=== PATIENT | female | born 1935 | race Caucasian/White ===

== ENCOUNTER 2018-07-03 12:25 | Inpatient (IN) | payer MEDICARE, OTHER, SELFPAY ==
[2018-07-03] VITALS (27 sets, daily range): BP systolic 92–172; BP diastolic 33–117; PULSE 57–93; RESP 16–21; TEMP 36–36.7; O2SAT 87–100
--- NOTE | 2018-07-03 12:25 | W.ED.GENAD ---
Discharge Plan Disposition Patient Disposition: [facility] INPATIENT Condition: Fair Discharge Details Chief Complaint: Orthopedic Clinical Impression: Closed fracture of left hip Reason For Visit: KAMILA Attending Provider: Erasto Erickson Primary Care Provider: THO ENRIQUEZ ED Provider: Marley Patricia Medical Decision Making Patient is a 83-year-old female with history of hypertension, hyperlipidemia and hypothyroidism, presenting today with chief complaint of left hip pain. She reports a prior to arrival, she tripped over a small throw rug in her kitchen and fell landing on her left hip. She is indicating the lateral aspect of the hip is area of maximal discomfort. Patient is noted to be slightly shortened on exam, no rotational defect is noted. Neurovascularly intact with no sensory deficits appreciated. She denies other injury at the time of the incident. Remembers the fall, no loss of conscious. Did not strike her head. Pelvis stable on exam. Neuro exam is intact. Patient received 75 mcg of fentanyl prior to arrival. Does not indicate that she needs further pain medication at this time. Will obtain x-rays of the left hip Patient to arrival back to the department, she is requesting further pain medication will give another 50 of fentanyl X-ray significant for a femoral neck fracture. Chest x-ray and laboratory evaluation was ordered as his EKG. Will consult with Orth EKG was obtained reviewed by Dr. Lang. Patient is noted to be in sinus rhythm with a rate of 70. T wave inversions are noted but no previous EKG is available. She advised no acute findings to suggest ischemia Consulted with Dr. Erickson. Patient last dated 729 this morning, will remain n.p.o. while here. He advised surgical intervention this afternoon. We will also consult with hospitalist Spoke with Dr. Paris who will place admission orders. Patient wishes to be full code. Consulted with anesthesia who performed a block to help with discomfort. Patient tolerated block well. She is remained n.p.o. while here. Patient being transported to surgery with Dr. Erickson [facility] General Mode of arrival: EMS. Date/Time Provider Initiated Documentation: 07/03/18 12:30. Limitations to Documentation: no limitations. Information obtained by: patient and EMS. History of Present Illness 83 year old F presents to the emergency department with the chief complaint of left hip pain, described as moderate, with intensity rated at 7. Quality is described as aching, and is localized to the left and lower extremity. Patient reports no radiation. Patient started experiencing this minute(s) and it has been constant. Immobilization improves symptom(s), Movement worsens symptoms . Patient notes no other symptoms.; denies chest pain, cough, fever/chills, headaches, nausea/vomiting and rash. Patient did receive the following treatments prior to arrival, other (has received 75mg Fentanyl prior to arrival by EMS) Related Data Home Medications Medication Instructions Recorded Confirmed ascorbic acid (vitamin C) [Vitamin 500 mg PO DAILY 08/17/14 07/03/18 C] aspirin 81 mg PO DAILY 08/17/14 07/03/18 calcium carbonate-vitamin D3 1 tab PO DAILY 08/17/14 07/03/18 [Calcium 600 + D(3)] cholecalciferol (vitamin D3) 1,000 unit PO DAILY 08/17/14 07/03/18 glucosamine terrazas 2KCl-chondroit 1 cap PO DAILY 08/17/14 07/03/18 [Glucosamine Sulf-Chondroitin] metoprolol tartrate 25 mg PO BID 08/17/14 07/03/18 rosuvastatin [Crestor] 20 mg PO DAILY 08/17/14 07/03/18 levothyroxine 25 mcg PO DAILY 01/06/17 07/03/18 Allergies Allergy/AdvReac Type Severity Reaction Status Date / Time Tetanus Vaccines and Toxoid AdvReac Mild Swelling/Ed Unverified 07/03/18 12:39 kady Review of Systems Constitutional Reports as per HPI Eyes Denies change in vision Cardiovascular Reports as per HPI, Denies chest pain and Denies dyspnea Respiratory Reports as per HPI, Denies cough and Denies dyspnea Gastrointestinal Reports as per HPI and Denies abdominal pain Genitourinary Denies urinary incontinence Musculoskeletal Reports as per HPI, Reports abnormal gait (patient has not attempted to weight bear since fall), Denies numbness and Denies tingling Integumentary/Breasts Reports as per HPI, Denies erythema, Denies rash, Denies unusual bruising and Denies wounds Neurologic Reports abnormal gait (patient has not attempted to weight bear since fall), Denies numbness and Denies tingling [facility] Social History Smoking/Tobacco Use Status: Never Exam Const General: cooperative, healthy appearing, comfortable, no acute distress, well developed and well groomed Nutritional Appearance: average body habitus and well nourished Orientation: alert and awake Neck Neck: normal visual inspection, full ROM, trachea midline and supple Chest Chest: normal inspection of the chest, normal palpation of entire chest wall and no localized rib tenderness Resp Effort & Inspection: normal respiratory effort, able to speak in complete sentences and no respiratory distress Auscultation: clear to auscultation bilaterally, no rales, no rhonchi and no wheezes Cardio Rate: regular rate Rhythm: regular rhythm Heart Sounds: S1 normal and S2 normal GI Inspection: normal to inspection Palpation: soft, no hepatosplenomegaly, no guarding and nontender Skin General skin exam: no rashes or lesions noted Trauma: no lacerations or abrasions Neuro General: alert, awake and oriented x3 Cognition: normal cognition Speech: speech normal Gait: gait abnormal (brought in via EMS, unable to weight bear at this time) Sensory Exam: no sensory deficits noted (no saddle paresthesias noted) Extrem General: abnormal to inspection (patient is slightly shortned on the left side, no rotational deformity. Pain with palpation over the lateral aspect of the hip over greater trochanter. No pain with )
--- NOTE | 2018-07-03 12:57 | ED.GENADUL_ITS ---
Discharge Plan Disposition [facility] Condition: Fair Discharge Details Chief Complaint: Orthopedic Clinical Impression: Closed fracture of left hip Reason For Visit: KAMILA Attending Provider: Erasto Erickson Primary Care Provider: THO ENRIQUEZ ED Provider: Marley Patricia Medical Decision Making Patient is a 83-year-old female with history of hypertension, hyperlipidemia and hypothyroidism, presenting today with chief complaint of left hip pain. She reports a prior to arrival, she tripped over a small throw rug in her kitchen and fell landing on her left hip. She is indicating the lateral aspect of the hip is area of maximal discomfort. Patient is noted to be slightly shortened on exam, no rotational defect is noted. Neurovascularly intact with no sensory deficits appreciated. She denies other injury at the time of the incident. Remembers the fall, no loss of conscious. Did not strike her head. Pelvis stable on exam. Neuro exam is intact. Patient received 75 mcg of fentanyl prior to arrival. Does not indicate that she needs further pain medication at this time. Will obtain x-rays of the left hip Patient to arrival back to the department, she is requesting further pain medication will give another 50 of fentanyl X-ray significant for a femoral neck fracture. Chest x-ray and laboratory evaluation was ordered as his EKG. Will consult with Orth EKG was obtained reviewed by Dr. Lang. Patient is noted to be in sinus rhythm with a rate of 70. T wave inversions are noted but no previous EKG is available. She advised no acute findings to suggest ischemia Consulted with Dr. Erickson. Patient last dated 729 this morning, will remain n.p.o. while here. He advised surgical intervention this afternoon. We will also consult with hospitalist Spoke with Dr. Paris who will place admission orders. Patient wishes to be full code. Consulted with anesthesia who performed a block to help with discomfort. Patient tolerated block well. She is remained n.p.o. while here. Patient being transported to surgery with Dr. Erickson [facility] General Mode of arrival: EMS . Date/Time Provider Initiated Documentation: 07/03/18 12:30 . Limitations to Documentation: no limitations . Information obtained by: patient and EMS . History of Present Illness 83 year old F presents to the emergency department with the chief complaint of left hip pain, described as moderate, with intensity rated at 7. Quality is described as aching, and is localized to the left and lower extremity. Patient reports no radiation. Patient started experiencing this minute(s) and it has been constant. Immobilization improves symptom(s), Movement worsens symptoms . Patient notes no other symptoms.; denies chest pain, cough , fever/chills, headaches, nausea/vomiting and rash. Patient did receive the following treatments prior to arrival, other (has received 75mg Fentanyl prior to arrival by EMS) Related Data Home Medications Medication Instructions Recorded Confirmed ascorbic acid (vitamin C) [Vitamin 500 mg PO DAILY 08/17/14 07/03/18 C] aspirin 81 mg PO DAILY 08/17/14 07/03/18 calcium carbonate-vitamin D3 1 tab PO DAILY 08/17/14 07/03/18 [Calcium 600 + D(3)] cholecalciferol (vitamin D3) 1,000 unit PO DAILY 08/17/14 07/03/18 glucosamine terrazas 2KCl-chondroit 1 cap PO DAILY 08/17/14 07/03/18 [Glucosamine Sulf-Chondroitin] metoprolol tartrate 25 mg PO BID 08/17/14 07/03/18 rosuvastatin [Crestor] 20 mg PO DAILY 08/17/14 07/03/18 levothyroxine 25 mcg PO DAILY 01/06/17 07/03/18 Allergies Allergy/AdvReac Type Severity Reaction Status Date / Time Tetanus Vaccines and Toxoid AdvReac Mild Swelling/Ed Unverified 07/03/18 12:39 kady Review of Systems Constitutional Reports as per HPI Eyes Denies change in vision Cardiovascular Reports as per HPI, Denies chest pain and Denies dyspnea Respiratory Reports as per HPI, Denies cough and Denies dyspnea Gastrointestinal Reports as per HPI and Denies abdominal pain Genitourinary Denies urinary incontinence Musculoskeletal Reports as per HPI, Reports abnormal gait (patient has not attempted to weight bear since fall), Denies numbness and Denies tingling Integumentary/Breasts Reports as per HPI, Denies erythema, Denies rash, Denies unusual bruising and Denies wounds Neurologic Reports abnormal gait (patient has not attempted to weight bear since fall), Denies numbness and Denies tingling [facility] Social History Smoking/Tobacco Use Status: Never Exam Const General: cooperative, healthy appearing, comfortable, no acute distress, well developed and well groomed Nutritional Appearance: average body habitus and well nourished Orientation: alert and awake Neck Neck: normal visual inspection, full ROM, trachea midline and supple Chest Chest: normal inspection of the chest, normal palpation of entire chest wall and no localized rib tenderness Resp Effort & Inspection: normal respiratory effort, able to speak in complete sentences and no respiratory distress Auscultation: clear to auscultation bilaterally, no rales, no rhonchi and no wheezes Cardio Rate: regular rate Rhythm: regular rhythm Heart Sounds: S1 normal and S2 normal GI Inspection: normal to inspection Palpation: soft, no hepatosplenomegaly, no guarding and nontender Skin General skin exam: no rashes or lesions noted Trauma: no lacerations or abrasions Neuro General: alert, awake and oriented x3 Cognition: normal cognition Speech: speech normal Gait: gait abnormal (brought in via EMS, unable to weight bear at this time) Sensory Exam: no sensory deficits noted (no saddle paresthesias noted) Extrem General: abnormal to inspection (patient is slightly shortned on the left side, no rotational deformity. Pain with palpation over the lateral aspect of the hip over greater trochanter. No pain with )
--- NOTE | 2018-07-03 13:21 | DI.RAD_ITS ---
SYMPTOMS/DIAGNOSIS: PAIN OVER LEFT LATERAL HIP S/P FALL CHEST X-RAY, AP VIEW: Comparison is 08/17/14. The heart size and pulmonary vasculature are within normal limits. The patient is status post CABG. The lungs are clear. No effusions or pneumothoraces are identified. Degenerative changes are seen in the spine. IMPRESSION: No acute pulmonary process. LEFT HIP AND PELVIS: There is a left femoral neck fracture with mild superior displacement of the distal fracture. The left femoral head is seated within the acetabulum. No other fracture or dislocation is seen. The soft tissues are unremarkable. IMPRESSION: Displaced left femoral neck fracture.
[2018-07-03] MEDS: fentaNYL 100 MCG/2 ML VIAL 50 MCG IVP (13:28)
--- NOTE | 2018-07-03 14:01 | PT.INNT ---
Date of service: 07/03/18 Time of Service: 14:01 PT Notes PHYSICAL THERAPY NOTE 07/03/18 PT Consult received, chart reviewed for 83y old female in emergency room with hip fracture. Will need ortho consult and post operative PT Consultation order to begin PT services. Will await PT Consult order post op. Natalie Ventura PT
[2018-07-03] MEDS: Bupivacaine 0.25% Pres-Free 30 ML VIAL IJ (14:08)
[2018-07-03 14:50] LABS: HGB 13.8 g/dL (12.0-15.5); Mean Corp. HGB Concentration 33.7 g/dL (32.0-36.0); Mean Corpuscular Hemoglobin 30.2 pg (27.0-33.0); Mean Corpuscular Volume 89.7 fL (80-95); Mean Platelet Volume 10.8 fL (8.0-11.0); Platelet Count 185 x1000/uL (130-400); RBC 4.57 m/cumm (4.00-5.20); RBC Distribution Width 14.1 % (11.7-14.6); White Blood Cell Count 9.86 k/cumm (4.4-10.8)
[2018-07-03] MEDS: Lactated Ringers 1,000 ML 200 ML IV ×2 (14:53→17:30)
[2018-07-03 15:07] LABS: ALT 21 U/L (12-78); AST 19 U/L (15-37); Albumin 3.7 g/dL (3.4-5.0); Alkaline Phosphatase 72 U/L (46-116); Anion Gap 9.7 mmol/L (3-11); BUN 19 mg/dL (7-18); Bilirubin, Total 1.1 mg/dL (0.2-1.0); CO2 24.3 mmol/L (21.0-32.0); CREATININE 0.73 mg/dL (0.55-1.02); Calcium 8.9 mg/dL (8.5-10.1); Chloride 103 mmol/L (98-107); Glucose 117 mg/dL (70-100); INR 1.1 (1.0-3.5); PTT Activated 23.7 sec (21.0-31.4); Potassium 3.7 mmol/L (3.5-5.1); Prothrombin Time 10.7 sec (9.3-10.8); Sodium 137 mmol/L (136-145); Total Protein 7.3 g/dL (6.4-8.2)
--- NOTE | 2018-07-03 15:25 | W.PM.HP.N ---
[facility], [facility]–1983 Social History Smoking/Tobacco Use Status: Never Meds Home Medications Medication Instructions Recorded Confirmed Type ascorbic acid (vitamin C) [Vitamin 500 mg PO DAILY 08/17/14 07/03/18 History C] aspirin 81 mg PO DAILY 08/17/14 07/03/18 History calcium carbonate-vitamin D3 1 tab PO DAILY 08/17/14 07/03/18 History [Calcium 600 + D(3)] cholecalciferol (vitamin D3) 1,000 unit PO DAILY 08/17/14 07/03/18 History glucosamine terrazas 2KCl-chondroit 1 cap PO DAILY 08/17/14 07/03/18 History [Glucosamine Sulf-Chondroitin] metoprolol tartrate 25 mg PO BID 08/17/14 07/03/18 History rosuvastatin [Crestor] 20 mg PO DAILY 08/17/14 07/03/18 History levothyroxine 25 mcg PO DAILY 01/06/17 07/03/18 History Allergies Allergy/AdvReac Type Severity Reaction Status Date / Time Tetanus Vaccines and Toxoid AdvReac Mild Swelling/Ed Unverified 07/03/18 12:39 kady Results Labs : 07/03/18 14:40 07/03/18 14:40 Laboratory Results - last 24 hr 07/03/18 07/03/18 07/03/18 14:40 14:40 14:40 WBC 9.86 RBC 4.57 Hgb 13.8 Hct 41.0 MCV 89.7 MCH 30.2 MCHC 33.7 RDW 14.1 Plt Count 185 MPV 10.8 PT 10.7 INR 1.1 APTT 23.7 Sodium 137 Potassium 3.7 Chloride 103 Carbon Dioxide 24.3 Anion Gap 9.7 BUN 19 H Creatinine 0.73 Estimated GFR/1.73 m2 >= 60.00 Glucose 117 H Calcium 8.9 Total Bilirubin 1.1 H AST 19 ALT 21 Alkaline Phosphatase 72 Total Protein 7.3 Albumin 3.7 Patient ABO/Rh Antibody Screen 07/03/18 14:40 WBC RBC Hgb Hct MCV MCH MCHC RDW Plt Count MPV PT INR APTT Sodium Potassium Chloride Carbon Dioxide Anion Gap BUN Creatinine Estimated GFR/1.73 m2 Glucose Calcium Total Bilirubin AST ALT Alkaline Phosphatase Total Protein Albumin Patient ABO/Rh A Positive Antibody Screen Negative Last Vital Signs Temp 36.2 C L 07/03/18 12:34 Pulse 81 07/03/18 14:21 Resp 16 07/03/18 12:34 BP 168/76 H 07/03/18 14:21 Pulse Ox 100 07/03/18 14:21
[2018-07-03] MEDS: Hydrogen Peroxide 3% 480 ML BTL (16:00)
--- NOTE | 2018-07-03 17:14 | DI.RAD_ITS ---
SYMPTOM/DIAGNOSIS: CHECK POSITION OF UNIPOLAR PROSTHESIS AP PELVIS: AP view of the pelvis was obtained and shows femoral head prosthesis in position which appears well seated in the acetabulum and femur. The tip of the prosthesis is not included on the films distally. Appropriate follow up films requested.
--- NOTE | 2018-07-03 17:46 | ROE_ITS ---
DATE OF PROCEDURE: July 03, 2018 PREOPERATIVE DIAGNOSIS: Displaced fracture left femoral neck. POSTOPERATIVE DIAGNOSIS: Same. PROCEDURE: Unipolar prosthetic replacement of the left femoral head for femoral neck fracture, left. ANESTHESIA: General, Joseph Vidal CRNA SURGEON: Erasto Erickson M.D. ACCOUNT SUPPORT ANALYST: Usman Ross ESTIMATED BLOOD LOSS: 175-200 cc's INDICATIONS: This is an 83-year-old white female who tripped on a rug in her home sustaining a displ aced left femoral neck fracture. She was brought to the Emergency Room for evaluation. She appeared to be in good health with no significant medical problems. Unipolar prosthetic replacement of the f emoral head was recommended as optimum treatment of her femoral neck fracture. Prosthetic replacemen t will allow for more rapid mobilization and ambulation. The risks and complications of the procedur e have been explained to the patient in detail preoperatively. She wished to proceed as soon as poss ible. PROCEDURE: The patient was taken to the operating room in the afternoon on 07/03/18. She had been g iven a fascia flavia block in the Emergency Room. In the operating room she was placed supine on the o perating table and a general anesthetic was administered. She was then turned to the left lateral po sition on the operating table; her position was maintained with a pneumatic beanbag. The left hip wa s prepped and draped free in the usual sterile fashion. A posterolateral incision was made, centered over the greater trochanter. The incision was carried d own to the skin and subcu to the fascia. The subcutaneous veins were cauterized. The iliotibial ban d and gluteus fascia were incised in line with the skin incision. A Charnley self-retaining retracto r was inserted. The piriformis tendon was identified. The superficial vein over the piriformis tend on was cauterized. The piriformis tendon and the remainder of the short external rotators were relea sed from the insertion on the femoral neck. Tag sutures were placed in the piriformis tendon to help to retract them. A T-shaped incision on the posterior capsule was then made, exposing the fracture. The femoral head was removed with a corkscrew device. I measured the femoral head and it was 45 mm in diameter. The femoral neck was then resected at appropriate level and angle using the femoral ne ck resection guide and oscillating saw. The femoral canal was then serially reamed with straight chacorta mers until there was some cortical chatter with a #5 reamer. The canal was then broached up to a siz e 5 broach until there was good fit and fill. The canal was then plugged distally with the universal cement restrictor. The femoral canal was then prepared for cementing with pulse irrigation lavage of saline solution and drying with peroxide-soaked strip sponges. Two batches of Gentamicin-impregnated methylmethacrylate were vacuum mixed and were placed in the cement gun. The cement gun was then used to inject the fem oral canal with liquid cement and the cement was pressurized in the canal as well. The centralizer w as placed on the tip of the size 5 stem and the size 5 DePuy fracture stem was then inserted and impa cted into place in proper anteversion. The component was inserted until the collar made contact with the calcar. Pressure was maintained until the cement had hardened. Excess cement was trimmed from the margins of the prosthesis with a curette while the cement was still soft. When the cement had fu lly cured, the acetabulum was checked for any residual bone or cement debris. The wound was irrigated with pulse irrigation lavage of saline solution and then Betadine and saline solution was allowed to stay in the wound for 30 seconds before suctioning. I placed a 5 mm sleeve i n a 45 mm Unipolar head to equalize limb length. The Unipolar endoprosthesis was then placed on the neck of the stem and impacted into place with impactor and mallet. The Unipolar prosthesis was reduc ed in the acetabulum. There appeared to be good soft tissue tension using a +5 mm sleeve. The posterior capsule was then repaired with interrupted [id number] sutures of #1 Vicryl suture material. The piriformis tendon was reattached to the posterior edge of the abductor tendon at the t ip of the trochanter with interrupted [id number] sutures of #1 Vicryl suture material. Tranexam ic acid 2 grams and 150 cc's were instilled into the wound and allowed to stay for a minute before terrazas ctioning. The left leg was abducted in a Alexis stand and closure was begun. The iliotibial band and gluteus fascia were approximated with interrupted [id number] sutures of #1 Vicryl suture materia l. The subcu was approximated with interrupted #2-0 Vicryl sutures. The skin edges were approximate d with skin rere. The wound was dressed with Xeroform gauze, sterile gauze 4x4's, ABD pad and tap ed with foam elastic tape for a light pressure dressing. The patient was turned supine; an abductor pillow was placed between her legs. The patient's anesthesia was reversed without complications. Sh e was given 2 grams of Ancef IV prior to making the skin incision. She tolerated the procedure well and was discharged to the recovery room in good condition.
[2018-07-03] MEDS: Ketorolac 15 MG/ML VIAL IVP (19:39)
--- NOTE | 2018-07-03 19:48 | W.PM.HP.N ---
Date of service: 07/03/18 Time of Service: 19:48 Assessment and Plan (1) Hip fracture: Current visit: Yes Status: Acute Hip fracture, management per orthopedics. No active medical issues, will continue usual medications as is. History of Present Illness Chief Complaint: Hip pain Narrative: Patient is an 83-year-old female who had a mechanical fall today, tripped over a rug, struck her hip with immediate pain. Hip fracture was noted and she was taken to the OR for repair. She is admitted for further evaluation and management. Patient is requesting a pain medicine at this time, otherwise no complaints Review of Systems Review of Systems All systems reviewed & are unremarkable except as noted in HPI and below PFSH Medical History Hip fracture (Acute) Hyperlipidemia (Acute) Hypertension (Chronic) Hypothyroid (Chronic) Social History Smoking/Tobacco Use Status: Never Meds Home Medications Medication Instructions Recorded Confirmed Type ascorbic acid (vitamin C) [Vitamin 500 mg PO DAILY 08/17/14 07/03/18 History C] aspirin 81 mg PO DAILY 08/17/14 07/03/18 History calcium carbonate-vitamin D3 1 tab PO DAILY 08/17/14 07/03/18 History [Calcium 600 + D(3)] cholecalciferol (vitamin D3) 1,000 unit PO DAILY 08/17/14 07/03/18 History glucosamine terrazas 2KCl-chondroit 1 cap PO DAILY 08/17/14 07/03/18 History [Glucosamine Sulf-Chondroitin] metoprolol tartrate 25 mg PO BID 08/17/14 07/03/18 History rosuvastatin [Crestor] 20 mg PO DAILY 08/17/14 07/03/18 History levothyroxine 25 mcg PO DAILY 01/06/17 07/03/18 History Allergies Allergy/AdvReac Type Severity Reaction Status Date / Time Tetanus Vaccines and Toxoid AdvReac Mild Swelling/Ed Unverified 07/03/18 12:39 kady Exam Narrative Exam Narrative: Blood pressure 100/65, pulse 60, temp 36.2, respirations 16. HEENT is unremarkable. Neck supple. Lungs clear. Heart regular rate and rhythm. Abdomen is soft nontender. Pelvic and rectal exams deferred. Extremities without edema, pedal pulses intact and able to move her toes fully. Results Labs : 07/03/18 14:40 07/03/18 14:40 Laboratory Results - last 24 hr 07/03/18 07/03/18 07/03/18 14:40 14:40 14:40 WBC 9.86 RBC 4.57 Hgb 13.8 Hct 41.0 MCV 89.7 MCH 30.2 MCHC 33.7 RDW 14.1 Plt Count 185 MPV 10.8 PT 10.7 INR 1.1 APTT 23.7 Sodium 137 Potassium 3.7 Chloride 103 Carbon Dioxide 24.3 Anion Gap 9.7 BUN 19 H Creatinine 0.73 Estimated GFR/1.73 m2 >= 60.00 Glucose 117 H Calcium 8.9 Total Bilirubin 1.1 H AST 19 ALT 21 Alkaline Phosphatase 72 Total Protein 7.3 Albumin 3.7 Patient ABO/Rh Antibody Screen 07/03/18 14:40 WBC RBC Hgb Hct MCV MCH MCHC RDW Plt Count MPV PT INR APTT Sodium Potassium Chloride Carbon Dioxide Anion Gap BUN Creatinine Estimated GFR/1.73 m2 Glucose Calcium Total Bilirubin AST ALT Alkaline Phosphatase Total Protein Albumin Patient ABO/Rh A Positive Antibody Screen Negative Last Vital Signs Temp 36.2 C L 07/03/18 19:39 Pulse 60 07/03/18 18:00 Resp 18 07/03/18 18:00 BP 100/65 07/03/18 18:00 Pulse Ox 93 L 07/03/18 18:00
[2018-07-03] MEDS: POTASSIUM CHLORIDE/0.9% NACL 1,000 ML 100 MEQ IV (20:13)
[2018-07-03] MEDS: Metoprolol 25 MG TAB PO (22:11)
[2018-07-04] VITALS (8 sets, daily range): BP systolic 112–162; BP diastolic 69–81; PULSE 59–80; RESP 14–20; TEMP 36.3–37.3; O2SAT 94–97
[2018-07-04] MEDS: Ketorolac 15 MG/ML VIAL IVP ×4 (00:18→18:52)
[2018-07-04] MEDS: Normal Saline Flush 10 ML SYR ×5 (00:18→20:41)
[2018-07-04] MEDS: Levothyroxine 25 MCG TAB PO (06:39)
[2018-07-04 07:31] LABS: BUN 18 mg/dL (7-18); CREATININE 0.88 mg/dL (0.55-1.02); Calcium 8.4 mg/dL (8.5-10.1); Chloride 108 mmol/L (98-107); Glucose 117 mg/dL (70-100); Potassium 4.4 mmol/L (3.5-5.1); Sodium 140 mmol/L (136-145)
[2018-07-04] MEDS: Acetaminophen 325 MG TAB PO ×3 (09:12→18:54)
[2018-07-04] MEDS: Docusate Sodium 100 MG CAP PO ×3 (09:13→20:41)
[2018-07-04] MEDS: Metoprolol 25 MG TAB PO ×2 (09:15→20:41)
[2018-07-04] MEDS: Multivitamin w/Minerals TAB 1 TAB PO (09:15)
[2018-07-04] MEDS: POTASSIUM CHLORIDE/0.9% NACL 1,000 ML 100 MEQ IV (09:16)
[2018-07-04] MEDS: Pantoprazole 40 MG TABCR PO (09:16)
[2018-07-04] MEDS: Rosuvastatin 10 MG TAB 20 MG PO (09:16)
--- NOTE | 2018-07-04 09:51 | W.PM.PROGNOT ---
Date of Service Date of service: 07/04/18 Time of Service: 09:51 Assessment and Plan (1) Hip fracture: Start date: 07/04/18 Start time: 09:55 Current visit: Yes Status: Acute Assessment: Stable postop day #1 unipolar prosthetic replacement of the left femoral head for femoral neck fracture. Plan: DC Pagan. Mobilize with physical therapy. Check hemoglobin later. Subjective Interval history since last seen: She is not having any pain in her left hip or left leg. She is complaining of low back discomfort from lying supine, despite being turned from side to side. Exam Narrative Exam Narrative: She is alert and oriented to time place person in situ. Her left foot is warm with good sensation. Good palpable pulses in the foot. She has good urine output. Pagan is still in place despite my order to remove it at 8:30 AM. She is afebrile and vital signs are stable. Objective Objective Clinical Data: Abnormal lab results 07/03/18 07/04/18 Range/Units 14:40 06:22 Chloride 108 H (98-107) mmol/L BUN 19 H (7-18) mg/dL Glucose 117 H 117 H (70-100) mg/dL Calcium 8.4 L (8.5-10.1) mg/dL Total Bilirubin 1.1 H (0.2-1.0) mg/dL Vital Signs Temperature 36.6 C 07/04/18 03:38 Temperature Source Tympanic 07/04/18 03:38 Pulse 69 07/04/18 03:38 Pulse Rhythm Regular 07/04/18 00:25 Pulse 90 07/03/18 14:30 Respiratory Rate 17 07/04/18 03:38 Respiratory Effort 07/04/18 00:25 Respiratory Depth Normal 07/04/18 00:25 Respiratory Pattern Normal 07/04/18 00:25 Blood Pressure 126/74 07/04/18 03:38 Blood Pressure Mean 93 07/03/18 14:21 Blood Pressure Position Supine 07/03/18 12:34 Pulse Oximetry 95 07/04/18 03:38 Respiratory End-tidal CO2 33 07/03/18 17:30 Oxygen Delivery Method Room Air 07/04/18 03:38 Oxygen Flow Rate 0 07/04/18 03:38 Pain Level 3 07/04/18 09:12 Comment 07/04/18 00:25 Intake & Output 07/03/18 07/03/18 07/04/18 11:59 23:59 11:59 Intake Total 2049 1300 / 1300 Output Total 1200 / 1200 350 / 350 Balance 850 / 850 950 / 950 Weight 72.3 kg Intake: IV 2049 1050 / 1050 Oral 250 / 250 Output: Urine 800 / 800 350 / 350 Estimated Blood Loss 400 / 400 Other: Urine Color Yellow Yellow Urine Appearance Clear Clear Emesis Description None Voiding Methods Indwelling Catheter Laboratory Results WBC 9.86 k/cumm (4.4-10.8) 07/03/18 14:40 RBC 4.57 m/cumm (4.00-5.20) 07/03/18 14:40 Hgb 13.8 g/dL (12.0-15.5) 07/03/18 14:40 Hct 41.0 % (36.0-46.0) 07/03/18 14:40 MCV 89.7 fL (80-95) 07/03/18 14:40 MCH 30.2 pg (27.0-33.0) 07/03/18 14:40 MCHC 33.7 g/dL (32.0-36.0) 07/03/18 14:40 RDW 14.1 % (11.7-14.6) 07/03/18 14:40 Plt Count 185 x1000/uL (130-400) 07/03/18 14:40 MPV 10.8 fL (8.0-11.0) 07/03/18 14:40 PT 10.7 sec (9.3-10.8) 07/03/18 14:40 INR 1.1 (1.0-3.5) 07/03/18 14:40 APTT 23.7 sec (21.0-31.4) 07/03/18 14:40 Sodium 140 mmol/L (136-145) 07/04/18 06:22 Potassium 4.4 mmol/L (3.5-5.1) 07/04/18 06:22 Chloride 108 mmol/L (98-107) H 07/04/18 06:22 Carbon Dioxide 26.0 mmol/L (21.0-32.0) 07/04/18 06:22 Anion Gap 6.0 mmol/L (3-11) 07/04/18 06:22 BUN 18 mg/dL (7-18) 07/04/18 06:22 Creatinine 0.88 mg/dL (0.55-1.02) 07/04/18 06:22 Estimated GFR/1.73 m2 >= 60.00 (mL/min/1.73m2) 07/04/18 06:22 Glucose 117 mg/dL (70-100) H 07/04/18 06:22 Calcium 8.4 mg/dL (8.5-10.1) L 07/04/18 06:22 Total Bilirubin 1.1 mg/dL (0.2-1.0) H 07/03/18 14:40 AST 19 U/L (15-37) 07/03/18 14:40 ALT 21 U/L (12-78) 07/03/18 14:40 Alkaline Phosphatase 72 U/L (46-116) 07/03/18 14:40 Total Protein 7.3 g/dL (6.4-8.2) 07/03/18 14:40 Albumin 3.7 g/dL (3.4-5.0) 07/03/18 14:40 Patient ABO/Rh A Positive 07/03/18 14:40 Antibody Screen Negative 07/03/18 14:40
--- NOTE | 2018-07-04 10:02 | PT.INIE ---
Date of service: 07/04/18 Time of Service: 09:15 PT Notes Inpatient Physical Therapy Evaluation Date: 07/04/18 Referring Doctor: Erasto Erickson MD PT Orders: PT CONSULT: Mobilize following unipolar left hip replacement for femoral neck fracture Precautions: Weightbearing as tolerated to the left leg, total hip precautions on left Patient Profile/Admitting Diagnosis: Patient describes herself as a retired female who lives in patient with her . She states that about 2 days ago she was turning in her house and ended up catching her foot on a rug falling down to the floor. Patient states that she was unable to raise up from the floor instantly knew that she had incurred some serious damage. She was taken to the emergency department where a femoral neck fracture was identified. Patient underwent a unipolar total hip replacement yesterday. PMHX: Hip fracture, hypothyroidism, hypertension, Social History/Home Situation: Patient lives in an old farm home with her at home. They have a flight of stairs in order to access the bedroom on the top floor however there is a bathroom on the bottom for. Equipment Owned/DME: Nothing currently Subjective:Patient states she is in quite a bit of pain today Objective: Alert female in no current acute distress who appears of stated age sitting up with head of bed to 45 degrees, padding between the thighs to allow separation and no abduction of the hip Mental Status: Alert and oriented x3 to person place and time Pain: 7 out of 10 ROM: Right Upper Extremity: Within normal limits Left Upper Extremity: Within normal limits Right Lower Extremity: Within functional limits Left Lower Extremity: Hip flexion to 90 degrees, hip internal rotation to 0 hip abduction to 0 hip abduction to 25 Strength: Right Upper Extremity: Globally 5 out of 5 Left Upper Extremity: Globally 5 out of 5 Right Lower Extremity: Globally 5 out of 5 Left Lower Extremity: Hip flexion 4-5 with pain, quads 4-5 with pain, hamstrings 4-5 with pain, dorsiflexion plantar flexion 5 out of 5 bilaterally Neuro screen: Patient intact light touch and sensation throughout upper and lower extremity dermatomes motor control appears intact to associated myotomes and patient demonstrates appropriate level of proprioception and kinesthetic awareness Bed Mobility/Transfers: Patient requires minimum assist for supine to sit on edge of bed with head of bed to 65 Sit-stand: Patient requires minimal assist for sit stand Stand-sit: Patient requires minimum assist Bed-commode: Patient requires minimal assist Commode-chair: Patient requires minimum assist Stand-sit: Patient requires minimum assist Gait: Patient able to ambulate with FWwalker using a 3-point gait pattern, with weightbearing as tolerated through the left and minimum assist. Up to 20 feet Balance: Static Sitting: Good Dynamic Sitting: Fair Static Standing: Poor Dynamic Standing: poor Special Tests: Mobility Limitations Standardized Measure [facility] AM-PAC 6 clicks Basic Mobility Inpatient Short Form: Raw Score: 12 standardized Score 3.08: CMS Score: 68.66% CMS Modifier: CL Informed Consent/Education: Patient instructed in purpose of PT consult and plan of care. ASSESSMENT: Patient is a 83-year-old female with a history of good physical health Admitted with the diagnosis of hip fracture of the femoral neck with a unipolar hip replacement Patient presents with the following impairment level findings: Range of motion deficits and total hip precautions to the left, ambulation intolerance, assistance needed for transferring Pt will benefit from skilled therapy intervention in order to remediate her functional limtations and restore patient to a more appropriate and stable functional level. Impairments are contributing to the following functional limitations: AMPAC score CMS Score: 68.6% Patient is assessed as a moderate complexity initial evaluation 17853 based on the following: History: see above Examination: see above Presentation: Evolving Decision Making: Moderate based on the impact score of 68.6% Goals: Goals X1 week 1. Supine-Sit SBA 2. Sit-Supine SBA 3. Sit-Stand SBA 4. Stand-Sit SBA 5. Bed-Chair SBA 6. Chair SBA 7. Gait SBA with FWW up to 100 feet 8: Independent in Home program Plan of Care/Treatment Plan: 1-2x/day, 7 days/week x 1 week. Plan of care has been reviewed with the GENERAL OPERATIONS MANAGER providing the service under Physical Therapy direction. Initiate Physical Therapy intervention for strengthening, bed mobility, transfers, gait, stairs, balance training, use of assistive device. DISCHARGE RECOMMENDATIONS: To home if able to complete transfer in and out of her recliner and able to utilize bathroom facility with only standby assist. Also, this would have to take into account significant resources available from family and friends. If this is not available in a short subacute rehab stay may be validated TREATMENT CODE/TIME: Moderate complexity initial evaluation 87048 time of service 915 with 45-minute treatment time G Codes most appropriate G code ability walking moving around GP?[id number]?CL the goal of discharge of GP?[id number]?CJ
[2018-07-04 10:10] LABS: HCT 34.5 % (36.0-46.0); HGB 11.4 g/dL (12.0-15.5)
--- NOTE | 2018-07-04 10:47 | PDOC.CMIN ---
Care Management Initial Assess REASON FOR HOSPITALIZATION:: Hip Fracture PAST MEDICAL HISTORY/PAST SURGICAL HISTORY:: Hip fracture, hypothyroidism, DVT prophylaxis, Hyperlipidemia, HTN PREVIOUS FUNCTIONAL STATUS/SOCIAL/FAMILY SUPPORTS:: Heidi resides in [place] with her , Radames. 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 Heidi reports her and Radames have two sons and two daughters all of who reside in [place] except for one of their daughters who resides in [place]. 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 Heidi reports her son Crescencio manages [employer]. Radames and Heidi both drive and enjoy taking day trips to [facility] and [place]. Heidi enjoys adult coloring and reading she also enjoys socializing with the [facility] in [place]. She shares that Radames attends Cardiac Rehab a few times a week. The couple is independent with all ADLs in the community. CURRENT FUNCTIONAL STATUS:: Heidi is sitting up in her chair when CM meets with her. She is pleasant in interaction and forthcoming with information. ADVANCE DIRECTIVES:: Lulu Kelly as agent, Rosanna De Los Santos as alternate Has patient been provided with information about the portal?: Yes Did the patient sign up for the portal?: No CODE STATUS:: Full Code INSURANCE COVERAGE / FINANCIAL ISSUES:: [employer]. Medicare CURRENT HOME/COMMUNITY SERVICES/EQUIPMENT:: Canes, grab bars in shower. PRIMARY CARE PHYSICIAN:: Alma Youssef POTENTIAL DISCHARGE NEEDS:: Follow up appointments with PCP. PATIENT/FAMILY EDUCATION NEEDS:: Review of discharge instructions, discuss Ask Me Three. ANTICIPATED BARRIERS TO DISCHARGE:: None identiifed at this time. TRANSPORTATION:: Via private vehicle with her family. PLAN:: Heidi will discharge when ready per MD. She would like to focus on manuvering transfers safely and then return home. She reports her preference would be to return home with VNA/PT, this will require some planning as her bedroom is upstairs and her bathroom is downstairs. CM will continue to follow and support discharge planning considerations.
--- NOTE | 2018-07-04 11:02 | PHARADMIT ---
Addendum entered by Justus Fowler III 07/06/18 14:11: Pharmacy Note Subjective S/P Day #3 of Prosthetic replacement of femoral head of femoral Fx. Objective VS-OK pain: 11/25 No Labs No BM yet Assessment Bowel regimen started. Plan Patient was to be discharged home today but is not ready. Original Note: Admission Pharmacy Clinical Review hip fracture Code Status Full Code Current Weight 72.3 kg Renally Cleared and Narrow Therapeutic Index Meds Crcl ~49.1 mL/min using adjusted body weight cefazolin should be Q8H (only 1 dose left)for Crcl 35-54 mL/min QTc Value / Action Taken QTc 436 BP Control, Fever BP 126/74 afebrile Electrolytes reviewed Cl 108 DVT Prophylaxis enoxaparin Opiate Usage / Scheduled Bowel Regimen Ordered PRN/omega+PRN Plt/SCr for Heparin / Enoxaparin plt 185 SCr 0.88 INR for Warfarin n/a H/H stable, WBC/Bands h/h 11.4/34.5 wbc 9.86 Antibiotic appropriateness cefazolin-postop Cultures and Sensitivities none Surgical ABX d/c within 24 hr yes, will discontinue within 24 hours of surgery DM control / Insulin Dosing BG 117 none Heart Failure (Check EF%) (PIEDAD's, B-Block, Diuretics) metoprolol IV to PO Switch n/a Home Meds Reviewed separate admin of levothyroxine and calcium carbonate/vitamin d Home Meds Not Ordered aspirin Comments pain has been okay but pt was having trouble sleeping, takes diphenhydramine to help sleep at home pre morning report
--- NOTE | 2018-07-04 13:24 | INITIAL_ITS ---
Care Management Initial Assess REASON FOR HOSPITALIZATION:: Hip Fracture PAST MEDICAL HISTORY/PAST SURGICAL HISTORY:: Hip fracture, hypothyroidism, DVT prophylaxis, Hyperlipidemia, HTN PREVIOUS FUNCTIONAL STATUS/SOCIAL/FAMILY SUPPORTS:: Heidi resides in [place] with her , Radames. 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 Heidi reports her and Radames have two sons and two daughters all of who reside in [place] except for one of their daughters who resides in [place]. 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 Heidi reports her son Crescencio manages [employer]. Radames and Heidi both drive and enjoy taking day trips to [facility] and [place]. Heidi enjoys adult coloring and reading she also enjoys socializing with the [employer] [facility] in [place]. She shares that Radames attends Cardiac Rehab a few times a week. The couple is independent with all ADLs in the community. CURRENT FUNCTIONAL STATUS:: Heidi is sitting up in her chair when CM meets with her. She is pleasant in interaction and forthcoming with information. ADVANCE DIRECTIVES:: Lulu Kelly as agent, Rosanna De Los Santos as alternate Has patient been provided with information about the portal?: Yes Did the patient sign up for the portal?: No CODE STATUS:: Full Code INSURANCE COVERAGE / FINANCIAL ISSUES:: [employer]. Medicare CURRENT HOME/COMMUNITY SERVICES/EQUIPMENT:: Canes, grab bars in shower. PRIMARY CARE PHYSICIAN:: Alma Youssef POTENTIAL DISCHARGE NEEDS:: Follow up appointments with PCP. PATIENT/FAMILY EDUCATION NEEDS:: Review of discharge instructions, discuss Ask Me Three. ANTICIPATED BARRIERS TO DISCHARGE:: None identiifed at this time. TRANSPORTATION:: Via private vehicle with her family. PLAN:: Heidi will discharge when ready per MD. She would like to focus on manuvering transfers safely and then return home. She reports her preference would be to return home with VNA/PT, this will require some planning as her bedroom is upstairs and her bathroom is downstairs. CM will continue to follow and support discharge planning considerations.
--- NOTE | 2018-07-04 15:33 | W.PM.PROGNOT ---
Date of Service Date of service: 07/04/18 Time of Service: 15:33 Assessment and Plan (1) Hip fracture: Current visit: Yes Status: Acute Post-op day #1 for prosthetic replacement of left femoral head for a femoral neck fracture. Pain control, PT. Disposition to either SNF or home with services per Ortho recommendations. Initiate bowel regimen as well. (2) CAD (coronary artery disease): Current visit: Yes Status: Chronic Unsure of history, but patient reports prior CABG X3. Appears quiescent. Continue high potency statin, BB therapy. ASA currently on hold. (3) Hyperlipidemia: Current visit: Yes Status: Acute Currently on Crestor. (4) Hypothyroidism: Current visit: Yes Status: Chronic Continue replacement therapy. (5) HTN (hypertension): Current visit: Yes Status: Chronic Continue BB with hold parameters. (6) DVT prophylaxis: Current visit: Yes Status: Acute SC Lovenox. Subjective Interval history since last seen: 83 year old woman with a prior history of HTN, Dyslipidemia, and CAD s/p CABG admitted from [facility] on 07/03 following a hip fracture. Mrs. Mcdermott was in her usual state of health at home when she suffered a mechanical fall with a resultant hip fracture. She was immediately taken to the OR for surgical repair of a displaced left femoral neck fracture. She is currently doing well, and working with PT. Followed by Ortho. No overnight events reported. She remains afebrile. Exam Narrative Exam Narrative: General: Patient appears comfortable, AAOX3, NAD Skin: Anterior chest wall incisional scar noted Neck: Supple CV: Regular, nontachycardic, S1S2 Pulmonary: Clear to auscultation bilaterally, no crackles, wheezing, or rhonchi Abdomen: + Bowel Sounds, soft, nontender, nondistended Vascular: No lower extremity edema Psych: Normal mood and affect. Objective Objective Clinical Data: Abnormal lab results 07/04/18 07/04/18 Range/Units 06:22 06:22 Hgb 11.4 L D (12.0-15.5) g/dL Hct 34.5 L (36.0-46.0) % Chloride 108 H (98-107) mmol/L Glucose 117 H (70-100) mg/dL Calcium 8.4 L (8.5-10.1) mg/dL Vital Signs Temperature 37.0 C 07/04/18 11:37 Temperature Source Tympanic 07/04/18 11:37 Pulse 67 07/04/18 11:37 Pulse Rhythm Regular 07/04/18 00:25 Pulse 90 07/03/18 14:30 Respiratory Rate 18 07/04/18 11:37 Respiratory Effort 07/04/18 00:25 Respiratory Depth Normal 07/04/18 00:25 Respiratory Pattern Normal 07/04/18 00:25 Blood Pressure 115/75 07/04/18 11:37 Blood Pressure Mean 93 07/03/18 14:21 Blood Pressure Position Supine 07/03/18 12:34 Pulse Oximetry 96 07/04/18 11:37 Respiratory End-tidal CO2 33 07/03/18 17:30 Oxygen Delivery Method Room Air 07/04/18 11:37 Oxygen Flow Rate 0 07/04/18 11:37 Pain Level 5 07/04/18 14:18 Comment 07/04/18 00:25 Intake & Output 07/03/18 07/04/18 07/04/18 23:59 11:59 23:59 Intake Total 2049 / 2049 1350 / 1350 240 / 240 Output Total 1200 / 1200 350 / 350 Balance 850 / 850 1000 / 1000 240 / 240 Weight 72.3 kg Intake: IV 2049 1100 / 1100 Oral 250 / 250 240 / 240 Output: Urine 800 / 800 350 / 350 Estimated Blood Loss 400 / 400 Other: Urine Color Yellow Yellow Urine Appearance Clear Clear Emesis Description None Voiding Methods Indwelling Catheter Laboratory Results WBC 9.86 k/cumm (4.4-10.8) 07/03/18 14:40 RBC 4.57 m/cumm (4.00-5.20) 07/03/18 14:40 Hgb 11.4 g/dL (12.0-15.5) L D 07/04/18 06:22 Hct 34.5 % (36.0-46.0) L 07/04/18 06:22 MCV 89.7 fL (80-95) 07/03/18 14:40 MCH 30.2 pg (27.0-33.0) 07/03/18 14:40 MCHC 33.7 g/dL (32.0-36.0) 07/03/18 14:40 RDW 14.1 % (11.7-14.6) 07/03/18 14:40 Plt Count 185 x1000/uL (130-400) 07/03/18 14:40 MPV 10.8 fL (8.0-11.0) 07/03/18 14:40 PT 10.7 sec (9.3-10.8) 07/03/18 14:40 INR 1.1 (1.0-3.5) 07/03/18 14:40 APTT 23.7 sec (21.0-31.4) 07/03/18 14:40 Sodium 140 mmol/L (136-145) 07/04/18 06:22 Potassium 4.4 mmol/L (3.5-5.1) 07/04/18 06:22 Chloride 108 mmol/L (98-107) H 07/04/18 06:22 Carbon Dioxide 26.0 mmol/L (21.0-32.0) 07/04/18 06:22 Anion Gap 6.0 mmol/L (3-11) 07/04/18 06:22 BUN 18 mg/dL (7-18) 07/04/18 06:22 Creatinine 0.88 mg/dL (0.55-1.02) 07/04/18 06:22 Estimated GFR/1.73 m2 >= 60.00 (mL/min/1.73m2) 07/04/18 06:22 Glucose 117 mg/dL (70-100) H 07/04/18 06:22 Calcium 8.4 mg/dL (8.5-10.1) L 07/04/18 06:22 Total Bilirubin 1.1 mg/dL (0.2-1.0) H 07/03/18 14:40 AST 19 U/L (15-37) 07/03/18 14:40 ALT 21 U/L (12-78) 07/03/18 14:40 Alkaline Phosphatase 72 U/L (46-116) 07/03/18 14:40 Total Protein 7.3 g/dL (6.4-8.2) 07/03/18 14:40 Albumin 3.7 g/dL (3.4-5.0) 07/03/18 14:40 Patient ABO/Rh A Positive 07/03/18 14:40 Antibody Screen Negative 07/03/18 14:40
[2018-07-04] MEDS: Enoxaparin 30 MG/0.3 ML SYR SC (16:47)
[2018-07-04] MEDS: POTASSIUM CHLORIDE/0.9% NACL 1,000 ML 60 MEQ IV (20:16)
[2018-07-05] MEDS: Normal Saline Flush 10 ML SYR IVP ×2 (00:15→05:57)
[2018-07-05] MEDS: Ketorolac 15 MG/ML VIAL IVP ×2 (00:15→05:52)
[2018-07-05 03:10] VITALS: BP 128/72; PULSE 78; RESP 18; TEMP 36.8; O2SAT 95
[2018-07-05] MEDS: Acetaminophen 325 MG TAB PO ×4 (03:21→21:46)
[2018-07-05] MEDS: HYDROcodone 5/Acetaminophen 325 TAB PO ×2 (03:22→08:22)
--- NOTE | 2018-07-05 05:42 | NUR.NOTE ---
Nursing Note: Assisted pt with toileting, noted prolapsed uterus. Pt states that she has had this a couple of years and that her DrPranay is aware. Reported to charge nurse.
[2018-07-05] MEDS: Levothyroxine 25 MCG TAB PO (06:47)
[2018-07-05] MEDS: Pantoprazole 40 MG TABCR PO (06:47)
[2018-07-05 07:22] LABS: HCT 31.5 % (36.0-46.0); HGB 10.3 g/dL (12.0-15.5); Mean Corp. HGB Concentration 32.7 g/dL (32.0-36.0); Mean Corpuscular Hemoglobin 30.2 pg (27.0-33.0); Mean Corpuscular Volume 92.4 fL (80-95); Mean Platelet Volume 11.3 fL (8.0-11.0); Platelet Count 134 x1000/uL (130-400); RBC 3.41 m/cumm (4.00-5.20); RBC Distribution Width 14.9 % (11.7-14.6); White Blood Cell Count 7.87 k/cumm (4.4-10.8)
[2018-07-05 07:34] LABS: Anion Gap 6.8 mmol/L (3-11); BUN 23 mg/dL (7-18); CO2 24.2 mmol/L (21.0-32.0); CREATININE 0.93 mg/dL (0.55-1.02); Calcium 8.1 mg/dL (8.5-10.1); Chloride 109 mmol/L (98-107); Estimated GFR 57.72 (mL/min/1.73m2); Glucose 101 mg/dL (70-100); Potassium 4.6 mmol/L (3.5-5.1); Sodium 140 mmol/L (136-145)
[2018-07-05 08:00] VITALS: BP 141/68; PULSE 72; RESP 20; TEMP 36; O2SAT 98
[2018-07-05] MEDS: Docusate Sodium 100 MG CAP PO ×3 (08:21→19:44)
[2018-07-05] MEDS: Multivitamin w/Minerals TAB 1 TAB PO (08:22)
[2018-07-05] MEDS: Metoprolol 25 MG TAB PO ×2 (08:23→19:44)
[2018-07-05] MEDS: Rosuvastatin 10 MG TAB 20 MG PO (08:23)
[2018-07-05] MEDS: Aspirin 81 MG CHEW PO (10:38)
[2018-07-05] MEDS: Normal Saline Flush 10 ML SYR (10:39)
[2018-07-05 11:10] VITALS: BP 115/61; PULSE 56; RESP 16; TEMP 36.5; O2SAT 93
--- NOTE | 2018-07-05 11:20 | PT.INTREAT ---
Date of service: 07/05/18 Time of Service: 11:20 PT Notes Inpatient Physical Therapy Treatment Note Date: 07/05/18 PRECAUTIONS: L posterior JACQUI L hip precautions and WBAT SUBJECTIVE: Pt reports that her leg is feeling better today then yesterday. OBJECTIVE: Sit-stand: CGA Stand-sit: CGA GAIT Assistive Device: FWW Weight bearing: L LE WBAT Assist: CGA Distance: 10ft x2. Pt also completed static standing and marching in place for 1 min each THEREX: Pt completed LE strengthening ther ex as per flow sheet while in the seated position. ASSESSMENT: Pt tolerated today's session fairly well. Pt did have some minor SOB and fatigue during her session today but over all very motivated. PLAN: Cont as per PT POC. TREATMENT CODE/TIME: 9-:20 (20) TA
--- NOTE | 2018-07-05 12:02 | PDOC.CMPRO ---
- If Service Date Differs Date of service: 07/05/18 Time of Service: 12:02 Care Management Progress Note S/O: Heidi is sitting in her chair when CM visits this morning. She is engaged in conversation, makes good eye contact, and is talkative. Heidi reports that she is feeling well but has concerns about going home and would like home PT services on discharge. Patient reports that her bedroom is upstairs and the bathroom is downstairs, but that her family is looking into getting a bed for her to use downstairs during her recovery. She states that she could sleep in her recliner if she had to as well. Heidi is not homebound so will likely not qualify for home PT but could benefit by having outpatient PT. Heidi understands that the MD and PT make that determination and she reports that she is more comfortable going home following the conversation. Heidi is s/p Day 2 for unipolar prosthetic replacement of her left hip. PT reports that she is working well with them but does complain of pain and SOB with exertion. A: 83 year old female admitted with a left hip fracture. P: Heidi will return home when medically ready per MD. Anticipated discharge is Friday, 07/06. Anticipate patient will discharge home with HH PT vs outpatient PT and follow up with surgical services. Heidi will transport via private vehicle with her , Radames. CM will continue to offer support to patient and care team regarding discharge planning and disposition.
--- NOTE | 2018-07-05 12:25 | W.PM.PROGNOT ---
Date of Service Date of service: 07/05/18 Time of Service: 12:25 Assessment and Plan (1) Hip fracture: Current visit: Yes Status: Acute Assessment: Progressing well following unipolar prosthetic replacement of the left femoral head for femoral neck fracture. She should progress to full independence within a couple of days. Plan: Continue to mobilize with physical therapy. We will plan discharge home when she is fully independent and taking only p.o. pain meds. This should be done Friday or Friday. Should have home health physical and a follow-up with me in 2 weeks. Subjective Patient reports: feels better, tolerating a regular diet and voiding w/o difficulty (post rosenberg removal) Interval history since last seen: She finds is much easier removed today and she is having minimal pain in her left hip. Exam Narrative Exam Narrative: Continues afebrile vital signs stable. Hemoglobin today is 10.3 g. She is sitting comfortably in the chair. Neurovascular exam of her left foot is normal. She is eating and drinking well. She was able to walk to the door back with PT today. Objective Objective Clinical Data: Abnormal lab results 07/05/18 07/05/18 Range/Units 06:10 06:10 RBC 3.41 L (4.00-5.20) m/cumm Hgb 10.3 L (12.0-15.5) g/dL Hct 31.5 L (36.0-46.0) % RDW 14.9 H (11.7-14.6) % MPV 11.3 H (8.0-11.0) fL Chloride 109 H (98-107) mmol/L BUN 23 H (7-18) mg/dL Glucose 101 H (70-100) mg/dL Calcium 8.1 L (8.5-10.1) mg/dL Vital Signs Temperature 36.5 C 07/05/18 11:10 Temperature Source Tympanic 07/05/18 11:10 Pulse 56 L 07/05/18 11:10 Pulse Rhythm Regular 07/04/18 23:39 Pulse 90 07/03/18 14:30 Respiratory Rate 16 07/05/18 11:10 Respiratory Effort 07/04/18 23:39 Respiratory Depth Normal 07/04/18 23:39 Respiratory Pattern Normal 07/04/18 23:39 Blood Pressure 115/61 07/05/18 11:10 Blood Pressure Mean 93 07/03/18 14:21 Blood Pressure Position Supine 07/03/18 12:34 Pulse Oximetry 93 L 07/05/18 11:10 Respiratory End-tidal CO2 33 07/03/18 17:30 Oxygen Delivery Method Room Air 07/05/18 11:10 Oxygen Flow Rate 0 07/05/18 11:10 Pain Level 0 07/05/18 11:10 Comment 07/04/18 00:25 Intake & Output 07/04/18 07/05/18 07/05/18 23:59 11:59 23:59 Intake Total 1480 / 1480 1304 / 1304 Output Total 550 / 550 650 / 650 Balance 930 / 930 654 / 654 Intake: IV 1000 / 1000 864 / 864 Oral 480 / 480 440 / 440 Output: Urine 550 / 550 650 / 650 Other: Urine Color Yellow Yellow Urine Appearance Clear Clear Urine Odor Normal Strong Voiding Methods Bedside Commode Bedside Commode Laboratory Results WBC 7.87 k/cumm (4.4-10.8) 07/05/18 06:10 RBC 3.41 m/cumm (4.00-5.20) L 07/05/18 06:10 Hgb 10.3 g/dL (12.0-15.5) L 07/05/18 06:10 Hct 31.5 % (36.0-46.0) L 07/05/18 06:10 MCV 92.4 fL (80-95) 07/05/18 06:10 MCH 30.2 pg (27.0-33.0) 07/05/18 06:10 MCHC 32.7 g/dL (32.0-36.0) 07/05/18 06:10 RDW 14.9 % (11.7-14.6) H 07/05/18 06:10 Plt Count 134 x1000/uL (130-400) 07/05/18 06:10 MPV 11.3 fL (8.0-11.0) H 07/05/18 06:10 PT 10.7 sec (9.3-10.8) 07/03/18 14:40 INR 1.1 (1.0-3.5) 07/03/18 14:40 APTT 23.7 sec (21.0-31.4) 07/03/18 14:40 Sodium 140 mmol/L (136-145) 07/05/18 06:10 Potassium 4.6 mmol/L (3.5-5.1) 07/05/18 06:10 Chloride 109 mmol/L (98-107) H 07/05/18 06:10 Carbon Dioxide 24.2 mmol/L (21.0-32.0) 07/05/18 06:10 Anion Gap 6.8 mmol/L (3-11) 07/05/18 06:10 BUN 23 mg/dL (7-18) H 07/05/18 06:10 Creatinine 0.93 mg/dL (0.55-1.02) 07/05/18 06:10 Estimated GFR/1.73 m2 57.72 (mL/min/1.73m2) 07/05/18 06:10 Glucose 101 mg/dL (70-100) H 07/05/18 06:10 Calcium 8.1 mg/dL (8.5-10.1) L 07/05/18 06:10 Total Bilirubin 1.1 mg/dL (0.2-1.0) H 07/03/18 14:40 AST 19 U/L (15-37) 07/03/18 14:40 ALT 21 U/L (12-78) 07/03/18 14:40 Alkaline Phosphatase 72 U/L (46-116) 07/03/18 14:40 Total Protein 7.3 g/dL (6.4-8.2) 07/03/18 14:40 Albumin 3.7 g/dL (3.4-5.0) 07/03/18 14:40 Patient ABO/Rh A Positive 07/03/18 14:40 Antibody Screen Negative 07/03/18 14:40
[2018-07-05] MEDS: Enoxaparin 30 MG/0.3 ML SYR SC (16:07)
[2018-07-05 16:21] VITALS: BP 114/59; PULSE 80; RESP 17; TEMP 37.5; O2SAT 96
--- NOTE | 2018-07-05 19:06 | W.PM.PROGNOT ---
Date of Service Date of service: 07/05/18 Time of Service: 19:06 Assessment and Plan (1) Hip fracture: Current visit: Yes Status: Acute Post-op day #2 for prosthetic replacement of left femoral head for a femoral neck fracture. Pain control, PT. Disposition to home with services per Ortho recommendations. Initiated bowel regimen as well. (2) CAD (coronary artery disease): Current visit: Yes Status: Chronic Unsure of history, but patient reports prior CABG X3. Appears quiescent. Continue high potency statin, BB therapy. Restart ASA as well. (3) Hyperlipidemia: Current visit: Yes Status: Acute Currently on Crestor. (4) Hypothyroidism: Current visit: Yes Status: Chronic Continue replacement therapy. (5) HTN (hypertension): Current visit: Yes Status: Chronic Continue BB with hold parameters. (6) DVT prophylaxis: Current visit: Yes Status: Acute SC Lovenox. Subjective Interval history since last seen: 83 year old woman with a prior history of HTN, Dyslipidemia, and CAD s/p CABG admitted from [facility] on 07/03 following a hip fracture. Mrs. Mcdermott was in her usual state of health at home when she suffered a mechanical fall with a resultant hip fracture. She was immediately taken to the OR for surgical repair of a displaced left femoral neck fracture. She continues to do well, and is ambulating with a walker and working with PT. Followed by Ortho. Recommendations for potential discharge tomorrow if care is uneventful. No overnight events reported. She remains afebrile. Exam Narrative Exam Narrative: General: Patient appears comfortable, AAOX3, NAD Psych: Normal mood and affect. Objective Objective Clinical Data: Abnormal lab results 07/05/18 07/05/18 Range/Units 06:10 06:10 RBC 3.41 L (4.00-5.20) m/cumm Hgb 10.3 L (12.0-15.5) g/dL Hct 31.5 L (36.0-46.0) % RDW 14.9 H (11.7-14.6) % MPV 11.3 H (8.0-11.0) fL Chloride 109 H (98-107) mmol/L BUN 23 H (7-18) mg/dL Glucose 101 H (70-100) mg/dL Calcium 8.1 L (8.5-10.1) mg/dL Vital Signs Temperature 37.5 C 07/05/18 16:21 Temperature Source Tympanic 07/05/18 16:21 Pulse 80 07/05/18 16:21 Pulse Rhythm Regular 07/05/18 08:00 Pulse 90 07/03/18 14:30 Respiratory Rate 17 07/05/18 16:21 Respiratory Effort Non-Labored 07/05/18 08:00 Respiratory Depth Normal 07/05/18 08:00 Respiratory Pattern Normal 07/05/18 08:00 Blood Pressure 114/59 L 07/05/18 16:21 Blood Pressure Mean 93 07/03/18 14:21 Blood Pressure Position Supine 07/03/18 12:34 Pulse Oximetry 96 07/05/18 16:21 Respiratory End-tidal CO2 33 07/03/18 17:30 Oxygen Delivery Method Room Air 07/05/18 16:21 Oxygen Flow Rate 0 07/05/18 16:21 Pain Level 2 07/05/18 14:24 Comment 07/04/18 00:25 Intake & Output 07/04/18 07/05/18 07/05/18 23:59 11:59 23:59 Intake Total 1480 / 1480 1314 / 1314 450 / 450 Output Total 550 / 550 1100 / 1100 125 / 125 Balance 930 / 930 214 / 214 325 / 325 Intake: IV 1000 / 1000 874 / 874 Oral 480 / 480 440 / 440 450 / 450 Output: Urine 550 / 550 1100 / 1100 125 / 125 Other: Urine Color Yellow Yellow Yellow Urine Appearance Clear Clear Clear Urine Odor Normal Strong Voiding Methods Bedside Commode Toilet Bedside Commode Laboratory Results WBC 7.87 k/cumm (4.4-10.8) 07/05/18 06:10 RBC 3.41 m/cumm (4.00-5.20) L 07/05/18 06:10 Hgb 10.3 g/dL (12.0-15.5) L 07/05/18 06:10 Hct 31.5 % (36.0-46.0) L 07/05/18 06:10 MCV 92.4 fL (80-95) 07/05/18 06:10 MCH 30.2 pg (27.0-33.0) 07/05/18 06:10 MCHC 32.7 g/dL (32.0-36.0) 07/05/18 06:10 RDW 14.9 % (11.7-14.6) H 07/05/18 06:10 Plt Count 134 x1000/uL (130-400) 07/05/18 06:10 MPV 11.3 fL (8.0-11.0) H 07/05/18 06:10 PT 10.7 sec (9.3-10.8) 07/03/18 14:40 INR 1.1 (1.0-3.5) 07/03/18 14:40 APTT 23.7 sec (21.0-31.4) 07/03/18 14:40 Sodium 140 mmol/L (136-145) 07/05/18 06:10 Potassium 4.6 mmol/L (3.5-5.1) 07/05/18 06:10 Chloride 109 mmol/L (98-107) H 07/05/18 06:10 Carbon Dioxide 24.2 mmol/L (21.0-32.0) 07/05/18 06:10 Anion Gap 6.8 mmol/L (3-11) 07/05/18 06:10 BUN 23 mg/dL (7-18) H 07/05/18 06:10 Creatinine 0.93 mg/dL (0.55-1.02) 07/05/18 06:10 Estimated GFR/1.73 m2 57.72 (mL/min/1.73m2) 07/05/18 06:10 Glucose 101 mg/dL (70-100) H 07/05/18 06:10 Calcium 8.1 mg/dL (8.5-10.1) L 07/05/18 06:10 Total Bilirubin 1.1 mg/dL (0.2-1.0) H 07/03/18 14:40 AST 19 U/L (15-37) 07/03/18 14:40 ALT 21 U/L (12-78) 07/03/18 14:40 Alkaline Phosphatase 72 U/L (46-116) 07/03/18 14:40 Total Protein 7.3 g/dL (6.4-8.2) 07/03/18 14:40 Albumin 3.7 g/dL (3.4-5.0) 07/03/18 14:40 Patient ABO/Rh A Positive 07/03/18 14:40 Antibody Screen Negative 07/03/18 14:40
[2018-07-05] MEDS: Celecoxib 200 MG CAP PO (19:44)
[2018-07-05 23:40] VITALS: BP 124/60; PULSE 72; RESP 18; TEMP 36.6; O2SAT 95
[2018-07-06 04:43] VITALS: BP 155/77; PULSE 72; RESP 18; TEMP 36.5; O2SAT 96
[2018-07-06] MEDS: Levothyroxine 25 MCG TAB PO (05:35)
[2018-07-06 07:40] VITALS: BP 136/79; PULSE 82; RESP 82; TEMP 37; O2SAT 96
[2018-07-06] MEDS: Docusate Sodium 100 MG CAP PO ×3 (08:26→20:39)
[2018-07-06] MEDS: Pantoprazole 40 MG TABCR PO (08:26)
[2018-07-06] MEDS: Aspirin 81 MG CHEW PO (08:26)
[2018-07-06] MEDS: Metoprolol 25 MG TAB PO ×2 (08:26→20:40)
[2018-07-06] MEDS: Celecoxib 200 MG CAP PO ×2 (08:26→20:40)
[2018-07-06] MEDS: Rosuvastatin 10 MG TAB 20 MG PO (08:26)
[2018-07-06] MEDS: Polyethylene Glycol 3350 17 GM PACKET PO (08:34)
[2018-07-06] MEDS: Acetaminophen 325 MG TAB PO ×3 (08:35→17:45)
[2018-07-06 11:25] VITALS: BP 123/65; PULSE 62; RESP 18; TEMP 36.4; O2SAT 96
--- NOTE | 2018-07-06 11:31 | PT.INTREAT ---
Date of service: 07/06/18 Time of Service: 11:31 PT Notes Inpatient Physical Therapy Treatment Note Date: 07/06/18 PRECAUTIONS: WBAT on L SUBJECTIVE: Heidi states that she does not feeling completely ready to return home today. She states that she cannot rely on her to help her at home due to his own medical issues. She does report that she has lots of family to help her. OBJECTIVE: PAIN: Patient c/o pulling in her L hip with ther ex. BED MOBILITY/TRANSFERS Sit-stand: SBA Stand-sit: SBA GAIT Assistive Device: FWW Weight bearing: WBAT on L Assist: SBA Distance: 40' x2 THEREX: Patient completed a LE strengthening program, as per flow sheet. She tolerated the addition of hip abduction and flexion, well. ASSESSMENT: Patient tolerated session well with minimal complaints of discomfort with ther ex and transfers. She was able to tolerate a progression in gait distance as well as with ther ex program. She would benefit from continued gait and transfer training as well as strengthening to improve mobility. PLAN: Continue with PT's POC TREATMENT CODE/TIME: 30 minutes; TA/TP
--- NOTE | 2018-07-06 12:09 | W.PM.PROGNOT ---
Date of Service Date of service: 07/06/18 Time of Service: 12:09 Assessment and Plan (1) Hip fracture: Current visit: Yes Status: Acute POD 3 s/p prosthetic replacement of left femoral head for a femoral neck fracture. Pain control adequate on current regimen. Continue PT. Disposition to home with services per Ortho recommendations. Initiated bowel regimen as well. Is interested in learning more about [facility]. CM involved. (2) CAD (coronary artery disease): Current visit: Yes Status: Chronic hx CABG X3. Continue high potency statin, BB, ASA. (3) Hyperlipidemia: Current visit: Yes Status: Acute Currently Crestor. (4) Hypothyroidism: Current visit: Yes Status: Chronic Continue replacement therapy. (5) HTN (hypertension): Current visit: Yes Status: Chronic Continue BB with hold parameters. (6) DVT prophylaxis: Current visit: Yes Status: Acute SC Lovenox. Subjective Patient reports: no new complaints Interval history since last seen: Heidi is a 83 yo woman with hypothyroidism, CAD, HLD, HTN who was admitted to the hospital 07/03/18 after sustaining a fall resulting in a L hip fx. Is currently POD 3 s/p L total hip replacement. Was being considered for discharge home today with home PT/OT, however she does not feel ready to return home. Has only ambulated to and from the bathroom once and in the hallway once with PT. Pain is being well managed, however was left sitting in an uncomfortable chair for roughly 4 hours this morning. This made her pain worse. MASTER CONTROL OPERATOR just brought her a recliner and she is tolerating this much better. Exam Const General: cooperative, healthy appearing, comfortable, no acute distress, well developed and well groomed Nutritional Appearance: average body habitus and well nourished Orientation: alert and awake [facility] Head: normal to inspection and normocephalic Ears: hearing grossly normal bilaterally General nose exam: external nose normal Face and sinus: normal facial exam Mouth: oral mucosae normal Eyes Pupils: PERRL EOM: EOM intact bilaterally Neck Neck: normal visual inspection and supple Chest Chest: normal inspection of the chest and normal palpation of entire chest wall Resp Effort & Inspection: normal respiratory effort, able to speak in complete sentences and no respiratory distress Auscultation: clear to auscultation bilaterally, no rales, no rhonchi and no wheezes Cardio Rate: regular rate Rhythm: regular rhythm Heart Sounds: S1 normal and S2 normal GI Inspection: normal to inspection Palpation: soft, no hepatosplenomegaly, no guarding and nontender Skin General skin exam: no rashes or lesions noted Trauma: no lacerations or abrasions Neuro General: alert, awake and oriented x3 Cognition: normal cognition Speech: speech normal Gait: gait abnormal (brought in via EMS, unable to weight bear at this time) Sensory Exam: no sensory deficits noted (no saddle paresthesias noted) Extrem General: abnormal to inspection (patient is slightly shortned on the left side, no rotational deformity. Pain with palpation over the lateral aspect of the hip over greater trochanter. No pain with ) Objective Objective Clinical Data: Vital Signs Temperature 37 C 07/06/18 07:40 Temperature Source Tympanic 07/06/18 07:40 Pulse 82 07/06/18 07:40 Pulse Rhythm Regular 07/06/18 08:35 Pulse 90 07/03/18 14:30 Respiratory Rate 82 H 07/06/18 07:40 Respiratory Effort Non-Labored 07/06/18 08:35 Respiratory Depth Normal 07/06/18 08:35 Respiratory Pattern Normal 07/06/18 08:35 Blood Pressure 136/79 07/06/18 07:40 Blood Pressure Mean 93 07/03/18 14:21 Blood Pressure Position Supine 07/03/18 12:34 Pulse Oximetry 96 07/06/18 07:40 Respiratory End-tidal CO2 33 07/03/18 17:30 Oxygen Delivery Method Room Air 07/06/18 07:40 Oxygen Flow Rate 0 07/06/18 07:40 Pain Level 4 07/06/18 08:35 Comment 07/04/18 00:25 Intake & Output 07/05/18 07/06/18 07/06/18 23:59 11:59 23:59 Intake Total 450 / 450 125 / 125 Output Total 225 / 225 800 / 800 Balance 225 / 225 -675 / -675 Intake: Oral 450 / 450 125 / 125 Output: Urine 225 / 225 800 / 800 Other: Urine Color Yellow Yellow Urine Appearance Clear Clear Urine Odor Normal Voiding Methods Bedside Commode Bedside Commode Laboratory Results WBC 7.87 k/cumm (4.4-10.8) 07/05/18 06:10 RBC 3.41 m/cumm (4.00-5.20) L 07/05/18 06:10 Hgb 10.3 g/dL (12.0-15.5) L 07/05/18 06:10 Hct 31.5 % (36.0-46.0) L 07/05/18 06:10 MCV 92.4 fL (80-95) 07/05/18 06:10 MCH 30.2 pg (27.0-33.0) 07/05/18 06:10 MCHC 32.7 g/dL (32.0-36.0) 07/05/18 06:10 RDW 14.9 % (11.7-14.6) H 07/05/18 06:10 Plt Count 134 x1000/uL (130-400) 07/05/18 06:10 MPV 11.3 fL (8.0-11.0) H 07/05/18 06:10 PT 10.7 sec (9.3-10.8) 07/03/18 14:40 INR 1.1 (1.0-3.5) 07/03/18 14:40 APTT 23.7 sec (21.0-31.4) 07/03/18 14:40 Sodium 140 mmol/L (136-145) 07/05/18 06:10 Potassium 4.6 mmol/L (3.5-5.1) 07/05/18 06:10 Chloride 109 mmol/L (98-107) H 07/05/18 06:10 Carbon Dioxide 24.2 mmol/L (21.0-32.0) 07/05/18 06:10 Anion Gap 6.8 mmol/L (3-11) 07/05/18 06:10 BUN 23 mg/dL (7-18) H 07/05/18 06:10 Creatinine 0.93 mg/dL (0.55-1.02) 07/05/18 06:10 Estimated GFR/1.73 m2 57.72 (mL/min/1.73m2) 07/05/18 06:10 Glucose 101 mg/dL (70-100) H 07/05/18 06:10 Calcium 8.1 mg/dL (8.5-10.1) L 07/05/18 06:10 Total Bilirubin 1.1 mg/dL (0.2-1.0) H 07/03/18 14:40 AST 19 U/L (15-37) 07/03/18 14:40 ALT 21 U/L (12-78) 07/03/18 14:40 Alkaline Phosphatase 72 U/L (46-116) 07/03/18 14:40 Total Protein 7.3 g/dL (6.4-8.2) 07/03/18 14:40 Albumin 3.7 g/dL (3.4-5.0) 07/03/18 14:40 Patient ABO/Rh A Positive 07/03/18 14:40 Antibody Screen Negative 07/03/18 14:40
--- NOTE | 2018-07-06 14:20 | PDOC.CMPRO ---
- If Service Date Differs Date of service: 07/06/18 Time of Service: 14:20 Care Management Progress Note S/O: Heidi is sitting up in her chair when this mortgage or loan underwriter visits this morning. She states that she was in an uncomfortable chair earlier this morning, however is now in a recliner which is more comfortable. Heidi states that she is unsure as to if she is ready to return home at this time. Heidi feels as though she is not quite ready. CM reviewed DC plan and discussed home health PT/OT services which Heidi is receptive to. CM discussed DME - Heidi states that her daughter is looking into a commode and FWW for Heidi. A: 83 year old female admitted with a left hip fracture. P: Heidi will return home when medically ready per MD. Anticipate patient will discharge home with HH PT vs outpatient PT and follow up with surgical services. Heidi will transport via private vehicle with her , Radames. CM will continue to offer support to patient and care team regarding discharge planning and disposition.
--- NOTE | 2018-07-06 14:24 | CMPROGNOTE_ITS ---
- If Service Date Differs Date of service: 07/06/18 Time of Service: 14:20 Care Management Progress Note S/O: Heidi is sitting up in her chair when this writer technical publications visits this morning. She states that she was in an uncomfortable chair earlier this morning, however is now in a recliner which is more comfortable. Heidi states that she is unsure as to if she is ready to return home at this time. Heidi feels as though she is not quite ready. CM reviewed DC plan and discussed home health PT/OT services which Heidi is receptive to. CM discussed DME - Heidi states that her daughter is looking into a commode and FWW for Heidi. A: 83 year old female admitted with a left hip fracture. P: Heidi will return home when medically ready per MD. Anticipate patient will discharge home with HH PT vs outpatient PT and follow up with surgical services. Heidi will transport via private vehicle with her , Radames. CM will continue to offer support to patient and care team regarding discharge planning and disposition.
--- NOTE | 2018-07-06 14:46 | W.PM.PROGNOT ---
Date of Service Date of service: 07/06/18 Time of Service: 10:01 Assessment and Plan (1) Hip fracture: Current visit: Yes Status: Acute Assessment: I think she might need another day or so before she can go home. She is apprehensive because she is not quite fully independent. Plan: I think she should continue to work with physical therapy to become fully independent. Could discharge her home when she is confident that she will be able to function independently at home. Should have a follow-up appointment in my office in 2 weeks for staple removal. She should be placed on aspirin 81 mg twice daily for 30 days for DVT prophylaxis. Subjective Interval history since last seen: Heidi does not feel she is quite ready to go yet. She is not having any more pain. She just does not think that she is independent enough to be able to safely function at home at this time. Exam Narrative Exam Narrative: She remains afebrile vital signs are stable. Her incision is clean and dry. Neurovascular exam of her left foot is normal. Objective Objective Clinical Data: Vital Signs Temperature 36.4 C L 07/06/18 11:25 Temperature Source Tympanic 07/06/18 11:25 Pulse 62 07/06/18 11:25 Pulse Rhythm Regular 07/06/18 08:35 Pulse 90 07/03/18 14:30 Respiratory Rate 18 07/06/18 11:25 Respiratory Effort Non-Labored 07/06/18 08:35 Respiratory Depth Normal 07/06/18 08:35 Respiratory Pattern Normal 07/06/18 08:35 Blood Pressure 123/65 07/06/18 11:25 Blood Pressure Mean 93 07/03/18 14:21 Blood Pressure Position Supine 07/03/18 12:34 Pulse Oximetry 96 07/06/18 11:25 Respiratory End-tidal CO2 33 07/03/18 17:30 Oxygen Delivery Method Room Air 07/06/18 11:25 Oxygen Flow Rate 0 07/06/18 11:25 Pain Level 4 07/06/18 13:50 Comment 07/04/18 00:25 Intake & Output 07/05/18 07/06/18 07/06/18 23:59 11:59 23:59 Intake Total 450 / 450 125 / 125 240 / 240 Output Total 225 / 225 800 / 800 Balance 225 / 225 -675 / -675 240 / 240 Intake: Oral 450 / 450 125 / 125 240 / 240 Output: Urine 225 / 225 800 / 800 Other: Urine Color Yellow Yellow Urine Appearance Clear Clear Urine Odor Normal Voiding Methods Bedside Commode Bedside Commode Laboratory Results WBC 7.87 k/cumm (4.4-10.8) 07/05/18 06:10 RBC 3.41 m/cumm (4.00-5.20) L 07/05/18 06:10 Hgb 10.3 g/dL (12.0-15.5) L 07/05/18 06:10 Hct 31.5 % (36.0-46.0) L 07/05/18 06:10 MCV 92.4 fL (80-95) 07/05/18 06:10 MCH 30.2 pg (27.0-33.0) 07/05/18 06:10 MCHC 32.7 g/dL (32.0-36.0) 07/05/18 06:10 RDW 14.9 % (11.7-14.6) H 07/05/18 06:10 Plt Count 134 x1000/uL (130-400) 07/05/18 06:10 MPV 11.3 fL (8.0-11.0) H 07/05/18 06:10 PT 10.7 sec (9.3-10.8) 07/03/18 14:40 INR 1.1 (1.0-3.5) 07/03/18 14:40 APTT 23.7 sec (21.0-31.4) 07/03/18 14:40 Sodium 140 mmol/L (136-145) 07/05/18 06:10 Potassium 4.6 mmol/L (3.5-5.1) 07/05/18 06:10 Chloride 109 mmol/L (98-107) H 07/05/18 06:10 Carbon Dioxide 24.2 mmol/L (21.0-32.0) 07/05/18 06:10 Anion Gap 6.8 mmol/L (3-11) 07/05/18 06:10 BUN 23 mg/dL (7-18) H 07/05/18 06:10 Creatinine 0.93 mg/dL (0.55-1.02) 07/05/18 06:10 Estimated GFR/1.73 m2 57.72 (mL/min/1.73m2) 07/05/18 06:10 Glucose 101 mg/dL (70-100) H 07/05/18 06:10 Calcium 8.1 mg/dL (8.5-10.1) L 07/05/18 06:10 Total Bilirubin 1.1 mg/dL (0.2-1.0) H 07/03/18 14:40 AST 19 U/L (15-37) 07/03/18 14:40 ALT 21 U/L (12-78) 07/03/18 14:40 Alkaline Phosphatase 72 U/L (46-116) 07/03/18 14:40 Total Protein 7.3 g/dL (6.4-8.2) 07/03/18 14:40 Albumin 3.7 g/dL (3.4-5.0) 07/03/18 14:40 Patient ABO/Rh A Positive 07/03/18 14:40 Antibody Screen Negative 07/03/18 14:40
--- NOTE | 2018-07-06 14:57 | PTTR_ITS ---
Date of service: 07/06/18 Time of Service: 14:56 PT Notes Inpatient Physical Therapy Treatment Note Date: 07/06/18 PRECAUTIONS: WBAT on L SUBJECTIVE: Heidi indicates that she is having a little more pain this afternoon and hasn't had pain medication since this morning, although is agreeable to PT. OBJECTIVE: PAIN: Patient c/o pain in L hip with transfers, bed mobility, and weight bearing BED MOBILITY/TRANSFERS Supine-sit: Mod A with HOB flat with leg investigations manager Sit-supine: Mod A with HOB flat with leg investigations manager Sit-stand: SBA Stand-sit: SBA GAIT Assistive Device: FWW Weight bearing: WBAT on L Assist: SBA/S Distance: 100' Deviation: Standing rest x3 THEREX: Patient performed bridging exercise x6 STAIRS: Up/down 3x4 using B rails and a step-to pattern with SBA ASSESSMENT: Patient tolerated session with increased pain with weight bearing, transfers, and bed mobility. Patient would benefit from continued gait and transfer training, as well as strengthening for improved mobility and ability to perform daily functional tasks. PLAN: Continue with PT's POC TREATMENT CODE/TIME: 40 minutes; TAx3
[2018-07-06 15:42] VITALS: BP 122/74; PULSE 70; RESP 18; TEMP 36.6; O2SAT 97
[2018-07-06] MEDS: Enoxaparin 30 MG/0.3 ML SYR SC (15:43)
[2018-07-06 21:03] VITALS: BP 148/78; PULSE 74; RESP 16; TEMP 37.2; O2SAT 95
[2018-07-06 23:36] VITALS: BP 119/65; PULSE 84; RESP 18; TEMP 36.3; O2SAT 96
[2018-07-07 03:50] VITALS: BP 164/77; PULSE 74; RESP 18; TEMP 36.9; O2SAT 96
[2018-07-07] MEDS: Levothyroxine 25 MCG TAB PO (05:50)
[2018-07-07 07:19] LABS: Platelet Count 173 x1000/uL (130-400)
[2018-07-07 07:30] VITALS: BP 179/82; PULSE 75; RESP 18; TEMP 36.6; O2SAT 98
[2018-07-07] MEDS: Celecoxib 200 MG CAP PO (07:59)
[2018-07-07] MEDS: Polyethylene Glycol 3350 17 GM PACKET PO (07:59)
[2018-07-07] MEDS: Acetaminophen 325 MG TAB PO (08:00)
[2018-07-07] MEDS: Pantoprazole 40 MG TABCR PO (08:00)
[2018-07-07] MEDS: Aspirin 81 MG CHEW PO (08:00)
[2018-07-07] MEDS: Metoprolol 25 MG TAB PO (08:00)
[2018-07-07] MEDS: Rosuvastatin 10 MG TAB 20 MG PO (08:00)
[2018-07-07] MEDS: Docusate Sodium 100 MG CAP PO (08:00)
--- NOTE | 2018-07-07 09:58 | PT.INTREAT ---
Date of service: 07/07/18 Time of Service: 09:59 PT Notes Inpatient Physical Therapy Treatment Note Date: 07/06/18 PRECAUTIONS:WBAT on L SUBJECTIVE: Heidi states that she is feeling better today. She is agreeable to PT and would like to work on bed transfers and use of the leg dust collector attendant. OBJECTIVE: PAIN: Patient c/o discomfort in L hip area with bed mobility. BED MOBILITY/TRANSFERS Supine-sit: S with HOB flat with leg dust collector attendant (performed x2) Sit-supine: S with HOB flat with leg dust collector attendant (performed x2) Sit-stand: S Stand-sit: S Chair-bed: S GAIT Assistive Device: FWW Weight bearing: WBAT on L Assist: S Distance: 150' Deviation: Standing rest x2 THEREX: Patient completed a LE strengthening program, as per flow sheet. Patient tolerated a slight progression in her program today. ASSESSMENT: Patient tolerated session well with some c/o L hip discomfort with bed mobility. Patient was able to tolerate a slight progression in ther ex and a progression in gait distance with FWW support. Patient would benefit from continued gait and transfer training, as well as strengthening for improved mobility. PLAN: Continue with PT's POC TREATMENT CODE/TIME: 40 minutes; TAx2/TP
--- NOTE | 2018-07-07 10:01 | PTTR_ITS ---
Date of service: 07/07/18 Time of Service: 09:59 PT Notes Inpatient Physical Therapy Treatment Note Date: 07/06/18 PRECAUTIONS:WBAT on L SUBJECTIVE: Heidi states that she is feeling better today. She is agreeable to PT and would like to work on bed transfers and use of the leg industrial yard brake coupler. OBJECTIVE: PAIN: Patient c/o discomfort in L hip area with bed mobility. BED MOBILITY/TRANSFERS Supine-sit: S with HOB flat with leg industrial yard brake coupler (performed x2) Sit-supine: S with HOB flat with leg industrial yard brake coupler (performed x2) Sit-stand: S Stand-sit: S Chair-bed: S GAIT Assistive Device: FWW Weight bearing: WBAT on L Assist: S Distance: 150' Deviation: Standing rest x2 THEREX: Patient completed a LE strengthening program, as per flow sheet. Patient tolerated a slight progression in her program today. ASSESSMENT: Patient tolerated session well with some c/o L hip discomfort with bed mobility. Patient was able to tolerate a slight progression in ther ex and a progression in gait distance with FWW support. Patient would benefit from continued gait and transfer training, as well as strengthening for improved mobility. PLAN: Continue with PT's POC TREATMENT CODE/TIME: 40 minutes; TAx2/TP
--- NOTE | 2018-07-07 10:33 | HHF2F_ITS ---
1. Encounter Date and Reason I certify that CLARK TRUONG was seen by Yelitza Cormier on 07/07/18 and that I had a [id number] encounter with this patient that meets the physician face to face encounter requirements. 2. Clinical Findings Supporting Skilled Need and Homebound Status I certify that home health services are medically necessary, include either intermittent retirement and/or physical/speech therapy, and that this patient is homebound in that absences from the home require considerable and taxing effort and are infrequent or of short duration, or are attributable to the need to receive medical care. [X] (a) Attached documentation from encounter provides clinical findings supporting skilled need and homebound status (including what assistance patient requires to leave the home). The encounter with the patient was in whole, or in part, for the following medical condition, which is the primary reason for home health care: HIP FRACTURE Half-Way: Physical Therapy: Needed to continue strength and endurance training after left hip fracture with repair. OT: Needed to evaluate/assess ability to perform ADL/IADLs at home and make recommendations. Speech Therapy: Homebound: Unable to leave home without assistance. 3. Certification and Authentication I certify that I composed the above information based on my clinical judgement relating to this patient's medical condition and, if applicable, clinical findings communicated to me by the NPP or inpatient physician who performed the Home Health Referral. All further orders will be obtained through Alma Youssef MD _(Community Based Physician - PCP)
--- NOTE | 2018-07-07 10:33 | W.PM.DS.N ---
Date of service: 07/07/18 Time of Service: 10:46 DS: Diagnosis Discharge Diagnosis (1) Hip fracture: Status: Acute Discharge Plan Disposition Patient Disposition: HOME W/HOME HEALTH SERVICE Condition: Fair Discharge Details Reason For Visit: HIP FRACTURE Admit Date/Time: 07/03/18 17:37 Admit Provider: Liu Paris Attending Provider: Liu Paris Primary Care Provider: THO ENRIQUEZ Hospital Course Hospital Course: Heidi Mcdermott is a very pleasant 83 year old woman with a prior history of hypertension, Dyslipidemia, and Coronary artery disease s/p CABG who was admitted from [facility] on 07/03 following a hip fracture. She was in her usual state of health earlier on the day of admission when she tripped over a rug and fell, she struck her left hip and experienced immediate hip pain. In the ED, she was noted to have a slightly shorted LLE. She had an x-ray which was significant for a left femoral neck fracture. EKG was obtained and reviewed by Dr. Lang in the ED. She was noted to be in sinus rhythm with a rate of 70. T wave inversions are noted but no previous EKG is available. She advised no acute findings to suggest ischemia. She was seen by Orthopedics and transferred from the ED to the OR for surgical repair. She had a unipolar prosthetic replacement of the left femoral head for femoral neck fracture, left by Dr. Erickson. She has been working with PT and progressing well. Her pain has been well controlled with oral Tylenol and Celebrex. She will continue Tylenol for pain management at home. She will be discharged on Aspirin 81 mg PO BID x30 days for DVT prophylaxis. She will follow up with Dr. Erickson in 2 weeks for staple removal. She will follow up with her PCP as scheduled. She will have home health PT/OT upon discharge. Home Meds and New Rx's Prescriptions: New acetaminophen [Tylenol] 325 mg Tablet 650 mg PO Q6H PRN PRNQty: 0 RF: 0 pantoprazole 40 mg Tablet,Delayed Release (Dr/Ec) 40 mg PO DAILY@0730 Qty: 7 RF: 0 Continue ascorbic acid (vitamin C) [Vitamin C] 500 MG tablet 500 mg PO DAILY RF: 0 cholecalciferol (vitamin D3) 1,000 UNIT capsule 1,000 unit PO DAILY RF: 0 rosuvastatin [Crestor] 20 MG tablet 20 mg PO DAILY RF: 0 metoprolol tartrate 25 MG tablet 25 mg PO BID RF: 0 calcium carbonate-vitamin D3 [Calcium 600 + D(3)] 1 EACH tablet 1 tab PO DAILY RF: 0 glucosamine terrazas 2KCl-chondroit [Glucosamine Sulf-Chondroitin] 1 EACH capsule 1 cap PO DAILY RF: 0 levothyroxine 25 MCG tablet 25 mcg PO DAILY RF: 0 Changed aspirin 81 MG tablet,delayed release (DR/EC) 81 mg PO BID Qty: 0 RF: 0 Discharge Instructions Instructions: Hip Fracture (GEN) Additional Instructions: You will need to take Aspirin 81 mg two times per day for the next 30 days to prevent a blood clot. You will need to continue to take Pantoprazole to protect the lining of your stomach. You may take Tylenol for pain. Do not take more than 3000 mg in a 24 hour period. Follow up with your PCP as scheduled. Follow up with Dr. Erickson as scheduled in 2 weeks for staple removal. Home health PT/OT will work with you after your discharge home. Stand Alone Forms: Nursing Discharge Form Referrals: Erasto Erickson MD [ [facility] STAFF PHYSICIAN] - 07/21/18 10:00 am THO ENRIQUEZ [Primary Care Provider] - 07/15/18 10:30 am Activity:: Activity as Tolerated Equipment/Supplies:: No Equipment Needed Diet:: As Tolerated Discharge Orders Discharge Orders: Discharge Order (Routine); Ordered 07/07/18 Ordered By: Yelitza Cormier Exam Narrative Exam Narrative: General: Patient appears comfortable, sitting up in chair. alert and oriented x3, in no acute distress. Neck: Supple, no JVD CV: Regular, nontachycardic, no murmur appreciated. Pulmonary: Clear to auscultation throughout, no crackles, wheezing, or rhonchi Abdomen: + Bowel Sounds, soft, nontender, nondistended, no masses appreciated. Extremities: No clubbing, cyanosis or edema. L hip with incision open to air, incision well approximated, rere intact, no drainage, warmth or erythema, no signs of infection. Peripheral pulses palpable. Psych: Normal mood and affect. DS: Data Vitals/I&O Vitals and I&O: Vital Signs Temperature 36.6 C 07/07/18 07:30 Temperature Source Tympanic 07/07/18 07:30 Pulse 75 07/07/18 07:30 Pulse Rhythm Regular 07/07/18 08:00 Pulse 90 07/03/18 14:30 Respiratory Rate 18 07/07/18 07:30 Respiratory Effort Non-Labored 07/07/18 08:00 Respiratory Depth Normal 07/07/18 08:00 Respiratory Pattern Normal 07/07/18 08:00 Blood Pressure 179/82 H 07/07/18 07:30 Blood Pressure Mean 93 07/03/18 14:21 Blood Pressure Position Supine 07/03/18 12:34 Pulse Oximetry 98 07/07/18 07:30 Respiratory End-tidal CO2 33 07/03/18 17:30 Oxygen Delivery Method Room Air 07/07/18 07:30 Oxygen Flow Rate 0 07/07/18 07:30 Pain Level 2 07/07/18 08:00 Comment 07/04/18 00:25 Intake & Output 07/06/18 07/06/18 07/07/18 11:59 23:59 11:59 Intake Total 125 / 125 480 / 480 960 / 960 Output Total 800 / 800 600 / 600 150 / 150 Balance -675 / -675 -120 / -120 810 / 810 Intake: Oral 125 / 125 480 / 480 960 / 960 Output: Urine 800 / 800 600 / 600 150 / 150 Other: Urine Color Yellow Yellow Yellow Urine Appearance Clear Clear Clear Urine Odor Normal Normal Normal Comment Pt void in toilet x1. Voiding Methods Bedside Commode Bedside Commode Toilet Completed studies during hospitalization [Text1]: 07/03/18: CHEST X-RAY, AP VIEW: Comparison is 08/17/14. The heart size and pulmonary vasculature are within normal limits. The patient is status post CABG. The lungs are clear. No effusions or pneumothoraces are identified. Degenerative changes are seen in the spine. IMPRESSION: No acute pulmonary process. LEFT HIP AND PELVIS: There is a left femoral neck fracture with mild superior displacement of the distal fracture. The left femoral head is seated within the acetabulum. No other fracture or dislocation is seen. The soft tissues are unremarkable. IMPRESSION: Displaced left femoral neck fracture. 07/03/18: (intraoperative film) AP PELVIS: AP view of the pelvis was obtained and shows femoral head prosthesis in position which appears well seated in the acetabulum and femur. The tip of the prosthesis is not included on the films distally. Appropriate follow up films requested. Labs on day of discharge: Labs from last 24 hours 07/07/18 06:25 Plt Count 173 PFSH Medical History Hip fracture (Acute) Hyperlipidemia (Acute) Hypertension (Chronic) Hypothyroid (Chronic) Social History Smoking/Tobacco Use Status: Never
[2018-07-07 11:10] VITALS: BP 140/68; PULSE 62; RESP 18; TEMP 36.6; O2SAT 97
--- NOTE | 2018-07-07 11:24 | PDOC.CMDIS ---
- If Service Date Differs Date of service: 07/07/18 Time of Service: 11:24 LACE Index Scoring Tool - Questions: Length of Stay (in days): 4 - 6 Acuity (Admit via E.D.?): Yes E.D. Visits: 1 - Answers: Total Score: 8 Risk of Readmission: Low Risk Care Management Discharge Reason for Hospitalization: Hip Fracture Discharge Plan: Heidi will return home today with home health PT/OT services. EMILIE spoke with ROE Sanchez, to alert of DC and need for services. Heidi states that her daughter has a FWW and commode for her to use at home. Her CARLEY will transport her home today after lunch. EMILIE has notified FLAVIO Torre, of the above. Patient/Family Education Needs: Review DC instructions, any limitations, and discuss 'Ask Me Three' Services Needed at Discharge: Home Health Care Services (PT/OT)
--- NOTE | 2018-07-07 11:41 | PT.INDS ---
Date of service: 07/07/18 Time of Service: 11:42 PT Notes Inpatient Physical Therapy Discharge Summary Dates: 07/07/18 Dates of Service: 07/04/18-07/07/18 SUBJECTIVE: NT OBJECTIVE: 07/04/18-07/07/18 BED MOBILITY/TRANSFERS: Supine-sit : supervision Sit-supine : supervision Sit-stand : supervision with FWW Stand-sit : supervision Bed-Chair : supervision with FWW Chair-bed : supervision with FWW GAIT: supervision with FWW 150ft STAIRS: up/down 3 steps with railing, SBA BALANCE: Static sitting: normal Dynamic sitting: normal Static standing: fair Dynamic standing: fair ASSESSMENT: Pt was seen for 5 PT Visits. Progressed from Cinthya bed transfers to supervision, from Cinthya standing transfers to supervision, from minAx1 gait with FWW 20ft to supervision with FWW 150ft, up/down stairs SBA. Pt is discharged to home setting, home PT recommended for continued mobility training and FWW recommended for gait stability. GOALS Goals X1 week 1. Supine-Sit SBA 2. Sit-Supine SBA 3. Sit-Stand SBA 4. Stand-Sit SBA 5. Bed-Chair SBA 6. Chair SBA 7. Gait SBA with FWW up to 100 feet 8: Independent in Home program Pt met goals # 1-8 DISCHARGE RECOMMENDATIONS: home with home PT and FWW G Codes most appropriate G code ability walking moving around: projected goal GP?[id number] , discharge status GP [id number] Natalie Ventura PT
== END 2018-07-07 13:07 | disposition home health service (06) | DRG 470 ==
LOC: ER 14:53 → SUR 14:55 → MS 17:38
PROVIDERS: Orthopaedic Surgery; Admitting Provider Internal Medicine; Emergency Provider Physician Assistant; PCP Internal Medicine; Visit Provider Internal Medicine
PROC: 0SRS039 Replacement of Left Hip Joint, Femoral Surface with Ceramic Synthetic Substitute, Cemented, Open Approach (ICD-10-PCS; CPT 27125; principal; 2018-07-03 13:45)
DX: S72.002A Fracture of unspecified part of neck of left femur, initial encounter for closed fracture (principal); W18.09XA Striking against other object with subsequent fall, initial encounter; I25.10 Atherosclerotic heart disease of native coronary artery without angina pectoris; E03.9 Hypothyroidism, unspecified; E78.5 Hyperlipidemia, unspecified; I10 Essential (primary) hypertension
CPT/HCPCS: 27236; 36415; 76942; 80048; 80053; 85027; 86850; 86900; 86901; 93005; 96374; 97110; 97162; 97530; 99222; 99232; 99233; 99239; 99285; NC; 71045; 72170; 73502; 85014; 85018; 85049; 85610; 85730; 93010; 99284; J0690; J1100; J1650; J1885; J2405; J3010; L1686

== ENCOUNTER → 2018-07-21 10:01 | Outpatient (BNVA) | payer MEDICARE, OTHER, SELFPAY | PROVIDERS: PCP Internal Medicine; Referring Provider Internal Medicine; Visit Provider Orthopaedic Surgery | DX: S72.002D Fracture of unspecified part of neck of left femur, subsequent encounter for closed fracture with routine healing (principal); W18.09XD Striking against other object with subsequent fall, subsequent encounter; I10 Essential (primary) hypertension ==

== ENCOUNTER → 2018-09-02 10:08 | Outpatient (BNVA) | payer MEDICARE, OTHER, SELFPAY | PROVIDERS: PCP Internal Medicine; Referring Provider Internal Medicine; Visit Provider Orthopaedic Surgery | DX: S72.002D Fracture of unspecified part of neck of left femur, subsequent encounter for closed fracture with routine healing (principal); X58.XXXD Exposure to other specified factors, subsequent encounter ==

== ENCOUNTER 2019-09-25 05:50 | Emergency (ER) | payer MEDICARE, OTHER, SELFPAY ==
--- NOTE | 2019-09-25 05:38 | ED.GENADUL_ITS ---
Discharge Plan Disposition Patient Disposition: HOME Condition: Good Discharge Details Chief Complaint: GenMedical Clinical Impression: Hypertension Primary Care Provider: Alma Youssef ED Provider: Alex Bobby Home Meds and New Rx's Prescriptions: No Action cholecalciferol (vitamin D3) 1,000 UNIT capsule 1,000 unit PO DAILY RF: 0 rosuvastatin [Crestor] 20 MG tablet 20 mg PO DAILY RF: 0 metoprolol tartrate 25 MG tablet 25 mg PO BID RF: 0 Glucosamine Sulf-Chondroitin 1 EACH capsule 1 cap PO DAILY RF: 0 levothyroxine 25 MCG tablet 25 mcg PO DAILY RF: 0 acetaminophen [Tylenol] 325 mg Tablet 650 mg PO Q6H PRN PRNQty: 0 RF: 0 pantoprazole 40 mg Tablet,Delayed Release (Dr/Ec) 40 mg PO DAILY@0730 Qty: 7 RF: 0 aspirin 81 MG tablet,delayed release (DR/EC) 81 mg PO BID Qty: 0 RF: 0 prednisone 5 mg Tablet 2.5 mg PO DAILY RF: 0 Discharge Instructions Instructions: Hypertension (ED) Additional Instructions: At this time your blood pressure has normalized. The steroids may be causing a slight increase in your pressure, or this elevated measurement may have been an isolated incident. Please follow-up closely with your bisque kiln placer Dr. Jones at your scheduled appointment on Friday. Please continue to measure your blood pressure at home. Please continue to take your 25 mg metoprolol twice daily as directed. If you notice any worsening of your symptoms, or any new symptoms such as vomiting, diarrhea, fever, chills, shortness of breath, chest pain, numbness, weakness, or fainting , please return immediately to the emergency department for reevaluation. Please follow up with your primary care provider as soon as possible for reassessment and reevaluation. As always, it was a pleasure participating in your medical care today. Referrals: Peewee Le [ [facility] STAFF PHYSICIAN] - Medical Decision Making 84-year-old female with a past medical history of coronary artery disease, hypertension, hypothyroidism, and high cholesterol presents today for evaluation of elevated blood pressure. This morning the patient got up to go to the bathroom when she noted a pulsing sensation in her chest and head, she took her blood pressure and it was noted to be elevated, called family members who confirmed this upon their check. EMS was then contacted. Per EMS on initial assessment initial blood pressure was around 210/120. However with time blood pressure slowly improved, and her symptoms completely resolved in transit. She denies any chest pain, shortness of breath, chest tightness, arm neck or shoulder pain whatsoever. She states that she feels great. Physical exam shows no significant abnormalities. Blood pressure here in the ED demonstrates 192/89. EKG shows no evidence of STEMI or abnormality or change from prior EKG. At this time we did offer IV medication versus oral. As this blood pressure is notably atypical for the patient we will give her normal dose of metoprolol 25 mg plus an additional 12.5 mg due to her excessive elevation compared to normal. With no evidence of chest pain tearing sensation or other concerning red flags her symptoms are clinically inconsistent with ACS or dissection. We will observe and reassess. 6:55 AM On reassessment the patient continues to remain clinically well, she has no complaints of headache or significant pulsing sensation. There is no palpable temporal artery, symptoms inconsistent with giant temporal arteritis. The patient's blood pressure is 168/84, she feels well, no chest pain shortness of breath or any other complaints. At this time I feel that the elevated blood pressure was certainly an atypical component. Will recommend she continue her metoprolol. She has a follow-up appointment with Dr. Jones in 4 days. Recommend that she continue her metoprolol, monitor pressures closely, return if she has any concerning symptoms. Discussed red flags which to return. I have extensively reviewed the treatment plan and discharge instructions with the lisbet de leon. I have addressed all patient concerns at this time. The patient was made aware of what symptoms to monitor for that would warrant a return to the emergency department. Discussed the plan with the patient, they demonstrate verbal understanding and agreement with our assessment and plan at this time. EKG 5: 53 Rate 79, intervals normal, sinus rhythm, inverted T wave in V1, no significant S T elevations or depressions, no signs of STEMI. No other abnormalities. Unchanged from prior EKG from 07/03/2018 HPI General Date/Time Provider Initiated Documentation: 09/25/19 05:56 . HPI Narrative: 84-year-old female with a past medical history of coronary artery disease, hypertension, hypothyroidism, and high cholesterol presents today for evaluation of elevated blood pressure. This morning the patient got up to go to the bathroom when she noted a pulsing sensation in her chest and head, she took her blood pressure and it was noted to be elevated, called family members who confirmed this upon their check. EMS was then contacted. Per EMS on initial assessment initial blood pressure was around 210/120. However with time blood pressure slowly improved, and her symptoms completely resolved in transit. Currently the patient denies any complaints whatsoever of chest pain, arm pain neck pain shortness of breath headache vision changes anything else. She states that she feels absolutely fine, it was just the number that concerned her. She is taking her metoprolol 25 mg as directed. She has not missed any doses. She denies any recent salty intakes. Of note she has been taking regular prednisone for the past 3 to 4 months secondary to a new diagnosis of polymyalgia rheumatica. No other complaints at this time. No other modifying factors. Related Data Home Medications Medication Instructions Recorded Confirmed Glucosamine Sulf-Chondroitin 1 cap PO DAILY 08/17/14 09/25/19 cholecalciferol (vitamin D3) 1,000 unit PO DAILY 08/17/14 09/25/19 metoprolol tartrate 25 mg PO BID 08/17/14 09/25/19 rosuvastatin [Crestor] 20 mg PO DAILY 08/17/14 09/25/19 levothyroxine 25 mcg PO DAILY 01/06/17 09/25/19 acetaminophen [Tylenol] 650 mg PO Q6H PRN PRN #0 tab 07/07/18 09/25/19 aspirin 81 mg PO BID #0 tab 07/07/18 09/25/19 pantoprazole 40 mg PO DAILY@0730 #7 tab 07/07/18 09/02/18 prednisone 2.5 mg PO DAILY 09/25/19 09/25/19 Previous Rx's Medication Instructions Recorded acetaminophen [Tylenol] 650 mg PO Q6H PRN PRN #0 tab 07/07/18 aspirin 81 mg PO BID #0 tab 07/07/18 pantoprazole 40 mg PO DAILY@0730 #7 tab 07/07/18 Allergies Allergy/AdvReac Type Severity Reaction Status Date / Time Tetanus Vaccines and Toxoid AdvReac Mild Swelling/Ed Verified 09/02/18 10:31 kady General JACOB: 3 Review of Systems All systems reviewed & are unremarkable except as noted in HPI and below PFSH Social History Smoking/Tobacco Use Status: Never Alcohol Intake: never Drug use: Never Do you feel safe at home: Yes Do you feel safe in your relationship?: Yes Exam Narrative Exam Narrative: 1.Const: Well-nourished, Well-developed, appearing stated age 2.Eyes: PERRL, no conjunctival injection, and symmetrical lids. 3.ENT: Atraumatic external nose and ears. Moist MM. Neck: Symmetric, trachea midline, No thyromegaly. 4.CVS: +S1/S2, No murmurs or gallops. Peripheral pulses 2+ and equal in all extremities. Brisk capillary refill in all extremities. 5.RESP: Unlabored respiratory effort. Clear to auscultation bilaterally. No wheezes rales or rhonchi 6.GI: Soft, Nontender/Nondistended, No hepatosplenomegaly. No guarding or rebound. 7.MSK: Normocephalic/Atraumatic, Extremities w/o deformity or ttp No cyanosis or clubbing, Normal movement of all extremities 8.Skin: Warm, Dry. No rashes or lesions. 9.Neuro: laboratory technologist II-XII grossly intact. Sensation grossly intact, no focal neurologic deficits. 10.Psych: (AAO) x3. Appropriate mood and affect
[2019-09-25 06:02] VITALS: BP 192/98; PULSE 81; RESP 16; O2SAT 99
[2019-09-25] MEDS: Metoprolol 25 MG TAB PO (06:08)
[2019-09-25] MEDS: Metoprolol 12.5 MG TAB PO (06:08)
[2019-09-25 06:12] VITALS: RESP 16
--- NOTE | 2019-09-25 06:16 | NUR.NOTE ---
CHAO Bird from home with c/o elevated BP. Pt states she woke up at 0230 with a pulsing feeling in left buddhism. Took BP, elevated. Checked it several more times, remained elevated. Called son who is an EMT, he checked as well. Per EMS had readings as high as 220/120. Denies CP, SOB. Reports head feels funny, denies headache, visual disturbances. SR on monitor. Did not take am meds.
[2019-09-25 06:51] VITALS: BP 168/84
[2019-09-25 07:04] VITALS: BP 168/84; PULSE 80; RESP 16; O2SAT 99
== END 2019-09-25 07:19 | disposition home or self-care (01) ==
LOC: ER 07:27
PROVIDERS: Emergency Provider Student in an Organized Health Care Education/Training Program; PCP Internal Medicine
DX: I10 Essential (primary) hypertension (principal)
CPT/HCPCS: 93005; 99283; 93010; 99284; J3490

== ENCOUNTER 2020-10-05 15:21 | Outpatient (CLI) | payer MEDICARE, OTHER, SELFPAY ==
--- NOTE | 2020-10-05 14:45 | DI.RAD_ITS ---
EXAM: XR KNEE LT 3V AP,LAT,BERT CLINICAL HISTORY: left knee pain. TECHNIQUE: 2D digital imaging was performed. COMPARISON: CR XR KNEE RT 3V AP,LAT,BERT from 10/05/2020 FINDINGS: There is no evidence of acute fracture. There is some calcification noted within the suprapatellar b ursa which appears to be lining the synovial. There are advanced degenerative changes in the lateral compartment with complete loss of joint space in this compartment on the weight-bearing standing vie w and marginal osteophytes. Less narrowing of the medial compartment noted. Moderate degenerative changes in the patellofemoral compartment. Bone density is age-appropriate. No osseous lesions. IMPRESSION: DATA REPOSITORY: RADIATION DOSE DELIVERED:
--- NOTE | 2020-10-05 14:45 | DI.RAD_ITS ---
EXAM: XR KNEE RT 3V AP,LAT,BERT CLINICAL HISTORY: rt knee pain. TECHNIQUE: 2D digital imaging was performed. COMPARISON: No exams were available for comparison FINDINGS: There is no evidence of fracture or obvious joint effusion. On the standing view there is advanced n arrowing of the lateral compartment with [id number] apposition. More move milder narrowing of the medial compartment is noted. Mild degenerative changes in the patellofemoral compartment. Incidenta lly noted are surgical clips in the medial soft tissues which are most probably from prior saphenous vein harvesting. Also noted is some sclerosis within the distal diaphysis of the femur which may be from prior bone infarction.. In addition, there appears to be an intra-articular calcified body in t he intercondylar notch area of the joint space, this measuring 6 x 3 millimeters. IMPRESSION: DATA REPOSITORY: RADIATION DOSE DELIVERED:
--- NOTE | 2020-10-05 14:45 | DI.RAD_ITS ---
EXAM: XR HIP LT COMPLETE AP PELVIS CLINICAL HISTORY: left hip pain; s/p unipolar hip. TECHNIQUE: 2D digital imaging was performed. COMPARISON: CR XR pelvis AP from 07/03/2018 FINDINGS: Again noted is a left hip prosthesis. It appears to be in satisfactory position. No fracture. No o bvious loosening no radiographic evidence of osteomyelitis. Minimal degenerative changes noted in th e opposite-right hip which appears unchanged from 2018. IMPRESSION: DATA REPOSITORY: RADIATION DOSE DELIVERED:
== END 2020-10-05 15:22 | disposition home or self-care (01) ==
LOC: DIORS 15:21
PROVIDERS: PCP Internal Medicine; Referring Provider Internal Medicine; Visit Provider Student in an Organized Health Care Education/Training Program
DX: Z96.642 Presence of left artificial hip joint; M16.11 Unilateral primary osteoarthritis, right hip; M25.562 Pain in left knee; M25.561 Pain in right knee; M16.12 Unilateral primary osteoarthritis, left hip; M17.12 Unilateral primary osteoarthritis, left knee; M17.11 Unilateral primary osteoarthritis, right knee
CPT/HCPCS: 20610; 73562; 99214; 73502; J1040

== ENCOUNTER 2020-11-02 00:51 | Outpatient (CLI) | payer MEDICARE, OTHER, SELFPAY ==
--- NOTE | 2020-11-02 08:15 | DI.RAD_ITS ---
EXAM: RF JOINT INJECTION FLUORO GUID CLINICAL HISTORY: L HIP INJ UNDER FLUORO,LT HIP PAIN, M25.552 TECHNIQUE: 2D and realtime digital imaging was performed. COMPARISON: No exams were available for comparison FINDINGS: Fluoroscopy was provided for Dr. Dior for guidance with performing a left hip injection. Please see procedure note for details. Fluoro time: 1 second RADIATION DOSE DELIVERED:
--- NOTE | 2020-11-02 14:55 | W.PROCNOTE ---
Date of service: 11/02/20 Time of Service: 14:55 Procedure Note Date of procedure: 11/02/20 Procedure: Left Hip Injection with Fluoroscopic Guidance Surgeon/Proceduralist/Physician: Santiago Dior Procedure Diagnosis: Left Hip Pain s/p Hemiarthroplasty Procedure Indications: Heidi has had pain of the LEFT hip and groin that has gotte worse over the last few months. She had a hemiarthroplasty performed for fracture in 2018 and xrays suggested narrowing of the space between the acetabulum and the femoral head prosthesis. Noninvasive measures have been tried. To serve as both diagnostic and therapeutic, an injection under fluoroscopy was recommended. I had discussed the risks of the procedure and the patient elected to proceed. Procedure Description: Heidi was greeted in the flouroscopy room. The correct side was identified and the consent was reviewed with the patient and signed. The patient was then placed in the supine position on the fluoroscopy table. The LEFT hip was then prepped with Chloraprep. The anterolateral injection starting point was identiifed by bony landmarks and fluoroscopy. The skin and soft tissue in the tract of the injection was anesthetized with 1% Lidocaine. A spinal needle was then inserted deep into the hip joint at the level of the lateral femoral neck under fluoroscopic guidance. A small amount of Omnipaque solution was injected to confirm intraarticular placement. Once confirmed, the hip was injected with 6cc of 0.5% Bupivicaine and 80mg of Depo-Medrol. A bandaid was placed on the injection site. The patient tolerated the procedure well and noted improvement in pre-injection pain.
[2020-11-02] MEDS: Bupivacaine 0.5% Pres-Free 10 ML VIAL 5 ML IJ (15:05)
[2020-11-02] MEDS: Omnipaque 300 MG/ML 10 ML BTL IJ (15:06)
[2020-11-02] MEDS: methylPREDNISolone ACETATE 80 MG/ML VIAL IM (15:06)
== END 2020-11-02 01:11 ==
PROVIDERS: PCP Internal Medicine; Visit Provider Student in an Organized Health Care Education/Training Program
DX: T84.84XA Pain due to internal orthopedic prosthetic devices, implants and grafts, initial encounter (principal); Z96.642 Presence of left artificial hip joint; M25.552 Pain in left hip
CPT/HCPCS: 20610; 77002; J1040

== ENCOUNTER 2021-10-12 03:51 | Outpatient (CLI) | payer MEDICARE, OTHER, SELFPAY ==
[2021-10-12 22:31] LABS: COVID-19 RT-PCR UVMMC Result Negative (Negative)
== END 2021-10-12 03:52 | disposition home or self-care (01) ==
LOC: LBO 03:51
PROVIDERS: PCP Internal Medicine; Visit Provider Ophthalmology
DX: Z20.822 Contact with and (suspected) exposure to COVID-19 (principal)
CPT/HCPCS: 87635; U0003; U0005

== ENCOUNTER 2021-10-15 08:53 | Day surgery (SDC) | payer MEDICARE, OTHER, SELFPAY ==
[2021-10-15 09:15] VITALS: BP 146/56; PULSE 66; RESP 16; TEMP 36; O2SAT 98
[2021-10-15] MEDS: Tropicam./Phenyleph. (1/2.5%) 5 ML BTL OS ×3 (09:37→09:56)
--- NOTE | 2021-10-15 10:49 | ANES.PREOP_ITS ---
General Info Date of Service Date Performed: 10/15/21 Height: 5 ft 5 in Weight: 64.7 kg Body Mass Index (BMI): 23.7 Surgical Procedure: Operation Date: 10/15/21 11:40 Proposed Procedure Side Surgeon p Cataract Extraction with IOL Implant Left Rajeev Morrison MD Meds Allergies and Home Medications Allergies Allergy/AdvReac Type Severity Reaction Status Date / Time latex Allergy Intermediate Verified 10/15/21 09:29 Tetanus Vaccines and Toxoid AdvReac Mild Swelling/Ed Verified 10/15/21 09:29 kady Home Medication Medication Instructions Recorded cholecalciferol (vitamin D3) 25 1,000 unit PO DAILY 08/17/14 mcg (1,000 unit) capsule glucosamine sulfate dipotassium Cl 1 cap PO DAILY 08/17/14 500 mg-chondroitin 400 mg capsule (Glucosamine Sulfate 2 KCL-Chondroitin) metoprolol tartrate 25 mg tablet 25 mg PO BID 08/17/14 rosuvastatin 20 mg tablet (Crestor) 20 mg PO DAILY 08/17/14 levothyroxine 25 mcg tablet 25 mcg PO DAILY 01/06/17 acetaminophen 325 mg tablet 650 mg PO Q6H PRN PRN #0 tab 07/07/18 (Tylenol) amlodipine 5 mg tablet 5 mg PO HS 10/05/20 cranberry fruit 450 mg tablet 450 mg PO DAILY 07/09/21 nitroglycerin 0.4 mg sublingual 0.4 mg SUBLINGUAL Q8H PRN tab 07/09/21 tablet aspirin 81 mg tablet,delayed 81 mg PO DAILY 10/15/21 release Current Visit Medications: Current Medications Generic Name Dose Route Start Last Admin Trade Name Freq PRN Reason Stop Dose Admin Acetaminophen 1,000 mg 10/15/21 06:00 Acetaminophen 500 Mg Tab PO Q4H PRN PRN Miscellaneous Medication 0 ml 10/15/21 06:00 Prednisolone 1%, Moxifloxacin 0.5%, Nepafenac 0.1% 5ml Btl OS DIRECTED [facility] Miscellaneous Medication 0 ml 10/15/21 06:00 10/15/21 09:56 Tropicam./Phenyleph. 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 states she did not have a heart attack but was very close to it Hip fracture Hx of skin cancer, basal cell Hyperlipidemia Hypertension Hypothyroid Osteoarthritis Polymyalgia Urge incontinence Medical History Comments:: Sensitivty if touching nose; recent reconstruction to nose after skin cancer removal. Pt reports in 1999 after colonoscopy having had a reaction for next two weeks, felt very ill Surgical History Surgical History (Updated 10/15/21 @ 09:28 by Yadi Lynn) H/O carpal tunnel repair H/O dilation and curettage History of left hip replacement History of nasal surgery reconstruction post skin cancer removal; 08/2021 History of surgery History of bypass 11/2008 History of tonsillectomy Tobacco Smoking/Tobacco Use Status: Never Alcohol Alcohol Intake: never Substance Use Substance use: Never Substance use type: does not use Vital Signs and Lab Results Vital Signs Most Recent Vital Signs in EMR: Most Recent Vital Signs Temp Pulse Resp BP Pulse Ox 36 C L 66 16 146/56 H 98 10/15/21 09:15 10/15/21 09:15 10/15/21 09:15 10/15/21 09:15 10/15/21 09:15 Lab Results Blood Type / Crossmatch: No Data to Display Complete Blood Count: No Data to Display Complete Metabolic Panel: No Data to Display Liver Function Panel: No Data to Display Coagulation Panel: No Data to Display Cardiac Panel: No Data to Display Arterial Blood Gas: No Data to Display Venous Blood Gas: No Data to Display Pancreas Panel: No Data to Display Thyroid Panel: No Data to Display Infectious Disease: Coronavirus (COVID-19)(PCR) Negative (Negative) 10/12/21 09:12 10/12/21 Blood Cultures: No Data to Display Toxicology Panel: No Data to Display Anesthesia Assessment and Plan Anesthesia History Personal History: No History of Anesthesia Complications Family History: No Family History of Anesthesia Complications Exercise Tolerance Exercise Tolerance: Metabolic Equivalents>4 Pertinent Negatives Pertinent Negatives: No Symptoms of GERD, No Major Cardiovascular Symptoms or Complaints, No Major Pulmonary Symptoms or Complaints and No History of CVA/TIA Cardiac & Pulmonary Exam Cardiac Exam: Normal S1/S2 Heart Sounds Pulmonary Exam: Clear Bilateral Breath Sounds Implantable Cardiac Device Does patient have a Pacemaker or an ICD?: No Airway Exam Known Difficult Airway: No Mallampati Class: 1 Mouth Opening: Normal (> 3cm) Thyromental Distance: Greater than 3 cm Neck Range of Motion: Full ROM Neck Circumference: Normal Teeth Condition: Normal Dentition ASA Classification ASA Score: ASA 2 Emergency Case?: No NPO Status NPO Status: NPO Clears >2 hours, Solids >8 hours Anesthesia Plan Resuscitation Status: Full Code Anesthesia Technique: MAC Anesthesia Airway Planned: Natural Airway Monitors Used: Standard Monitors
[2021-10-15 10:54] VITALS: BMI 23.7
[2021-10-15] MEDS: Tetracaine 0.5% 4 ML BTL OS (11:18)
[2021-10-15] MEDS: Balanced Salt Soln.-PLUS 500 ML BAG (11:19)
[2021-10-15] MEDS: Lidocaine 2% Jelly 6 ML SYR (11:20)
[2021-10-15] MEDS: Duovisc Viscoelastic System EACH 1 EACH (11:20)
[2021-10-15] MEDS: Povidone-Iodine Ophth 30 ML BTL (11:23)
[2021-10-15 11:29] VITALS: BP 157/69; PULSE 73; RESP 16; TEMP 36.5; O2SAT 98
--- NOTE | 2021-10-15 11:33 | W.PM.DSUDISC ---
Discharge Plan Disposition Patient Disposition: HOME Condition: Good Discharge Details Attending Provider: Rajeev Morrison Primary Care Provider: Alma Youssef Home Meds and New Rx's Prescriptions: No Action amlodipine 5 mg tablet 5 mg PO HS 0RF nitroglycerin 0.4 mg tablet, sublingual 0.4 mg sublingual Q8H PRN0RF Rx Instructions: do not exceed 3 doses per episode cranberry fruit 450 mg tablet 450 mg PO DAILY 0RF Rx Instructions: administer with a meal cholecalciferol (vitamin D3) 1,000 UNIT capsule 1,000 unit PO DAILY 0RF rosuvastatin [Crestor] 20 MG tablet 20 mg PO DAILY 0RF metoprolol tartrate 25 MG tablet 25 mg PO BID 0RF Glucosamine Sulf-Chondroitin 1 EACH capsule 1 cap PO DAILY 0RF levothyroxine 25 MCG tablet 25 mcg PO DAILY 0RF acetaminophen [Tylenol] 325 mg Tablet 650 mg PO Q6H PRN PRNQty: 0 0RF aspirin 81 MG tablet,delayed release (DR/EC) 81 mg PO DAILY 0RF Discharge Instructions Stand Alone Forms: Post-op Topical Cataract, Pricila Garcia (DSU) Discharge Orders Discharge Orders: Discharge Order (Routine); Ordered 10/15/21 Ordered By: Rajeev Morrison DS: Diagnosis Discharge Diagnosis (1) Posterior subcapsular age-related cataract of left eye: Status: Resolved (2) Nuclear sclerotic cataract of left eye: Status: Resolved
--- NOTE | 2021-10-15 11:34 | W.PM.OP ---
Date of service: 10/15/21 Time of Service: 11:34 Operative Note Operative Note DATE OF PROCEDURE: 10/15/21 PRE-OP DIAGNOSIS: Nuclear/posterior subcapsular cataract, left eye POST-OP DIAGNOSIS: same PROCEDURE: Cataract extraction using phacoemulsification with intraocular lens implant, left eye SURGEON: Rajeev Morrison ANESTHESIA TYPE: Local By Surgeon and MAC Refer to Anesthesia Record PATHOLOGY: none sent COMPLICATIONS: None Patient was transported to: same day Patient's condition: stable Implants: Francesco [employer] / [employer] Tecnis [id number] Indications: Progressive decreased vision due to cataract, left eye Procedure Description: CATARACT SURGERY OPERATIVE REPORT PREOPERATIVE DIAGNOSIS: 1. Nuclear/posterior subcapsular cataract, left POSTOPERATIVE DIAGNOSIS: Same OPERATION: 1. Cataract extraction using phacoemulsification with posterior chamber intraocular lens implant, left eye. IOL: IOL Patient Safety Officer/Model: Frances[employer] Frances[employer] / EULOGIO Tecnis [id number] IOL Power: + 23.0 diopters IOL Serial Number: [id number] Optic Diameter: 6.0 mm Haptic/Overall Diameter: 13.0 mm PHACO INFO: Bridger [employer]urion Vision System with OZil and Active Fluidics Cumulative Dispersed Energy (CDE): 9.67 seconds SURGEON: Rajeev Morrison MD, JYOTI ANESTHESIA: Monitored A [facility] (MAC), with local sub-tenon's anesthetic infiltration COMPLICATIONS: None SPECIMENS: None INDICATIONS FOR PROCEDURE: The patient is an 86-year-old lady with history of diminished visual acuity in her left eye. She is significantly symptomatic that she desires cataract surgery and attempt to improve and maximize her vision. The option of cataract surgery was offered to the patient and she wished to proceed PROCEDURE: The correct surgical eye was identified and marked as the left eye and the pupil was dilated in the preoperative area using mydriatics and cycloplegics. The dilated pupil size was 7.0 mm. She elected to proceed without oral sedation.. The patient was brought to the operating room where cardiopulmonary monitoring was instituted and surgical time-out was performed, confirming the correct operative eye and IOL power. Topical anesthesia was administered and ophthalmic povidone-iodine 5% was instilled into the conjunctival fornices. Lidocaine gel was applied to the cornea and the liss-ocular area was prepped with Betadine 10% solution and draped in the usual sterile fashion for intraocular surgery, including an aperture drape. A Tegaderm transparent film dressing was cut in half and used to cover the lashes and lid margins. Care was taken to sequester the lashes and lid margins under the Tegaderm dressing. A lid speculum was placed between the lids of the operative eye and the Bridger Lux[employer] Revalia operating microscope was maneuvered into position. [place] scissors were then used to make a conjunctival buttonhole approximately 6mm posterior to the limbus in the inferonasal quadrant. Blunt dissection was carried out to expose bare sclera, and a blunt-tipped sub-tenon?s anesthesia cannula was introduced and passed posteriorly along the globe where non-preserved plain lidocaine was injected into posterior sub-Tenon?s space. A sideport knife was used to make a paracentesis port superiorly/superiortemporally. Intraocular phenylephrine/lidocaine was injected int the anterior chamber.. The anterior chamber was filled with viscoelastic. A 2.4mm keratome knife was used to create a half-thickness groove at the limbus and then to construct a three-plane near-clear corneal tunnel extending 2.0mm into clear cornea at the 3:00 position. A flap was raised on the anterior capsule and capsulorhexis forceps were used to complete a continuous curvilinear capsulorhexis of 5.0 mm. Balanced salt solution was then used to perform cortical cleaving hydrodissection and nuclear hydrodelineation until the lens could be freely rotated within the capsular bag. The lens nucleus was then disassembled and removed within the capsular bag and iris plane using phacoemulsification. Residual cortical material was removed using the 45-degree angled silicone I/A tip with 0.3mm port. The posterior capsule was carefully polished to remove as much residual lens epithelial cells as safely possible. The capsular bag was then inflated and the anterior chamber deepened with viscoelastic. The lens implant described above was inserted into the capsular bag using the EULOGIO [place] Injector. A Kuglen hook was used to dial the IOL into position. Residual viscoelastic was then removed first from posterior to the IOL, then from the anterior chamber using the I/A handpiece. The lens implant was noted to center nicely within the capsular bag. The incisions were stromally hydrated, and the anterior chamber was reformed using BSS. Then 0.5cc of moxifloxacin 1.0mg/ml were injected into the capsular bag and anterior chamber. The incisions were checked with a Weck spear and found to be secure. Several drops of ophthalmic povidone-iodine 5% were then applied to the eye followed by two drops of Imprimis combination prednisolone/moxifloxacin/nepafenac solution. The drapes were removed and a clear plastic protective eye shield was placed over the eye. The patient was then returned to Same Day Surgery in stable condition.
--- NOTE | 2021-10-15 11:37 | W.ANESPOSTOP ---
Postoperative Evaluation Date, Time and Location Date Performed: 10/15/21 Time Performed: 11:38 Patient Location: Day Surgery Unit Vital Signs Most Recent Imported Vital Signs: Most Recent Vital Signs Temp Pulse Resp BP Pulse Ox 36 C L 66 16 146/56 H 98 10/15/21 09:15 10/15/21 09:15 10/15/21 09:15 10/15/21 09:15 10/15/21 09:15 Pain Score Most Recent Pain Score: Most Recent Pain Score Pain Level 0 10/15/21 09:15 Assessment Mental Status: Awake (Alert & Oriented to Patient Baseline) Airway and Respiratory Function: Patent airway with normal (patient baseline) respiratory exam Cardiovascular Function: Hemodynamically Stable Hydration Status: Adequately Hydrated Nausea & Vomiting: No Nausea or Vomiting Pain: Pt. Denies Any Pain Peripheral Nerve Block: Patient did not receive a nerve block
== END 2021-10-15 12:06 | disposition home or self-care (01) ==
PROVIDERS: PCP Internal Medicine; Visit Provider Ophthalmology
PROC: (CPT 66984; principal; 2021-10-15 11:30)
DX: H25.042 Posterior subcapsular polar age-related cataract, left eye (principal); I10 Essential (primary) hypertension; E78.5 Hyperlipidemia, unspecified; E03.9 Hypothyroidism, unspecified
CPT/HCPCS: 66984; V2632

== ENCOUNTER 2021-10-29 08:07 | Day surgery (SDC) | payer MEDICARE, OTHER, SELFPAY ==
--- NOTE | 2021-10-29 06:48 | ANES.PREOP_ITS ---
General Info Date of Service Date Performed: 10/29/21 Height: 5 ft 5 in Weight: 64.7 kg Body Mass Index (BMI): 23.7 Surgical Procedure: Operation Date: 10/29/21 10:40 Proposed Procedure Side Surgeon p Cataract Extraction with IOL Implant Right Rajeev Morrison MD Meds Allergies and Home Medications Allergies Allergy/AdvReac Type Severity Reaction Status Date / Time latex Allergy Intermediate Verified 10/26/21 10:45 Tetanus Vaccines and Toxoid AdvReac Mild Swelling/Ed Verified 10/26/21 10:45 kady Home Medication Medication Instructions Recorded cholecalciferol (vitamin D3) 25 1,000 unit PO DAILY 08/17/14 mcg (1,000 unit) capsule glucosamine sulfate dipotassium Cl 1 cap PO DAILY 08/17/14 500 mg-chondroitin 400 mg capsule (Glucosamine Sulfate 2 KCL-Chondroitin) metoprolol tartrate 25 mg tablet 25 mg PO BID 08/17/14 rosuvastatin 20 mg tablet (Crestor) 20 mg PO DAILY 08/17/14 levothyroxine 25 mcg tablet 25 mcg PO DAILY 01/06/17 acetaminophen 325 mg tablet 650 mg PO Q6H PRN PRN #0 tab 07/07/18 (Tylenol) amlodipine 5 mg tablet 5 mg PO HS 10/05/20 cranberry fruit 450 mg tablet 450 mg PO DAILY 07/09/21 nitroglycerin 0.4 mg sublingual 0.4 mg SUBLINGUAL Q8H PRN tab 07/09/21 tablet aspirin 81 mg tablet,delayed 81 mg PO DAILY 10/15/21 release Current Visit Medications: Current Medications Generic Name Dose Route Start Last Admin Trade Name Freq PRN Reason Stop Dose Admin Acetaminophen 1,000 mg 10/29/21 06:00 Acetaminophen 500 Mg Tab PO Q4H PRN PRN Miscellaneous Medication 0 ml 10/29/21 06:00 Prednisolone 1%, Moxifloxacin 0.5%, Nepafenac 0.1% 5ml Btl OD DIRECTED [facility] Miscellaneous Medication 0 ml 10/29/21 06:00 Tropicam./Phenyleph. 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 states she did not have a heart attack but was very close to it Hip fracture Hx of skin cancer, basal cell Hyperlipidemia Hypertension Hypothyroid Osteoarthritis Polymyalgia Urge incontinence Medical History Comments:: Sensitivty if touching nose; recent reconstruction to nose after skin cancer removal. Pt reports in 1999 after colonoscopy having had a reaction for next two weeks, felt very ill Surgical History Surgical History H/O carpal tunnel repair H/O dilation and curettage History of left hip replacement History of nasal surgery reconstruction post skin cancer removal; 08/2021 History of surgery History of bypass 11/2008 History of tonsillectomy Tobacco Smoking/Tobacco Use Status: Never Alcohol Alcohol Intake: never Substance Use Substance use: Never Substance use type: does not use Vital Signs and Lab Results Lab Results Blood Type / Crossmatch: No Data to Display Complete Blood Count: No Data to Display Complete Metabolic Panel: No Data to Display Liver Function Panel: No Data to Display Coagulation Panel: No Data to Display Cardiac Panel: No Data to Display Arterial Blood Gas: No Data to Display Venous Blood Gas: No Data to Display Pancreas Panel: No Data to Display Thyroid Panel: No Data to Display Infectious Disease: Coronavirus (COVID-19)(PCR) Negative (Negative) 10/12/21 09:12 10/12/21 Blood Cultures: No Data to Display Toxicology Panel: No Data to Display Anesthesia Assessment and Plan Anesthesia History Personal History: No History of Anesthesia Complications Family History: No Family History of Anesthesia Complications Exercise Tolerance Exercise Tolerance: Metabolic Equivalents>4 Cardiac & Pulmonary Exam Cardiac Exam: Normal S1/S2 Heart Sounds Pulmonary Exam: Clear Bilateral Breath Sounds Implantable Cardiac Device Does patient have a Pacemaker or an ICD?: No Airway Exam Known Difficult Airway: No Mallampati Class: 1 Mouth Opening: Normal (> 3cm) Thyromental Distance: Greater than 3 cm Neck Range of Motion: Full ROM Neck Circumference: Normal Teeth Condition: Normal Dentition ASA Classification ASA Score: ASA 2 Emergency Case?: No NPO Status NPO Status: NPO Clears >2 hours, Solids >8 hours Anesthesia Plan Resuscitation Status: Full Code Anesthesia Technique: MAC Anesthesia Airway Planned: Natural Airway Monitors Used: Standard Monitors Preoperative Comments:: 86 yo female for cataract removal. Sig PMHx: HTN (amlodipine, metoprolol), hypothyroid (on replacment), CAD (cabg 2008), no health history changes since last cat. Previous anes: glide grade 1, easy mask. no mko for previous cataract, would like the same.
[2021-10-29 08:26] VITALS: BP 166/69; PULSE 65; RESP 16; TEMP 36.4; O2SAT 99
[2021-10-29 08:38] VITALS: BMI 23.7
[2021-10-29] MEDS: Tropicam./Phenyleph. (1/2.5%) 5 ML BTL OD ×3 (08:45→08:55)
[2021-10-29] MEDS: Tetracaine 0.5% 4 ML BTL OD (09:42)
[2021-10-29] MEDS: Balanced Salt Soln.-PLUS 500 ML BAG (09:42)
[2021-10-29] MEDS: Duovisc Viscoelastic System EACH 1 EACH (09:43)
[2021-10-29] MEDS: Lidocaine 2% Jelly 6 ML SYR (09:44)
[2021-10-29] MEDS: Povidone-Iodine Ophth 30 ML BTL (09:45)
[2021-10-29 10:00] VITALS: BP 162/72; PULSE 77; RESP 16; TEMP 36; O2SAT 99
--- NOTE | 2021-10-29 10:08 | W.PM.DSUDISC ---
Discharge Plan Disposition Patient Disposition: HOME Condition: Good Discharge Details Attending Provider: Rajeev Morrison Primary Care Provider: Alma Youssef Home Meds and New Rx's Prescriptions: No Action amlodipine 5 mg tablet 5 mg PO HS 0RF nitroglycerin 0.4 mg tablet, sublingual 0.4 mg sublingual Q8H PRN0RF Rx Instructions: do not exceed 3 doses per episode cranberry fruit 450 mg tablet 450 mg PO DAILY 0RF Rx Instructions: administer with a meal cholecalciferol (vitamin D3) 1,000 UNIT capsule 1,000 unit PO DAILY 0RF rosuvastatin [Crestor] 20 MG tablet 20 mg PO DAILY 0RF metoprolol tartrate 25 MG tablet 25 mg PO BID 0RF Glucosamine Sulf-Chondroitin 1 EACH capsule 1 cap PO DAILY 0RF levothyroxine 25 MCG tablet 25 mcg PO DAILY 0RF acetaminophen [Tylenol] 325 mg Tablet 650 mg PO Q6H PRN PRNQty: 0 0RF aspirin 81 MG tablet,delayed release (DR/EC) 81 mg PO DAILY 0RF Discharge Instructions Stand Alone Forms: Post-op Topical Cataract, Pricila Garcia (DSU) Discharge Orders Discharge Orders: Discharge Order (Routine); Ordered 10/29/21 Ordered By: Rajeev Morrison DS: Diagnosis Discharge Diagnosis (1) Posterior subcapsular age-related cataract, right eye: Status: Resolved (2) Nuclear sclerotic cataract of right eye: Status: Resolved (3) Cortical cataract of right eye: Status: Resolved
--- NOTE | 2021-10-29 10:09 | ROE_ITS ---
Date of service: 10/29/21 Time of Service: 10:09 Operative Note Operative Note DATE OF PROCEDURE: 10/29/21 PRE-OP DIAGNOSIS: Nuclear/cortical/posterior subcapsular cataract, right eye POST-OP DIAGNOSIS: same PROCEDURE: Cataract extraction using phacoemulsification with intraocular lens implant, right eye SURGEON: Rajeev Morrison ANESTHESIA TYPE: Local By Surgeon and MAC Refer to Anesthesia Record ESTIMATED BLOOD LOSS: 0 PATHOLOGY: none sent COMPLICATIONS: None Patient was transported to: same day Patient's condition: stable Implants: Francesco [employer] Francesco/EULOGIO Tecnis [id number] Indications: Progressive visual loss due to cataract, right eye Procedure Description: CATARACT SURGERY OPERATIVE REPORT PREOPERATIVE DIAGNOSIS: 1. Nuclear/cortical/posterior subcapsular cataract, right eye POSTOPERATIVE DIAGNOSIS: Same OPERATION: 1. Cataract extraction using phacoemulsification with posterior chamber intraocular lens implant, right eye. IOL: IOL [employer]/Model: Frances[employer] Francesco / EULOGIO Tecnis [id number] IOL Power: + 24.0 diopters IOL Serial Number: [id number] Optic Diameter: 6.0mm Haptic/Overall Diameter: 13.0mm PHACO INFO: Bridger HESKAurion Vision System with OZil and Active Fluidics Cumulative Dispersed Energy (CDE): 9.34 seconds SURGEON: Rajeev Morrison MD, JYOTI ANESTHESIA: Monitored Anesthesia Care (MAC), with local sub-tenon's anesthetic infiltration COMPLICATIONS: None SPECIMENS: None INDICATIONS FOR PROCEDURE: The patient is an 86-year-old lady with history of diminished visual acuity in both eyes secondary to the development of bilateral nuclear/cortical/posterior subcapsular cataract. She has already undergone cataract surgery in the left eye. She now presents for surgery in the right eye. PROCEDURE: The correct surgical eye was identified and marked as the right eye and the pupil was dilated in the preoperative area using mydriatics and cycloplegics. The dilated pupil size was 7.0 mm. She elected to proceed without oral sedation. The patient was brought to the operating room where card iopulmonary monitoring was instituted and surgical time-out was performed, confirming the correct operative eye and IOL power. Topical anesthesia was administered and ophthalmic povidone-iodine 5% was instilled into the conjunctival fornices. Lidocaine gel was applied to the cornea and the liss-ocular area was prepped with Betadine 10% solution and draped in the usual sterile fashion for intraocular surgery, including an aperture drape. A Tegaderm transparent film dressing was cut in half and used to cover the lashes and lid margins. Care was taken to sequester the lashes and lid margins under the Tegaderm dressing. A lid speculum was placed between the lids of the operative eye and the Bridger LuxOR Revalia operating microscope was maneuvered into position. [place] scissors were then used to make a conjunctival buttonhole approximately 6mm posterior to the limbus in the inferonasal quadrant. Blunt dissection was carried out to expose bare sclera, and a blunt-tipped sub-tenon?s anesthesia cannula was introduced and passed posteriorly along the globe where non- preserved plain lidocaine was injected into posterior sub-Tenon?s space. A sideport knife was used to make a paracentesis port inferotemporally. Intraocular phenylephrine/lidocaine was injected into the anterior chamber. The anterior chamber was filled with viscoelastic. A 2.4mm keratome knife was used to create a half-thickness groove at the limbus and then to construct a three- plane near-clear corneal tunnel extending 2.0mm into clear cornea superiortemporally. A flap was raised on the anterior capsule and capsulorhexis forceps were used to complete a continuous curvilinear capsulorhexis of 5.5 mm. Balanced salt solution was then used to perform cortical cleaving hydrodissection and nuclear hydrodelineation until the lens could be freely rotated within the capsular bag. The lens nucleus was then disassembled and removed within the capsular bag and iris plane using phacoemulsification. Residual cortical material was removed using the I/A handpiece. The posterior capsule was carefully polished to remove as much residual lens epithelial cells as safely possible. The capsular bag was then inflated and the anterior chamber deepened with viscoelastic. The lens implant described above was inserted into the capsular bag using the EULOGIO [place] Injector. A Kuglen hook was used to dial the IOL into position. Residual viscoelastic was then removed first from posterior to the IOL, then from the anterior chamber using the I/A handpiece. The lens implant was noted to center nicely within the capsular bag. The incisions were stromally hydrated, and the anterior chamber was reformed using BSS. Then 0.5cc of moxifloxacin 1.0mg/ml were injected into the capsular bag and anterior chamber. The incisions were checked with a Weck spear and found to be secure. Several drops of ophthalmic povidone-iodine 5% were then applied to the eye followed by two drops of Imprimis combination prednisolone/moxifloxacin/nepafenac solution. The drapes were removed and a clear plastic protective eye shield was placed over the eye. The patient was then returned to [facility] Day Surgery in stable condition.
--- NOTE | 2021-10-29 11:48 | W.ANESPOSTOP ---
Postoperative Evaluation Date, Time and Location Date Performed: 10/29/21 Time Performed: 10:00 Patient Location: Day Surgery Unit Vital Signs Most Recent Imported Vital Signs: Most Recent Vital Signs Temp Pulse Resp BP Pulse Ox 36 C L 77 16 162/72 H 99 10/29/21 10:00 10/29/21 10:00 10/29/21 10:00 10/29/21 10:00 10/29/21 10:00 Pain Score Most Recent Pain Score: Most Recent Pain Score Pain Level 0 10/29/21 10:00 Assessment Mental Status: Awake (Alert & Oriented to Patient Baseline) Airway and Respiratory Function: Patent airway with normal (patient baseline) respiratory exam Cardiovascular Function: Hemodynamically Stable Hydration Status: Adequately Hydrated Nausea & Vomiting: No Nausea or Vomiting Pain: Pt. Denies Any Pain Peripheral Nerve Block: Patient did not receive a nerve block
== END 2021-10-29 10:26 | disposition home or self-care (01) ==
PROVIDERS: PCP Internal Medicine; Visit Provider Ophthalmology
PROC: (CPT 66984; principal; 2021-10-29 10:30)
DX: H25.041 Posterior subcapsular polar age-related cataract, right eye (principal); I10 Essential (primary) hypertension; I25.10 Atherosclerotic heart disease of native coronary artery without angina pectoris; E78.5 Hyperlipidemia, unspecified
CPT/HCPCS: 66984; V2632

== ENCOUNTER 2023-06-14 11:21 | Inpatient (IN) | payer MEDICARE, OTHER, SELFPAY ==
[2023-06-14] VITALS (7 sets, daily range): BP systolic 152–180; BP diastolic 79–80; PULSE 89–93; RESP 18–19; TEMP 37.2; O2SAT 92–98
--- NOTE | 2023-06-14 11:30 | DI.CT_ITS ---
Exam(s) CT HEAD WO EXAM: CT HEAD WO CLINICAL HISTORY: fall. TECHNIQUE: Imaging Protocol: Axial computed tomography images with coronal and sagittal reformatted images were created and reviewed COMPARISON: No exams were available for comparison FINDINGS: Ventricles and Extra axial spaces: Normal in size and morphology for the patient's age. Hemorrhage: None. Cerebral parenchyma: Atrophy. White matter changes consistent with small vessel disease. Midline shift: None. Brainstem/Cerebellum: Normal. Calvarium: Normal. Visualized Paranasal sinuses/Mastoids: Minimal mucous retention in the maxillary sinuses. IMPRESSION: No acute abnormality. RADIATION DOSE DELIVERED: Total DLP Total DLP DATA REPOSITORY: All CT scans at this facility are submitted to the National Radiology Data Registry (NRDR) Dose Index Registry (DIR) with the [employer] (ACR). RADIATION OPTIMIZATION: All CT scans at this facility use at least one of these dose optimization te chniques: automated exposure control; mA and/or kV adjustment per patient size (includes targeted exa ms where dose is matched to clinical indication); or iterative reconstruction.
--- NOTE | 2023-06-14 11:30 | DI.RAD_ITS ---
Exam(s) XR PELVIS AP XR FEMUR RT EXAM: XR PELVIS AP CLINICAL HISTORY: right hip pain. TECHNIQUE: 2D digital imaging was performed. COMPARISON: CR XR HIP LT COMPLETE AP PELVIS from 10/05/2020 CR,XR XR FEMUR RT from 06/14/2023 FINDINGS: BONES: Subcapital fracture of the right femur with mild impaction. Mild angulation. No significant displacement. No additional acute fractures are seen in the pelvis or in the femur. No bony destruc tive lesion is seen. The left hip prosthesis is unchanged. JOINTS: No dislocation present. No joint space narrowing is present. Degenerative changes noted at the knee. Minimal degenerative changes of the right hip. Advanced degenerative changes of the lumba r spine. SOFT TISSUE: Vascular clips in the medial right knee. Vascular calcifications present. IMPRESSION: Subcapital fracture of the right femur. Findings were discussed with Dr. Rojas of the emergency department 14 June 2023 at 1:45 p.m.. DATA REPOSITORY: RADIATION DOSE DELIVERED:
--- NOTE | 2023-06-14 11:44 | ED.GENADUL_ITS ---
Discharge Plan Disposition Patient Disposition: Admit to [facility] Condition: Good Discharge Details Clinical Impression: Acute pain of right hip Primary Care Provider: Alma Youssef ED Provider: Magali Rojas Home Meds and New Rx's Prescriptions: No Action amlodipine 5 mg tablet 5 mg PO HS cranberry fruit 450 mg tablet 450 mg PO BID Rx Instructions: administer with a meal duloxetine 30 mg capsule,delayed release(DR/EC) 30 mg PO DAILY [id number]-etg-pnmhcncx-C-Mn-hrb21 500-333-5 mg capsule 2 cap PO .QD PreserVision AREDS-2 250-90-40-1 mg capsule 1 tab PO BID PRN ketoconazole 2 % cream 1 applic topical DAILY 90 Days Qty: 60 0RF urea [VINCENT-Urea] 45 % gel 1 applic topical BID Qty: 28 3RF nitroglycerin 0.4 mg tablet, sublingual 0.4 mg sublingual Q8H PRN Rx Instructions: do not exceed 3 doses per episode cholecalciferol (vitamin D3) 1,000 UNIT capsule 1,000 unit PO DAILY rosuvastatin [Crestor] 20 MG tablet 20 mg PO DAILY Hold Instructions: Patient Refused metoprolol tartrate 25 MG tablet 25 mg PO BID levothyroxine 25 MCG tablet 25 mcg PO DAILY acetaminophen [Tylenol] 325 mg Tablet 650 mg PO Q6H PRN PRNQty: 0 0RF aspirin 81 MG tablet,delayed release (DR/EC) 81 mg PO DAILY Medical Decision Making Emergent evaluation of right hip pain after fall. Initial differential includes fracture, dislocation, contusion. We will also evaluate for closed head injury given that her age and hit her head. She does take a baby aspirin daily. Will provide pain control. 1500: Reviewed imaging, I am concerned for a fracture of the right hip. The rad radiology does not note this. CT head reviewed and independently interpreted by me, no acute fracture or bleed. Patient is still having significant pain after narcotics. We will give a dose of Lyrica and reassess 1540: Discussed with hospitalist, given patient's inability to walk and persistent severe ongoing pain, I am highly suspicious for a fracture of her right hip. We will order a CT scan to evaluate for occult fracture. Will admit to the hospital for further management. Medical Records Medical records reviewed: Yes I reviewed the patient's medical records. Lab Data Lab results reviewed: Yes I reviewed the patient's lab results. HPI General Date/Time Provider Initiated Documentation: 06/14/23 11:40 . Limitations to Documentation: no limitations . Information obtained by: patient and EMS . HPI Narrative: 88-year-old female with past medical history including PAD, hypertension, CAD presents for evaluation of severe right hip pain. Pain started after a fall earlier this morning. She states that she was trying to go to the bathroom and fell. She did hit the right side of her head. There was no loss of consciousness. Denies any headache, visual change, nausea or vomiting. She reports that she was able to get assistance off the floor. Patient reports that initially her hip did not hurt, but it is started hurting and been progressively worsening. It is severe. She is unable to move her hip or bear weight. She was given medication by EMS without improvement in her symptoms. Related Data Home Medications Medication Instructions Recorded Confirmed cholecalciferol (vitamin D3) 25 1,000 unit PO DAILY 08/17/14 06/14/23 mcg (1,000 unit) capsule metoprolol tartrate 25 mg tablet 25 mg PO BID 08/17/14 06/14/23 rosuvastatin 20 mg tablet (Crestor) 20 mg PO DAILY 08/17/14 06/14/23 levothyroxine 25 mcg tablet 25 mcg PO DAILY 01/06/17 06/14/23 acetaminophen 325 mg tablet 650 mg (2 x 325 mg) PO Q6H PRN PRN 07/07/18 06/14/23 (Tylenol) #0 tabs amlodipine 5 mg tablet 5 mg PO HS 10/05/20 06/14/23 nitroglycerin 0.4 mg sublingual 0.4 mg sublingual Q8H PRN 07/09/21 06/14/23 tablet aspirin 81 mg tablet,delayed 81 mg PO DAILY 10/15/21 06/14/23 release duloxetine 30 mg capsule,delayed 30 mg PO DAILY 07/24/22 06/14/23 release cranberry fruit 450 mg tablet 450 mg PO BID 08/02/22 06/14/23 astpirqqzpp-pva-huurmdkv-vit 2 cap PO .QD 04/07/23 06/14/23 C-Mn-hrb21 500 mg-333 mg-5 mg capsule ketoconazole 2 % topical cream 1 applic topical DAILY 3 months 04/07/23 06/14/23 #60 grams urea 45 % topical gel (VINCENT-Urea) 1 applic topical BID #28 mL 04/07/23 06/14/23 vit C 250 mg-vit E 90 mg-zinc 40 1 tab PO BID PRN 04/07/23 06/14/23 mg-copper 1 ka-gqkcbp-gdgjgp capsule (PreserVision AREDS-2) Previous Rx's Medication Instructions Recorded acetaminophen 325 mg tablet 650 mg (2 x 325 mg) PO Q6H PRN PRN 07/07/18 (Tylenol) #0 tabs ketoconazole 2 % topical cream 1 applic topical DAILY 3 months 04/07/23 #60 grams urea 45 % topical gel (VINCENT-Urea) 1 applic topical BID #28 mL 04/07/23 Allergies Allergy/AdvReac Type Severity Reaction Status Date / Time latex Allergy Intermediate Verified 06/14/23 12:27 Tetanus Vaccines and Toxoid AdvReac Mild Swelling/Ed Verified 06/14/23 12:27 kady General Stated Complaint: Fall/Non TraumaCriteria JACOB: 3 PFSH All Active Problems (Updated 06/14/23 @ 13:44 by Magali Rojas MD) Acute pain of right hip (Acute) Corns and callosities (Acute) Hammertoe, bilateral (Acute) PAD (peripheral artery disease) (Acute) Onychomycosis (Acute) Polyosteoarthritis (Acute) Edema (Acute) Pain, foot (Acute) Nail dystrophy (Acute) HTN (hypertension) (Chronic) Hyperlipidemia (Acute) DVT prophylaxis (Acute) Hypothyroidism (Chronic) Discharge planning issues (Acute) Hip fracture (Acute) CAD (coronary artery disease) (Chronic) Hypertension (Chronic) Left knee DJD (Chronic) Injection: 10/05/2020 Degenerative joint disease of right knee (Chronic) Injection: 10/05/2020 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 Erickson DOS: 07/03/2018 Sensorineural hearing loss of both ears (Acute) Impacted cerumen, bilateral (Acute) Conductive hearing loss, external ear (Acute) Impairment of speech discrimination (Acute) Medical History Skin cancer of nose Hx of skin cancer, basal cell Polymyalgia Atherosclerotic heart disease of [place] coronary artery without angina pectoris Urge incontinence Asymptomatic menopausal state Osteoarthritis Cardiovascular disease Heart attack pt. 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 Brother Heart disease Cancer Social History Smoking/Tobacco Use Status: Never Smoking risk assessment performed?: Yes Alcohol Intake: never Drug use: Never Substance use type: does not use Household members: spouse current occupation: Retired What is your relationship status?: Panel score (0-1 are the most socially isolated patients): 1 Do you feel safe at home: Yes Do you feel safe in your relationship?: Yes Exam Narrative Exam Narrative: Review of Systems: All systems reviewed & are unremarkable except as noted in HPI and below: CONSTITUTIONAL: Alert and oriented Well-developed, acute distress HEENT: NACT EYES: PERRL, no conjunctival injection EARS: no external abnormality NOSE nares patent MOUTH Moist MM NECK: Symmetric, trachea midline, No thyromegaly THROAT oropharynx clear CVS: RRR, No murmurs or gallops. Peripheral pulses 2+ and equal in all extremities Brisk capillary refill in all extremities. No peripheral edema RESP: Unlabored respiratory effort, Clear to auscultation bilaterally No wheezes rales or rhonchi GI: Soft, Nontender, Nondistended, No organomegaly MSK: Right hip tender to palpation, no obvious deformity or dislocation, unable to fully range the hip SKIN: Warm, Dry. No rashes or lesions. NEURO: No focal neurologic deficits. thaw shed heater tender II-XII grossly intact Sensation grossly intact Normal strength throughout PSYCH: Appropriate mood and affect Course Vital Signs Vital signs: Vital Signs Pulse 91 H 06/14/23 11:37 Respiratory Rate 18 06/14/23 11:37 Blood Pressure 180/80 H 06/14/23 11:37 Pulse Oximetry 98 06/14/23 11:37 Pulse 91 H 06/14/23 11:37 Respiratory Rate 18 06/14/23 11:37 Blood Pressure 180/80 H 06/14/23 11:37 Blood Pressure Position Supine 06/14/23 11:37 Pulse Oximetry 98 06/14/23 11:37 Oxygen Delivery Method Room Air 06/14/23 11:37 Oxygen Flow Rate 0 06/14/23 11:37
[2023-06-14] MEDS: MORPHine 10 MG/ML VIAL 4 MG IVP (11:55)
[2023-06-14 12:03] LABS: HCT 40.4 % (36.0-46.0); HGB 13.4 g/dL (11.2-15.7); MCH 29.8 pg (27.0-33.0); MCHC 33.2 % (32.0-36.0); MCV 90 fL (80-95); MPV 10.6 fL (8.0-11.0); Platelet Count 156 10^3/uL (130-400); RBC 4.49 10^6/uL (3.93-5.22); RDW 13.9 % (11.7-14.6); RDW-SD 45.7 fL; WBC 7.55 10^3/uL (4.4-10.8)
[2023-06-14 12:12] LABS: INR 1.1 (0.9-1.1); Prothrombin Time 11.1 sec (9.1-11.1)
[2023-06-14 12:17] LABS: ALT 19 U/L (14-59); AST 20 U/L (15-37); Albumin 3.8 g/dL (3.4-5.0); Alkaline Phosphatase 83 U/L (46-116); Anion Gap 7.1 mmol/L (3-11); BUN 20 mg/dL (7-18); Bilirubin, Total 0.9 mg/dL (0.2-1.0); CO2 27.9 mmol/L (21.0-32.0); CREATININE 0.8 mg/dL (0.55-1.02); Calcium 9.2 mg/dL (8.5-10.1); Chloride 103 mmol/L (98-107); Estimated GFR 71.27 (mL/min/1.73m2); Glucose 135 mg/dL (74-106); Potassium 3.5 mmol/L (3.5-5.1); Sodium 138 mmol/L (136-145); Total Protein 7.3 g/dL (6.4-8.2)
--- OUTSIDE RECORDS SUMMARY | 2023-06-14 12:43 | XMS_ITS | Patient Health Record ---
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 Womens Volleyball Coach Name Role Phone Alma Youssef Primary Care Provider ALLERGIES Allergen (clinical drug ingredient) Drug/Non Drug Allergy documented on EMR Reaction Allergy Type Onset Date Status Latex latex (uncoded) rash Allergy Acti ve Influenza Vac Typ A&B Surf Ant arm itching Drug Allergy Active Tetanus Immune Globulin arm pain swelling Drug Allergy Active RESULTS Component Value Reference Range Notes TSH Reviewed date:04/16/2023 09:57:21 AM Interpretation: Performing Lab: Notes/Report: TSH 3.02 0.45-5.33 mcIntlUnit/mL - Ordering Provider: Alma Youssef LIPID PROFILE Reviewed date:04/16/2023 09:57:21 AM Interpretation: Performing Lab: Notes/Report: LDL 77.8 Optimal: Less than 100 mg/dL Above Optimal: 100 - 129 mg/dL Borderline High: 130 - 159 mg/dL High: 160 - 189 mg/dL Very High: > or = 190 mg/dL Chol/HDL 2.9 RISK MALE FEMALE 1/2 average 3.4 3.3 Average 5.0 4.4 2x Average 9.6 7.1 3x Average 23.4 11.0 - Ordering Provider: Alma Youssef COMPREHENSIVE METABOLIC PROF ILE Reviewed date:04/16/2023 09:57:21 AM Interpretation: Performing Lab: Notes/Report: Alk Phos 75 38-130 IntlUnit/L Albumin Level 4.4 3.5-5.0 g/dL Anion Gap 11.0 3.0-12.0 BUN/Creat Ratio 28.6 8.0-20.0 Osmolality 276 275-295 mOsm/kg A/G Ratio 1.6 1.0-2.5 g/dL Globulin 2.7 2.3-3.5 g/dL CBC, WITH AUTO DIFF Reviewed date:04/16/2023 09:57:21 AM Interpretation: Performing Lab: Notes/Report: MEDICATIONS Medication SIG (Take, Route, Frequency, Duration) Notes Start Date End Date Status amLODIPine Besylate 5 MG 1 tablet Orally Once a day for 90 days Active Vitamin D 1000 UNIT 1 tablet Orally Once a day for 30 day(s) Active Crestor 20 MG 1 tablet Orally Once a day for 90 days Active Glucosamine MSM Complex 1 tablet with me als Orally Three times a day for 30 day(s) Active Cranberry 450 MG 1 tablet with meals Orally Twice a day Active Turmeric 500 MG as directed Orally Not-Taking Cymbalta 30 MG 1 capsule Orally Once a day for 90 days 01/31/2022 Active Aspirin 81 MG 1 tablet Orally Once a day for 30 day(s) Active Metoprolol Tartrate 25 MG 1 tablet Orally Twice a day for 90 days Active Nitrostat 0.[address] 1 tablet under the tongue if needed every 5 minutes for chest pain for 3 doses IN 15 MINUTES not taking Active Levothyroxine Sodium 25 MCG 1 tablet Orally Once a day for 90 days 08/23/2014 Active Tylenol 325 MG 1 tablet as needed Orally every 4 hrs Active IMMUNIZATIONS Vaccine Route Administration Date Status Comme nts zostavax Unknown 05/08/2010 Administered Td (adult) Unknown 11/08/2005 Administered Shingrix Unknown 03/27/2020 Administered [facility] Prevnar 13 Unknown 10/12/2018 Administered [facility] Pneumococcal Unknown 01/17/2018 Administered [facility] Moderna COVID 19 vaccine Unknown 06/15/2022 Administere d Influenza (split) Unknown 05/05/2015 Administered Influenza (split) Unknown 04/30/2016 Administered Influenza (split) Unknown 05/06/2017 Administered [facility] Influenza (split) Unknown 05/23/2018 Administered [facility] FLUAD Unknown 04/19/2020 Administered FLUAD Unknown 05/07/2021 Administered FLUAD IM Intramuscular 04/02/2022 Administered SOCIAL HISTORY Tobacco Use: Social History Observation Description Date Details (start date - stop date) Never Smoker NA - NA Sex Assigned At : Social History Observation Description Sex Assigned At Unknown Tobacco Use/Smoking Question Answer Notes Are you a nonsmoker Alcohol Screen Question Answer Notes Did you have a drink containing alcohol in the p ast year? No Points 0 Interpretation Negative PROBLEMS Problem Type ICD Code Onset Dates Problem Status W/U Status Risk SNOMED Code Notes Problem Unspecified cardiovascular disease (429.2) Active confirmed 2 Disorder of cardiovascular system (67909246) Problem Osteoarthrosis, unspecified whether generalized or localized, unspecified site (715.90) Active confirmed Osteoarthritis (379194233) knee and possibly ankle, although foot pain sounds more like claudication pain Problem Hypothyroidism, unspecified (E03.9) Active confirmed Hypothyroidism (20963492) Problem Age-related nuclear cataract, bilateral (H25.13) Active confirmed Nuclear senile cataract (522021227) low risk for planned low risk procedure; no additional testing necessary Problem Unspecified sensorineural hearing loss (H90.5) Active confirmed Sensorineural hearing loss (05722040) Problem Atherosclerotic heart disease of [place] coronary artery without angina pectoris (I25.10) Active confirmed Atherosclerotic heart disease of [place] coronary artery without angina pectoris (404678362550450 ) asymptomatic post CABG Problem Polyosteoarthriti s, unspecified (M15.9) Active confirmed Osteoarthritis (808573888) suspect worsening osteoarthriti s, possible adverse effect of crestor? she does report late onset myalgias with lipitor in the past Problem Polymyalgia rheumatica (M35.3) Active confirmed Polymyalgia rheumatica (16418738) Doing well Problem Urge incontinence (N39.41) Active confirmed Urge incontinence of urine (82799395) Problem Solitary pulmonary nodule (R91.1) Active confirmed Solitary pulmonary nodule (031391960) abnormal CXR Problem Asymptomatic menopausal state (Z78.0) Active confirmed Postmenopausal state (49333849) Encounters Encounter Location Date Provider Diagnosis [facility] [address] [place] [id number] 04/10/2023 Alma Domonique Encounter for genera l adult medical examination without abnormal findings Z00.00 ; Hypothyroidism, unspecified E03.9 ; Atherosclerotic heart disease of [place] coronary artery without angina pectoris I25.10 and Polyosteoarthritis, unspecified M15.9 [facility] [address] [place], [place] [id number] 03/31/2023 Alma Youssef Atherosclerotic hear t disease of [place] coronary artery without angina pectoris I25.10 and Polyosteoarthritis, unspecified M15.9 ASSESSMENTS Encounter Date Diagnosis Assessment Notes Treatment Notes Treatment Clinical Notes 04/10/2023 Hypothyroidism, unspecified (ICD-10 - E03.9) 04/10/2023 Encounter for genera l adult medical examination without abnormal findings (ICD-10 - Z00.00) Consider ortho or PT for arthritis pain. She does not want a referral today. Discussed lifeline, safety at home. 03/31/2023 Atherosclerotic hear t disease of [place] coronary artery without angina pectoris (ICD-10 - I25.10) 03/31/2023 Polyosteoarthritis, unspecified (ICD-10 - M15.9) 04/10/2023 Atherosclerotic hear t disease of [place] coronary artery without angina pectoris (ICD-10 - I25.10) 04/10/2023 Polyosteoarthritis, unspecified (ICD-10 - M15.9) PLAN OF TREATMENT Pending Test Test Name Order Date Urinalysis, Routine 10/21/2016 Urinalysis, Routine 04/19/2020 Urinalysis, Routine 03/15/2020 Urinalysis, Routine 11/10/2018 Urinalysis, Routine 11/03/2017 Urinalysis, Routine 10/03/2014 Urinalysis, Routine 08/23/2014 Urinalysis, Routine 05/28/2013 Urinalysis, Routine 10/22/2013 Urinalysis, Routine 03/19/2021 LIPID PROFILE 05/28/2013 BD BONE DENSITY, DEXA SCAN 04/02/2022 BD BONE DENSITY, DEXA SCAN 10/16/2015 MG MAMMOGRAPHY BILATERAL SCREENING 08/04 XR CHEST 4 VIEW 02/11/2022 Insurance Providers Payer Name Payer Address Payer Phone Subscriber Number Group Number Insured Name Patient Relationship to Insured Coverage Start Date Coverage End Date Medicare [place] [employer] [address] [facility] [place] [facility] [place] [address] [id number] Heidi Mcdermott Self - patient is the insured [place] [address] [id number] Heidi Mcdermott Self - patient is the insured 2 MEDICAL (GENERAL) HISTORY Medical History History ICD Code ASCVD osteoarthritis polymyalgia rheumatica Surgical History Surgery Date(Month/Year) tonsillectomy dilatation and curettage coronary artery bypass graft 11/2008 L hip replacement s/p fracture 2018 carpal tunnel repair 2019 skin cancer reconstruction on R nares 20 21 cataracts 2021
--- NOTE | 2023-06-14 13:08 | DI.VRAD_ITS ---
PROCEDURE INFORMATION: Exam: CT Head Without Contrast Exam date and time: 06/14/2023 12:45 PM Age: 88 years old Clinical indication: Other: Fall TECHNIQUE: Imaging protocol: Computed tomography of the head without contrast. COMPARISON: No relevant prior studies available. FINDINGS: Brain: Armijo-white matter differentiation is within normal limits. No mass effect or midline shift. There are mild nonspecific patchy foci of periventricular white matter hypodensity, probably due to chronic microvascular ischemic changes. Sulci and basilar cisterns are prominent due to mild parenchymal volume loss. No extra-axial fluid collection. Cerebral ventricles: No ventriculomegaly. Paranasal sinuses: There is retention cyst in left maxillary sinus and mild mucosal thickening in the right maxillary sinus . Mastoid air cells: Visualized mastoid air cells are well aerated. Orbital cavities: Patient is status post cataract extraction bilaterally. Bones/joints: Unremarkable. No acute fracture. Soft tissues: Unremarkable. IMPRESSION: 1. No acute intracranial abnormality. No mass effect or midline shift or acute intracranial hemorrhage. 2. Mild chronic small vessel ischemic changes. Dictated and Authenticated by: Watson Griffin MD. Ordering:[facility] Bob Jacobo MD
--- NOTE | 2023-06-14 13:12 | DI.VRAD_ITS ---
PROCEDURE INFORMATION: Exam: XR Pelvis Exam date and time: 06/14/2023 12:52 PM Age: 88 years old Clinical indication: Other: Fall TECHNIQUE: Imaging protocol: Radiologic exam of the pelvis. Views: 1 or 2 view. COMPARISON: CR XR HIP LT COMPLETE AP PELVIS 10/05/2020 3:03 PM FINDINGS: Bones/joints: No acute fracture. There is a left hip arthroplasty. There is a enthesopathic spurring noted or tendinopathy at the right greater trochanter. Disc degenerative changes with marginal spurring at L4-L5 and L5-S1. Soft tissues: Unremarkable. IMPRESSION: No acute findings. Dictated and Authenticated by: Watson Griffin MD. Ordering:PranayYAAKOV Jacobo MD
--- NOTE | 2023-06-14 13:15 | DI.VRAD_ITS ---
PROCEDURE INFORMATION: Exam: XR Right Femur Exam date and time: 06/14/2023 12:53 PM Age: 88 years old Clinical indication: Other: Fall TECHNIQUE: Imaging protocol: Radiologic exam of the right femur. Views: 2 views. COMPARISON: CR XR PELVIS AP 06/14/2023 12:52 PM FINDINGS: Bones/joints: There is no acute fracture or dislocation. There is a stable insula pathic spurring on tendinopathy lateral to the greater trochanter. There are stable foci of sclerosis in the distal intramedullary femur. There are osteoarthritis in the knee joint with moderate to severe narrowing of lateral compartment with subchondral sclerosis. Soft tissues: Unremarkable. IMPRESSION: No acute fracture or dislocation. Dictated and Authenticated by: Watson Griffin MD. Ordering:LITZY Jacobo MD
--- NOTE | 2023-06-14 13:30 | DI.CT_ITS ---
Exam(s) CT PELVIC WO EXAM: CT PELVIC WO CLINICAL HISTORY: right hip pain. TECHNIQUE: Imaging Protocol: Axial computed tomography images with coronal and sagittal reformatted images were created and reviewed. CONTRAST MATERIAL: Oral: yes / no COMPARISON: No exams were available for comparison FINDINGS: Bladder: Catheter in bladder, decompressed. Somewhat obscured by artifact from left hip prosthesis. Bowel: No obstruction or bowel wall thickening. Diverticulosis. Peritoneal cavity: No ascites, collection or mesenteric inflammatory response. Reproductive: Unremarkable. Bones: Acute subcapital fracture of the right femoral neck with some impaction. No additional fract ures. SI joints and pubic symphysis appear intact. Left hip prosthesis is unremarkable.. Degenerat frida changes lower lumbar spine. Soft tissues: Unremarkable. Atherosclerosis. IMPRESSION: Acute mildly impacted subcapital fracture of the right femur. RADIATION DOSE DELIVERED: Total DLP DATA REPOSITORY: All CT scans at this facility are submitted to the National Radiology Data Registry (NRDR) Dose Index Registry (DIR) with the [employer] (ACR). RADIATION OPTIMIZATION: All CT scans at this facility use at least one of these dose optimization te chniques: automated exposure control; mA and/or kV adjustment per patient size (includes targeted exa ms where dose is matched to clinical indication); or iterative reconstruction.
[2023-06-14] MEDS: Pregabalin 50 MG CAP PO (13:39)
[2023-06-14 13:43] LABS: Source Nasal/Nares
[2023-06-14 14:14] LABS: COVID-19 PCR Negative (Negative)
--- NOTE | 2023-06-14 15:22 | DI.VRAD_ITS ---
PROCEDURE INFORMATION: Exam: CT Pelvis Without Contrast; Skeletal Exam date and time: 06/14/2023 2:26 PM Age: 88 years old Clinical indication: Other: Right hip pain TECHNIQUE: Imaging protocol: Computed tomography of the pelvis without contrast. Exam focused on the skeleton. Radiation optimization: All CT scans at this facility use at least one of these dose optimization techniques: automated exposure control; mA and/or kV adjustment per patient size (includes targeted exams where dose is matched to clinical indication); or iterative reconstruction. COMPARISON: CR XR PELVIS AP 06/14/2023 12:52 PM FINDINGS: Tubes, catheters and devices: There is a Pagan catheter in place. Stomach and bowel: There is diverticulosis of the sigmoid colon without focal acute inflammation. Urinary bladder: Bladder is empty. Catheter is causing the bulge of the left lateral wall of the urinary bladder. Vasculature: Heavy atherosclerotic calcification abdominal aorta. Bones/joints: There is impacted subcapital fracture of the right femoral neck with tiny displaced osseous fragment seen along the anterolateral right femoral head. There is calcific tendinopathy or enthesopathic spurring along the lateral aspect of the greater trochanter in the gluteus medius. There is left hip arthroplasty. There is disc degenerative changes with moderate to marked loss of disc height at L4-L5, L5-S1 and L3-L4. Marginal spurring at L5-S1 bilaterally. Soft tissues: Soft tissues unremarkable. IMPRESSION: Impacted nondisplaced minimally comminuted subcapital fracture of the right femoral neck. Dictated and Authenticated by: Watson Griffin MD. Ordering:[facility] Bob Jacobo MD
[2023-06-14] MEDS: Acetaminophen 325 MG TAB 650 MG PO ×2 (15:59→21:43)
--- NOTE | 2023-06-14 19:29 | HPE_ITS ---
Date of service: 06/14/23 Time of Service: 19:29 Assessment and Plan Assessment and plan (1) Femoral neck fracture: Status: Acute Assessment and plan: Comminuted and nondisplaced. Planned repair in AM. Pt does have h/o CAD but unable to acquire records from [facility]. Will attempt again in the AM; particularly helpful would be an echocardiogram. (2) CAD (coronary artery disease): Status: Chronic Assessment and plan: As above. No c/o CP prior to presentation. Records being sought. (3) PAD (peripheral artery disease): Status: Acute Assessment and plan: No c/o claudication. On an aspirin but not plavix or pletal. (4) HTN (hypertension): Status: Chronic Assessment and plan: Cont amlodipine and metoprolol Monitor. (5) Hyperlipidemia: Status: Acute Assessment and plan: Cont rosuvastatin. (6) Hypothyroidism: Status: Chronic Assessment and plan: Cont levothyroxine. (7) Discharge planning issues: Status: Acute Assessment and plan: Pt states she has an advanced directive and family plans to bring it in. She states she is a full code but she appeared unclear. Disposition to be made post operatively depending on rehabilitation progression. History of Present Illness History of Present Illness Chief Complaint: Right hip pain Narrative: This is an 88 yo female with a PMH of HTN, CAD, PAD, HLD, hypothyroidism. She endorsed getting up at 4AM the morning of admission to go to the bathroom. She reached to grab the hand rail on her commode but missed it and stumbled forward. She then tried to grab the back of a chair, but it swivelled and she stumbled forward again, tried to grab another chair but it slid away and she feel into the next room onto a carpeted floor. No LOC but did strike the right side of her head/face. CT head w/o acute findings. Pelvis/hip xray suspicious for right femoral neck fracture. CT of the pelvis did show an impacted nondisplaced minimally comminuted subcapital fx of the right femoral neck. CBC normal. Na, K normal. Mg 1.7. Creatinine 0.8. Admitted after discussing with orthopedics that plans repair in the AM. Requested cardiology records from [facility] where her physicians who provide her care are located. However, told that their new EMR doesn't have those in the system. They would have to be obtained from the Medical Record Dept. but no one is that on the weekends. Review of Systems All systems reviewed & are unremarkable except as noted in HPI and below PFSH All Active Problems (Updated 06/14/23 @ 19:46 by Rajeev Driver MD) Femoral neck fracture (Acute) Acute pain of right hip (Acute) Corns and callosities (Acute) Hammertoe, bilateral (Acute) PAD (peripheral artery disease) (Acute) Onychomycosis (Acute) Polyosteoarthritis (Acute) Edema (Acute) Pain, foot (Acute) Nail dystrophy (Acute) HTN (hypertension) (Chronic) Hyperlipidemia (Acute) DVT prophylaxis (Acute) Hypothyroidism (Chronic) Discharge planning issues (Acute) Hip fracture (Acute) CAD (coronary artery disease) (Chronic) Hypertension (Chronic) Left knee DJD (Chronic) Injection: 10/05/2020 Degenerative joint disease of right knee (Chronic) Injection: 10/05/2020 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 Erickson DOS: 07/03/2018 Sensorineural hearing loss of both ears (Acute) Impacted cerumen, bilateral (Acute) Conductive hearing loss, external ear (Acute) Impairment of speech discrimination (Acute) Medical History Skin cancer of nose Hx of skin cancer, basal cell Polymyalgia Atherosclerotic heart disease of [place] coronary artery without angina pectoris Urge incontinence Asymptomatic menopausal state Osteoarthritis Cardiovascular disease Heart attack pt. 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 Brother Heart disease Cancer Social History Smoking/Tobacco Use Status: Never Smoking risk assessment performed?: Yes Alcohol Intake: never Drug use: Never Substance use type: does not use Household members: spouse Housing: house current occupation: Retired What is your relationship status?: Panel score (0-1 are the most socially isolated patients): 1 Do you feel safe at home: Yes Do you feel safe in your relationship?: Yes Meds Allergies and Home Medications Allergies Allergy/AdvReac Type Severity Reaction Status Date / Time latex Allergy Intermediate Verified 06/14/23 12:27 Tetanus Vaccines and Toxoid AdvReac Mild Swelling/Ed Verified 06/14/23 12:27 kady Home Medications Medication Instructions Recorded Confirmed Type cholecalciferol (vitamin D3) 25 1,000 unit PO DAILY 08/17/14 06/14/23 History mcg (1,000 unit) capsule metoprolol tartrate 25 mg tablet 25 mg PO BID 08/17/14 06/14/23 History rosuvastatin 20 mg tablet (Crestor) 20 mg PO DAILY 08/17/14 06/14/23 History levothyroxine 25 mcg tablet 25 mcg PO DAILY 01/06/17 06/14/23 History acetaminophen 325 mg tablet 650 mg (2 x 325 mg) PO Q6H PRN PRN 07/07/18 06/14/23 Rx (Tylenol) #0 tabs amlodipine 5 mg tablet 5 mg PO HS 10/05/20 06/14/23 History nitroglycerin 0.4 mg sublingual 0.4 mg sublingual Q8H PRN 07/09/21 06/14/23 History tablet aspirin 81 mg tablet,delayed 81 mg PO DAILY 10/15/21 06/14/23 History release duloxetine 30 mg capsule,delayed 30 mg PO DAILY 07/24/22 06/14/23 History release cranberry fruit 450 mg tablet 450 mg PO BID 08/02/22 06/14/23 History rlysvkzhgrj-bif-lezvflrr-vit 2 cap PO .QD 04/07/23 06/14/23 History C-Mn-hrb21 500 mg-333 mg-5 mg capsule ketoconazole 2 % topical cream 1 applic topical DAILY 3 months 04/07/23 06/14/23 Rx #60 grams urea 45 % topical gel (VINCENT-Urea) 1 applic topical BID #28 mL 04/07/23 06/14/23 Rx vit C 250 mg-vit E 90 mg-zinc 40 1 tab PO BID PRN 04/07/23 06/14/23 History mg-copper 1 cr-nwbsyu-vfznhe capsule (PreserVision AREDS-2) Exam Narrative Exam Narrative: Gen: Lying in bed. Awake. NAD. Pleasant and cooperative. HEENT: Sclera clear. MMM. CVS: RRR, No murmur. RESP: Soft bibasilar crackles. Nonlabored breathing. GI: Soft, Nontender, Nondistended. No guarding. MSK: Right hip tender to palpation and with hip flexion, no obvious deformity or dislocation. SKIN: No rashes or elsions. NEURO: No focal neurologic deficits. PSYCH: Appropriate mood and affect Results Labs 06/14/23 11:46 06/14/23 11:46 Labs: Laboratory Results - last 24 hr 06/14/23 06/14/23 11:46 13:36 WBC 7.55 RBC 4.49 Hgb 13.4 Hct 40.4 MCV 90 MCH 29.8 MCHC 33.2 RDW 13.9 Plt Count 156 MPV 10.6 PT 11.1 INR 1.1 Sodium 138 Potassium 3.5 Chloride 103 Carbon Dioxide 27.9 Anion Gap 7.1 BUN 20 H Creatinine 0.8 Est GFR (CKD-EPI 2020) 71.27 Glucose 135 H Calcium 9.2 Total Bilirubin 0.9 AST 20 ALT 19 Alkaline Phosphatase 83 Total Protein 7.3 Albumin 3.8 COVID-19 Source Nasal/Nares SARS-CoV-2 (PCR) Negative Last Vital Signs Temp 37.2 C 06/14/23 15:32 Pulse 89 06/14/23 15:32 Resp 19 06/14/23 15:32 BP 152/79 H 06/14/23 15:32 Pulse Ox 95 06/14/23 15:32 Time Spent Time spent with Patient: 40-54 minutes Time was spent: preparing to see the patient(eg.review tests), obtaining and/or reviewing separately otained hiistory, ordering medications,tests, procedures, referring, communicating with other health resident care spec, indepentently interpreting results, counseling the patient and care coordination
[2023-06-14] MEDS: amLODIPine 5 MG TAB PO (21:43)
[2023-06-14] MEDS: Metoprolol 12.5 MG TAB 25 MG PO (21:43)
[2023-06-14] MEDS: Magnesium Oxide 400 MG TAB 800 MG PO (21:44)
[2023-06-14] MEDS: Normal Saline Flush 10 ML SYR IVP (21:44)
[2023-06-15] VITALS (15 sets, daily range): BP systolic 99–180; BP diastolic 64–86; PULSE 67–85; RESP 15–19; TEMP 35.6–37.4; O2SAT 87–100; BMI 22.3
--- NOTE | 2023-06-15 07:05 | W.ORTHOCONSU ---
Date of service: 06/15/23 Time of Service: 06:45 History of Present Illness History of Present Illness Chief Complaint: Right Hip Fracture Narrative: Heidi is an 88-year-old female, who lives independently, and fell early yesterday morning. She was trying to the bathroom when she lost her balance and fell, mostly onto her right side. She did hit her head but denied loss of consciousness. She had immediate pain about the right hip was unable to bear weight. She is seen in the emergency department and evaluated where she was diagnosed with a femoral neck fracture. She had a similar femoral neck fracture on the left side about 5 or so years ago. She continues to live independently. She does have other areas of arthritis which limits some of her activity, both knees and acetabular wear of the left hip. She denies any recent or current chest pain or shortness of breath. Her primary care physician, who she sees regularly, is in [place]. However, she has had no significant changes to her health. She had cataract surgery performed last year without difficulty. Her medications have been stable. Consults Consult date: 06/14/23 Requesting physician: Rajeev Driver Consult Reason Right Femoral Neck Fracture Assessment and Plan Assessment and plan (1) Subcapital fracture of neck of right femur: Status: Acute Assessment and plan: Heidi is an 88-year-old active female who unfortunately fell landing onto her right side and fracturing her right femoral neck. There is displacement and some comminution. Unfortunately, she had a similar injury 5 years ago. At that time she was treated with a hemiarthroplasty and recovered well but subsequent developed pain a few years later due to wear of the acetabulum and some migration of the unipolar head. This continues to bother her to this day. She is relatively active although she is 88 years old. She lives independently. She does have some signs of arthritis on the x-ray and the CT scan, although mild to moderate. Nevertheless, with a history on the left side I did discuss the 2 options of hemiarthroplasty versus total hip arthroplasty. I do not believe that screw fixation be indicated given the quality of her bone and the comminution seen on the CT scan. Given the history on the left side I think moving forward with a hip replacement would provide a more definitive route of treatment. She is 88 years old. However, the left side became symptomatic only 3 years out from the hemiarthroplasty and unfortunately does show signs of wear into the acetabular bone. Given these findings, I think it makes sense to proceed with a hip replacement. This does carry increased risk of dislocation, blood loss. However the overall results in the long-term are better. Her health is otherwise been stable. She denies shortness of breath or chest pain. She has a history of heart disease although it is not seemingly bothered by on a daily basis. I reviewed the hip replacement with her. I discussed the risk to include bleeding, infection, pain, stiffness, dislocation, fracture, damage to nerves and vessels, damage to muscle and tendons, instability, blood clot, cardiopulmonary demise. Despite these risk, she elects to proceed. Please keep her n.p.o. Nonweightbearing on the right lower extremity until surgery. After surgery, no restrictions. Qualifiers: Encounter type: initial encounter Fracture type: closed Qualified Code(s): S72.011A - Unspecified intracapsular fracture of right femur, initial encounter for closed fracture Review of Systems All systems reviewed & are unremarkable except as noted in HPI and below PFSH All Active Problems (Updated 06/15/23 @ 07:26 by Santiago Dior MD) Subcapital fracture of neck of right femur (Acute) Femoral neck fracture (Acute) Acute pain of right hip (Acute) Corns and callosities (Acute) Hammertoe, bilateral (Acute) PAD (peripheral artery disease) (Acute) Onychomycosis (Acute) Polyosteoarthritis (Acute) Edema (Acute) Pain, foot (Acute) Nail dystrophy (Acute) HTN (hypertension) (Chronic) Hyperlipidemia (Acute) DVT prophylaxis (Acute) Hypothyroidism (Chronic) Discharge planning issues (Acute) Hip fracture (Acute) CAD (coronary artery disease) (Chronic) Hypertension (Chronic) Left knee DJD (Chronic) Injection: 10/05/2020 Degenerative joint disease of right knee (Chronic) Injection: 10/05/2020 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 Erickson DOS: 07/03/2018 Sensorineural hearing loss of both ears (Acute) Impacted cerumen, bilateral (Acute) Conductive hearing loss, external ear (Acute) Impairment of speech discrimination (Acute) Medical History Skin cancer of nose Hx of skin cancer, basal cell Polymyalgia Atherosclerotic heart disease of [place] coronary artery without angina pectoris Urge incontinence Asymptomatic menopausal state Osteoarthritis Cardiovascular disease Heart attack pt. 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 Brother Heart disease Cancer Social History Smoking/Tobacco Use Status: Never Smoking risk assessment performed?: Yes Alcohol Intake: never Drug use: Never Substance use type: does not use Household members: spouse Housing: house current occupation: Retired What is your relationship status?: Panel score (0-1 are the most socially isolated patients): 1 Do you feel safe at home: Yes Do you feel safe in your relationship?: Yes Exam Narrative Exam Narrative: Sitting up in the hospital bed. No acute distress. Alert and oriented x3. Evaluation of the right lower extremity reveals no significant gross defects. No ecchymosis. No breaks in the skin. The leg is slightly externally rotated, but difficult to fully appreciate within the bed. No significant leg length discrepancy. There is pain with any passive motion of the right hip. Sensation tact light touch of the femoral site nerve distributions. Intact ankle dorsiflexion, plantarflexion, great toe extension, great toe flexion. Palpable DP and PT pulses. Results Last Vital Signs Temp 37.4 C 06/15/23 04:05 Pulse 72 06/15/23 04:05 Resp 19 06/15/23 04:05 BP 99/66 L 06/15/23 04:05 Pulse Ox 95 06/15/23 05:40 Labs 06/14/23 11:46 06/14/23 11:46 Labs: Laboratory Results - last 24 hr 06/14/23 06/14/23 11:46 13:36 WBC 7.55 RBC 4.49 Hgb 13.4 Hct 40.4 MCV 90 MCH 29.8 MCHC 33.2 RDW 13.9 Plt Count 156 MPV 10.6 PT 11.1 INR 1.1 Sodium 138 Potassium 3.5 Chloride 103 Carbon Dioxide 27.9 Anion Gap 7.1 BUN 20 H Creatinine 0.8 Est GFR (CKD-EPI 2020) 71.27 Glucose 135 H Calcium 9.2 Total Bilirubin 0.9 AST 20 ALT 19 Alkaline Phosphatase 83 Total Protein 7.3 Albumin 3.8 COVID-19 Source Nasal/Nares SARS-CoV-2 (PCR) Negative Imaging Imaging Studies: X-ray of the right pelvis and femur demonstrates a valgus impacted femoral neck fracture. A previously placed knee arthroplasty to the left side with some protrusio and wear into the acetabulum. No other associated fractures are identified. No suspicious lesions. CT scan of the right hip shows a comminuted subcapital femoral neck fracture with valgus impaction. There are osteophytes present around the acetabulum with some increasing sclerosis of the acetabulum. Interestingly, on the left hip, there is been notable migration of the unipolar head with significant sclerosis of the acetabulum and some subchondral cyst.
[2023-06-15 07:17] LABS: Anion Gap 10.2 mmol/L (3-11); BUN 20 mg/dL (7-18); CO2 25.8 mmol/L (21.0-32.0); CREATININE 0.9 mg/dL (0.55-1.02); Calcium 8.8 mg/dL (8.5-10.1); Chloride 104 mmol/L (98-107); Estimated GFR 61.87 (mL/min/1.73m2); Glucose 112 mg/dL (74-106); Magnesium 1.9 mg/dL (1.8-2.4); Potassium 4.1 mmol/L (3.5-5.1); Sodium 140 mmol/L (136-145)
--- NOTE | 2023-06-15 07:26 | ANES.PREOP_ITS ---
General Info Date of Service Date Performed: 06/15/23 Height: 5 ft 4 in Weight: 58.967 kg Body Mass Index (BMI): 22.3 Meds Allergies and Home Medications Allergies Allergy/AdvReac Type Severity Reaction Status Date / Time latex Allergy Intermediate Verified 06/14/23 12:27 Tetanus Vaccines and Toxoid AdvReac Mild Swelling/Ed Verified 06/14/23 12:27 kady Home Medication Medication Instructions Recorded cholecalciferol (vitamin D3) 25 1,000 unit PO DAILY 08/17/14 mcg (1,000 unit) capsule metoprolol tartrate 25 mg tablet 25 mg PO BID 08/17/14 rosuvastatin 20 mg tablet (Crestor) 20 mg PO DAILY 08/17/14 levothyroxine 25 mcg tablet 25 mcg PO DAILY 01/06/17 acetaminophen 325 mg tablet 650 mg (2 x 325 mg) PO Q6H PRN PRN 07/07/18 (Tylenol) #0 tabs amlodipine 5 mg tablet 5 mg PO HS 10/05/20 nitroglycerin 0.4 mg sublingual 0.4 mg sublingual Q8H PRN 07/09/21 tablet aspirin 81 mg tablet,delayed 81 mg PO DAILY 10/15/21 release duloxetine 30 mg capsule,delayed 30 mg PO DAILY 07/24/22 release cranberry fruit 450 mg tablet 450 mg PO BID 08/02/22 gowywiaahzn-qef-ykhvbegc-vit 2 cap PO .QD 04/07/23 C-Mn-hrb21 500 mg-333 mg-5 mg capsule ketoconazole 2 % topical cream 1 applic topical DAILY 3 months 04/07/23 #60 grams urea 45 % topical gel (VINCENT-Urea) 1 applic topical BID #28 mL 04/07/23 vit C 250 mg-vit E 90 mg-zinc 40 1 tab PO BID PRN 04/07/23 mg-copper 1 wm-cudfmo-rnlidk capsule (PreserVision AREDS-2) Current Visit Medications: Current Medications Generic Name Dose Route Start Last Admin Trade Name Freq PRN Reason Stop Dose Admin Acetaminophen 650 mg 06/14/23 16:00 06/14/23 21:43 Acetaminophen 325 Mg Tab PO 650 mg QID JUSTIN Administration Amlodipine Besylate 5 mg 06/14/23 22:00 06/14/23 21:43 Amlodipine 5 Mg Tab PO 5 mg HS JUSTIN Administration Cholecalciferol 1,000 units 10/29/23 08:30 Cholecalciferol (Vitamin D3) 1,000 Unit Tab PO DAILY [facility] Duloxetine HCl 30 mg 06/15/23 08:30 Duloxetine 30 Mg Cap PO DAILY [facility] IV Miscellaneous Supplies 1 each 06/14/23 11:45 Iv Access-Emergency Dept IV DIRECTED [facility] Levothyroxine Sodium 25 mcg 06/15/23 08:30 Levothyroxine 25 Mcg Tab PO DAILY [facility] Magnesium Oxide 800 mg 06/14/23 22:00 06/14/23 21:44 Magnesium Oxide 400 Mg Tab PO 800 mg HS [facility] Administration Metoprolol Tartrate 25 mg 06/14/23 20:00 06/14/23 21:43 Metoprolol 12.5 Mg Tab PO 25 mg BID [facility] Administration Morphine Sulfate 4 mg 06/14/23 15:10 Morphine 4 Mg/Ml Vial IVP Q3H PRN PRN Ondansetron HCl 4 mg 06/14/23 11:40 Ondansetron 4 Mg/2 Ml Vial IVP Q4H PRN PRN Polyethylene Glycol 17 gm 06/14/23 15:10 Polyethylene Glycol 3350 17 Gm Packet PO DAILY PRN PRN Constipation Rosuvastatin Calcium 20 mg 06/15/23 08:30 Rosuvastatin 20 Mg Tab PO DAILY [facility] Sodium Chloride 0 ml 06/14/23 11:40 06/14/23 21:44 Normal Saline Flush 10 Ml Syr IVP 10 ml PRN PRN Administration Tramadol HCl 100 mg 06/14/23 17:49 Tramadol 50 Mg Tab PO Q6H PRN PRN PFSH Active Problems Active Problems: Problem Status Onset Code Femoral neck fracture S72.009A Acute pain of right hip M25.551 Corns and callosities L84 Hammertoe, bilateral M20.41, M20.42 PAD (peripheral artery disease) I73.9 Onychomycosis B35.1 Polyosteoarthritis M15.9 Edema R60.9 Pain, foot M79.673 Nail dystrophy L60.3 Posterior subcapsular age-related cataract, right eye H25.041 Nuclear sclerotic cataract of right eye H25.11 Cortical cataract of right eye H26.9 HTN (hypertension) I10 Hyperlipidemia E78.5 DVT prophylaxis Hypothyroidism E03.9 Discharge planning issues Z02.9 Hip fracture S72.009A CAD (coronary artery disease) I25.10 Hypertension I10 Left knee DJD M17.12 Degenerative joint disease of right knee M17.11 Degenerative joint disease of left hip M16.12 Sensorineural hearing loss of both ears H90.3 Impacted cerumen, bilateral H61.23 Conductive hearing loss, external ear H90.2 Impairment of speech discrimination H93.299 Nuclear sclerotic cataract of left eye H25.12 Posterior subcapsular age-related cataract of left eye H25.042 Medical History Medical History Skin cancer of nose Hx of skin cancer, basal cell Polymyalgia Atherosclerotic heart disease of [place] coronary artery without angina pectoris Urge incontinence Asymptomatic menopausal state Osteoarthritis Cardiovascular disease Heart attack pt. states she did not have a heart attack but was very close to it Arthritis Hip fracture Hypothyroid Hyperlipidemia Hypertension Medical History Comments:: Sensitivty if touching nose; recent reconstruction to nose after skin cancer removal. 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 History of nasal surgery reconstruction post skin cancer removal; 08/2021 H/O carpal tunnel repair History of left hip replacement H/O dilation and curettage History of tonsillectomy Tobacco Smoking/Tobacco Use Status: Never Alcohol Alcohol Intake: never Substance Use Substance use: Never Substance use type: does not use Vital Signs and Lab Results Vital Signs Most Recent Vital Signs in EMR: Most Recent Vital Signs Temp Pulse Resp BP Pulse Ox 37.2 C 75 16 112/65 98 06/15/23 07:23 06/15/23 07:23 06/15/23 07:23 06/15/23 07:23 06/15/23 07:23 Lab Results 06/14/23 11:46 06/15/23 06:30 Blood Type / Crossmatch: 2 No Data to Display Complete Blood Count: 2 White Blood Count 7.55 10^3/uL (4.4-10.8) 06/14/23 11:46 Red Blood Count 4.49 10^6/uL (3.93-5.22) 06/14/23 11:46 Hemoglobin 13.4 g/dL (11.2-15.7) 06/14/23 11:46 Hematocrit 40.4 % (36.0-46.0) 06/14/23 11:46 Platelet Count 156 10^3/uL (130-400) 06/14/23 11:46 Complete Metabolic Panel: 2 Sodium 140 mmol/L (136-145) 06/15/23 06:30 Potassium 4.1 mmol/L (3.5-5.1) 06/15/23 06:30 Chloride 104 mmol/L (98-107) 06/15/23 06:30 Carbon Dioxide 25.8 mmol/L (21.0-32.0) 06/15/23 06:30 BUN 20 mg/dL (7-18) H 06/15/23 06:30 Creatinine 0.9 mg/dL (0.55-1.02) 06/15/23 06:30 Est GFR (CKD-EPI 2020) 61.87 (mL/min/1.73m2) 06/15/23 06:30 Magnesium 1.9 mg/dL (1.8-2.4) 06/15/23 06:30 Calcium 8.8 mg/dL (8.5-10.1) 06/15/23 06:30 Albumin 3.8 g/dL (3.4-5.0) 06/14/23 11:46 Glucose 112 mg/dL (74-106) H 06/15/23 06:30 Liver Function Panel: 2 Alanine Aminotransferase (ALT/SGPT) 19 U/L (14-59) 06/14/23 11: 46 Aspartate Amino Transf (AST/SGOT) 20 U/L (15-37) 06/14/23 11:46 Coagulation Panel: 2 INR International Normalized Ratio 1.1 (0.9-1.1) 06/14/23 11:4 6 Prothrombin Time 11.1 sec (9.1-11.1) 06/14/23 11:46 Cardiac Panel: 2 No Data to Display Arterial Blood Gas: 2 No Data to Display Venous Blood Gas: 2 No Data to Display Pancreas Panel: 2 No Data to Display Thyroid Panel: 2 No Data to Display Infectious Disease: 2 Coronavirus (COVID-19)(PCR) Negative (Negative) 06/14/23 13:36 Coronavirus 2019 Source Nasal/Nares 06/14/23 13:36 Blood Cultures: 2 No Data to Display Toxicology Panel: 2 No Data to Display Anesthesia Assessment and Plan Anesthesia History Personal History: No History of Anesthesia Complications Family History: No Family History of Anesthesia Complications Exercise Tolerance Exercise Tolerance: Metabolic Equivalents>4 Pertinent Negatives Pertinent Negatives: No Symptoms of GERD, No Major Pulmonary Symptoms or Complaints and No History of CVA/TIA Cardiac & Pulmonary Exam Cardiac Exam: Normal S1/S2 Heart Sounds Pulmonary Exam: Clear Bilateral Breath Sounds Implantable Cardiac Device Does patient have a Pacemaker or an ICD?: No Airway Exam Known Difficult Airway: No Mallampati Class: 1 Mouth Opening: Normal (> 3cm) Thyromental Distance: Greater than 3 cm Neck Range of Motion: Full ROM Neck Circumference: Normal Teeth Condition: Normal Dentition ASA Classification ASA Score: ASA 3 Emergency Case?: No NPO Status NPO Status: NPO Clears >2 hours, Solids >8 hours Anesthesia Plan Resuscitation Status: Full Code Anesthesia Technique: General Anesthesia Airway Planned: LMA Pain Management: Surgeon and patient request nerve block Monitors Used: Standard Monitors
[2023-06-15] MEDS: Levothyroxine 25 MCG TAB PO (07:31)
[2023-06-15] MEDS: Metoprolol 12.5 MG TAB 25 MG PO (08:18)
[2023-06-15] MEDS: ceFAZolin 2 GM/50 ML BAG IVPB (08:39)
[2023-06-15] MEDS: Lactated Ringers 1,000 ML 50 ML IV (08:39)
--- NOTE | 2023-06-15 10:00 | INITIAL_ITS ---
Date of service: 06/15/23 Time of Service: 10:00 Care Management Initial Assmt Initial Assessment REASON FOR HOSPITALIZATION:: femoral neck fracture PREVIOUS FUNCTIONAL STATUS/SOCIAL/FAMILY SUPPORTS:: Heidi lives alone in a single family home in [facility]. She has 4 children, 6 grandchildren and 8 great grandchildren, many of whom live close by. Heidi was independent prior to her fall with all care and ADLs. She occasionally uses a walker for ambulatory support. Heidi does not receive any community services CURRENT FUNCTIONAL STATUS:: Heidi was sitting up in bed visiting with family when CM met with her. There were at least 6-7 women of all ages present. They were laughing and joking with Heidi and it was clear that they are a very close family. There was a preliminary discussion about discharge plans and Heidi made it very clear that she does not want to go to a SNF for rehab. She verbalized that she believes she will be fine at home. One of her daughters asked what might be available in terms of services and assistance at home. CM explained home health services and the various disciplines that are available such as RN, PT, OT and CONTRACT ADMINISTRATOR. Her daughter verbalized interest in caregivers that might be able to spend part of the day with Heidi. CM explained that caregiver services are not generally covered by insurance and would be privately paid. Her daughter indicated that she knew of one or two people who might be available and will reach out to them. Heidi just had surgery this morning so has not been evaluated by PT yet. When their recommendations have been made, CM will continue the discharge planning conversation. In any event, it appears that Heidi is, and will continue to be, well supported by her family. ADVANCE DIRECTIVES:: On file/ Lulu NAVARRO (daughter) Has patient been provided with info about the portal/API?: Yes Did the patient sign up for the portal?: No CODE STATUS:: Full Code INSURANCE COVERAGE / FINANCIAL ISSUES:: Medicare [place] CURRENT HOME/COMMUNITY SERVICES/EQUIPMENT:: cane PRIMARY CARE PHYSICIAN:: Alma Youssef POTENTIAL DISCHARGE NEEDS:: follow up with community providers PATIENT/FAMILY EDUCATION NEEDS:: Review of discharge instructions, ambulation, activity, limitations, follow up plan, discuss [employer] TRANSPORTATION:: via private vehicle PLAN:: Anticipate Heidi will be discharged home with new home health services. She may benefit from short term rehab, depending on her progress with ambulation post-operatively. She will follow up with her community providers and plan of care and transport with family. will continue to support Yancy and her discharge planning needs. [facility] All Active Problems (Updated 06/15/23 @ 07:26 by Santiago Dior MD) Subcapital fracture of neck of right femur (Acute) Femoral neck fracture (Acute) Acute pain of right hip (Acute) Corns and callosities (Acute) Hammertoe, bilateral (Acute) PAD (peripheral artery disease) (Acute) Onychomycosis (Acute) Polyosteoarthritis (Acute) Edema (Acute) Pain, foot (Acute) Nail dystrophy (Acute) HTN (hypertension) (Chronic) Hyperlipidemia (Acute) DVT prophylaxis (Acute) Hypothyroidism (Chronic) Discharge planning issues (Acute) Hip fracture (Acute) CAD (coronary artery disease) (Chronic) Hypertension (Chronic) Left knee DJD (Chronic) Injection: 10/05/2020 Degenerative joint disease of right knee (Chronic) Injection: 10/05/2020 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 Erickson DOS: 07/03/2018 Sensorineural hearing loss of both ears (Acute) Impacted cerumen, bilateral (Acute) Conductive hearing loss, external ear (Acute) Impairment of speech discrimination (Acute) Medical History Skin cancer of nose Hx of skin cancer, basal cell Polymyalgia Atherosclerotic heart disease of [place] coronary artery without angina pectoris Urge incontinence Asymptomatic menopausal state Osteoarthritis Cardiovascular disease Heart attack pt. 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 Brother Heart disease Cancer Social History Smoking/Tobacco Use Status: Never Smoking risk assessment performed?: Yes Alcohol Intake: never Drug use: Never Substance use type: does not use Household members: spouse Housing: house current occupation: Retired What is your relationship status?: Panel score (0-1 are the most socially isolated patients): 1 Do you feel safe at home: Yes Do you feel safe in your relationship?: Yes
--- NOTE | 2023-06-15 10:06 | W.PM.PROGNOT ---
Date of Service Date of service: 06/15/23 Time of Service: 08:10 Assessment and Plan Assessment and plan (1) Femoral neck fracture: Status: Acute Assessment and plan: Comminuted and nondisplaced. Dr Dior discussed the surgical options and it was decided that a total hip arthroplasty would be best option. Pt does have h/o CAD. See below (2) CAD (coronary artery disease): Status: Chronic Assessment and plan: Pt has not had CP. Any previous echocardiogram and/or cardiology visit notes being sought. (3) PAD (peripheral artery disease): Status: Acute Assessment and plan: No c/o claudication. On an aspirin but not plavix or pletal. (4) HTN (hypertension): Status: Chronic Assessment and plan: Cont amlodipine and metoprolol Monitor. (5) Hyperlipidemia: Status: Acute Assessment and plan: Cont rosuvastatin. (6) Hypothyroidism: Status: Chronic Assessment and plan: Cont levothyroxine. (7) Discharge planning issues: Status: Acute Assessment and plan: Pt states she has an advanced directive and family plans to bring it in. She states she is a full code but she appeared unclear. Disposition to be made post operatively depending on rehabilitation progression. Subjective Subjective Patient reports: still having pain (managed with medications. ) and afebrile; denies nausea, vomiting or shortness of breath Interval history since last seen: Didn't sleep well; SCDs woke her up frequently. Exam Narrative Exam Narrative: Gen: Lying in bed. Awake. NAD. Pleasant and cooperative. HEENT: Sclera clear. MMM. CVS: RRR, No murmur. RESP: Clear breath sounds anteriorly. Nonlabored breathing. GI: Soft, Nontender, Nondistended. No guarding. MSK: RLE with no obvious deformity or dislocation. SKIN: No rashes or elsions. NEURO: No focal neurologic deficits. PSYCH: Appropriate mood and affect Objective Last Vital Signs Temp 37.2 C 06/15/23 07:23 Pulse 75 06/15/23 07:23 Resp 16 06/15/23 07:23 BP 112/65 06/15/23 07:23 Pulse Ox 100 06/15/23 07:54 Laboratory Results - last 24 hr 06/14/23 06/14/23 06/15/23 11:46 13:36 06:30 WBC 7.55 RBC 4.49 Hgb 13.4 Hct 40.4 MCV 90 MCH 29.8 MCHC 33.2 RDW 13.9 Plt Count 156 MPV 10.6 PT 11.1 INR 1.1 Sodium 138 140 Potassium 3.5 4.1 Chloride 103 104 Carbon Dioxide 27.9 25.8 Anion Gap 7.1 10.2 BUN 20 H 20 H Creatinine 0.8 0.9 Est GFR (CKD-EPI 2020) 71.27 61.87 Glucose 135 H 112 H Calcium 9.2 8.8 Magnesium 1.9 Total Bilirubin 0.9 AST 20 ALT 19 Alkaline Phosphatase 83 Total Protein 7.3 Albumin 3.8 COVID-19 Source Nasal/Nares SARS-CoV-2 (PCR) Negative Time Spent with Patient Time Spent with Patient: 25-34 minutes Time was spent: preparing to see the patient(eg.review tests), obtaining and/or reviewing separately otained hiistory, ordering medications,tests, procedures, referring, communicating with other health occasional caregiver, indepentently interpreting results, counseling the patient and care coordination
--- NOTE | 2023-06-15 10:22 | ROE_ITS ---
Date of service: 06/15/23 Time of Service: 09:15 Operative Note Operative Note DATE OF PROCEDURE: 06/15/23 PRE-OP DIAGNOSIS: Right Femoral Neck Fracture POST-OP DIAGNOSIS: same PROCEDURE: Right Anterior Total Hip Arthroplasty SURGEON: Santiago Dior CASE MANAGEMENT COORDINATOR: Sarah Walter ANESTHESIA TYPE: General LMA/ETT Refer to Anesthesia Record ESTIMATED BLOOD LOSS: 200 PATHOLOGY: none sent TOURNIQUET TIME: 0 COMPLICATIONS: Other (Proximal femoral fracture, stable, secured with cerclage cable) Patient was transported to: PACU Patient's condition: stable Implants: 1. Depuy Worthington Acetabular Component, 48mm 2. Depuy Acetabular Liner, [id number] 3. Depuy Corail Short Neck Collared Femoral Stem, Size 12 4. Depuy Altrx Ceramic Femoral Head, Size 32+5mm Indications: Heidi is an 88-year-old female who unfortunately fell onto her right side and suffered a right femoral neck fracture. There was some displacement and comminution and thus I recommended replacement. She had a similar history on the left side 5 years ago where she received a hip hemiarthroplasty. Unfortunately she has continued have some pain about the left hip due to wear of the acetabulum and some protrusio of the hip femoral head. She is functionally independent and very active still with stable medical conditions and therefore I did offer hip replacement, obviating the concern for acetabular wear and continued pain. I did discuss the increased risk with dislocation, blood loss, fracture. She agreed with moving forward with hip replacement. I explained the risks of the procedure to include, but not limited to, bleeding, infection, pain, stiffness, fracture, damage to nerves and vessels, damage to muscles and tendons, loosening, instability, leg length inequality, need for repeat procedure, blood clot and cardiopulmonary demise. Despite these risks, Heidi elected to proceed. Findings: There was a comminuted femoral neck fracture. The acetabulum showed signs of wear, particularly medially and superiorly. A small vertical crack developed in the planning process in preparation of the femur. This was stable and that it did not extend beyond the trochanteric ridge. However, I placed a cable to secure it and prevent any propagation or displacement. Procedure Description: Heidi was greeted in the preoperative area where the correct side was identified and marked. The consent was reviewed with the patient and signed. All questions were answered. Heidi was taken back to the operating room. A general anesthetic was then administered. The feet were wrapped with cast padding and Coban and then placed into the boot liners and then into the boots. Care was taken to protect the skin and make sure the heels were fully down and the boots were stable. The patient was then positioned onto the HANA table. Both legs were held in a neutral position. SCDs were applied. The patient was then slid down onto a peroneal post. Prophylactic antibiotics in the form of Cefazolin were administered. 1g of Tranxemic Acid was given intravenously within 30 minutes of incision. The right leg was then prepped with Chloraprep and draped in a standard fashion. A second prep with Chloraprep was performed prior to placement of a shower-curtain type drape with Iodine impregnated skin protection. A timeout to confirm correct identity, side and site, procedure, allergies, anesthesia, and medical concerns was performed. An obliquely oriented incision was made starting lateral to the ASIS and running distal over the Tensor Fascia Yadira (TFL) muscle belly toward the fibular head, approximately 10cm. The skin and soft tissue was dissected sharply, through Elvia?s fascia, and to the fascia of the TFL. With the fascia and superior border of the IT band identified, the fascia was incised with a new knife just above any perforators from the IT band. The TFL muscle belly was bluntly dissected away from the fascia and moved laterally. The fat between TFL and rectus was identified to ensure the dissection was not within the TFL. Blunt dissection created space between abductors and the capsule and retractor was placed over the lateral femoral neck. The fibers of the rectus femoris tendon were identified and these were freed from the anterior capsule. A second cobra retractor was placed around the medial femoral neck. The TFL was further re tracted laterally to show the deep fascia. Careful dissection through this layer identified three main crossing vessels of the lateral femoral circumflex. These were cauterized in multiple locations and then cut without any noticeable bleeding. The TFL was further released bluntly from the deep fascia to expose anterior hip capsule and fat The Edwin orthopaedic retractor was then placed beneath the TFL and against sartorius and medial soft tissues to protect and retract the soft tissues. A T-capsulotomy was then performed starting at the superior lateral acetabulum and moving distally to the intertrochanteric ridge. These capsular flaps were tagged with a No. 1 Ethibond and elevated from within. The capsular flaps were released to the shoulder of the lateral neck and to the lesser trochanter to give excellent visualization of the proximal femur. A neck osteotomy was performed using an oscillating saw based on preoperative templates. This cut started in the shoulder and of the lateral neck and exited medially. The saw was at all times directed medially to avoid injury to the greater trochanter. Gross traction was applied to the leg and the osteotomy opened. The femoral head was removed with a corkscrew, making sure to protect the TFL on its exit. Traction was released after head removal. This was measured on the back table to determine the starting reamer size. Portions of the rectus obscuring visualization were minimally elevated off the superior acetabulum. An anterior retractor was placed over the anterior wall between capsule and labrum and attached to the Gripper retraction system. The femur was rotated to 90 degrees and medial capsule was fully released until the lesser trochanter was palpable and visible; the femur was returned to 30 degrees. A posterior retractor was placed similarly between capsule and labrum. This provided excellent visualization. The contents of the cotyloid fossa were removed with electrocautery and the labrum was removed with a knife. There was significant chondromalacia of the medial acetabulum, and somewhat superior. Acetabular reaming began with a 44mm reamer. This first reaming was directed anterior to posterior and medial to get down to the true floor. This was inspected and reamed until the true floor was reached. The anterior retractor was then released and entry and exit was provided by traction on the capsular flaps. I then reamed sequentially up to a 48mm reamer where good fit was obtained. The larger reamers were oriented based on anatomical reference of the anterior and lateral cervantes to ensure proper abduction and anteversion. Positioning and size was confirmed with the fluoroscopy. A 48mm Depuy [place] acetabular component was selected. The deep tissues were irrigated. The acetabular component was then impacted in a position of about 40-45 degrees of abduction and 15-20 degrees of anteversion, using the patient?s anatomy as the ultimate landmark. Fluoroscopy was used to confirm this. There was excellent mortgage field inspector of the acetabular component and the inserting handle was removed. The acetabular liner, Depuy [id number] polyethylene liner, was inserted and lined up with the tines of the acetabular component. There was no soft tissue interposition. The liner was then impacted into position and confirmed to be well-seated. A portion of the liss-articular cocktail was then injected around the acetabulum into the capsule and periosteum. This cocktail consisted of 123mg of Ropivacaine, 0.25mg of Epinephrine, 0.04mg of Clonidine, and 15mg of Ketorolac, diluted to 50cc. The leg was rotated to 120 degrees. Any remaining medial capsule was released until the lesser trochanter was easily palpable. A retractor was placed medially. The lateral capsule was further released into the shoulder to allow access to the greater trochanter. A Carvajal retractor was placed over the greater trochanter which allowed the trochanter to flip in front of the capsule for excellent exposure. The leg was brought down into maximal extension and 20 degrees of adduction while ensuring there was no impingement on the acetabulum. Any remnant capsule within the trochanter was released. Piriformis and obturator externis were identified and protected. There was excellent access to the proximal femur. The lateral neck remnant was removed with a rongeur. A blunt canal probe was used to identify the canal and trajectory for later broaching. A box osteotome initiated the broach course. A small curved rasp and a curved curette were used to work laterally. Broaching then began with a size 8 Corail broach. This was inserted manually around the trochanter and into the canal before mallet blows. The broach was seated to a few millimeters below the cut level based on the neck cut and the preoperative template. Sequential broaching was continued with the Kaleidoscopecise pneumatic broaching device until a tight fit was obtained with good rotational control of the femur. A trial short neck was inserted along with a +5 trial head. The leg was brought out of extension and adduction and then reduced with traction and internal rotation. The leg was stable anteriorly in a position of 30 degrees of extension and 90 degrees of external rotation. Fluoroscopy was used to ensure there was no fracture and the stem was seated well. Leg lengths were checked with an AP pelvis and pelvic reference points. I utilized an alignment jagruti to determine leg length and evaluate offset compared to the contralateral side. Once content with the desired offset and leg lengths, the leg was brought back into extension, external rotation and adduction. A planer was then utilized to plane the surface of the femur. During this process there was a notable jump in the planar. The plane was removed and there was a vertical crack identified in the medial aspect of the proximal femur. There was no gapping of the fracture. It ended at the level of the trochanteric ridge. However, with manipulation of the trial stem there was some stress applied to the fracture and some gapping of about a millimeter. Therefore, I decided to place a cable. The Synthes cable system was opened. Utilizing the cable passer I placed a cable distal to the vastus ridge but proximal to the lesser trochanter. The wire was passed and the cables provisionally tightened. This was checked on x- ray. With this provisionally tightened, then proceeded with placement of the femoral component. The periosteum and surrounding tissue was injected with remaining portion of the liss-articular cocktail. The proximal femur was irrigated as well as the deep tissues. The Depuy Corail short neck collared stem, size 12, was then manually inserted into the proximal femur making sure to control rotation. It was then malleted into position with light blows, giving breaks to allow bone expansion and decrease risk of fracture. The selected Depuy Altrx Ceramic Head, size 32+5mm, was then placed onto the clean and dry trunion and secured with impaction onto the tapered fit. The leg was brought back out of extension and adduction and reduced with traction and internal rotation. Stability was confirmed with no shuck at 90 degrees of external rotation and 30 degrees of extension. The cable was once again tensioned, crimped, and cut. Final x-ray images were obtained with fluoroscopy to confirm adequate positioning. There is no distal extension of the fracture identified. The cable is in good position. The deep tissues were thoroughly irrigated with Surgiphor, betadine solution. This was allowed to sit in the wound for 3 minutes before being thoroughly irrigated out with normal saline. The capsule was then reapproximated with the previously placed Ethibond sutures. The TFL fascia was finally closed with a No. 2 Stratafix, barbed suture. Deep tissues were then reapproximated with 0 Vicryl and a running 2-0 Vicryl. The skin was closed with a running 4-0 Monocryl in a subcuticular fashion. This was reinforced with skin glue. A Mepilex silver dressing was applied. At the end of the case, all counts were correct. Heidi was transferred to the hospital bed without difficulty and suffering a small crack of the proximal femur, secured with a cerclage cable.. Heidi has a good prognosis. Physical therapy will start today and without restrictions, weight-bearing as tolerated. Aspirin 81mg BID will be used for DVT prophylaxis.
--- NOTE | 2023-06-15 10:33 | DI.RAD_ITS ---
Exam(s) XR HIP RT IN OR EXAM: XR HIP RT IN OR CLINICAL HISTORY: right hip fracture. TECHNIQUE: 2D and realtime digital imaging was performed. COMPARISON: CR,XR XR PELVIS AP from 06/14/2023 CR,XR XR FEMUR RT from 06/14/2023 FINDINGS: Hard copy images show placement of a right hip prosthesis. The alignment appears satisfactory. Please see procedure note for details. Fluoro time: 36.6seconds RADIATION DOSE DELIVERED: juan Jennings=3.24 mGy
--- NOTE | 2023-06-15 12:00 | W.ANESPOSTOP ---
Postoperative Evaluation Date, Time and Location Date Performed: 06/15/23 Time Performed: 11:45 Patient Location: Day Surgery Unit Vital Signs Most Recent Imported Vital Signs: Most Recent Vital Signs Temp Pulse Resp BP Pulse Ox 35.6 C L 71 16 144/75 H 94 06/15/23 11:43 06/15/23 11:43 06/15/23 11:43 06/15/23 11:43 06/15/23 11:59 Pain Score Most Recent Pain Score: Most Recent Pain Score Pain Level [Right Hip] 5 06/15/23 09:23 Pain Level 0 06/15/23 11:43 Assessment Mental Status: Awake (Alert & Oriented to Patient Baseline) Airway and Respiratory Function: Patent airway with normal (patient baseline) respiratory exam Cardiovascular Function: Hemodynamically Stable Hydration Status: Adequately Hydrated Nausea & Vomiting: No Nausea or Vomiting Pain: Pt. Denies Any Pain Peripheral Nerve Block: Patient did not receive a nerve block
[2023-06-15] MEDS: DULoxetine 30 MG CAP PO (12:46)
[2023-06-15] MEDS: ceFAZolin 1 GM/50 ML BAG IVPB ×2 (14:48→21:10)
[2023-06-15] MEDS: Acetaminophen 325 MG TAB 650 MG PO ×2 (16:27→21:10)
[2023-06-15] MEDS: Aspirin 81 MG CHEW PO (21:10)
[2023-06-15] MEDS: Magnesium Oxide 400 MG TAB 800 MG PO (21:10)
[2023-06-15] MEDS: Metoprolol 25 MG TAB PO (21:10)
[2023-06-15] MEDS: amLODIPine 5 MG TAB PO (21:10)
[2023-06-16] MEDS: Levothyroxine 25 MCG TAB PO (05:46)
[2023-06-16] MEDS: ceFAZolin 1 GM/50 ML BAG IVPB (05:46)
[2023-06-16 06:50] LABS: Abs Immature Grans 0.01 10^3/uL (0.0-0.06); Absolute Basophil Count 0.01 10^3/uL (0.0-0.2); Absolute Eosinophil Count 0.13 10^3/uL (0.0-0.7); Absolute Lymphocyte Count 0.87 10^3/uL (1.2-3.4); Absolute Monocyte Count 0.73 10^3/uL (0.1-0.8); Absolute Neutrophil Count 6.97 10^3/uL (1.2-6.7); Basophils % 0.1; Eosinophils % 1.5; HCT 35.4 % (36.0-46.0); HGB 11.7 g/dL (11.2-15.7); Immature Grans % 0.1; MCH 29.8 pg (27.0-33.0); MCHC 33.1 % (32.0-36.0); MCV 90 fL (80-95); MPV 10.8 fL (8.0-11.0); Monocytes % 8.4; Neutrophils % 79.9; Platelet Count 149 10^3/uL (130-400); RBC 3.92 10^6/uL (3.93-5.22); RDW 14.3 % (11.7-14.6); RDW-SD 47.7 fL; WBC 8.72 10^3/uL (4.4-10.8)
[2023-06-16 07:08] LABS: Anion Gap 10.1 mmol/L (3-11); BUN 35 mg/dL (7-18); CO2 24.9 mmol/L (21.0-32.0); CREATININE 1.3 mg/dL (0.55-1.02); Calcium 9.1 mg/dL (8.5-10.1); Chloride 102 mmol/L (98-107); Glucose 133 mg/dL (74-106); Potassium 4.4 mmol/L (3.5-5.1); Sodium 137 mmol/L (136-145)
[2023-06-16 08:26] VITALS: BP 130/73; PULSE 91; RESP 20; TEMP 37.2; O2SAT 93
--- NOTE | 2023-06-16 08:28 | PDOC.CMPRO ---
Date of service: 06/16/23 Time of Service: 08:28 Care Management Progress Note Progress Note Text Progress Note Text: S/O:Heidi was sitting up in bed when CM met with her. She was smiling but shared that she had not slept well. She stated that her hip pain was well controlled however she had really bad cramps in her right foot. When asked, Heidi stated that she had told the doctor this morning. He informed her he would order medication if the cramps continue. Heidi had a PT evaluation this morning. She did well for the first time out of bed and was able to walk with one assist. Recommendations for discharge will depend on her progress. Heidi has shared that she would prefer to go home but as she lives alone, she would likely need assistance. A: Heidi is an 88 year old woman admitted on 06/14/23 with a fractured femur P:Anticipate Heidi will be discharged home with new home health services. She may benefit from short term rehab, depending on her progress with ambulation post-operatively. She will follow up with her community providers and plan of care and transport with family. CM will continue to support Yancy and her discharge planning needs.
[2023-06-16] MEDS: Acetaminophen 325 MG TAB 650 MG PO ×4 (08:32→21:12)
[2023-06-16] MEDS: Metoprolol 25 MG TAB PO ×2 (08:32→21:12)
[2023-06-16] MEDS: Aspirin 81 MG CHEW PO ×2 (08:32→21:12)
[2023-06-16] MEDS: DULoxetine 30 MG CAP PO (08:33)
[2023-06-16] MEDS: Lactated Ringers 250 ML IV (08:33)
--- NOTE | 2023-06-16 10:30 | PT.INIE ---
PT Notes Visit Reasons: fall,hip pain, ambulatory dysfunction Physical Therapy Inpatient Initial Evaluation Date: 06/16/2023 Referring Doctor: Santiago Dior MD PT Orders: PT CONSULT: S/P Ortho Surgery Precautions: Fall. Standard. WBAT on LE with AD. Patient Profile/Admitting Diagnosis: Heidi is an incidental 88-year-old female with right femoral neck fracture and is status post right anterior total hip arthroplasty on postoperative day 0. She is also being admitted for management of CAD, PAD, hypertension, hyperlipidemia, and hypothyroidism. PMHx: All Active Problems (Updated 06/14/23 @ 19:46 by Rajeev Driver MD) Femoral neck fracture (Acute) Acute pain of right hip (Acute) Corns and callosities (Acute) Hammertoe, bilateral (Acute) PAD (peripheral artery disease) (Acute) Onychomycosis (Acute) Polyosteoarthritis (Acute) Edema (Acute) Pain, foot (Acute) Nail dystrophy (Acute) HTN (hypertension) (Chronic) Hyperlipidemia (Acute) DVT prophylaxis (Acute) Hypothyroidism (Chronic) Discharge planning issues (Acute) Hip fracture (Acute) CAD (coronary artery disease) (Chronic) Hypertension (Chronic) Left knee DJD (Chronic) Injection: 10/05/2020 Degenerative joint disease of right knee (Chronic) Injection: 10/05/2020 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 Erickson DOS: 07/03/2018 Sensorineural hearing loss of both ears (Acute) Impacted cerumen, bilateral (Acute) Conductive hearing loss, external ear (Acute) Impairment of speech discrimination (Acute) Medical History Skin cancer of nose Hx of skin cancer, basal cell Polymyalgia Atherosclerotic heart disease of [place] coronary artery without angina pectoris Urge incontinence Asymptomatic menopausal state Osteoarthritis Cardiovascular disease Heart attack pt. 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 She has a second floor but no longer needs to go [facility]. of 67 years recently passed. Family, relatives and friends have been good support. Uses a FWW indoors and outdoors. Equipment Owned/DME: FWW, SPC Subjective: Reports pain in the R hip and 5-6/10 with weight bearing but is surprised by how much she is able to do this morning. Denies headache, chest pain, and lightheadedness throughout session today. Anxious about going home today, unsure about how much support she is going to get at home. Per CM Michelle, daughter a re arranging for caregivers to come as needed for any help that their mother may need. Agreeable to PT once she is home. Objective: General Observation: Supine in bed. Mepilex Ag over surgical incision. TEDS to be legs. Mental Status: Alert and oriented as to person, place, time, and purpose. Mild difficulty hearing due to pre-existing sensorineural hearing loss, focus, and respond appropriately. Pain: As above Vital Signs: Closely monitored by nursing staff ROM: Right Lower Extremity: Hip flexion lacks the last 25% of AROM. Hip abduction lacks the last 25% of AROM. Knee flexion 30 degrees to 90 degrees. Knee extension -30 degrees. Ankle dorsiflexion to neutral only. Ankle plantarflexion WFL. Left Lower Extremity: Hip flexion WFL. Hip abduction WFL. Knee flexion WFL. Ankle dorsiflexion WFL. Ankle plantarflexion WFL. Strength: Right Lower Extremity: Hip flexors 3-/5. Hip abductors 3-/5. Knee flexors 4-/5. Knee extensors 3-/5. Ankle dorsiflexors 3-/5. Ankle plantarflexors 3-/5. Left Lower Extremity: Hip flexors 4/5. Hip abductors 4/5. Knee flexors 4/5. Knee extensors 4/5. Ankle dorsiflexors 4/5. Ankle plantarflexors 4/5. Bed Mobility/Transfers: Supine to sit with minimal assist with minimal cues for safe/correct technique Sit to stand with minimal assist with minimal cues for safe/correct technique Stand to sit with minimal assist with minimal cues for safe/correct technique Bed to toilet seat minimal assist with minimal cues for safe/correct technique Toilet seat to reclining chair with minimal assist with minimal cues for safe/correct technique Gait: Facilitated safe and correct performance of in room ambulation 15 feet and only ambulation up to 80 feet using front-wheeled walker with step to gait pattern requiring minimal assist and moderate verbal cueing for movement sequence, AD management, and posture. Reported 5-6/10 pain in the R hip that subsided with rest. Balance: Static Sitting: Normal Dynamic Sitting: Normal Static Standing: Fair Dynamic Standing: Fair Special Tests: Mobility Limitations Standardized Measure [facility] AM-PAC 6 clicks Basic Mobility Inpatient Short Form: Raw Score: 17 CMS Score: 51% deficit Informed Consent/Education: Patient was instructed in purpose of PT consult and plan of care. Agreeable to proceed with established PT POC to achieve personal goals. ASSESSMENT: Patient requires the assistance of 1 person for all bed mobility, transfer, and ambulation performance she requires the use of front wheeled walker to minimize dependence and reduce fall risk. Patient presents with clinical signs and symptoms consistent with current/admitting diagnoses that have resulted to mobility limitations, gait instability, generalized weakness, and overall ADL decline as demonstrated by the following impairment level findings: 1. Decreased strength to R hip major muscle groups 2. Impaired sitting/standing balance 3. Impaired activity tolerance 4. Limitation of joint range of motion in R hip and knee 5. Pain at 5-6/10 with weight bearing in the R hip Impairments are contributing to the following functional limitations: 1. Decline in bed mobility skills 2. Decline in transfer skills 3. Difficulty with ambulation without assistive device and physical assistance 4. Increased completion time for mobility ADL performance 5. Increased risk for falls 6. Difficulty with managing steps alone safely Patient is assessed as a 93747 moderate complexity based on the following: History: 88-year-old female with past medical history as indicated above Examination: Demonstrable impairment in strength, balance, and mobility level with underlying impairments and functional limitations as exhibited above as well as deficit score of 51% utilizing the [facility] Mobility Inpatient Short Form Presentation: Evolving Decision Makin moderate complexity Goals: Goals X1 week 1. Supine-Sit independent 2. Sit-Supine independent 3. Sit-Stand independent 4. Stand-Sit independent with FWW 5. Bed-Chair independent with FWW 6. Chair-Bed independent with FWW 7. Independent gait on level surface with use of FWW for at least 150 feet without report of pain nor dyspnea 8. Independent stair negotiation while holding onto B rails for at least 2 steps without report of pain nor dyspnea 9. Independent with home exercise program 10. Good static and dynamic standing balance/tolerance Plan of Care/Treatment Plan: 1-2x/day, 7 days/week x 1 week. Plan of care has been reviewed with the FIELD SERVICES MANAGER providing the service under Physical Therapy direction. Initiate Physical Therapy intervention for pain management as needed, strengthening, bed mobility, transfers, gait, stairs, balance training, and use of assistive device. DISCHARGE RECOMMENDATIONS: [] Home with no services [] [X] Home with services. Patient will benefit from home health PT services in order to progress mobility level using least restrictive assistive ambulatory device, assess home safety, identify additional equipment needs, and establish a functional maintenance program that will increase ability of patient to remain at home. [] Home with outpatient PT [] [] SNF for continued rehabilitation [] [] [facility] [] [] SNF versus LTC based on ability to participate and progress [] TREATMENT CODE/TIME: 59985 x 21 minutes from 1 unit beginning at 10:30 AM. Thank you for the opportunity to participate in the care of this patient. Marce George PT, DPT, CLT [facility] [place], [place]
--- NOTE | 2023-06-16 15:09 | W.PM.PROGNOT ---
Date of Service Date of service: 06/16/23 Time of Service: 15:09 Assessment and Plan Assessment and plan (1) Femoral neck fracture: Status: Acute Assessment and plan: Comminuted and nondisplaced. POD #1 Up in chair today with PT. pain managed. (2) CAD (coronary artery disease): Status: Chronic Assessment and plan: Pt has not had CP. (3) PAD (peripheral artery disease): Status: Acute Assessment and plan: No c/o claudication. On an aspirin but not plavix or pletal. (4) HTN (hypertension): Status: Chronic Assessment and plan: Cont amlodipine and metoprolol. Monitor. (5) Hyperlipidemia: Status: Acute Assessment and plan: Cont rosuvastatin. Qualifiers: Hyperlipidemia type: unspecified Qualified Code(s): E78.5 - Hyperlipidemia, unspecified (6) Hypothyroidism: Status: Chronic Assessment and plan: Cont levothyroxine. Qualifiers: Hypothyroidism type: unspecified Qualified Code(s): E03.9 - Hypothyroidism, unspecified (7) Discharge planning issues: Status: Acute Assessment and plan: Pt prefers to go home but lives alone and may not have the assistance she will need. Subjective Subjective Patient reports: no new complaints and afebrile; denies nausea, vomiting or shortness of breath Interval history since last seen: Up in chair today; required 1 person assist Exam Narrative Exam Narrative: Gen: Sitting up in bed eating breakfast. NAD. Pleasant and cooperative. HEENT: Sclera clear. MMM. CVS: RRR, No murmur. RESP: Clear breath sounds anteriorly. Nonlabored breathing. GI: Soft, Nontender, Nondistended. No guarding. MSK: RLE surgical site with bandage in place. SKIN: No rashes or lesions. NEURO: No focal neurologic deficits. PSYCH: Appropriate mood and affect Objective Last Vital Signs Temp 37.2 C 06/16/23 08:26 Pulse 91 H 06/16/23 08:26 Resp 20 06/16/23 08:26 BP 130/73 06/16/23 08:26 Pulse Ox 93 06/16/23 08:26 Laboratory Results - last 24 hr 06/16/23 06:25 WBC 8.72 RBC 3.92 L Hgb 11.7 Hct 35.4 L MCV 90 MCH 29.8 MCHC 33.1 RDW 14.3 Plt Count 149 MPV 10.8 Immature Gran % 0.1 Neutrophils % 79.9 Lymphocytes % 10.0 Monocytes % 8.4 Eosinophils % 1.5 Basophils % 0.1 Nucleated RBC % 0.0 Absolute Neutrophils 6.97 H Absolute Lymphocytes 0.87 L Absolute Monocytes 0.73 Absolute Eosinophils 0.13 Absolute Basophils 0.01 Sodium 137 Potassium 4.4 Chloride 102 Carbon Dioxide 24.9 Anion Gap 10.1 BUN 35 H Creatinine 1.3 H Est GFR (CKD-EPI 2020) 39.80 Glucose 133 H Calcium 9.1 Time Spent with Patient Time Spent with Patient: 25-34 minutes Time was spent: preparing to see the patient(eg.review tests), obtaining and/or reviewing separately otained hiistory, ordering medications,tests, procedures, referring, communicating with other health health care legal assistant, indepentently interpreting results, counseling the patient and care coordination
[2023-06-16 16:01] VITALS: BP 149/72; PULSE 78; RESP 18; TEMP 37; O2SAT 94
--- NOTE | 2023-06-16 17:02 | PT.INTREAT ---
Date of service: 06/16/23 Time of Service: 16:40 PT Notes Visit Reasons: fall,hip pain, ambulatory dysfunction Inpatient Physical Therapy Treatment Note [facility] Date: 06/16/23 PRECAUTIONS: Fall, standard, activity as tolerated. SUBJECTIVE: Patient reports feeling stiff, believes she has been in bed too long. OBJECTIVE: Long sitting in bed, agreeable to therapy. ? PAIN: Yes, especially with movement, in the right hip. Patient also reports that she overdid it with exercises when she broke her other hip 5 years ago, believes that is why she still has groin pain to this day. 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 VITALS: monitored by nursing staff? BED MOBILITY/TRANSFERS? Rolling L/R: not assessed Supine-sit: modified independent with HOB elevated ~30 degrees, bilateral side rails.? Sit-supine: not assessed ? Sit-stand: CGA ? Stand-sit: CGA ? Bed-Chair: CGA ? Chair-bed: CGA Provided skilled cues and instruction on performance and technique throughout. Gait Training (60619b3): Direct one-on-one instruction and skilled instruction in: [] employing an assistive device [] modified weight-bearing status [x] movement sequencing [x] turning and movement with proper form [x] Provided verbal cues for equipment management and technique [] Provided instruction in gait pattern [] Patient education regarding pacing and breathing techniques to maximize activity tolerance? GAIT? Assistive Device: FWW ? Weight bearing: full Assist: CGA? Distance:? 75 feet ? Deviation: Initially patient moves very slowly with extreme reduced step length, ~2-3 inches shuffled forward with each step, and decreased stance phase on right leg. After ~10 feet, patient reports that her legs are loosening up and her gait normalizes, time in stance phase equalizes. Continues to have reduced step height. ? ASSESSMENT:? Patient tolerates therapy well, decides to sit up in chair for a while after therapy. PLAN: Continue global strengthening per plan of care until patient is medically cleared for discharge. TREATMENT CODE/TIME: minutes beginning at 16:40
[2023-06-16] MEDS: amLODIPine 5 MG TAB PO (21:12)
[2023-06-16] MEDS: Magnesium Oxide 400 MG TAB 800 MG PO (21:12)
--- NOTE | 2023-06-16 22:25 | W.PM.PROGNOT ---
Date of Service Date of service: 06/16/23 Time of Service: 12:35 Assessment and Plan Assessment and plan (1) Subcapital fracture of neck of right femur: Status: Acute Assessment and plan: Heidi is an 88-year-old female who is status post hip replacement for femoral neck fracture. She is doing well. At 88 years old the recovery may be a little bit slower than desired. However, I expect that she will continue to make steady progress over the next few days. There are no signs of acute complications. The pain that she had before surgery is now gone. The pain she is experienced in the leg is muscular in nature. I did discuss the use of heat and massage as well. She may continue to be weightbearing as tolerated with assistive devices. Continue physical therapy. Continue DVT prophylaxis, aspirin 81 mg twice daily is sufficient. Qualifiers: Encounter type: initial encounter Fracture type: closed Qualified Code(s): S72.011A - Unspecified intracapsular fracture of right femur, initial encounter for closed fracture Subjective Subjective Interval history since last seen: Leslie reports having some pain about the right hip. She was able to ambulate in the hallway with physical therapy with some minimal assist. She does find that the pain is down the leg more so than in the hip and buttock. She denies numbness or tingling. She denies chest pain or shortness of breath. She does feel quite tired. Exam Narrative Exam Narrative: Sitting up in the bed. No acute distress. Alert and orient x3. Evaluation of the right leg shows minimal swelling or ecchymosis. The dressing is clean dry and intact. She tolerates internal and external rotation of the right leg without significant pain. She is active dorsiflexion plantarflexion of the right foot along with great toe extension and flexion. Sensation intact to light touch over the femoral and sciatic nerve distributions. Objective Last Vital Signs Temp 37.0 C 06/16/23 16:01 Pulse 78 06/16/23 16:01 Resp 18 06/16/23 16:01 BP 149/72 H 06/16/23 16:01 Pulse Ox 94 06/16/23 16:01 Laboratory Results - last 24 hr 06/16/23 06:25 WBC 8.72 RBC 3.92 L Hgb 11.7 Hct 35.4 L MCV 90 MCH 29.8 MCHC 33.1 RDW 14.3 Plt Count 149 MPV 10.8 Immature Gran % 0.1 Neutrophils % 79.9 Lymphocytes % 10.0 Monocytes % 8.4 Eosinophils % 1.5 Basophils % 0.1 Nucleated RBC % 0.0 Absolute Neutrophils 6.97 H Absolute Lymphocytes 0.87 L Absolute Monocytes 0.73 Absolute Eosinophils 0.13 Absolute Basophils 0.01 Sodium 137 Potassium 4.4 Chloride 102 Carbon Dioxide 24.9 Anion Gap 10.1 BUN 35 H Creatinine 1.3 H Est GFR (CKD-EPI 2020) 39.80 Glucose 133 H Calcium 9.1 Time Spent with Patient Time Spent with Patient: 25-34 minutes Time was spent: obtaining and/or reviewing separately otained hiistory, ordering medications,tests, procedures, indepentently interpreting results and counseling the patient
[2023-06-17 02:53] VITALS: BP 135/76; PULSE 91; RESP 18; TEMP 36.2; O2SAT 97
[2023-06-17] MEDS: Levothyroxine 25 MCG TAB PO (06:36)
[2023-06-17 07:06] LABS: Anion Gap 6.9 mmol/L (3-11); BUN 24 mg/dL (7-18); CO2 27.1 mmol/L (21.0-32.0); CREATININE 0.7 mg/dL (0.55-1.02); Calcium 8.9 mg/dL (8.5-10.1); Chloride 104 mmol/L (98-107); Estimated GFR 83.65 (mL/min/1.73m2); Glucose 106 mg/dL (74-106); Potassium 4.3 mmol/L (3.5-5.1); Sodium 138 mmol/L (136-145)
[2023-06-17 07:17] VITALS: BP 127/60; PULSE 77; RESP 18; TEMP 37.3; O2SAT 91
[2023-06-17] MEDS: Acetaminophen 325 MG TAB 650 MG PO ×4 (08:06→20:03)
[2023-06-17] MEDS: Metoprolol 25 MG TAB PO (08:06)
[2023-06-17] MEDS: DULoxetine 30 MG CAP PO (08:06)
[2023-06-17] MEDS: Aspirin 81 MG CHEW PO ×2 (08:06→20:03)
[2023-06-17 10:30] VITALS: BP 105/53; PULSE 60; RESP 18; TEMP 36.9; O2SAT 96
--- NOTE | 2023-06-17 12:51 | W.PM.PROGNOT ---
Date of Service Date of service: 06/17/23 Time of Service: 14:05 Assessment and Plan Assessment and plan (1) Subcapital fracture of neck of right femur: Status: Resolved Assessment and plan: Ms. Mcdermott is an 88-year-old female who is post op day #2 status post right JACQUI for femoral neck fracture on 06/15/23. Overall she is doing well. As Dr. Dior had previously discussed given her age of [age] years old her recovery may be a little slower. Due to her vertigo that has been an intermittent issue for many years she reports lack of appetite but also says this has been worse since her ~5 months ago. Encouraged patient to continue with trying to eat small meals and snacks as tolerated. She denies any GI upset, N/V. She continues to have muscle discomfort that is overall improving. Will continue with ASA BID for DVT prophylaxis. She may continue to work with PT and weightbear as tolerated while using assistive device. 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 Mcdermott is an 88-year-old female who is post op day #2 status post right JACQUI for femoral neck fracture on 06/15/23. Reports doing okay since yesterday. Had initial discomfort this morning around her quad that has lessened in intensity. Reports fatigue, vertigo and lack of appetite - symptoms have been ongoing for several weeks prior to fall but she feels like they are worse today. Denies numbness or tingling. Exam Narrative Exam Narrative: Comfortable while sitting in chair. No acute distress. Alert and orient x3. Extrem Other: Right lower extremity examination: Evaluation of the right leg shows minimal swelling and no significant ecchymosis. The dressing is clean, dry and intact. She tolerates passive internal and external rotation of the right leg without significant pain. She is able to demonstrate active dorsiflexion and plantarflexion of the right foot along with great toe extension and flexion. Sensation intact to light touch over the femoral and sciatic nerve distributions. Objective Last Vital Signs Temp 98.4 F 06/17/23 10:30 Pulse 60 06/17/23 10:30 Resp 18 06/17/23 10:30 BP 105/53 L 06/17/23 10:30 Pulse Ox 96 06/17/23 10:30 Laboratory Results - last 24 hr 06/17/23 06:12 Sodium 138 Potassium 4.3 Chloride 104 Carbon Dioxide 27.1 Anion Gap 6.9 BUN 24 H Creatinine 0.7 Est GFR (CKD-EPI 2020) 83.65 Glucose 106 Calcium 8.9 Time Spent with Patient Time Spent with Patient: <25 minutes Time was spent: preparing to see the patient(eg.review tests), obtaining and/or reviewing separately otained hiistory, counseling the patient and care coordination
--- NOTE | 2023-06-17 13:07 | PTTR_ITS ---
Date of service: 06/17/23 Time of Service: 10:11 PT Notes Visit Reasons: fall,hip pain, ambulatory dysfunction Inpatient Physical Therapy Treatment Note [facility] Date: 06/17/23 PRECAUTIONS: Fall, standard, activity as tolerated. SUBJECTIVE: Patient reports nausea, dizziness. States that she has had vertigo symptoms off and on for 3 weeks. Statest that she has been taking pain meds on an empty stomach due to not having any appetite or desire to eat - states that food doesn't taste good. Unclear whether she means hospital food, or food in general. JACQUES Joseph notified. OBJECTIVE: Sitting up in chair, agreeable to therapy. ? PAIN: pain and stiffness in right hip / thigh, pain in left groin. VITALS: monitored by nursing staff. ? ? ? BED MOBILITY/TRANSFERS? Rolling L/R: Not assessed Supine-sit: Min assist of one to unweight RLE so patient can swing it over the edge of the bed. Extra time needed. ? Sit-supine: not assessed? Sit-stand: min assist of one at gait belt to stand, min assist of one at gait belt to assist patient in getting weight forward so she doesn't fall backwards. ?Stand-sit: CGA with verbal cues to control rate of descent. ? Bed-Chair: CGA ? Chair-bed: CGA Gait Training ([id number]): Direct one-on-one instruction and skilled instruction in: [x] employing an assistive device [] modified weight-bearing status [x] movement sequencing [x] turning and movement with proper form [x] Provided verbal cues for equipment management and technique [x] Provided instruction in gait pattern [] Patient education regarding pacing and breathing techniques to maximize activity tolerance? GAIT? Assistive Device: FWW? Weight bearing: full Assist: CGA, wheelchair follow which proved unnecessary ? Distance:? 215 feet without rest, dizziness, or dyspnea ? Deviation: Patient initially very stiff, extreme short step length, reduced stance phase RLE. After ~15 feet, gait equalizes. Adequate heel strike, adequate toe off, somewhat shortened step length but WFL. ? STAIRS: Ascends and descends 2 six inch stairs and 3 four inch stairs with bilateral railings, CGA, and mod verbal cues for step to gait sequence. ? Therapeutic Exercises ([id number]): Direct one-on-one instruction in therapeutic exercises to develop strength, endurance, range of motion and flexibility. ? Exercises ? HEP as created by DPT Marce George, including: * Glute sets 5 second hold, 1x10 * heel slides 1x10 * ankle pumps 1x10 * seated march 1x10 * seated LAQ 1x10 Introduced to and reviewed with patient, who declines to perform exercises due to pain. AFTERNOON: Reviewed and completed HEP as described above. Provided skilled instruction in proper exercise performance Provided skilled manual cues to facilitate proper muscle recruitment and/or form. ASSESSMENT:? Patient feeling unwell, participation limited by pain, dizziness, and nausea. AFTERNOON: Patient tolerates therapy well, performs well, no c/o dyspnea although pain does increase due to stairs etc. JACQUES Joseph notified. PLAN: continue global strengthening per plan of care until patient is medically cleared for discharge. TREATMENT CODE/TIME: 9 minutes beginning at 10:11 and 35 minutes beginning and 14:59 for a total of 44 minutes today.
--- NOTE | 2023-06-17 13:40 | PGE_ITS ---
Date of Service Date of service: 06/17/23 Time of Service: 13:40 Assessment and Plan Assessment and plan (1) Femoral neck fracture: Status: Acute Assessment and plan: POD#2 Total hip arthroplasty Working with PT Appetite poor. Encourage intake and added protein shakes. Decreased tramadol from 100mg to 50mg prn. Qualifiers: Encounter type: initial encounter Fracture type: closed (2) CAD (coronary artery disease): Status: Chronic Assessment and plan: Pt has not had CP. Qualifiers: Coronary Disease-Associated Artery/Lesion type: [place] artery [place] vs. transplanted heart: [place] heart Associated angina: without angina Qualified Code(s): I25.10 - Atherosclerotic heart disease of [place] coronary artery without angina pectoris (3) PAD (peripheral artery disease): Status: Acute Assessment and plan: No c/o claudication. On an aspirin but not plavix or pletal. (4) HTN (hypertension): Status: Chronic Assessment and plan: Cont amlodipine and metoprolol Monitor. Qualifiers: Hypertension type: primary hypertension Qualified Code(s): I10 - Essential (primary) hypertension (5) Hyperlipidemia: Status: Acute Assessment and plan: Cont rosuvastatin. Qualifiers: Hyperlipidemia type: unspecified Qualified Code(s): E78.5 - Hyperlipidemia, unspecified (6) Hypothyroidism: Status: Chronic Assessment and plan: Cont levothyroxine. Qualifiers: Hypothyroidism type: unspecified Qualified Code(s): E03.9 - Hypothyroidism, unspecified (7) Discharge planning issues: Status: Acute Assessment and plan: Disposition to be made post operatively depending on rehabilitation progression. Likely SNF. Pt would prefer home but likely will not have adequate 24 hour care/assistance, though family is very involved. Subjective Subjective Patient reports: tolerating a regular diet (Appetite poor today.) and afebrile; denies nausea, vomiting or shortness of breath Exam Narrative Exam Narrative: Gen: Sitting up in bed; breakfast is mostly untouched. NAD. Less cheerful today. HEENT: Sclera clear. MMM. CVS: RRR, No murmur. RESP: Clear breath sounds anteriorly. Nonlabored breathing. GI: Soft, Nontender, Nondistended. No guarding. MSK: RLE surgical site with bandage in place and are clean/dry. SKIN: No rashes or lesions. NEURO: No focal neurologic deficits. PSYCH: Appropriate mood and affect Objective Last Vital Signs Temp 36.9 C 06/17/23 10:30 Pulse 60 06/17/23 10:30 Resp 18 06/17/23 10:30 BP 105/53 L 06/17/23 10:30 Pulse Ox 96 06/17/23 10:30 Laboratory Results - last 24 hr 06/17/23 06:12 Sodium 138 Potassium 4.3 Chloride 104 Carbon Dioxide 27.1 Anion Gap 6.9 BUN 24 H Creatinine 0.7 Est GFR (CKD-EPI 2020) 83.65 Glucose 106 Calcium 8.9 Time Spent with Patient Time Spent with Patient: 25-34 minutes Time was spent: preparing to see the patient(eg.review tests), obtaining and/or reviewing separately otained hiistory, ordering medications,tests, procedures, referring, communicating with other health pediatric critical care nurse, indepentently interpreting results, counseling the patient and care coordination
--- NOTE | 2023-06-17 14:16 | PDOC.CMPRO ---
Date of service: 06/17/23 Time of Service: 14:16 Care Management Progress Note Progress Note Text Progress Note Text: S/O: Heidi is asleep when CM comes to meet with her and CM decides not to wake her up. Per nursing staff, she had a lot of discomfort this morning but the pain had lessened in intensity by late morning. Patient continues to report dizziness, nausea, and a lack of appetite. She has been taking her pain medication on an empty stomach which is likely contributing to her symptoms. Protein shakes have been added to her diet. Heidi worked with PT again today. Disposition depends on her progress. Heidi prefers to return home but she may require short-term rehab for strengthening prior to returning home. A: Heidi is an 88 year old woman admitted on 06/14/2023 with a fractured femur. P: Heidi will be discharged home with new Home Health services vs. short-term rehab when medically cleared by provider. PT will continue to evaluate her mobility and will make appropriate recommendations for disposition. Heidi will follow up with her PCP, orthopedic surgeon and plan of care as instructed. If she returns home, she will be transported by family via private vehicle. CM will continue to support Heidi and her discharge planning needs.
[2023-06-17] MEDS: Ketorolac 15 MG/ML VIAL IVP (14:49)
[2023-06-17] MEDS: Polyethylene Glycol 3350 17 GM PACKET PO (14:49)
[2023-06-17 15:04] VITALS: BP 102/56; PULSE 72; RESP 17; TEMP 37; O2SAT 98
[2023-06-17] MEDS: amLODIPine 5 MG TAB PO (20:20)
[2023-06-17] MEDS: Magnesium Oxide 400 MG TAB 800 MG PO (20:20)
[2023-06-17 23:33] VITALS: BP 124/66; PULSE 74; RESP 18; TEMP 36.2; O2SAT 90
[2023-06-18 03:22] VITALS: BP 119/60; PULSE 73; RESP 18; TEMP 37.4; O2SAT 92
[2023-06-18 03:43] VITALS: BP 119/60; PULSE 73; RESP 18; TEMP 37.4; O2SAT 92
[2023-06-18] MEDS: Levothyroxine 25 MCG TAB PO (06:15)
[2023-06-18 07:10] VITALS: BP 135/60; PULSE 77; RESP 22; TEMP 36.2; O2SAT 96
[2023-06-18] MEDS: Metoprolol 25 MG TAB PO ×2 (08:15→21:21)
[2023-06-18] MEDS: DULoxetine 30 MG CAP PO (08:15)
[2023-06-18] MEDS: Acetaminophen 325 MG TAB 650 MG PO ×4 (08:15→21:22)
[2023-06-18] MEDS: Aspirin 81 MG CHEW PO ×2 (08:15→21:22)
[2023-06-18] MEDS: Polyethylene Glycol 3350 17 GM PACKET PO (08:16)
--- NOTE | 2023-06-18 09:28 | CHAPLAIN ---
I had a brief visit with Heidi yesterday. She has a few family members in the room with her. I explained my role and offered support.
--- NOTE | 2023-06-18 10:18 | PDOC.CMPRO ---
Date of service: 06/18/23 Time of Service: 10:18 Care Management Progress Note Progress Note Text Progress Note Text: S/O: Heidi was sitting up in bed visiting with family when CM met with her. She was pleasant and engaged easily with CM. Heidi stated that she is doing well with PT and that her appetite has improved. CM informed her that she has been medically cleared for discharge and asked if she still planned to discharge home or was she considering SNF for short term rehab. She and her daughter have agreed that she would do best to go to a long term facility for short term rehab prior to returning home. They asked that referrals be sent to [facility] (first choice), [facility]. The referrals were sent as requested by CM. A: Heidi is an 88 year old woman admitted on 06/14/2023 with a fractured femur. P: Heidi will likely transfer to a long term facility for short-term rehab prior to returning home. Referrals have been sent to [facility] [place], [facility] and, their first choice, [place]. Heidi will follow up with her PCP, orthopedic surgeon and plan of care as instructed. Transportation will be determined by disposition. CM will continue to support Heidi and her discharge planning needs.
--- NOTE | 2023-06-18 12:31 | W.PM.PROGNOT ---
Date of Service Date of service: 06/18/23 Time of Service: 09:30 Assessment and Plan Assessment and plan (1) Subcapital fracture of neck of right femur: Status: Acute Assessment and plan: Leslie is an 88-year-old female who is doing well status post right hip replacement. This she may continue to progress with physical therapy. The dizziness and gait instability is limiting her progress with PT. From my perspective she is safe to discharge to alf facility or to home with home health physical therapy based on physical therapy recommendations. I recommend aspirin 81 mg twice daily for DVT prophylaxis. The dressing may stay in place for 2 weeks. After that may be removed. There are no sutures to be removed. Follow-up with me in the office in 4 weeks. Qualifiers: Encounter type: initial encounter Fracture type: closed Qualified Code(s): S72.011A - Unspecified intracapsular fracture of right femur, initial encounter for closed fracture Subjective Subjective Interval history since last seen: Armijo she reports to be feeling better today. She has been able to ambulate and she feels that the dizziness is slightly better. She is anxious to return home and does think that may be a short rehab stay would make sense. No other acute issues. Pain is well controlled about the right hip. Exam Narrative Exam Narrative: Sitting up in the chair. No acute distress. Evaluation of the right leg shows no ecchymosis. Dressing is clean dry and intact. No pain with hip internal and external rotation. Objective Last Vital Signs Temp 36.2 C L 06/18/23 07:10 Pulse 77 06/18/23 07:10 Resp 22 06/18/23 07:10 BP 135/60 06/18/23 07:10 Pulse Ox 96 06/18/23 07:10 Time Spent with Patient Time Spent with Patient: 25-34 minutes Time was spent: preparing to see the patient(eg.review tests), obtaining and/or reviewing separately otained hiistory, referring, communicating with other health pharmacy customer care specialist, counseling the patient and care coordination
[2023-06-18 14:59] VITALS: BP 120/62; PULSE 72; RESP 22; TEMP 36.2; O2SAT 95
--- NOTE | 2023-06-18 15:14 | PT.INTREAT ---
PT Notes Visit Reasons: fall,hip pain, ambulatory dysfunction Inpatient Physical Therapy Treatment Note [facility] Date: 06/18/23 SUBJECTIVE: Heidi states that she is doing ok as long as she doesn't move. She c/o increased right hip flexor/quad pain. OBJECTIVE: []? Therapeutic Activities ([id number]): Direct one-on-one instruction in dynamic activities to improve functional performance. ? BED MOBILITY/TRANSFERS? Sit-stand: SBA? Stand-sit: SBA ? Provided skilled cues and instruction on performance and technique throughout. STAIRS: ascend/ descend 3,4 steps in am with 2 rails. she was able to add in 2,6 steps in pm session. Increased hip flex/quad muscle pain noted during am session. ? Therapeutic Exercises ([id number]]): Direct one-on-one instruction in therapeutic exercises to develop strength, endurance, range of motion and flexibility. ? Exercises ?HR, mini squats x10 ea. Balance ft together and modified tandem R/L x 10 sec each without support. Sitting LAQ x10, hip iso add and abd [id number] and glute squeeze x10. Ambulation ? Assistive Device: FWW ? Weight bearing: AT Assist: SBA ? Distance:?120'x2 each am and pm sessions.? Provided skilled instruction in proper exercise performance ASSESSMENT:? tolerated session well. Cues for proper posture and reminders of correct sequencing with stairs. PLAN: continue to work on increasing strength and improving her functional mobility to tolerance. TREATMENT CODE/TIME: 30min in am and 25 min in pm, [id number]
[2023-06-18 21:16] VITALS: BP 119/71; PULSE 81; O2SAT 96
[2023-06-18] MEDS: Magnesium Oxide 400 MG TAB 800 MG PO (21:21)
[2023-06-18] MEDS: amLODIPine 5 MG TAB PO (21:22)
[2023-06-19] MEDS: Levothyroxine 25 MCG TAB PO (06:11)
[2023-06-19 07:39] VITALS: BP 121/67; PULSE 84; RESP 19; TEMP 36.5; O2SAT 93
[2023-06-19] MEDS: Acetaminophen 325 MG TAB 650 MG PO ×4 (08:41→19:56)
[2023-06-19] MEDS: DULoxetine 30 MG CAP PO (08:41)
[2023-06-19] MEDS: Polyethylene Glycol 3350 17 GM PACKET PO (08:41)
[2023-06-19] MEDS: Aspirin 81 MG CHEW PO ×2 (08:41→19:55)
[2023-06-19] MEDS: Metoprolol 25 MG TAB PO ×2 (08:41→19:56)
--- NOTE | 2023-06-19 09:18 | PDOC.CMPRO ---
Date of service: 06/19/23 Time of Service: 09:18 Care Management Progress Note Progress Note Text Progress Note Text: S/O: Heidi was sitting up in a chair when CM met with her. She continues to feel well and is anxious to get to the point where she can return home. Heidi has been working with PT twice a day and is able to ambulate 200-300 feet with contact guard assist. Referrals to several area SNFs were sent yesterday. This afternoon, Heidi received a bed offer for [facility] for tomorrow and a bed offer for [facility] for Friday. She will discuss with family tonight and inform CM of hrer decision tomorrow morning. A: Heidi is an 88 year old woman admitted on 06/14/2023 with a fractured femur. P: Heidi will likely transfer to a assisted facility for short-term rehab prior to returning home. Referrals have been sent to [facility], [facility] and, their first choice, [facility]. Heidi will follow up with her PCP, orthopedic surgeon and plan of care as instructed. Transportation will be determined by disposition. CM will continue to support Heidi and her discharge planning needs.
--- NOTE | 2023-06-19 10:56 | PT.INTREAT ---
Date of service: 06/19/23 Time of Service: 10:13 PT Notes Visit Reasons: fall,hip pain, ambulatory dysfunction Inpatient Physical Therapy Treatment Note [facility] Date: 06/19/23 PRECAUTIONS: Fall, standard, activity as tolerated. WBAT RLE with AD. SUBJECTIVE: Patient reports feeling pretty good. AFTERNOON: Patient feels like she is missing some pep. OBJECTIVE: Long sitting in bed, agreeable to therapy. AFTERNOON: Sitting in recliner with legs elevated, agreeable to therapy. ? PAIN: None reported. AFTERNOON: significant stiffness noted in Right hip, anterior thigh. VITALS: monitored by nursing staff. ? BED MOBILITY/TRANSFERS? Rolling L/R: independent. Supine-sit: min assist via hand hold with HOB slightly elevated and bilateral side rails ? Sit-supine: min assist to lift leg, with verbal cues for limb placement and task sequencing. ? Sit-stand: CGA, needs extra time. Tends to lean back, requires multiple attempts or assistance to regain balance. ? Stand-sit: CGA with verbal cues for safety. Patient often transitions from stand to sit safely, occasionally sits from too far away.? Bed-Chair: CGA ? Chair-bed: [facility] Gait Training ([id number]): Direct one-on-one instruction and skilled instruction in: [] employing an assistive device [] modified weight-bearing status [x] movement sequencing [] turning and movement with proper form [] Provided verbal cues for equipment management and technique [x] Provided instruction in gait pattern [] Patient education regarding pacing and breathing techniques to maximize activity tolerance? GAIT: STAIRS:? Assistive Device: bilateral railings (patient does not have railings at home, has 2-3 steps to enter home, will need to use walker to get up steps) ? Weight bearing: WBAT RLE Assist: Contact guard, verbal cues ? Distance:? ascends and descends 2 six inch steps and 3 four inch steps ? Deviation: Patient struggles to remember which leg leads when ascending and descending stairs, causing her to cry out in pain ascending. Mod verbal cues required for safe step to gait pattern on stairs. ? Therapeutic Exercises ([id number]): Direct one-on-one instruction in therapeutic exercises to develop strength, endurance, range of motion and flexibility. ? Exercises: Reviewed HEP as created by DPMartha George, including: Glute sets 1x10 with 5 second hold ankle pumps 1x10 seated marching 1x10 LAQ's 1x10 heel slides 1x10 Patient provides excellent return demonstration indicating an understanding of the purpose and performance of the HEP. Ambulation ? Assistive Device: FWW? Weight bearing: WBAT RLE Assist: SBA ? Distance:? 200 feet AFTERNOON: 300 feet with multiple standing rests. Patient c/o pain and stiffness in right anterior thigh and hip. ? Deviation: Reduced step length, reduced step height, reduced nika. AFTERNOON: pronounced antalgic gait pattern with reduced stance phase RLE, reduced swing through RLE. ? Provided skilled instruction in proper exercise performance Provided skilled manual cues to facilitate proper muscle recruitment and/or form. ASSESSMENT:? Patient tolerates therapy well, no c/o increased pain, dizziness, shortness of breath. AFTERNOON: Patient c/o increased pain. RN aware. PLAN: continue global strengthening until patient is medically cleared and obtains a safe discharge plan. TREATMENT CODE/TIME: 40 minutes beginning at 10:13 and 14 minutes beginning at 15:29 for a total of 54 minutes today.
[2023-06-19 15:17] VITALS: BP 104/53; PULSE 71; RESP 18; TEMP 36.6; O2SAT 95
[2023-06-19] MEDS: Normal Saline Flush 10 ML SYR IVP (16:23)
--- NOTE | 2023-06-19 17:40 | PGE_ITS ---
Date of Service Date of service: 06/19/23 Time of Service: 17:40 Assessment and Plan Assessment and plan (1) Femoral neck fracture: Status: Acute Assessment and plan: POD#3 Total hip arthroplasty Working with PT Appetite somewhat improved. Encourage intake and added protein shakes. Decreased tramadol from 100mg to 50mg prn. Qualifiers: Encounter type: initial encounter Fracture type: closed Laterality: right Qualified Code(s): S72.001A - Fracture of unspecified part of neck of right femur, initial encounter for closed fracture (2) CAD (coronary artery disease): Status: Chronic Assessment and plan: Pt has not had CP. Qualifiers: Coronary Disease-Associated Artery/Lesion type: [place] artery [place] vs. transplanted heart: [place] heart Associated angina: without angina Qualified Code(s): I25.10 - Atherosclerotic heart disease of [place] coronary artery without angina pectoris (3) PAD (peripheral artery disease): Status: Acute Assessment and plan: No c/o claudication. On an aspirin but not plavix or pletal. (4) HTN (hypertension): Status: Chronic Assessment and plan: Cont amlodipine and metoprolol Monitor. Qualifiers: Hypertension type: primary hypertension Qualified Code(s): I10 - Essential (primary) hypertension (5) Hyperlipidemia: Status: Acute Assessment and plan: Cont rosuvastatin. Qualifiers: Hyperlipidemia type: unspecified Qualified Code(s): E78.5 - Hyperlipidemia, unspecified (6) Hypothyroidism: Status: Chronic Assessment and plan: Cont levothyroxine. Qualifiers: Hypothyroidism type: unspecified Qualified Code(s): E03.9 - Hypothyroidism, unspecified (7) Discharge planning issues: Status: Acute Assessment and plan: She has bed offers and will transfer to SNF tomorrow. Subjective Subjective Patient reports: no new complaints, tolerating a regular diet and bowel movement; denies nausea, vomiting or shortness of breath Exam Narrative Exam Narrative: Gen: Sitting in chair. NAD. HEENT: Sclera clear. MMM. CVS: RRR, No murmur. RESP: Clear breath sounds anteriorly. Nonlabored breathing. GI: Soft, Nontender, Nondistended. No guarding. MSK: RLE surgical site with bandage in place and are clean/dry. NEURO: No focal neurologic deficits. PSYCH: Appropriate mood and affect Objective Last Vital Signs Temp 36.6 C 06/19/23 15:17 Pulse 71 06/19/23 15:17 Resp 18 06/19/23 15:17 BP 104/53 L 06/19/23 15:17 Pulse Ox 95 06/19/23 15:17 Time Spent with Patient Time Spent with Patient: 25-34 minutes Time was spent: preparing to see the patient(eg.review tests), obtaining and/or reviewing separately otained hiistory, ordering medications,tests, procedures, referring, communicating with other health pet care technician, indepentently int erpreting results, counseling the patient and care coordination
[2023-06-19] MEDS: Magnesium Oxide 400 MG TAB 800 MG PO (21:25)
[2023-06-19] MEDS: amLODIPine 5 MG TAB PO (21:25)
[2023-06-20 00:10] VITALS: BP 136/77; PULSE 86; RESP 16; TEMP 36.5; O2SAT 94
[2023-06-20] MEDS: Levothyroxine 25 MCG TAB PO (05:46)
[2023-06-20 06:35] LABS: Abs Immature Grans 0.01 10^3/uL (0.0-0.06); Absolute Basophil Count 0.05 10^3/uL (0.0-0.2); Absolute Eosinophil Count 0.33 10^3/uL (0.0-0.7); Absolute Lymphocyte Count 1.25 10^3/uL (1.2-3.4); Absolute Monocyte Count 0.75 10^3/uL (0.1-0.8); Absolute Neutrophil Count 4.36 10^3/uL (1.2-6.7); Basophils % 0.7; Eosinophils % 4.9; HCT 38.1 % (36.0-46.0); HGB 12.5 g/dL (11.2-15.7); Immature Grans % 0.1; Lymphocytes % 18.5; MCHC 32.8 % (32.0-36.0); MCV 92 fL (80-95); MPV 10.4 fL (8.0-11.0); Monocytes % 11.1; Neutrophils % 64.7; Platelet Count 217 10^3/uL (130-400); RBC 4.16 10^6/uL (3.93-5.22); RDW 14.1 % (11.7-14.6); RDW-SD 47.5 fL; WBC 6.75 10^3/uL (4.4-10.8)
[2023-06-20 06:55] LABS: Anion Gap 8.6 mmol/L (3-11); BUN 27 mg/dL (7-18); CO2 25.4 mmol/L (21.0-32.0); CREATININE 0.9 mg/dL (0.55-1.02); Calcium 9.2 mg/dL (8.5-10.1); Chloride 103 mmol/L (98-107); Estimated GFR 61.87 (mL/min/1.73m2); Glucose 107 mg/dL (74-106); Potassium 4.5 mmol/L (3.5-5.1); Sodium 137 mmol/L (136-145)
[2023-06-20 07:39] VITALS: BP 127/73; PULSE 71; RESP 18; TEMP 36.5; O2SAT 98
[2023-06-20] MEDS: Acetaminophen 325 MG TAB 650 MG PO (09:01)
[2023-06-20] MEDS: Aspirin 81 MG CHEW PO (09:01)
[2023-06-20] MEDS: Metoprolol 25 MG TAB PO (09:02)
[2023-06-20] MEDS: DULoxetine 30 MG CAP PO (09:02)
--- NOTE | 2023-06-20 09:02 | DSE_ITS ---
Date of service: 06/20/23 Time of Service: 09:16 DS: Diagnosis Discharge Diagnosis (1) Femoral neck fracture: Status: Acute Asessment and Plan: POD day #4, worked with PT, [facility] [facility] (2) CAD (coronary artery disease): Status: Chronic Asessment and Plan: Chronic, has not complained of any chest pain (3) PAD (peripheral artery disease): Status: Acute Asessment and Plan: No complaints of claudication (4) HTN (hypertension): Status: Chronic Asessment and Plan: Continued on home amlodipine and metoprolol (5) Hyperlipidemia: Status: Acute (6) Hypothyroidism: Status: Chronic Asessment and Plan: continue home synthroid Discharge Plan Disposition Patient Disposition: Senior Living Facility(SNF) Condition: Good Discharge Details Reason For Visit: fall,hip pain, ambulatory dysfunction Admit Date/Time: 06/14/23 13:36 Admit Provider: Rajeev Driver Attending Provider: Rajeev Driver Primary Care Provider: Alma Youssef Hospital Course Hospital Course: Patient presented s/p fall onto right hip resulting in right femoral neck fracture. S/p right hip total arthroplasty on 06/15/2023 without complications. PT evaluation recommended DC to [facility]. Home Meds and New Rx's Prescriptions: Continued amlodipine 5 mg tablet 5 mg PO HS cranberry fruit 450 mg tablet 450 mg PO BID Rx Instructions: administer with a meal duloxetine 30 mg capsule,delayed release(DR/EC) 30 mg PO DAILY [id number] 500-333-5 mg capsule 2 cap PO .QD PreserVision AREDS-2 250-90-40-1 mg capsule 1 tab PO BID PRN ketoconazole 2 % cream 1 applic topical DAILY 90 Days Qty: 60 0RF nitroglycerin 0.4 mg tablet, sublingual 0.4 mg sublingual Q8H PRN Rx Instructions: do not exceed 3 doses per episode cholecalciferol (vitamin D3) 1,000 UNIT capsule 1,000 unit PO DAILY rosuvastatin [Crestor] 20 MG tablet 20 mg PO DAILY Hold Instructions: Patient Refused metoprolol tartrate 25 MG tablet 25 mg PO BID levothyroxine 25 MCG tablet 25 mcg PO DAILY acetaminophen [Tylenol] 325 mg Tablet 650 mg PO Q6H PRN PRNQty: 0 0RF aspirin 81 MG tablet,delayed release (DR/EC) 81 mg PO DAILY No Action urea [VINCENT-Urea] 45 % gel 1 applic topical BID Qty: 28 3RF Discharge Instructions Activity:: Activity as Tolerated Equipment/Supplies:: No Equipment Needed Diet:: Normal Diet Discharge Orders Discharge Orders: Discharge Order (Routine); Ordered 06/20/23 Ordered By: Wilfred Bennett DS: Summary Time Spent with Patient providing and/or coordinating discharge services: Greater than 30 minutes Status at Discharge Functional status at discharge: uses cane/walker Overall status at discharge: patient is not back to baseline Mental Status: mental status grossly normal Speech and Movement: speech and movement normal Mood: congruent mood Affect: normal affect Exam Narrative Exam Narrative: Well appearing older female laying in bed in no acute distress, AOx4, heart RRR, lungs CTAB, RLE decreased ROM secondary to pain Psych Mental Status: mental status grossly normal Speech and Movement: speech and movement normal Mood: congruent mood Affect: normal affect DS: Data Vitals/I&O Vitals and I&O: Vital Signs Temperature 97.7 F 06/20/23 07:39 Temperature Source Tympanic 06/20/23 07:39 Pulse 71 06/20/23 07:39 Pulse Rhythm Regular 06/20/23 00:56 Respiratory Rate 18 06/20/23 07:39 Respiratory Effort Normal 06/20/23 00:56 Respiratory Depth Normal 06/20/23 00:56 Respiratory Pattern Normal 06/20/23 00:56 Blood Pressure 127/73 06/20/23 07:39 Blood Pressure Mean 115 06/14/23 11:38 Blood Pressure Position Supine 06/14/23 11:37 Pulse Oximetry 98 06/20/23 07:39 Respiratory End-tidal CO2 27 06/15/23 11:29 Oxygen Delivery Method Room Air 06/20/23 07:39 Oxygen Flow Rate 0 06/20/23 07:39 Pain Level 0 06/20/23 07:39 Comment Checked on portable monitor, RN Notified 06/15/23 23:15 Intake & Output 06/19/23 06/20/23 06/20/23 17:59 05:59 17:59 Intake Total 480 / 480 10 / 490 Output Total 150 / 150 Balance 330 / 330 10 / 340 Intake: IV Oral 480 / 480 Output: Urine 150 / 150 Other: Urine Color Yellow Yellow Urine Appearance Clear Clear Clear Urine Odor None Stool Size Small Large Stool Characteristics Formed Soft Brown Formed Brown Voiding Methods Bedside Commode Bedside Commode Incontinent Data Completed and Pending Labs on day of discharge: Labs from last 24 hours 06/20/23 06:27 WBC 6.75 RBC 4.16 Hgb 12.5 Hct 38.1 MCV 92 MCH 30.0 MCHC 32.8 RDW 14.1 Plt Count 217 MPV 10.4 Immature Gran % 0.1 Neutrophils % 64.7 Lymphocytes % 18.5 Monocytes % 11.1 Eosinophils % 4.9 Basophils % 0.7 Nucleated RBC % 0.0 Absolute Neutrophils 4.36 Absolute Lymphocytes 1.25 Absolute Monocytes 0.75 Absolute Eosinophils 0.33 Absolute Basophils 0.05 Sodium 137 Potassium 4.5 Chloride 103 Carbon Dioxide 25.4 Anion Gap 8.6 BUN 27 H Creatinine 0.9 Est GFR (CKD-EPI 2020) 61.87 Glucose 107 H Calcium 9.2 PFSH All Active Problems (Updated 06/19/23 @ 17:42 by Rajeev Driver MD) 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) Subcapital fracture of neck of right femur (Acute) s/p Anterior R JACQUI Femoral neck fracture (Acute) Acute pain of right hip (Acute) Corns and callosities (Acute) Hammertoe, bilateral (Acute) PAD (peripheral artery disease) (Acute) Onychomycosis (Acute) Polyosteoarthritis (Acute) Edema (Acute) Pain, foot (Acute) Nail dystrophy (Acute) HTN (hypertension) (Chronic) Hyperlipidemia (Acute) DVT prophylaxis (Acute) Hypothyroidism (Chronic) Discharge planning issues (Acute) Hip fracture (Acute) CAD (coronary artery disease) (Chronic) Hypertension (Chronic) Left knee DJD (Chronic) Injection: 10/05/2020 Degenerative joint disease of right knee (Chronic) Injection: 10/05/2020 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 Erickson DOS: 07/03/2018 Sensorineural hearing loss of both ears (Acute) Impacted cerumen, bilateral (Acute) Conductive hearing loss, external ear (Acute) Impairment of speech discrimination (Acute) Medical History Skin cancer of nose Hx of skin cancer, basal cell Polymyalgia Atherosclerotic heart disease of [place] coronary artery without angina pectoris Urge incontinence Asymptomatic menopausal state Osteoarthritis Cardiovascular disease Heart attack pt. 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 Brother Heart disease Cancer Social History Smoking/Tobacco Use Status: Never Smoking risk assessment performed?: Yes Alcohol Intake: never Drug use: Never Substance use type: does not use Household members: spouse Housing: house current occupation: Retired What is your relationship status?: Panel score (0-1 are the most socially isolated patients): 1 Do you feel safe at home: Yes Do you feel safe in your relationship?: Yes Time Spent with Patient Time Spent with Patient: <45 minutes (35min) Time was spent: preparing to see the patient(eg.review tests), obtaining and/or reviewing separately otained hiistory, referring, communicating with other health infant childcare provider, indepentently interpreting results, counseling the patient and care coordination
--- NOTE | 2023-06-20 09:12 | PT.INNT ---
Date of service: 06/20/23 Time of Service: 09:05 PT Notes Visit Reasons: fall,hip pain, ambulatory dysfunction Patient refused PT this morning, stating that she has already been through the [facility]. She expects to discharge to [facility] today and is anxious about arranging to get everything together (clothes from home, etc) before she goes.
--- NOTE | 2023-06-20 11:01 | PDOC.CMDIS ---
Date of service: 06/20/23 Time of Service: 11:01 LACE Index Scoring Tool Questions: Length of Stay (in days): 4 - 6 Was the patient admitted via the E.D.?: Yes E.D. Visits: 1 Answers: Total Score: 8 Risk of Readmission: Low Risk Care Management Discharge Plan Reason for Hospitalization: femoral neck fracture Discharge Plan: Heidi will be transferred to [facility] for short term rehab prior to returning home. She will follow up with her community providers and plan of care and transport with family. Patient/Family Education Needs: Review of discharge instructions, ambulation, activity, limitations, follow up plan, discuss Ask Me Three Services Needed at Discharge: Correction Facility
== END 2023-06-20 11:20 | disposition skilled nursing facility (03) | DRG 522 ==
LOC: ER 13:51 → MS 14:46
PROVIDERS: Student in an Organized Health Care Education/Training Program; Admitting Provider Family Medicine; Emergency Provider Emergency Medicine; PCP Internal Medicine; Visit Provider Family Medicine
PROC: 0SRB04A Replacement of Left Hip Joint with Ceramic on Polyethylene Synthetic Substitute, Uncemented, Open Approach (ICD-10-PCS; CPT 27130; principal; 2023-06-15 08:30)
DX: S72.011A Unspecified intracapsular fracture of right femur, initial encounter for closed fracture (principal); M96.89 Other intraoperative and postprocedural complications and disorders of the musculoskeletal system; I25.10 Atherosclerotic heart disease of native coronary artery without angina pectoris; I73.9 Peripheral vascular disease, unspecified; I10 Essential (primary) hypertension; E78.5 Hyperlipidemia, unspecified; E03.9 Hypothyroidism, unspecified; M15.9 Polyosteoarthritis, unspecified; B35.1 Tinea unguium; L60.3 Nail dystrophy; H90.3 Sensorineural hearing loss, bilateral; M35.3 Polymyalgia rheumatica; N39.41 Urge incontinence; Z95.1 Presence of aortocoronary bypass graft; W01.0XXA Fall on same level from slipping, tripping and stumbling without subsequent striking against object, initial encounter; R63.0 Anorexia; Z68.22 Body mass index [BMI] 22.0-22.9, adult
CPT/HCPCS: 27130; 00123; 36415; 73552; 80048; 80053; 85027; 87635; 96374; 97110; 97116; 97162; 97530; 99223; 99285; 70450; 72170; 72192; 73501; 83735; 85025; 85610; 94760; 99232; 99239; G0378; J0131; J0690; J1100; J1885; J2270; J2371; J2405; J2704; J3490

== ENCOUNTER 2023-07-21 16:04 | Outpatient (CLI) | payer MEDICARE, OTHER, SELFPAY ==
--- NOTE | 2023-07-21 10:45 | DI.RAD_ITS ---
Exam(s) XR HIP RT COMPLETE AP PELVIS EXAM: XR HIP RT COMPLETE AP PELVIS INDICATION: R THR. COMPARISON: CT CT PELVIC WO from 06/14/2023 XA XR HIP RT IN OR from 06/15/2023 TECHNIQUE: 2D digital imaging was performed. Three views. FINDINGS: There has been no change in the alignment of the bilateral hip prostheses. No abnormal bony lucencie s are seen. DATA REPOSITORY: RADIATION DOSE DELIVERED:
--- OUTSIDE RECORDS SUMMARY | 2023-07-21 16:06 | XMS_ITS | Continuity of Care Document ---
Author Name Unknown Address [address] [place] [address] Phone [facility] Address [address] [place] [address] Phone Care Team Providers Care General Agent Name Role Phone MD Alma Youssef Primary Care Provider DO Faustina Reyna Attending Provider Care Teams Patient Care Team Team Status: Active Member Role Status Dates Alma Youssef MD Primary Care Provider Active Visit Care Team Team Status: Inactive Member Role Status Dates Alma Youssef MD Primary Care Provi vianey, Referring Provider Active Start: June 20, 2023 End: June 20, 2023 Faustina Reyna DO Attending Provider Active Start: June 20, 2023 End: June 20, 2023 Visit Care Team Team Status: Active Member Role Status Dates Alma Youssef MD Primary Care Provider Active Start: June 20, 2023 Faustina Reyna DO Attending Provider Active Start: June 20, 2023 Visit Care Team Team Status: Inactive Member Role Status Dates Alma Youssef MD Primary Care Provi vianey, Referring Provider Active Start: June 25, 2023 End: June 25, 2023 Faustina Reyna DO Attending Provider Active Start: June 25, 2023 End: June 25, 2023 Patient Care Team Team Status: Inactive Member Role Status Dates Alma Youssef MD Primary Care Provi vianey, Referring Provider Active Start: July 08, 2023 End: July 08, 2023 Faustina Reyna DO Attending Provider Active Start: July 08, 2023 End: July 08, 2023 Chief Complaint and Reason for Visit Chief Complaint SNF admit Pain f/u Reason for Visit Arthritis Coronary artery disease Depression Hip fracture Hypertension Hypothyroid Arthritis Coronary artery disease Depression Hip fracture Hypertension Hypothyroid Social History Smoking Status Status Start Date End Date Date of Observa tion Unknown if ever smoked Novem 6th, 2023 7:35am Observation Status Observation Response Date of Response alcohol intake never June 23 7:35am Additional Data Assigned Sex Female Family History Relationship Condition Age at Onset Recorded Date/T sridevi father Diabetes mellitus Unknown Chronic obstructive pulmonary disease Unknown mother Heart disease Unknown Other or Unknown Malignant neoplasm Unknown Heart disease Unknown Problems Active Problems Medical Problem Onset Date Status H/O carpal tunnel repair Active Hip fracture Active Coronary artery disease Active Arthritis Active History of nasal surgery Active Depression Active Hyperlipidemia Active Hypothyroid Active History of left hip replacement Active Polymyalgia Active History of skin cancer Active History of tonsillectomy Active History of D&C Active History of coronary artery bypass graft Active Hypertension Active Medications Medication Status Dose Units Route Directions Qty Days Start Omar e End Date Instructions Tramadol Active 25 MG PO Q6H June 25, 2023 12:00am Vital Signs Vital Reading Result Reference Range Collection Date/Time Weight 131.00 [lb_av] June 20, 2023 6:28am Body Temperature 97.7 [degF] 97.6-99.6 June 6:28am Heart Rate 77 /min 60-100 June 20, 2 023 6:28am Respiratory rate 18 /min -June 6:28am Oxygen saturation by Pulse oximetry 94 % 92-100 June 20, 2023 6 :28am BP Systolic 124 mm[Hg] 90-130 June 20, 2 023 6:28am BP Diastolic 74 mm[Hg] 70-80 June 20, 2 023 6:28am Weight 130.56 [lb_av] June 25, 2023 1:07pm Body Temperature 97.6 [degF] 97.6-99.6 June 1:07pm Heart Rate 85 /min 60-100 June 25, 2 023 1:07pm Respiratory rate 18 /min -June 1:07pm Oxygen saturation by Pulse oximetry 97 % 92-100 June 25, 2023 1 :07pm BP Systolic 126 mm[Hg] 90-130 June 25, 2 023 1:07pm BP Diastolic 60 mm[Hg] 70-80 June 25, 2 023 1:07pm Insurance Providers Guarantor CLARK TRUONG Address [address] [place] [id number] Contact Info. Home Phone: Payer Policy Id Coverage Id Subscriber's Name Subscriber Id Effective Date Expiration Date MEDICARE [id number] CLARK TRUONG [id number] [facility] [id number] CLARK Fouzia ALEXI [id number] Encounters Encounter Location(s) Arrival/Admit Date Discharge/Depart Date Provider(s) Departed Physician/Prov ider Office Visit [facility] June 20, 2023 11:44am June 20, 2023 11:45am Faustina Reyna DO Non-patient / Non-visit [facility] June 20, 2023 10:59pm Faustina Reyna DO Departed Physician/Prov ider Office Visit [facility] June 25, 2023 8:15am June 25, 2023 8:23am Faustina Reyna DO Departed Physician/Prov ider Office Visit [facility] July 08, 2023 8:21am July 08, 2023 8:25am Faustina Reyna DO Recent Diagnosis Onset Date Arthritis Coronary artery disease Depression Hip fracture Hypertension Hypothyroid Arthritis Coronary artery disease Depression Hip fracture Hypertension Hypothyroid Assessments Diagnosis Onset Date Resolution Status Arthritis noneactive Coronary artery disease none active Depression noneactive Hip fracture noneactive Hypertension noneactive Hypothyroid noneactive Arthritis noneactive Coronary artery disease none active Depression noneactive Hip fracture noneactive Hypertension noneactive Hypothyroid noneactive Plan of Treatment Author Faust[facility] Authored June 23, 2023 7 :45am Appears stable. Continue met oprolol, aspirin and atorvastatin. Continue nitro as needed Doing well postop. Continue follow-up with orthopedics Continue levothyroxine and repeat TSH in a few weeks if still present Stable, continue amlodipine and metoprolol Appears stable, continue duloxetine Continue glucosamine/chondroitin as well as Tylenol and muscle rub Author [facility] Authored June 25, 2023 5 :26pm Appears stable. Continue met oprolol, aspirin and atorvastatin. Continue nitro as needed Start small dose of tramadol to use as needed. Continue follow-up with orthopedics Continue levothyroxine and repeat TSH in a few weeks if still present Stable, continue amlodipine and metoprolol Appears stable, continue duloxetine Continue glucosamine/chondroitin as well as Tylenol and muscle rub Future Tests Future scheduled test information is unavailable Pending Tests Pending diagnostic test information is unavailable Future Visits Future appointment information is unavailable Referrals to Other Providers Referral information is unavailable Future Procedures Future procedure information is unavailable Future Medications Future medication information is unavailable Patient Instructions Patient instructions are unavailable
--- OUTSIDE RECORDS SUMMARY | 2023-07-21 16:06 | XMS_ITS | Continuity of Care Document ---
Author Name Unknown Address [address] [place] [address] Phone [facility] Practices Address [address] [place] [address] Phone Care Team Providers Care Neurology Hospitalist Name Role Phone MD Alma Youssef Primary Care Provider [phone] DO Faustina Reyna Attending Provider Care Teams Patient Care Team Team Status: Active Member Role Status Dates Alma Youssef MD Primary Care Provider Active Patient Care Team Team Status: Inactive Member Role Status Dates Alma Youssef MD Primary Care Provi vianey, Referring Provider Active Start: June 20, 2023 End: June 20, 2023 Faustina Reyna DO Attending Provider Active Start: June 20, 2023 End: June 20, 2023 Chief Complaint and Reason for Visit Chief Complaint SNF admit Social History Smoking Status Unknown if ever smoked Additional Data Assigned Sex Female Insurance Providers Guarantor CLARK TRUONG Address [address] [place] [address] Contact Info. Home Phone: Payer Policy Id Coverage Id Subscriber's Name Subscriber Id Effective Date Expiration Date MEDICARE [id number] CLARK TRUONG [id number] [employer] [id number] CLARK TRUONG [id number] Encounters Encounter Location(s) Arrival/Admit Date Discharge/Depart Date Provider(s) Departed Physician/Prov ider Office Visit [facility] June 20, 2023 12:44pm June 20, 2023 12:45pm Faustina Reyna DO
--- OUTSIDE RECORDS SUMMARY | 2023-07-21 16:09 | XMS_ITS | Patient Health Record ---
Author Name Unknown Organization [facility] Visit Address [address], [address] [place] [address] Care Team Providers Care Decal Cutter Name Role Phone Alma Youssef Primary Care [...] Active confirmed 2 Disorder of cardiovascular system (93606987) Problem Osteoarthrosis, unspecified whether generalized or localized, unspecified site (715.90) Active confirmed Osteoarthritis (481326685) knee and possibly ankle, although foot pain sounds more like claudication pain Problem Hypothyroidism, unspecified (E03.9) Active confirmed Hypothyroidism (11080416) Problem Age-related nuclear cataract, bilateral (H25.13) Active confirmed Nuclear senile cataract (699147225) low risk for planned low risk procedure; no additional testing necessary Problem Unspecified sensorineural hearing loss (H90.5) Active confirmed Sensorineural hearing loss (96971738) Problem Atherosclerotic heart disease of [place] coronary artery without angina pectoris (I25.10) Active confirmed Atherosclerotic heart disease of [place] coronary artery without angina pectoris (546511662759260 ) asymptomatic post CABG Problem Polyosteoarthriti s, unspecified (M15.9) Active confirmed Osteoarthritis (718824969) suspect worsening osteoarthriti s, possible adverse effect of crestor? she does report late onset myalgias with lipitor in the past Problem Polymyalgia rheumatica (M35.3) Active confirmed Polymyalgia rheumatica (89825851) Doing well Problem Urge incontinence (N39.41) Active confirmed Urge incontinence of urine (46504041) Problem Solitary pulmonary nodule (R91.1) Active confirmed Solitary pulmonary nodule (972015229) abnormal CXR Problem Asymptomatic menopausal state (Z78.0) Active confirmed Postmenopausal state (43755630) VITAL SIGNS Heart Rate 78 /min 04/10/2023 Blood pressure diastolic 72 mm Hg 04/10/2023 Height 65 in 04/10/2023 Blood pressure systolic 110 mm Hg 04/10/2023 Weight 129 lbs 04/10/2023 BMI 21.46 kg/m2 04/10/2023 Encounters Encounter Location Date Provider Diagnosis [facility] [address] [place], [place] [id number] 04/10/2023 Alma Youssef Encounter for genera l adult medical examination without abnormal findings Z00.00 ; Hypothyroidism, unspecified E03.9 ; Atherosclerotic heart disease of [place] coronary artery without angina pectoris I25.10 and Polyosteoarthritis, unspecified M15.9 [facility] [address] [place], [place] [id number] 03/31/2023 Alma Youssef Atherosclerotic hear t disease of [place] coronary artery without angina pectoris I25.10 and [...] home. 03/31/2023 Atherosclerotic hear t disease of [place] coronary artery without angina pectoris (ICD-10 - I25.10) 03/31/2023 Polyosteoarthritis, unspecified (ICD-10 - M15.9) 04/10/2023 Atherosclerotic hear t disease of [place] coronary artery without angina pectoris (ICD-10 - I25.10) 04/10/2023 Polyosteoarthritis, unspecified (ICD-10 - M15.9) PLAN OF TREATMENT Pending Test Test Name Order Date Urinalysis, Routine 10/21/2016 Urinalysis, Routine 03/19/2021 Urinalysis, Routine 10/03/2014 Urinalysis, Routine 08/23/2014 Urinalysis, Routine 10/22/2013 Urinalysis, Routine 05/28/2013 Urinalysis, Routine 04/19/2020 Urinalysis, Routine 03/15/2020 Urinalysis, Routine 11/10/2018 Urinalysis, Routine 11/03/2017 LIPID PROFILE 05/28/2013 BD BONE DENSITY, DEXA SCAN 10/16/2015 BD BONE DENSITY, DEXA SCAN 04/02/2022 MG MAMMOGRAPHY BILATERAL SCREENING 08/04 XR CHEST 4 VIEW 02/11/2022 Next Appt Details Provider Name:Alma Krishnamurthy Sivakumar es, 08/13/2023 11:15:00 AM, [address], [place], [place], [id number], Insurance Providers Payer Name Payer Address Payer Phone Subscriber Number Group Number Insured Name Patient Relationship to Insured Coverage Start Date Coverage End Date Medicare [place] [employer], [facility] [address] [place] [address] [id number] Heidi Mcdermott Self - patient is the insured 0 [employer] [place] [address] [id number] Heidi Mcdermott Self - patient is the insured 2 MEDICAL (GENERAL) HISTORY Medical History History ICD Code ASCVD osteoarthritis polymyalgia rheumatica Surgical History Surgery Date(Month/Year) tonsillectomy dilatation and curettage coronary artery bypass graft 11/2008 L hip replacement s/p fracture 2018 carpal tunnel repair 2019 skin cancer reconstruction on R nares 20 21 cataracts 2021
== END 2023-07-21 16:05 | disposition home or self-care (01) ==
LOC: DIORS 16:05
PROVIDERS: PCP Internal Medicine; Referring Provider Internal Medicine; Visit Provider Student in an Organized Health Care Education/Training Program
DX: Z96.641 Presence of right artificial hip joint (principal); Z47.1 Aftercare following joint replacement surgery
CPT/HCPCS: 73502

== ENCOUNTER → 2023-09-29 11:05 | Outpatient (BNVA) | payer MEDICARE, OTHER, SELFPAY | PROVIDERS: PCP Internal Medicine; Referring Provider Internal Medicine; Visit Provider Podiatrist | DX: B35.1 Tinea unguium (principal); I73.9 Peripheral vascular disease, unspecified; L60.3 Nail dystrophy; M20.41 Other hammer toe(s) (acquired), right foot; M20.42 Other hammer toe(s) (acquired), left foot; L84 Corns and callosities | CPT/HCPCS: 11721 ==

== ENCOUNTER → 2024-01-28 12:56 | Outpatient (BNVA) | payer MEDICARE, OTHER, SELFPAY | PROVIDERS: PCP Internal Medicine; Referring Provider Internal Medicine; Visit Provider Podiatrist | DX: B35.1 Tinea unguium (principal); I73.89 Other specified peripheral vascular diseases; L60.3 Nail dystrophy; M20.41 Other hammer toe(s) (acquired), right foot; M20.42 Other hammer toe(s) (acquired), left foot; L84 Corns and callosities; M79.675 Pain in left toe(s); R09.89 Other specified symptoms and signs involving the circulatory and respiratory systems | CPT/HCPCS: 11721 ==

== ENCOUNTER → 2024-03-19 15:47 | Outpatient (CLI) | payer MEDICARE, OTHER, SELFPAY ==
--- NOTE | 2024-03-19 | DI.RAD_ITS ---
Exam(s) XR PELVIS AP EXAM: XR PELVIS AP CLINICAL HISTORY: M54.50 Low back pain. TECHNIQUE: 2D digital imaging was performed. Single AP view. COMPARISON: CR XR HIP RT COMPLETE AP PELVIS from 07/21/2023 FINDINGS: BONES: No acute fracture is present. No bony destructive lesion is seen. JOINTS: No dislocation present. Stable appearance of bilateral hip prostheses. SOFT TISSUE: Normal. IMPRESSION: No acute abnormality. Stable appearance of bilateral hip prostheses. DATA REPOSITORY: RADIATION DOSE DELIVERED:
--- NOTE | 2024-03-19 15:04 | DI.RAD_ITS ---
Exam(s) XR LUMBAR SPINE COMPLETE EXAM: XR LUMBAR SPINE COMPLETE CLINICAL HISTORY: M54.50 Low back pain. TECHNIQUE: 2D digital imaging was performed. Five views. COMPARISON: No exams were available for comparison FINDINGS: BONES: No destructive lesion. Mild compression of the superior endplate of T12. The remaining verte bral body heights are maintained. Facet degenerative changes present L3-4 through L5-S1. DISKS: Intervertebral severe narrowing L3-4 and L5-S1 disc spaces. Moderate narrowing of the L4-5 di sc space. ALIGNMENT: No significant spondylolisthesis. SOFT TISSUE: The aorta is calcified and normal in diameter. IMPRESSION: Mild compression of the superior endplate of T12. Degenerative changes greatest in lower lumbar leve ls. DATA REPOSITORY: RADIATION DOSE DELIVERED:
--- OUTSIDE RECORDS SUMMARY | 2024-03-19 15:48 | XMS_ITS | Clinical Summary ---
Author Organization [facility] Address [address] [place] [address] Care Team Providers Care Forensic Analyst Name Role Phone Unknown, Provider Primary Care Provider [phone] Social History Tobacco Use Types Packs/Day Years Used Date Smoking Tobacco: Never Assessed Sex and Gender Information Value Date Recorded Sex Assigned at Not on file Gender Identity Not on file Sexual Orientation Not on file Plan of Treatment Health Maintenance Due Date Last Done Comments RSV Immunization ( o r 60+ Years) (1 - 1-dose 60+ series) 1996 Fall Risk Screening 2001 COVID-19 Vaccine (2022-24 season) 2023 Care Teams Forensic Analyst Relationship Specialty Start Date End Date Unknown, Provider, PCP - General 06/26/15
--- OUTSIDE RECORDS SUMMARY | 2024-03-19 15:48 | XMS_ITS | Encounter Summary ---
Author Organization [facility] Address [facility] [place] [address] Care Team Providers Care Financial Analyst Accountant Name Role Phone Alma Youssef MD Primary Care Provider [phone] Encounter Details Date Type Department Care Team (Late st Contact Info) Description 06/14/2023 Tele[place] [phone] Daniel Mckeon MD [facility] [place] [address] Social History Tobacco Use Types Packs/Day Years Used Date Smoking Tobacco: Never Smokeless Tobacco: Never Alcohol Use Standard Drinks/Week Comments No 0 (1 standard drink = 0.6 oz pur e alcohol) Sex and Gender Information Value Date Recorded Sex Assigned at Not on file Gender Identity Not on file Sexual Orientation Not on file documented as of this encounter Miscellaneous Notes * Telephone Encounter - Daniel Mckeon MD - 06/14/2023 5:45 PM EDT Orthopedic Surgery Transfer Center Note: [place], [place] Heidi Mcdermott is an 88yo female w CAD, HTN, p/t ED after GLF w R hip pain. X- rays were initially read as negative but CT scan demonstrates minimally displaced R FNFx. She is comfortable and NVI. Theprovider is asking if this is an injury that can wait until Friday for evaluation when their orthopedics comes back. Expressed that despite the hip fracture being non-displaced, would recommend surgical fixation as soon as possible and that it is not advisable to wait until possible surgery on Friday. We do not have capacity for transfer at this time so they will look for transfer elsewhere for surgical fixation and re- engage if needed. This plan was agreed upon by all providers and the phone call was ended cordially. Daniel Mckeon MD 06/14/23 documented in this encounter Plan of Treatment Upcoming Encounters Date Type Department Care Team (Late st Contact Info) Description 03/30/2024 11:00 AM EDT Office Visit Dermatology at [facility] [address] [place] [address] Serenity Cheema MD [facility] [address] [place] [address] documented as of this encounter Visit Diagnoses Not on filedocumented in this encounter Care Teams Financial Analyst Accountant Relationship Specialty Start Date End Date Alma Youssef MD [address] [place] [address] PCP - General 03/22/13 documented as of this encounter
--- OUTSIDE RECORDS SUMMARY | 2024-03-19 15:48 | XMS_ITS | Clinical Summary ---
Author Organization [facility] [place] [address] Care Team Providers Care Precise Winder Name Role Phone Alma Youssef MD Primary Care Provider Allergies Active Allergy Reactions Criticality Noted Date Comments Gloves, Latex Medium CIS - Localized Reaction Latex Medium CIS - Localized Reaction Latex Dams Medium CIS - Localized Reaction Medications Medication Sig Dispensed Refills Start Date End Date Status Glucosamine Sulfate 1,000 mg Cap 03/26/2010 Active aspirin 81 mg EC tablet 03/26/2010 Active acetaminophen (TYLENOL) 325 mg tablet 03/26/2010 Active metoprolol tartrate (LOPRESSOR) 25 mg tablet 03/26/2010 Active Ergocalciferol, Vitamin D2, (VITAMIN D) 400 unit Cap 03/26/2010 Active ascorbic acid (VITAMIN C) 500 mg tablet 03/26/2010 Active nitroGLYcerin (NITROSTAT) 0.[address] 0.4 mg under the tongue every 5 minutes as needed. Active CRESTOR 20 mg tablet Take 1 tablet by mouth daily. 03/03/2013 Active cranberry fruit extract (CRANBERRY CONCENTRATE ORAL) Take by mouth. Act frida levothyroxine (SYNTHROID) 25 mcg Tablet Take 25 mcg by mouth daily. Active predniSONE (DELTASONE) 5 mg Tablet Take 5 mg by mouth daily. Active fluorouracil (EFUDEX) 5 % CreamIndications:AK (actinic keratosis) Apply a thin layer to affected areas on the nose, right temporal forehead, and just below left nostril twice daily (morning and night) as tolerated for 3 weeks. 40 g 08/23/2019 Active amLODIPine (Norvasc) 5 mg Tablet take 1 tablet by mouth once daily 04/06/2020 Active cephALEXin (Keflex) 500 mg Capsule Start medication evening prior to flap take down. Take one capsule PO BID x 7 days. 14 capsule 08/07/2021 Active clobetasoL (Temovate) 0.05 % OintmentIndications :Skin rash Apply topically to the affected areas on leg and arms twice daily prn 30 g 1 01/16/2023 Active Active Problems Problem Noted Date Diagnosed Date Knee pain 03/23/2013 CIS - Entered not Verified 04/09/2010 CIS - coronary artery disease CIS - Hypertension CIS - Osteoarthritis Immunizations Name Administration Dates Next Due Influenza Vaccine, Whole 05/18/2008 Pneumococcal Polysaccharide (Pneumovax 23) 08/18 Family History Medical History Relation Comments Colon Polyps Daughter APC and JOCELYN muta tions Breast Cancer Granddaughter JOCELYN mutation Breast Cancer Niece Pancreatic Cancer Sister Relation Status Comments Daughter Granddaughter Niece Sister Social History Tobacco Use Types Packs/Day Years Used Date Smoking Tobacco: Never Smokeless Tobacco: Never Alcohol Use Standard Drinks/Week Comments No 0 (1 standard drink = 0.6 oz pur e alcohol) Sex and Gender Information Value Date Recorded Sex Assigned at Not on file Gender Identity Not on file Sexual Orientation Not on file Last Filed Vital Signs Vital Sign Reading Time Taken Comments Blood Pressure 145/60 09/05/2021 2:19 PM EST Pulse 65 09/05/2021 2:19 PM EST Temperature - - Respiratory Rate - - Oxygen Saturation - - Inhaled Oxygen Concentration - - Weight - - Height - - Body Mass Index - - Plan of Treatment Upcoming Encounters Date Type Department Care Team (Late st Contact Info) Description 03/30/2024 11:00 AM EDT Office Visit Dermatology at [facility] [address] [place] [id number] Serenity Cheema MD [facility] [place] [address] Health Maintenance Due Date Last Done Comments Tdap adult 1954 Tetanus vaccine 1955 Zoster vaccine (1 of 2) 1986 Pneumoccocal Vaccine: 65+ (2 of 2 - PCV) 08/18/2005 08/18/2004 Covid-19 Vaccine (1 - season) 2023 Influenza (Flu) vaccine (1 o f 1 - Influenza standard series) 04/18/2024 05/18/2008 Bone Density Scan 04/05/2037 04/05/2022 Procedures Procedure Name Priority Date/Time Associated Diagnosis Comments DXA CENTRAL SPINE, HIP, AND/OR WHOLE BODY (GENERIC) Routine 04/05/2022 10:03 AM EDT from Last 3 Months or Most Recently Relevant to Health Maintenance Results * DXA Central Spine, Hip, and/or Whole Body (Generic) (04/05/2022 10:03 AM EDT) PT CLASS O RAD ADMITDTTM RAD PT RAD INFO [id number]^R EEVES^MATTHEW H RAD EXAM DESC XDXAC^DEXA SCAN AXIAL^RIS RAD Anatomical Region Laterality Modality C-spine, Hip N/A Radiographic Su ging Impressions 04/05/2022 10:34 AM EDT Osteopenia. Significant interval decrease in bone mineral density. FRAX ten-year fracture risk: Major osteoporotic fracture: 22%. Hip fracture: 7.2%. Thank you for letting us participate in the care of this patient. ??If you are a health care provider and have any questions regarding this report, please contact the number below. ??For patients who have questions please contact the health hospice care sales consultant that requested your imaging first. ? Electronically signed by: Catracho George [facility] ([phone]), at 04/05/2022 10:34 AM Narrative 04/05/2022 10:34 AM EDT EXAMINATION: DEXA SCAN AXIAL CLINICAL HISTORY: asymptomatic menopausal state TECHNIQUE: Scans were acquired at the lumbar spine, right hip. COMPARISON: October 25, 2015 FINDINGS: Lowest T score at a diagnostic region of interest: T score: -2.4, KUSHAL:Femoral neck, WHO diagnosis: Osteopenia Total spine: 5.7% decrease Procedure Note Catracho George MD - 04/05/2022 EXAMINATION: DEXA SCAN AXIAL CLINICAL HISTORY: asymptomatic menopausal state TECHNIQUE: Scans were acquired at the lumbar spine, right hip. COMPARISON: October 25, 2015 FINDINGS: Lowest T score at a diagnostic region of interest: T score: -2.4, KUSHAL:Femoral neck, WHO diagnosis: Osteopenia Total spine: 5.7% decrease IMPRESSION Osteopenia. Significant interval decrease in bone mineral density. FRAX ten-year fracture risk: Major osteoporotic fracture: 22%. Hip fracture: 7.2%. Thank you for letting us participate in the care of this patient. If youare a health care provider and have any questions regarding this report,please contact the number below. For patients who have questions please contactthe health hospice care sales consultant that requested your imaging first. Electronically signed by: Catracho George [facility]([phone]), at 04/05/2022 10:34 AM Alma Youssef MD IMG DEXA ORDERABLES from Last 3 Months or Most Recently Relevant to Health Maintenance Advance Directives Documents on File Type Date Recorded Patient Polysomnograph Tech Expl anation Advance Directives and Quinn g Will 10/17/2010 10:07 AM Care Teams Precise Winder Relationship Specialty Start Date End Date Alma Youssef MD [address] [place] [address] PCP - General 03/22/13
--- OUTSIDE RECORDS SUMMARY | 2024-03-19 15:48 | XMS_ITS | Encounter Summary ---
Author Organization [facility] Address [address] [place] [address] Care Team Providers Care Bandmill Operator Name Role Phone Unavailable Primary Care Provider Unavailabl e Encounter Details Date Type Department Care Team (Late st Contact Info) Description 11/18/2007 11:44 EDT - 11/18/2007 11:59 EDT Hospital Encounter [facility] - Other [address] [place] [address] Pauline Rodas ARNP [address] [place] [address] Discharge Disposition: Home or Self Care Social History Tobacco Use Types Packs/Day Years Used Date Smoking Tobacco: Never Assessed Sex and Gender Information Value Date Recorded Sex Assigned at Not on file Gender Identity Not on file Sexual Orientation Not on file documented as of this encounter Discharge Disposition Disposition Code Departure Means Destination Home or Self Care documented in this encounter Plan of Treatment Not on file documented as of this encounter Visit Diagnoses Not on filedocumented in this encounter
--- OUTSIDE RECORDS SUMMARY | 2024-03-19 15:48 | XMS_ITS | Encounter Summary ---
Author Organization [facility] Address [address] [place] [address] Care Team Providers Care Endodontist Name Role Phone Unknown, Provider Primary Care Provider Encounter Details Date Type Department Care Team (Late st Contact Info) Description 10/12/2021 Lab Requisition [facility] Pathology & Laboratory Medicine - [address] [id number] Outr Resulting Lab, Provider Social History Tobacco Use Types Packs/Day Years Used Date Smoking Tobacco: Never Assessed Sex and Gender Information Value Date Recorded Sex Assigned at Not on file Gender Identity Not on file Sexual Orientation Not on file documented as of this encounter Plan of Treatment Not on file documented as of this encounter Procedures Procedure Name Priority Date/Time Associated Diagnosis Comments ZZCOVID-19 TEST [facility] PCR Today 10/12/2021 9:12 EST COVID-19 TESTING Routine 10/12/2021 9:12 EST documented in this encounter Results * COVID-19 TEST [facility] PCR (10/12/2021 9:12 EST) Swab 10/12/2021 9:12 EST 10/12/2021 16:18 EST Provider Outr Resulting Lab MICROBIOLOGY - GENERAL ORDERABLES [facility] [address] [place] [address] * COVID-19 TESTING (10/12/2021 9:12 EST) COVID-19 rt-PCR Result Negative Negative 10/12/2021 22:27 EST [facility] Comment: This test has not been FDA cleared or approved. This test has been authorized by FDA under an EUA for use by authorized laboratories. This test has been authorized only for detection of nucleic acid from 2019-nCoV, not for any other viruses or pathogens. This test is only authorized for the duration of the declaration that circumstances exist justifying the authorization of emergency use of in vitro diagnostic tests for detection and/or diagnosis of 2019-nCoV under section 564(b)(1) of Act, 21 U.S.C ?? 360bbb-3(b) (1), unless the authorization is terminated or revoked sooner. Negative results do not preclude 2019-nCoV infection and should not be used as the sole basis for treatment or other patient management decisions. Negative results must be combined with clinical observations, patient history, and epidemiological information. Performed on the Nfocus Neuromedical Fusion instrument Performing Lab [facility] Lab 10/12/2021 22:27 EST [facility] Swab 10/12/2021 9:12 EST 10/12/2021 16:18 EST Provider Outr Resulting Lab MICROBIOLOGY - GENERAL ORDERABLES [facility] [address] [place] [address] documented in this encounter Visit Diagnoses Not on filedocumented in this encounter Care Teams Endodontist Relationship Specialty Start Date End Date Unknown, Provider, PCP - General 06/26/15 documented as of this encounter
--- OUTSIDE RECORDS SUMMARY | 2024-03-19 15:48 | XMS_ITS | Referral Summary ---
Author Organization [facility] Address [address] [place] [address] Care Team Providers Care Rolling Machine Tender Name Role Phone Unknown, Provider Primary Care Provider [phone] Social History Tobacco Use Types Packs/Day Years Used Date Smoking Tobacco: Never Assessed Sex and Gender Information Value Date Recorded Sex Assigned at Not on file Gender Identity Not on file Sexual Orientation Not on file Plan of Treatment Not on file Care Teams Rolling Machine Tender Relationship Specialty Start Date End Date Unknown, Provider, PCP - General 06/26/15
--- OUTSIDE RECORDS SUMMARY | 2024-03-19 15:48 | XMS_ITS | Encounter Summary ---
Author Organization [facility] Address [address] [place] [address] Care Team Providers Care Sorter Operator Name Role Phone Unavailable Primary Care Provider Unavailabl e Encounter Details Date Type Department Care Team (Late st Contact Info) Description 11/18/2007 Results Only [facility] Non-Invasive Cardiology - [facility] [address] [place], [place] [address] Amando Rodas ARNP [address] [place] [address] Social History Tobacco Use Types Packs/Day Years Used Date Smoking Tobacco: Never Assessed Sex and Gender Information Value Date Recorded Sex Assigned at Not on file Gender Identity Not on file Sexual Orientation Not on file documented as of this encounter Plan of Treatment Not on file documented as of this encounter Procedures Procedure Name Priority Date/Time Associated Diagnosis Comments CYTOPATHOLOGY Routine 11/18/2007 0:00 EDT documented in this encounter Results * CYTOPATHOLOGY (11/18/2007 0:00 EDT) Pathology Report: CYTOPATHOLOGY REPORT Reports generated via electronic interface contain original data; however they are lacking the format of the original report. Caution should be taken when reading/interpreti ng unformatted reports. Name: ? CLARK MCDERMOTT ? Accession #: ? [id number] : ? 1935 (Age: 72) ??F ?Collect Date: ? 11/18/2007 Location: ? [facility] ? Receive Date: ? 11/19/2007 Provider: ?AMANDO HAMILTON Copy to: ? Specimen/Source: ?ThinPrep Pap Test, Endocervix, processed on [employer] ThinPrep Imaging System, with manual evaluation Last Menstrual Period: ? 1985 Other: ? Additional clinical information: G5, P4, A1 ? SPECIMEN ADEQUACY ? Satisfactory for Evaluation - transformation zone component present GENERAL CATEGORIZATION ? Negative for Intraepithelial Lesion or Malignancy ? Document reviewed and electronically signed by: ? Jeniffer Yung, SCT(ASCP) ? Report Date: ??11/25/2007 11:21 End of Report [facility] 11/18/2007 11/19/2007 Amando HAMILTON PATHOLOGY ORDERABLES [facility] [address] [place] [address] documented in this encounter Visit Diagnoses Not on filedocumented in this encounter
--- OUTSIDE RECORDS SUMMARY | 2024-03-19 15:49 | XMS_ITS | Encounter Summary ---
Author Organization [facility] Address [facility] [address] [place] [address] Care Team Providers Care Sports Statistician Name Role Phone Alma Youssef MD Primary Care Provider [phone] Reason for Visit * Reason Onset Date Comments Medication Refill 08/19/2019 Encounter Details Date Type Department Care Team (Late st Contact Info) Description 08/19/2019 Refill Dermatology at [facility] [address] [place] [phone] Serenity Cheema MD [facility] [address] [place] [address] [place] (actinic keratosis) Social History Tobacco Use Types Packs/Day Years [...] encounter Miscellaneous Notes * Telephone Encounter - Minerva Smiley [facility] - 08/20/2019 11:34 AM EST Patient requests a refill of 5-FU for treatment of actinic keratoses on her nose, right temporal forehead and upper cutaneous lip just below the left nostril. Order pended to Dr. Cheema to review. - Last appointment: 07/23/19 - Next appointment: Recall for January 2020 - Pharmacy: [facility] in [place], [place] * Telephone Encounter - Davida Rodriguez - 08/19/2019 3:03 PM EST Received call from Heidi Mcdermott stating she would the prescription for the 5FU to be refilled, the prescription she had was from 2016. Please send to [facility] in [place], [place] documented in this encounter Plan of Treatment Upcoming Encounters Date Type Department Care Team (Late st Contact Info) Description 03/30/2024 11:00 AM EDT Office Visit Dermatology at [facility] [address] [place] [address] Serenity Cheema MD [facility] [address] [place] [address] documented as of this encounter Visit Diagnoses Diagnosis AK (actinic keratosis) Actinic keratosis documented in this encounter Care Teams Sports Statistician Relationship Specialty Start Date End Date Alma Youssef MD [address] [place] [address] PCP - General 03/22/13 documented as of this encounter
--- OUTSIDE RECORDS SUMMARY | 2024-03-19 15:49 | XMS_ITS | Encounter Summary ---
Author Organization [facility] Address [facility] [address] [place] [address] Care Team Providers Care Sheeter Machine Operator Name Role Phone Alma Youssef MD Primary Care Provider [phone] Reason for Visit * Reason Comments Skin Check Encounter Details Date Type Department Care Team (Late st Contact Info) Description 12/08/2017 1:15 PM EDT Office Visit Dermatology at [facility] [address] [place] [phone] Serenity Cheema MD [facility] [address] [place] [address] Skin rash; Eyelid lesion Social History Tobacco Use Types Packs/Day Years Used Date Smoking Tobacco: Never Smokeless Tobacco: Never Alcohol Use Standard Drinks/Week Comments No 0 (1 standard drink = 0.6 oz pur e alcohol) Sex and Gender Information Value Date Recorded Sex Assigned at Not on file Gender Identity Not on file Sexual Orientation Not on file documented as of this encounter Patient Instructions * Patient Instructions* Rico Dey LPN - 12/08/2017 1:15 PM EDT Treatment and Wound Care Instructions Your treatment today: You have had a punch biopsy of your skin, which is a removal of tissue for examination under a microscope. There are stitches in the wound that will need to be removed in 7-10 days. If bleeding occurs, hold firm pressure against the wound for 15 minutes. If bleeding continues, calls the office or go to your local emergency room. Please allow 1-2 weeks for the biopsy results to return. Your physician or nurse will contact you with the results by phone or letter; follow-up will be discussed at that time. Wound Care Instructions: You will need to keep the dressing placed over the wound dry and intact for 24 hours. Afterwards, perform the following wound care daily until your stitches are removed: ?? Wash your hands before changing the dressing. ?? Remove the bandage and clean the area with mild soap and water, then gently pat the area dry. ?? Apply a small amount of Vaseline to the area, then cover the wound with a band-aid. Change your dressing daily until the wound is fully healed. ?? A small amount of yellow drainage is part of normal healing. You might notice some redness around the edge of the wound. This is normal. ?? Please contact the office you you notice any of the following signs of infection: increased tenderness, pain, drainage, or redness that becomes hot or hard around the wound. If you have further questions or concerns, please call the office at [phone]. If it is after 5PM, or a holiday or weekend, please call [phone] and ask for the Structural Manager on-call. documented in this encounter Progress Notes * Minerva Smiley [facility] - 12/15/2017 2:04 PM EDT I spoke with Lulu, the patient's daughter, to discuss Heidi's recent biopsy results. Per Dr. Cheema, I told her that results were negative for bullous pemphigoid and indicative of hypersensitivity (drug related or ACD) reaction. She expressed understanding. She said her mom had improved on clobetasol and has a follow-up appointment with Dr. Cheema scheduled on 12/18/17. She said she would relay the biopsy results to her mom. She thanked me for the call, and I instructed her to call back if she had any questions or concerns. * Serenity Cheema MD - 12/08/2017 1:15 PM EDT DERMATOLOGY ESTABLISHED PATIENT CLINIC NOTE Date of service: 12/08/2017 Heidi Mcdermott : 1935 Provider: Serenity Cheema MD Chief Complaint Patient presents with ??? Skin Check SKIN HISTORY: BCC left brow [address] 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 year old female. Established patient, last seen by me on 01/29/17. Patient presents to the clinic today for a focused exam. Patient declined a full exam as she has a full skin exam scheduled in January of this year. She reports scattered rough pink areas on her bilateral dorsal forearms. Patient also mentions a red sore areas on her bilateral lower legs, present for 2 mo nths. She reports some of these areas blister and drain a yellowish secretion. She applies Bacitracin as needed which she believes prevents the areas worsening. Also reports a spot on eyelid. Seen by eye doctor and given antibiotic drops. F/U scheduled in 2-3 weeks for this as lesion has not resolved. ADR: Allergies Allergen Reactions ??? Latex CIS - Localized Reaction ??? Gloves, Latex CIS - Localized Reaction ??? Latex Dams CIS - Localized Reaction MEDS: Current Outpatient Prescriptions Medication Sig Dispense Refill ??? cranberry fruit extract (CRANBERRY CONCENTRATE ORAL) Take by mouth. ??? CRESTOR 20 mg tablet Take 1 tablet by mouth daily. ??? nitroGLYcerin (NITROSTAT) 0.[address] 0.4 mg under the tongue every 5 minutes as needed. ??? Glucosamine Sulfate 1,000 mg Cap ??? aspirin 81 mg EC tablet ??? acetaminophen (TYLENOL) 325 mg tablet ??? metoprolol tartrate (LOPRESSOR) 25 mg tablet ??? Ergocalciferol, Vitamin D2, (VITAMIN D) 400 unit Cap ??? ascorbic acid (VITAMIN C) 500 mg tablet ??? fluorouracil (EFUDEX) 5 % Cream Apply topically to nose, bilateral temples, and affected areas on right forearm twice daily (morning and night) for 3 weeks (Patient not taking: Reported on 12/08/2017) 40 g 0 No current facility-administered medications for this visit. ROS General: feeling well Skin: denies other skin complaints EXAM General: NAD, pleasant, cooperative Skin: A focused examination was performed to the extremities and right lower eyelid Significant skin findings: A. B/L LE with scattered 2-3cm plaques with erosions and bulla B. Right lower medial mucosal eyelid: approx 0.3cm beefy red papule ASSESSMENT/PLAN: A. R/o bullous pemphigoid Procedure: Skin biopsy by punch technique x 2. One for H&E and one for DIF Location: Right estrada Discussed indications for the procedure and expectations including risks and benefits. Verbal consent obtained. Skin prep with alcohol. Local anesthesia: 1% lidocaine with 1/100,000 epinephrine. Two 4 mm punch biopsies to the level of the subcutis was performed. Wound closed with monofilament suture. There were no complications; the patient tolerated the procedure well. The wound was dressed. Post-procedure expectations (including discomfort management), wound care and activity restrictions were reviewed. Follow-up based on pathology results. Suture removal: 14 days Rx: Clobetasol Ointment: Apply topically to the affected areas twice daily for up to 2 weeks. Take one week off before repeating if needed. B. Non-specific. Recommend she f/u with eye doctor for possible biopsy FOLLOW UP: 2 weeks for suture removal as well as to discuss biopsy results. Sooner if needed. Instructed patient to call our clinic with any questions or concerns. I am documenting this encounter acting as the scribe for and in the presence of Dr. Cheema.: RICO DEY LPN I performed the above scribed service and agree with the accuracy of the documentation in this encounter. Serenity Cheema MD Section of Dermatology [facility] documented in this encounter Plan of Treatment Upcoming Encounters Date Type Department Care Team (Late st Contact Info) Description 03/30/2024 11:00 AM EDT Office Visit Dermatology at [facility] [address] [place] [address] Serenity Cheema MD [facility] [address] [place] [address] documented as of this encounter Procedures Procedure Name Priority Date/Time Associated Diagnosis Comments SPECIMEN TO PATHOLOGY Routine 12/08/2017 2:04 PM EDT Skin rash SURGICAL PATHOLOGY REPORT Routine 12/08/2017 2:00 PM EDT documented in this encounter Results * Specimen to Pathology (12/08/2017 2:04 PM EDT) AP Specimen 12/08/2017 2:04 PM EDT 12/08/2017 3:51 PM EDT Narrative [facility] - 12/08/2017 3:51 PM EDT Specimen requisition ordered. ??Separate Pathology report to follow Resulting Agency Comment Spec In Lab Serenity Cheema MD PATHOLOGY/CYTOLOGY O RDERABLES [facility] [place] [address] * Surgical Pathology Report (12/08/2017 2:00 PM EDT) FINAL DIAGNOSIS (AP) [id number] ? Location: [facility] The signing pathologist has (i) examined the relevant preparation(s) for the specimen(s) and (ii) rendered or confirmed the diagnosis(es). . ? Addendum ADDENDUM DISCUSSION A - Skin, right estrada, punch biopsy: Final impression: No specific immunoreactants detected for IgA, IgG, IgM, C3, albumin, or fibrinogen. Specimen Processing A 4 mm punch biopsy was received in a tube of Jeet ?? 's transport medium. Frozen sections, cut at 4 microns, were stained by direct immunofluorescence (IF). Sections were treated with fluorescein labeled antibodies to the following immunoreactants: IgG, IgA, IgM, fibrinogen and C3. The antibody to albumin is used as a negative control. Immune Deposits, Objective Findings This biopsy includes skin with epidermis and dermis. Direct IF studies of this skin biopsy specimen reveal ?? no specific immunoreactants detected for IgA, IgG, IgM, C3, albumin, or fibrinogen. Clinical History and Diagnosis B/L LE with scattered 2-3 cm plaques with erosions and bullae. Rule out bullous pemphigoid. Electronically signed by: ??Jeff Urbina MD Verified: ??12/14/2017 ?Dermatopathologist Performed at: ??-[facility]. of [place]ology, [place], [place] ?Surgical Pathology DIAGNOSIS A - Skin, right estrada, punch biopsy: See discussion and addendum. B - Skin, right estrada, punch biopsy: Spongiotic and perivascular dermatitis with eosinophils, irritated (see discussion). Electronically signed by: ??Jeff Urbina MD Verified: ??12/14/2017 ?Dermatopathologist Performed at: ??-[facility] Dept. of Pathology, [place], [place] DISCUSSION Overall, features of bullous pemphigoid are not seen here. ? No specific immunoreactants are found on immunofluorescent studies. ??The clinical description of erosions and bulla is noted; a subepidermal bulla is not seen here. ??However, part of the corneal layer is absent. Thus, a subcorneal bulla could be considered. The differential includes an excoriated dermal hypersensitivity reaction, contact or irritant dermatitis, or drug reaction. ??These are best distinguished clinically. ??If these differentials are excluded clinically, ??another biopsy from a developed subepidermal bulla may be of help. ADDITIONAL STUDIES This case was also presented at the daily dermatopathology coding quality coordinator conference for the consensus assessment above. ? Fungal microorganisms are not identified, as confirmed by interpretation of a PAS stain. Interpretation of . ADDITIONAL STUDIES multiple step-leveled slide sections confirms the diagnosis above. The dermatology note and select medical history have been reviewed. CLINICAL INFORMATION Specimen Submitted: A - Skin, right estrada, punch (1) B - Skin, right estrada, punch (1) Clinical History and Diagnosis: B/L LE with scattered 2-3 cm plaques with erosions and bullae. Rule out bullous pemphigoid. SPECIMEN PROCESSING A - Labeled/Fixative: Right estrada diff-perilesional, Jeet Transport Media. Quantity/Size: Single, 0.4 cm diameter; excised to 0.3 cm. Tissue Description: Not oriented, kauffman, wrinkled skin punch. Sections/Processing: The specimen is bisected, snap frozen and sectioned for direct immunofluorescence staining. B - ??Labeled/Fixative: Right estrada H &E-lesional, formalin. Quantity/Size: Single, 0.4 cm diameter; excised to 0.3 cm. Tissue Description: Punch biopsy of wrinkled, kauffman skin and subcutaneous tissue. Sections/Processing: Bisected. (T1) ??shb 12/14/2017 1:17 PM EDT [facility] SPECIMEN FROM SKIN / Unknown 12/08/2017 2:00 PM EDT 12/08/2017 2:00 PM EDT SPECIMEN FROM SKIN / Unknown 12/08/2017 2:00 PM EDT 12/08/2017 2:00 PM EDT Serenity Cheema MD PATHOLOGY/CYTOLOGY O RDERABLES [facility] [place] [place] [address] documented in this encounter Visit Diagnoses Diagnosis Skin rash Rash and other nonspecific skin eruption Eyelid lesion Unspecified disorder of eyelid documented in this encounter Care Teams Sheeter Machine Operator Relationship Specialty Start Date End Date Alma Youssef MD [address] [place] [address] PCP - General 03/22/13 documented as of this encounter
--- OUTSIDE RECORDS SUMMARY | 2024-03-19 15:49 | XMS_ITS | Encounter Summary ---
Author Organization [facility] Address [facility] [address] [place] [place] [address] Care Team Providers Care Annealing Oven Operator Name Role Phone Alma Youssef MD Primary Care Provider [phone] Encounter Details Date Type Department Care Team (Late st Contact Info) Description 02/15/2014 Orders Only Dermatology at [facility] [address] [place] [phone] Serenity Cheema MD [facility] [address] [place] [address] Social History Tobacco Use Types Packs/Day Years Used Date Smoking Tobacco: Never Smokeless Tobacco: Never Alcohol Use Standard Drinks/Week Comments No 0 (1 standard drink = 0.6 oz pur e alcohol) Sex and Gender Information Value Date Recorded Sex Assigned at Not on file Gender Identity Not on file Sexual Orientation Not on file documented as of this encounter Progress Notes * Saskia Torrez LPN - 02/15/2014 8:32 AM EDT Labels printed for upcoming surgical procedure on 02/21/14 with Serenity Torrez LPN documented in this encounter Plan of Treatment Upcoming Encounters Date Type Department Care Team (Late st Contact Info) Description 03/30/2024 11:00 AM EDT Office Visit Dermatology at [facility] [address] [place] [address] Serenity Cheema MD [facility] [address] [place] [address] documented as of this encounter Visit Diagnoses Not on filedocumented in this encounter Care Teams Annealing Oven Operator Relationship Specialty Start Date End Date Alma Youssef MD [address] [place] [address] PCP - General 03/22/13 documented as of this encounter
--- OUTSIDE RECORDS SUMMARY | 2024-03-19 15:49 | XMS_ITS | Encounter Summary ---
Author Organization [facility] Address [facility] [address] [place] [address] Care Team Providers Care Fly Fishing Guide Name Role Phone Alma Youssef MD Primary Care Provider [phone] Reason for Visit * Reason Comments Skin Check Encounter Details Date Type Department Care Team (Late st Contact Info) Description 11/23/2015 2:30 PM EDT Office Visit Dermatology at [facility] [address] [place] [phone] Serenity Cheema MD [facility] DR [address]AV[address] [address] [place] (actinic keratosis); SK (seborrheic keratosis); Scar Social History Tobacco Use Types Packs/Day Years Used Date Smoking Tobacco: Never Smokeless Tobacco: Never Alcohol Use Standard Drinks/Week Comments No 0 (1 standard drink = 0.6 oz pur e alcohol) Sex and Gender Information Value Date Recorded Sex Assigned at Not on file Gender Identity Not on file Sexual Orientation Not on file documented as of this encounter Progress Notes * Serenity Cheema MD - 11/23/2015 2:25 PM EDT DERMATOLOGY ESTABLISHED PATIENT CLINIC NOTE Date of service: 11/23/2015 Heidi Mcdermott : 1935 Provider: Serenity Cheema MD Chief Complaint Patient presents with ??? Skin Check SKIN HISTORY: BCC left brow [address] Mcgill actinic keratosis seborrheic keratosis BCC 2014 left arm, excision Rowell Angioma(s) CHRISTINA Mcdermott is a 80 y.o. year old female, established patient of mine, last seen by Love Faye on 11/23/2014. Here today for a full skin exam. Patient has a couple concerns. C/o roughness on her nose; persistent. He has a spot on her left cheek that has come and gone since her last visit, asymptomatic. ADR: Allergies Allergen Reactions ??? Latex CIS - Localized Reaction ??? Gloves, Latex CIS - Localized Reaction ??? Latex Dams CIS - Localized Reaction MEDS: Current Outpatient Prescriptions Medication Sig Dispense Refill ??? CRESTOR 20 mg tablet Take 1 tablet by mouth daily. ??? nitroGLYcerin (NITROSTAT) 0.[address] 0.4 mg under the tongue every 5 minutes as needed. ??? hydrochlorothiazide (HYDRODIURIL) 25 mg tablet ??? Glucosamine Sulfate 1,000 mg Cap ??? aspirin 81 mg EC tablet ??? acetaminophen (TYLENOL) 325 mg tablet ??? metoprolol tartrate (LOPRESSOR) 25 mg tablet ??? Calcium Carbonate-Vitamin D3 (CALCIUM 600 WITH VITAMIN D3) 600 mg(1,500mg) - 400 unit Cap ??? Ergocalciferol, Vitamin D2, (VITAMIN D) 400 unit Cap ??? ascorbic acid (VITAMIN C) 500 mg tablet No current facility-administered medications for this visit. ROS General: feeling well Skin: denies other skin complaints EXAM General: NAD, pleasant, cooperative Skin: Patient was asked to dress to their comfort level for today's exam. A total body skin exam except for areas covered by underwear was performed. This includes examination of the skin of the scalp, face, ears, neck, chest, axillae, left and right upper and lower extremities, hands and feet, abdomen, and except the areas covered by underwear were not examined. Significant skin findings: A. Nose, right forearm, left christian, right christian: 0.2-0.3cm scaly irregular pink papules B. Left paranasal/medial cheek: warty stuck on papule C. Left eyebrow- well healed scar-removal of BCC in 1995 D. Left upper arm- well healed linear surgical scar from removal of BCC ASSESSMENT/PLAN: A. Actinic keratosis - Discussed at length treatment options for actinic keratoses including cryotherapy versus chemicaltreatment such as 5-FU. Discussed pros and cons of each including cryotherapy's potential for hypopigmentation and 5-FU's one month treatment course and potential for inflammation. - Combined decision to treat the lesions with Efudex Rx: Efudex: Apply twice daily (morning and night) to your right forearm (spot treating), nose, and right christian for 3 weeks. Using a pea-sized amount, apply the cream with clean fingertip to affectedarea. Patient advised to be careful to avoid nostrils, eyes, and mouth. Patient advised to wash hands after application. May apply sunscreen or moisturizer to the treatment area one hour after Efudex application. Patient was counseled to expect skin to become red or irritated during this treatment. Patient advised that this is a normal reaction. B. Seborrheic keratoses - Treated for diagnostic confirmation (no charge to patient) Procedure Note: Procedure: Destruction of lesion with cryotherapy. Number: 1 Location: as above Discussed procedure and expectations including risks (including risk of hypopigmentation) and benefits. Verbal consent obtained. Frozen with LN2, 15-30 second thaw time, TWICE. There were no complications; the patient tolerated the procedure well. Post-procedure expectations and wound care were reviewed. - Patient instructed to return to clinic for re-evaluation if lesion does not resolve with this treatment; as expected. C. NER of BCC- patient reassured D. NER of BCC- patient reassured Follow up in 1 year for full skin exam, sooner if needed. Instructed to call for questions/concerns. I am documenting this encounter acting as the scribe for and in the presence of Dr. Cheema.: Varsha Lux, Clinical Scribe I performed the above scribed service and agree with the accuracy of the documentation in this encounter. Serenity Cheema MD Section of Dermatology [facility] documented in this encounter Plan of Treatment Upcoming Encounters Date Type Department Care Team (Late st Contact Info) Description 03/30/2024 11:00 AM EDT Office Visit Dermatology at [facility] [address] [place] [address] Serenity Cheema MD [facility] DR RYAN [facility]AV[facility] [address] documented as of this encounter Visit Diagnoses Diagnosis AK (actinic keratosis) Actinic keratosis SK (seborrheic keratosis) Other seborrheic keratosis Scar Scar condition and fibrosis of skin documented in this encounter Care Teams Fly Fishing Guide Relationship Specialty Start Date End Date Alma Youssef MD [address] [place] [address] PCP - General 03/22/13 documented as of this encounter
--- OUTSIDE RECORDS SUMMARY | 2024-03-19 15:49 | XMS_ITS | Encounter Summary ---
Author Organization [facility] Address [facility] [address] [place] [address] Care Team Providers Care Executive Casino Host Name Role Phone Alma Youssef MD Primary Care Provider [phone] Reason for Visit * Reason Comments Skin Check Encounter Details Date Type Department Care Team (Late st Contact Info) Description 01/29/2017 2:45 PM EDT Office Visit Dermatology at [facility] [address] [place] [phone] [facility] [address] [place] [address] AK (actinic keratosis); Seborrheic keratosis; History of basal cell carcinoma Social History Tobacco Use Types Packs/Day Years [...] Progress Notes * Serenity Cheema MD - 01/29/2017 2:45 PM EDT DERMATOLOGY ESTABLISHED PATIENT CLINIC NOTE Date of service: 01/29/2017 Heidi Mcdermott : 1935 Provider: Serenity Cheema MD Chief Complaint Patient presents with ??? Skin Check SKIN HISTORY: BCC left brow [address] Mcgill actinic keratosis seborrheic keratosis BCC 2014 left arm, excision [place] Angioma(s) ?? HPI Heidi Mcdermott is a 81 y.o. year old female. Presents to clinic today for a full skin exam. Patient was last seen by me on 02/20/2016. She mentions a pink spot on the left paranasal area which she thinks was previously treated with cryotherapy. She has 5 FU at home and was going to treat but wantedit evaluated first to be sure it was an actinic keratosis No other skin concerns noted today. She comments having moderate stress due to her husbands recent heart attack and stroke. ADR: Allergies Allergen Reactions ??? Latex CIS - Localized Reaction ??? Gloves, Latex CIS - Localized Reaction ??? Latex Dams CIS - Localized Reaction MEDS: Current Outpatient Prescriptions Medication Sig Dispense Refill ??? fluorouracil (EFUDEX) 5 % Cream Apply topically to nose, bilateral temples, and affected areas on right forearm twice daily (morning and night) for 3 weeks 40 g 0 ??? CRESTOR 20 mg tablet Take 1 [...] pleasant, cooperative Skin: Patient was asked to disrobe to the level of their comfort. A total body skin exam except forthe genitalia was performed. This includes examination of the skin of the face, ears, neck, chest, axillae, left and right upper and lower extremities, hands, feet, abdomen, back, and buttocks. The genitalia, perineum, and perianal areas were not examined. Significant skin findings: A. Scattered-multiple 0.4-1 cm, brown-black papules/plaques with waxy stuck on appearance B. Left paranasal-0.2-0.3cm scaly irregular pink papule C. Left eyebrow- well healed scar-removal of BCC in 1995, BCC 2013 left arm 2013 ASSESSMENT/PLAN: A. seborrheic keratosis - Etiology discussed with patient - Patient reassured lesions are benign in nature B. actinic keratosis -patient will treat with Efudex twice daily for 3 weeks. She has the prescription at home. Patient instructed to return to clinic for re-evaluation if lesion does not resolve with this treatment; as expected. C.NER of BCC- patient reassured FOLLOW UP: 1 year- sooner if needed. Patient instructed to call with questions or concerns I am documenting this encounter acting as the scribe for and in the presence of Dr. Cheema.: Lali Coulter LPN I performed the above scribed service and agree with the accuracy of the documentation in this encounter. Serenity Cheema MD Section of Dermatology [facility] documented in this encounter Plan of Treatment Upcoming Encounters Date Type Department Care Team (Late st Contact Info) Description 03/30/2024 11:00 AM EDT Office Visit Dermatology at [facility] [address] [place] [address] [facility] [place] [address] documented as of this encounter Visit Diagnoses Diagnosis AK (actinic keratosis) Actinic keratosis Seborrheic keratosis Other seborrheic keratosis History of basal cell carcinoma Personal history of other malignant neoplasm of skin documented in this encounter Care Teams Executive Casino Host Relationship Specialty Start Date End Date Alma Youssef MD [address] [place] [address] PCP - General 03/22/13 documented as of this encounter
--- OUTSIDE RECORDS SUMMARY | 2024-03-19 15:49 | XMS_ITS | Encounter Summary ---
Author Organization [facility] Address [facility] [address] [place] [address] Care Team Providers Care Inward Toll Operator Name Role Phone Alma Youssef MD Primary Care Provider + Encounter Details Date Type Department Care Team (Late st Contact Info) Description 06/08/2021 3:30 PM EDT Office Visit Dermatology at [facility] [address] [place] [address] Serenity Cheema MD [facility] [address] [place] [address] Neoplasm of uncertain behavior of skin; Actinic keratoses; Seborrheic keratoses; History of basal cell carcinoma (BCC) Social History Tobacco Use Types Packs/Day Years [...] Progress Notes * Serenity Cheema MD - 06/08/2021 3:30 PM EDT Images from the original note were not included. DEPARTMENT OF DERMATOLOGY Medical Dermatology Clinic Provider: SERENITY CHEEMA MD Patient's preferred name Heidi Preferred contact method for results [x]Phone []myD-H []Letter Detailed phone message OK? Yes Are there any other people with whom we may discuss your care? - Radames, or Daughter- Lulu Past Medical History Date, location, treatment Melanoma no Dysplastic nevi no SCC no BCC 1994: Left brow, BCC (excision by Dr. Mcgill) 12/15/13: Left arm, sclerosing and infiltrating BCC (excision 02/21/14) AKs Yes UV Exposure & Protection N Other relevant past medical history 12/08/17: Right estrada, ddx of excoriated dermal hypersensitivityreaction, contact or irritant dermatitis, or drug reaction; negative for bullous pemphigoid Family History Details Melanoma no NMSC no Other relevant family history no Social History Occupation: Hobbies: Other: Pre-Procedure Questions Details Allergy to lidocaine, epinephrine, Dermabond, chlorhexidine, or adhesives no Bleeding disorder or blood thinners ASA 81 Pacemaker, defibrillator, deep brain stimulator, cochlear implant no History of Present Illness: Heidi Mcdermott is a 86 y.o. Patient returns to clinic today for a full skin exam. Patient has a lesion on her right nasal ala that she is concerned about. Asymptomatic. Patient notes she has done chemotherapy cream to that area in the past. She also has lesions on the left jew. Last visit at [facility] Derm: 04/13/2020 Last visit with this provider: 04/13/2020 Medications: Reviewed in eD-H Allergies: Reviewed in eD-H Skin Examination: Full skin examination: Patient asked to undress to their comfort level. Verbalized that the provider???s preference is that the patient remove all clothing and that the provider will not examine areas patient elects to keep covered. Patient elects to keep bra and underwear on and have the following examined: scalp, hair, head, face, ears, neck, chest, axillae, abdomen, back, buttocks, and upper and lower extremities. Bra-covered area, genitalia, and buttocks were not examined. Assessment/Plan A. BCC - 0.6 cm ill-defined pink papule with telangiectasia on the right alar crease (Figure 1). - Recommended a skin biopsy to confirm/clarify the nature of the skin lesion. After discussion of potential risks (scarring, bleeding, infection) and recurrence, patient agreed to proceed. - Patient denies known allergies to lidocaine and epinephrine. Procedure: Skin shave biopsy. Location: right alar crease Time of procedure: 3:36 pm Discussed indications for procedure and expectations including risks and benefits. Verbal consent obtained. Time out performed. Skin prepped with alcohol. Local anesthesia with 1% xylocaine, 1/100,000 epinephrine. A sample of the lesion was removed by shave technique to the level of the dermis and s ubmitted to Pathology. Hemostasis obtained (AlCl). There were no complications; patient tolerated the procedure well. Wound dressed. Post-procedure expectations, wound care and activity restrictions reviewed. - Follow-up based on pathology results. B. Actinic Keratosis - Ill-defined gritty papule on the left jew. - Discussed treatment with cryotherapy. Patient will contact clinic if she would like to proceed. C. Seborrheic Keratosis - Stuck on, waxy papule on the left jew. - Discussed benign nature of lesion and provided reassurance. No treatment necessary at this time. Discussed cryotherapy. Patient will call if she would like to proceed. D. History of BCC - Well-healed scars per skin history. - No evidence of recurrence; will continue to monitor. Figure 1 Photo(s) taken and charted with patient's verbal consent. Other: ??? N/A RTC: 1 year for FSE []Note routed to clerical secretary [x]Recall placed in scheduling system []Appointment scheduled at checkout Scribe attestation: Maria Fernanda Jnuior and KIMBERLY Del Castillo have performed the documentation for this encounter in the presence of and acting as a scribe for SERENITY CHEEMA MD. I performed the above scribed service and agree with the accuracy of the documentation in this encounter. Reviewed and signed by: SERENITY CHEEMA MD Dermatology [facility] documented in this encounter Plan of Treatment Upcoming Encounters Date Type Department Care Team (Late st Contact Info) Description 03/30/2024 11:00 AM EDT Office Visit Dermatology at [facility] [address] [place] [address] Serenity Cheema MD [facility] [address] [place] [address] documented as of this encounter Procedures Procedure Name Priority Date/Time Associated Diagnosis Comments SPECIMEN TO PATHOLOGY Routine 06/08/2021 3:57 PM EDT Neoplasm of uncertain behavior of skin SURGICAL PATHOLOGY REPORT Routine 06/08/2021 3:36 PM EDT documented in this encounter Results * Specimen to Pathology (06/08/2021 3:57 PM EDT) AP Specimen 06/08/2021 3:57 PM EDT 06/08/2021 3:57 PM EDT Narrative [facility] - 06/08/2021 3:57 PM EDT Specimen requisition ordered. ??Separate Pathology report to follow Serenity Cheema MD PATHOLOGY/CYTOLOGY O SALOMÓN [facility] [place] [address] * Surgical Pathology Report (06/08/2021 3:36 PM EDT) FINAL DIAGNOSIS (AP) [id number] ? Location: [facility] The signing pathologist has (i) examined the relevant preparation(s) for the specimen(s) and (ii) rendered or confirmed the diagnosis(es). . 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 of Pathology, [place], [place] DISCUSSION Overall, the findings are those of carcinoma. The differential includes a partially squamatized ??basal cell carcinoma (BCC), as well as the possibility of the surface of an squamous cell carcinoma (SCC). Some of the findings are more compatible with the former. The somewhat superficial nature of the biopsy precludes a comprehensive evaluation; much of the biopsy consists of the ulcer, and the base of the neoplasm is not available for evaluation. If further distinction between the aforementioned differentials is desired, additional deeper sampling may be of help. MICROSCOPIC DESCRIPTION Examination of multiple levels of the biopsy reveals parakeratosis, serum crust, and an epidermal defect flanked by subtle acanthosis and ?hypogranulosis . The dermis has atypical cells distributed as small aggregates, strands and single units. Rare foci of tumor-stroma clefting at the base of the biopsy, some of which can be artifactual, are noted. There are scattered necrotic epithelial cells and associated karyorrhectic debris. The lesional cell cytoplasm have varying degrees of basophilia, and the nuclei are enlarged. There are increased ? nuclear:cytoplasm ic ratios, and the nuclei vary in size and shape. Some have irregular nuclear contours and prominent nucleoli. The lesional cells are present at the base of the biopsy. They do not have significant expression of BerEp4 or of NICANOR. ADDITIONAL STUDIES Interpretation of multiple step-leveled slide sections confirms the diagnosis above. The lesional cells do not have significant expression of BerEp4 or of NICANOR. SPECIMEN(S) SUBMITTED A - Right alar crease, skin shave biopsy (1) CLINICAL INFORMATION BCC-0.6 cm ill-defined pink papule with telangiectasia SPECIMEN PROCESSING A - Labeled/Fixative: Right alar crease, formalin. Quantity/Size: ??Single, 0.4 x 0.4 x 0.1 cm. Tissue Description: White-kauffman skin shave with an off-center 0.3 x 0.1 cm Palacios papule. Sections/Processi ng: Inked, bisected and entirely submitted in 1 cassette labeled A1. ??MLL 06/18/2021 11:46 AM EDT [facility] SPECIMEN FROM SKIN / Unknown 06/08/2021 3:36 PM EDT 06/08/2021 3:36 PM EDT Serenity Cheema MD PATHOLOGY/CYTOLOGY O RDERABLES [facility] [place] [address] documented in this encounter Visit Diagnoses Diagnosis Neoplasm of uncertain behavior of skin Actinic keratoses Actinic keratosis Seborrheic keratoses History of basal cell carcinoma (BCC) documented in this encounter Care Teams Inward Toll Operator Relationship Specialty Start Date End Date Alma Youssef MD [address] [place] [address] PCP - General 03/22/13 documented as of this encounter
--- OUTSIDE RECORDS SUMMARY | 2024-03-19 15:49 | XMS_ITS | Encounter Summary ---
Author Organization [facility] Address [facility] [address] [place] [address] Care Team Providers Care Executive Associate Name Role Phone Alma Youssef MD Primary Care Provider [phone] Reason for Visit * Reason Onset Date Comments Other 11/24/2015 MEDICATION QUEST ION Encounter Details Date Type Department Care Team (Late st Contact Info) Description 11/24/2015 Telephone Dermatology at [facility] [address] [place] [address] Serenity Cheema MD [facility] [place] [address] Other (MEDICATION QUESTION) Social History Tobacco Use Types Packs/Day Years [...] encounter Miscellaneous Notes * Telephone Encounter - Tiffanie Sung - 11/24/2015 2:57 PM EDT I received a phone call from Heidi Mcdermott and she had a question about the chemo cream Dr. Cheema had prescribed to her in her appointment on 11/23/15. Dr. Cheema had frozen a spot on her face and she is wondering if she should use the cream on that spot as well. The best number to reach her is [phone] documented in this encounter Plan of Treatment Upcoming Encounters Date Type Department Care Team (Late st Contact Info) Description 03/30/2024 11:00 AM EDT Office Visit Dermatology at [facility] [address] [place] [address] Serenity Cheema MD [facility] [place] [address] documented as of this encounter Visit Diagnoses Not on filedocumented in this encounter Care Teams Executive Associate Relationship Specialty Start Date End Date Alma Youssef MD [address] [place] [address] PCP - General 03/22/13 documented as of this encounter
--- OUTSIDE RECORDS SUMMARY | 2024-03-19 15:49 | XMS_ITS | Encounter Summary ---
Author Organization [facility] Address [facility] [address] [place] [address] Care Team Providers Care Train Gate Attendant Name Role Phone Alma Youssef MD Primary Care Provider [phone] Reason for Visit * Reason Comments Follow-up Encounter Details Date Type Department Care Team (Late st Contact Info) Description 05/17/2013 11:00 AM EDT Follow-Up Dermatology at [facility] [address] [place] [phone] Serenity Cheema MD [facility] [address] [place] [address] Actinic keratosis (Primary Dx) Discharge Disposition: Home Social History Tobacco Use Types Packs/Day Years [...] Progress Notes * Serenity Cheema MD - 05/17/2013 10:54 AM EDT DERMATOLOGY ESTABLISHED PATIENT CLINIC NOTE Date of service: 05/17/2013 Heidi Mcdermott : 1935 Provider: Serenity Cheema MD Chief Complaint Patient presents with ??? Follow-up SKIN HISTORY: AK SK BCC left brow [address] Mcgill HPI Heidi Mcdermott is a 77 y.o. female. Established to clinic, but new patient to me. Last seen by Dr. Gramajo. Presents today for follow up of actinic keratosis on her forehead and nose treated with LN2 by Dr. Gramajo. She has a new spot on her right forearm that is scaly She has a rough spot on her right nose that doesn't seem to heal. She picked at it and it bled. ADR: Allergies Allergen Reactions ??? Latex CIS - Localized Reaction ??? Gloves, Latex CIS - Localized Reaction ??? Latex Dams CIS - Localized Reaction MEDS: Current Outpatient Prescriptions Medication Status Sig Dispense Refill ??? CRESTOR 20 mg tablet Active Take 1 tablet by mouth daily. ??? nitroGLYcerin (NITROSTAT) 0.[address] Active [address] 0.4 mg under the tongue every 5 minutesas needed. ??? hydrochlorothiazide (HYDRODIURIL) 25 mg tablet Active ??? Rtsymbtmnnosj-Ugmqdoar-Sedcjm (CENTRUM SILVER) Tab Active ??? magnesium oxide (MAG-OX) 400 mg tablet Active ??? Glucosamine Sulfate 1,000 mg Cap Active ??? aspirin 81 mg EC tablet Active ??? acetaminophen (TYLENOL) 325 mg tablet Active ??? metoprolol tartrate (LOPRESSOR) 25 mg tablet Active ??? Calcium Carbonate-Vitamin D3 (CALCIUM 600 WITH VITAMIN D3) 600 mg(1,500mg) - 400 unit Cap Active ??? Ergocalciferol, Vitamin D2, (VITAMIN D) 400 unit Cap Active ??? ascorbic acid (VITAMIN C) 500 mg tablet Active ROS General: feeling well Skin: denies other skin complaints EXAM General: NAD, pleasant, cooperative Skin: A focused skin exam was performed. Significant skin findings: A. 0.2-0.3cm scaly irregular pink papule(s) on her right alar crease x 2 (1 is adjacent to other) and right forearm x 1 B. Scar on left brow C. Multiple 0.4-0.6 cm brown papules with waxy, stuck on appearance. Milia-like cysts, comedone-like openings and/or fissuring on dermoscopy. On left religious x 1 D. Telangectasia on right lateral forehead ASSESSMENT/PLAN: A. actinic keratosis Discussed at length treatment options for actinic keratoses including cryotherapy versus chemical treatment such as 5-FU or PDT. Discussed pros and cons of each including cryotherapy's potential for hypopigmentation and 5-FU's one month treatment course and potential for inflammation. Discussed need to not have suntan for best results from PDT; restrictions on light exposure; may need two or morePDT treatments. Procedure Note: Procedure: Destruction of lesion(s) with cryotherapy. Number: 3 Location: as above Discussed procedure and expectations including risks (including risk of hypopigmentation) and benefits. Verbal consent obtained. Frozen with LN2, 15-30 second thaw time, TWICE. There were no complications; the patient tolerated the procedure well. Post-procedure expectations and wound care were reviewed. -Patient instructed to return to clinic for re-evaluation if lesion does not resolve with this treatment; as expected. B. Scar. H/O BCC. NER. C.seborrheic keratosis. Patient reassured. D. Telangectasia. Patient reassured. E. RTC in 6 months for skin check and follow up of A. Patient instructed to call with questions or concerns. I am documenting this encounter acting as the scribe for and in the presence of Dr. Cheema.: CHRISTIN AMIN LPN I performed the above scribed service and agree with the accuracy of the documentation in this encounter. Serenity Cheema MD Section of Dermatology [facility] documented in this encounter Plan of Treatment Upcoming Encounters Date Type Department Care Team (Late st Contact Info) Description 03/30/2024 11:00 AM EDT Office Visit Dermatology at [facility] [address] [place] [address] Serenity Cheema MD [facility] [address] [place] [address] documented as of this encounter Visit Diagnoses Diagnosis Actinic keratosis- Primary documented in this encounter Care Teams Train Gate Attendant Relationship Specialty Start Date End Date Alma Youssef MD [address] [place] [address] PCP - General 03/22/13 documented as of this encounter
--- OUTSIDE RECORDS SUMMARY | 2024-03-19 15:49 | XMS_ITS | Encounter Summary ---
Author Organization [facility] Address [facility] [address] [address] Care Team Providers Care Environmental Aid Name Role Phone Alma Youssef MD Primary Care Provider [phone] Encounter Details Date Type Department Care Team (Latest Contact Info) Description 03/22/2013 2:33 PM EDT - 03/22/2013 11:59 PM EDT Hospital Encounter XRay at [facility] [address] [facility] [place] [id number] Right knee pain Social History Tobacco Use Types Packs/Day Years Used Date Smoking Tobacco: Never Smokeless Tobacco: Never Alcohol Use Standard Drinks/Week Comments No 0 (1 standard drink = 0.6 oz pur e alcohol) Sex and Gender Information Value Date Recorded Sex Assigned at Not on file Gender Identity Not on file Sexual Orientation Not on file documented as of this encounter Medications at Time of Discharge Medication Sig Dispensed Refills Start Date End Date CRESTOR 20 mg tablet Take 1 tablet by mouth daily. 03/03/2013 nitroGLYcerin (NITROSTAT) 0.[address] 0.4 mg under the tongue every 5 minutes as needed. Glucosamine Sulfate 1,000 mg Cap 03/26/2010 aspirin 81 mg EC tablet 03/26/2010 acetaminophen (TYLENOL) 325 mg tablet 03/26/2010 metoprolol tartrate (LOPRESSOR) 25 mg tablet 03/26/2010 Ergocalciferol, Vitamin D2, (VITAMIN D) 400 unit Cap 03/26/2010 ascorbic acid (VITAMIN C) 500 mg tablet 03/26/2010 hydrochlorothiazide (HYDRODIURIL) 25 mg tablet 03/26/2010 12/08/2017 Xnbfmpqrtpimr-Ibfofcyw-I utein (CENTRUM SILVER) Tab 03/26/2010 02/15/2014 magnesium oxide (MAG-OX) 400 mg tablet 03/26/2010 02/15/2014 Calcium Carbonate-Vitamin D3 (CALCIUM 600 WITH VITAMIN D3) 600 mg(1,500mg) -400 unit Cap 03/26/2010 12/08/2017 documented as of this encounter Plan of Treatment Upcoming Encounters Date Type Department Care Team (Late st Contact Info) Description 03/30/2024 11:00 AM EDT Office Visit Dermatology at [facility] [address] [place] [address] Serenity Cheema MD [facility] [place] [address] documented as of this encounter Procedures Procedure Name Priority Date/Time Associated Diagnosis Comments XR JOINT TEAM ALIGNMENT AP LAT SCHUSS SKYLINE Routine 03/22/2013 3:23 PM EDT Right knee pain documented in this encounter Results * XR JOINT TEAM ALIGNMENT AP LAT SCHUSS SKYLINE (03/22/2013 3:23 PM EDT) Anatomical Region Laterality Modality N/A Radiographic Su ging 03/22/2013 3:23 PM EDT Narrative 03/22/2013 4:55 PM EDT Examination JOINT TEAM STANDING ALIGNMENT AP LAT SCHUSS SKYLINE/RIGHT Clinical History RIGHT KNEE PAIN Comparison AP standing, PA Schuss, skyline, poor bilateral knee. ??Lateral right knee. Technique Separate images of the pelvis, knees and feet were acquired in the AP projection with the patient standing. In addition to routine views of the knee, these images were stitched together to form a composite image of the pelvis and legs allowing for evaluation of lower extremity alignment in the weight bearing position. Findings Well centered mechanical axis bilaterally. Right knee: Joint space narrowing more prominently in the lateral compartment, with osteophytes and subchondral sclerosis. No right knee effusion. ?? Patellofemoral compartment joint space is well preserved. Multiple surgical rere overlying the soft tissues of the right knee. ?? Left knee: Joint space narrowing more prominently in the lateral compartment with associated osteophytes and subchondral sclerosis. Patellofemoral compartment joint space is well preserved. ?? Impression ? 1. Midline mechanical axis bilaterally. ? 2. Tricompartmental osteoarthritis of both knees most pronounced at the lateral compartments left greater than right. Film and interpretation reviewed by the attending Procedure Note Rishi Grewal MD - 03/22/2013 Examination JOINT TEAM STANDING ALIGNMENT AP LAT SCHUSS SKYLINE/RIGHT Clinical History RIGHT KNEE PAIN Comparison AP standing, PA Schuss, skyline, poor bilateral knee. Lateral right knee. Technique Separate images of the pelvis, knees and feet were acquired in the AP projection with the patient standing. In addition to routine views of theknee, these images were stitched together to form a composite image of thepelvis and legs allowing for evaluation of lower extremity alignment in the weightbearing position. Findings Well centered mechanical axis bilaterally. Right knee: Joint space narrowing more prominently in the lateralcompartment, with osteophytes and subchondral sclerosis. No right knee effusion. Patellofemoral compartment joint space is well preserved. Multiplesurgical rere overlying the soft tissues of the right knee. Left knee: Joint space narrowing more prominently in the lateralcompartment with associated osteophytes and subchondral sclerosis. Patellofemoral compartment joint space is well preserved. Impression 1. Midline mechanical axis bilaterally. 2. Tricompartmental osteoarthritis of both knees most pronounced atthe lateral compartments left greater than right. Film and interpretation reviewed by the attending Luis Davalos MD IMG DX ORDERABLES documented in this encounter Visit Diagnoses Diagnosis Right knee pain Pain in joint, lower leg documented in this encounter Care Teams Environmental Aid Relationship Specialty Start Date End Date Alma Youssef MD [address] [place] [address] PCP - General 03/22/13 documented as of this encounter
--- OUTSIDE RECORDS SUMMARY | 2024-03-19 15:49 | XMS_ITS | Encounter Summary ---
Author Organization [facility] Address [facility] [place] [place] [address] Care Team Providers Care Screen Making Technician Name Role Phone Alma Youssef MD Primary Care Provider [phone] Reason for Visit * Reason Onset Date Comments Medication Refill 01/15/2023 Encounter Details Date Type Department Care Team (Late st Contact Info) Description 01/15/2023 Refill Dermatology at [facility] [address] [place] [phone] Serenity Cheema MD [facility] [address] [place] [address] Skin rash Social History Tobacco Use Types Packs/Day Years [...] encounter Miscellaneous Notes * Telephone Encounter - Lulu Peoples LPN - 01/15/2023 12:55 PM EDT Medication(s) requested to refill clobetasol Last visit: Follow up recommended one year F/U Scheduled: pending Assessment/Plan for this/these medications: dermatitis Special Considerations: none Order/orders pended and routed to Dr Cheema for review and approval Appropriate to refill: pending review documented in this encounter Plan of Treatment Upcoming Encounters Date Type Department Care Team (Late st Contact Info) Description 03/30/2024 11:00 AM EDT Office Visit Dermatology at [facility] [address] [place] [address] Serenity Cheema MD [facility] [address] [place] [address] documented as of this encounter Visit Diagnoses Diagnosis Skin rash Rash and other nonspecific skin eruption documented in this encounter Care Teams Screen Making Technician Relationship Specialty Start Date End Date Alma Youssef MD [address] [place] [address] PCP - General 03/22/13 documented as of this encounter
--- OUTSIDE RECORDS SUMMARY | 2024-03-19 15:49 | XMS_ITS | Encounter Summary ---
Author Organization [facility] Address [facility] [address] [place] [address] Care Team Providers Care Welder 2Nd Shift Name Role Phone Alma Youssef MD Primary Care Provider [phone] Encounter Details Date Type Department Care Team (Late st Contact Info) Description 11/24/2015 Telephone Dermatology at [facility] [address] [place] [phone] Serenity Cheema MD [facility] [address] [place] [address] Social History Tobacco Use Types Packs/Day Years [...] encounter Miscellaneous Notes * Telephone Encounter - Lali Coulter - 11/24/2015 3:49 PM EDT Reviewed directions along with s/s as well as locations she will apply efudex cream. Patient instructed to call with questions or concerns documented in this encounter Plan of Treatment Upcoming Encounters Date Type Department Care Team (Late st Contact Info) Description 03/30/2024 11:00 AM EDT Office Visit Dermatology at [facility] [address] [place] [place] [address] Serenity Cheema MD [facility] [address] [place] [address] documented as of this encounter Visit Diagnoses Not on filedocumented in this encounter Care Teams Welder 2Nd Shift Relationship Specialty Start Date End Date Alma Youssef MD [address] [place] [address] PCP - General 03/22/13 documented as of this encounter
--- OUTSIDE RECORDS SUMMARY | 2024-03-19 15:49 | XMS_ITS | Encounter Summary ---
Author Organization [facility] Address [facility] [address] [address] Care Team Providers Care Transcription Typist Name Role Phone Alma Youssef MD Primary Care Provider [phone] Reason for Visit * Reason Comments Skin Cancer Examination Encounter Details Date Type Department Care Team (Late st Contact Info) Description 04/13/2020 11:00 AM EDT Office Visit Dermatology at [facility] [address] [place] [phone] Serenity Cheema MD [facility] [address] [place] [address] AK (actinic keratosis); Seborrheic keratosis, inflamed; History of actinic keratoses; History of basal cell carcinoma (BCC) [...] this encounter Patient Instructions * Patient Instructions* Minerva Smiley CCMA - 04/13/2020 11:00 AM EDT Images from the original note were not included. How to use 5-fluorouracil (Efudex) 5% cream Area(s) to be treated: Left crease of nose Treatment length: Twice daily (morning and evening) for 3 weeks. Instructions for use: 1. Wash your hands before applying. 2. Wash area with a gentle cleanser and pat dry. 3. Use a clean fingertip to apply a small amount to the affected area. Use just enough to cover thearea with a thin film. Avoid your eyes, nostrils and mouth. (Note: Even when treating the entire face, a pea-sized amount should be sufficient.) 4. Rub cream into skin. Do NOT cover with a Band-Aid or other coverings. 5. Wash your hands after applying. 6. After 1 hour, you may apply moisturizer, sunscreen and/or makeup to the area. What to expect: Reactions vary from person to person. During this treatment, your skin may become red, inflamed, irritated (i.e., burning, crusting, weeping, oozing, etc.) and potentially tender or painful. This is a normal reaction. After the treatment period is complete, your skin will take several weeks to heal completely. For discomfort, you may take Tylenol or ibuprofen. You may also apply wet compresses as well as petroleum jelly, such as Vaseline or Aquaphor, to soothe the skin. While you should expect some fgmv-co-meedklsg discomfort and tenderness, if pain is excessive and interferes with daily activity or keeps you awake at night, you may pause treatment for 1-2 days. Please contact the clinic if you develop a fever or a thick yellow/honey-colored crust over the treatedarea. Warnings: - Use only as directed. - Do not share this medication. - Do not use other topical or medicated products on the treatment area unless instructed to do so by your doctor. Contact information: On weekdays (8am to 5pm), please call the clinic at [phone]. After 5pm, and on weekends and holidays, please call the hospital at [phone] and ask for the Procurement Cost Coordinator Electric Organ Inspector And Repairer. documented in this encounter Progress Notes * Serenity Cheema MD - 04/13/2020 11:00 AM EDT DERMATOLOGY ESTABLISHED PATIENT CLINIC NOTE Date of Service: 04/12/2020 Heidi Mcdermott : 1935 Provider: Serenity Cheema MD Chief Complaint Patient presents with ??? Skin Cancer Examination SKIN HX Personal History Y/N Date, location, treatment Melanoma No DN No SCC No BCC Yes 1994: Left brow, BCC (excision by Dr. Mcgill) 12/15/13: Left arm, sclerosing and infiltrating BCC (excision 02/21/14) AK or field cancerization therapy Yes LN2, 5-FU Immunosuppression or malignancy Yes PMR (on low-dose prednisone) Blistering sunburns or tanning bed use No Other (i.e., eczema, psoriasis) No 12/08/17: Right estrada, ddx of excoriated dermal hypersensitivity reaction, contact or irritant dermatitis, or drug reaction; negative for bullous pemphigoid Relevant social history Family History Y/N Parents, siblings, children Melanoma No NMSC No Other No Patient Preferences Preferred name Heidi Preferred contact method [x] Home [] Cell [] myD-H [] Other: Permission to leave detailed message including results [x] Yes [] No Permission to discuss care with (Radames), daughter (Lulu) Preferred pharmacy [facility] in [place], [place] Procedure Screening Questions Y/N Allergies to lidocaine or epinephrine No Blood thinners Yes: ASA 81 mg Pacemaker or defibrillator No HPI Heidi Mcdermott is a 84 y.o. female, established patient last seen by me on 07/23/2019. Here today for a 6-month full skin exam (per patient preference) with the following concerns: - Treated nose, right temporal forehead, and upper cutaneous lip just below the left nostril with 5-FU BID x 3 weeks with very mild reaction - New lesion on left forehead - Red, peeling skin on the nose Last FSE: 07/23/19 MEDS Current Outpatient Medications Medication Sig Dispense Refill ??? fluorouracil (EFUDEX) 5 % Cream Apply a thin layer to affected areas on the nose, right temporal forehead, and just below left nostril twice daily (morning and night) as tolerated for 3 weeks. 40g 0 ??? levothyroxine (SYNTHROID) 25 mcg Tablet Take 25 mcg by mouth daily. ??? predniSONE (DELTASONE) 5 mg Tablet Take 5 mg by mouth daily. ??? cranberry fruit extract (CRANBERRY CONCENTRATE ORAL) Take by mouth. ??? clobetasol (TEMOVATE) 0.05 % Ointment Apply topically to the affected areas on leg and arms twice daily prn 60 g 1 ??? CRESTOR 20 mg tablet Take 1 [...] ascorbic acid (VITAMIN C) 500 mg tablet (Patient not taking: No sig reported) No current facility-administered medications for this visit. ADR Allergies Allergen Reactions ??? Latex CIS - Localized Reaction ??? Gloves, Latex CIS - Localized Reaction ??? Latex Dams CIS - Localized Reaction ROS General: Feeling well Skin: Denies other skin complaints EXAM General: NAD, pleasant, cooperative Skin: Patient was asked to undress to the level of her comfort. Verbalized that the provider's preference is for the patient to remove all clothing and that the provider will not examine areas patient elects to keep covered. Patient's decision was to keep bra and underwear on and have the followingexamined: skin of the scalp, hair, face, ears, neck, chest, abdomen, back, axillae, upper and lowerextremities, hands, and feet. Areas of face under mask examined (COVID-19): [x] Yes [] No Significant Skin Findings: A. Left alar crease x 1, right dorsal hand x 1, left forearm x 1: 0.2-0.3 cm scaly, irregular, pinkpapules. B. Left yazidism: Inflamed/crusted, stuck-on, scaly plaque consistent with ISK. [Total: 1] C. Nose, right temporal forehead, and upper cutaneous lip just below the left nostril: Clear skin. D. Well-healed hypopigmented scar per skin history. ASSESSMENT/PLAN A. Actinic Keratoses - Explained etiology, natural history and premalignant potential of these lesions. - Discussed treatment options (LN2, 5-FU) and their respective risks and benefits. - Patient elects to proceed with LN2 to discrete AKs on the right dorsal hand and left forearm and 5-FU spot treatment to the left alar crease at her convenience; has prescription on hand. - Apply a thin layer of 5-fluorouracil (Efudex) 5% cream to the left alar crease twice daily (morning and night) as tolerated for 3 weeks. Patient counselin-FU - Reviewed expectations, typical reaction, and restrictions on light exposure during treatment. Patient understands that affected area will likely become red, irritated and tender during treatment and that this is a normal reaction. - Discussed option to hold treatment for 1-2 days if inflammation becomes too intense or patient experiences discomfort. Advised patient to call clinic if pain is excessive, or infection is suspected. - Counseled that patient may apply moisturizer, sunscreen and/or other cosmetics to the treated area 1 hour following application. Procedure Note: Procedure: Destruction of lesion(s) with cryotherapy. Number: 2 Location: as above Discussed procedure and expectations including risks (including risk of hypopigmentation) and benefits. Verbal consent obtained. Frozen with LN2, 15-30 second thaw time, TWICE. There were no complications; the patient tolerated the procedure well. Post-procedure expectations and wound care were reviewed. B. Inflamed Seborrheic Keratosis - Discussed benign nature of lesion and provided reassurance. - Due to irritation present on today's exam and history of symptoms, discussed removal with liquid nitrogen. - Patient agreed to treat with cryotherapy today. ?? Procedure: Destruction of lesions with cryotherapy (LN2). Number: 1 Location: As noted above Discussed procedure and expectations including risks (including risk of hypopigmentation) and benefits. Verbal consent obtained. Frozen with LN2, 15-30 second thaw time, twice. There were no complications; the patient tolerated the procedure well. Post-procedure expectations and wound care were reviewed. C. H/O Actinic Keratoses - Resolved s/p 5-FU BID x 3 weeks. - No further treatment warranted at this . D. H/O BCC - NER, will continue to monitor Follow Up: RTC in 1 year for: [x] FSE [] Follow up [x] Reminder placed in system [] Appointment scheduled before exiting Note initiated by: KIMBERLY Higgins I am documenting this encounter acting as the scribe for and in the presence of Dr. Cheema: Grace Gutierrez I performed the above scribed service and agree with the accuracy of the documentation in this encounter. Serenity Cheema MD Department of Dermatology [facility] cc: Alma Youssef MD documented in this encounter Plan of Treatment Upcoming Encounters Date Type Department Care Team (Late st Contact Info) Description 03/30/2024 11:00 AM EDT Office Visit Dermatology at [facility] [address] [place] [address] Serenity Cheema MD [facility] [address] [place] [address] documented as of this encounter Visit Diagnoses Diagnosis AK (actinic keratosis) Actinic keratosis Seborrheic keratosis, inflamed Inflamed seborrheic keratosis History of actinic keratoses Personal history of diseases of skin and subcutaneous tissue History of basal cell carcinoma (BCC) documented in this encounter Care Teams Transcription Typist Relationship Specialty Start Date End Date Alma Youssef MD [address] [place] [address] PCP - General 03/22/13 documented as of this encounter
--- OUTSIDE RECORDS SUMMARY | 2024-03-19 15:49 | XMS_ITS | Encounter Summary ---
Author Organization [facility] Address [facility] [address] [address] Care Team Providers Care Leisure Travel Agent Name Role Phone Alma Youssef MD Primary Care Provider [phone] Reason for Visit * Consultation (Routine) - Closed Specialty Diagnoses / Procedures Referred By Arcelia puente Referred To Contact Dermatology Diagnoses Basal cell carcinoma of nose Serenity Cheema MD [facility] [address] [facility] [address] [facility] Mohs [address] [place] [address] Referral ID Status Reason Start Date Expiration Date V isits Requested Visits Authorized [id number] Closed Consult, Test & Treat 06/19/2021 06/19/2022 1 1 Encounter Details Date Type Department Care Team (Latest Contact Info) Description 08/07/2021 10:30 AM EST Procedure visit Dermatology at [facility] [address] [place] [address] Santiago Ram MD [facility] [address] [facility] [address] Basal cell carcinoma of right ala nasi Social History Tobacco Use Types Packs/Day Years Used Date Smoking Tobacco: Never Smokeless Tobacco: Never Alcohol Use Standard Drinks/Week Comments No 0 (1 standard drink = 0.6 oz pur e alcohol) Sex and Gender Information Value Date Recorded Sex Assigned at Not on file Gender Identity Not on file Sexual Orientation Not on file documented as of this encounter Last Filed Vital Signs Vital Sign Reading Time Taken Comments Blood Pressure 146/129 08/07/2021 3:35 PM EST Pulse 68 08/07/2021 3:35 PM EST Temperature - - Respiratory Rate - - Oxygen Saturation - - Inhaled Oxygen Concentration - - Weight - - Height - - Body Mass Index - - documented in this encounter Patient Instructions * Patient Instructions* Bessy Henderson, CLIENT RELATIONSHIP CONSULTANT - 08/07/2021 10:30 AM EST Your staff surgeon today was Santiago Ram MD PhD. Today, you had Mohs surgery followed by reconstruction. The reconstruction is called a staged procedure. This means that skin was borrowed from your cheek to repair your open wound. The blood flow from the region is being borrowed to heal your wound - this process of healing will take 3 weeks. During this 3 week time, a tube of skin called a pedicle will be sewn or attached to your nose to allow healing to take place. Today is stage 1 of a two-part procedure. In 3 weeks time, you will have what is called a flap takedown. This means that the tube of skin will be removed. The rest of the cheek will be completely repaired at that time, and the nose will becompletely repaired at that time. The takedown is STAGE 2 of 2 for your reconstruction. Instructions are as below. Please keep as a reference: Wound Care ??? We have placed a pressure bandage for the first 72 hours. ??? No wound care for 72 hours. Keep the initial bandage dry. If part of it is loosening or coming off, you can reinforce the bandage with paper tape or additional bandages on top of your pressure bandage. ??? Gently remove your initial bandage (after 72 hours from surgery) and begin wound care as below. ??? If your initial bandage only lasts 24 hours (for example, falls off sooner), this is okay. Resume your wound care and bandaging instructions as below. ??? Change your bandage once a day (and whenever it becomes wet or soaks through) until your sutures are removed. ??? For bandage changes: o Wash hands with soap and water, or use gloves that you can purchase a local pharmacy or drug store. o Do not get surgical site wet. o Use a cotton swab to apply a generous layer of petroleum jelly over the incision lines and any open-wound areas. o For the above instructions, do not double dip. This means a new cotton swab for each time you touch the skin. Do not double dip into your petrolatum jelly tube or jar. If you are using a jar, make sure you purchase a fresh new jar rather than an old jar that has been used already in order to keep your incision clean. o At the end, if you desire to have your wound covered, you may cover with clean nonstick gauze or other nonstick dressing, such as Telfa. This may be purchased over the counter at a drug store. Secure with paper tape or bandage. Band-aids are okay, but typically have more adhesive that can irritate the skin compared to paper tape. It can also cause your skin to be very wet-like and lead to white skin discoloration from being too sticky or wet. In general, bandaging after 48 hours is optional, but it may be convenient at bedtime, when you are out, or when you are attending work. It may also prevent soiled linens and clothing. o Continue wound care daily until next follow up appointment. After Surgery 1. Avoid tobacco, smoking/vapors, and cannabis (marijuana) for at least 3 weeks after your surgery.Smoking impairs healing. 2. Limit alcohol intake to one drink per day over the next 3 days. 3. Do not participate in athletic activities while you have stitches in place. This means anything that increases your heart rate or blood pressure as this can lead to wound opening, or bleeding, or popping open of stitches. The most important time is the first 48 hours after surgery. 4. Do not lift anything more than 10 pounds for 1 weeks. Again the first 48 hours is most important. 5. Some isolation washer may need to be delayed or delegated such as vacuuming, mowing the lawn, especially snow shoveling, or caring for young children who need to be carried/lifted. Working any major muscle groups increases your heart rate and can increasing bleeding. 6. Avoid swimming, hot tubs, and direct water pressure (such as from shower head) to your surgery site until stitches are removed. However, you may shower once your initial bandage comes off and allow the soapy water to run over your incisions. 7. Avoid antibiotic ointments, special creams, oils, Vitamin E, or other scar creams. Please stick with your wound care instructions. 8. Whenever possible, it is helpful to take photographs with your camera or cell phone if any problems or concerns arise. 9. Two months following surgery, you can begin to firmly massage any areas of firm scar to help it soften. You can do this roughly 3 times per day, approximately 3 minutes each time. This is not an exact science. Often times it's helpful to massage when you can remember to do it. Do not start massage before 2 months! 10. Your wound will appear completely healed soon after sutures are removed but the scarring and healing process may actually continue for 6 months to 2 years afterwards. This includes lightening of any redness, resolving of any bumps, and softening of firm scars. 11. Keep your follow-up appointments and make sure to continue to have your skin checked, as often as is recommended by your director family. 12. You can expect your scar to be red for several weeks. If you have naturally reddish skin to begin with, you may have a red scar longer. If you have vessels that show easily on your face, or a diagnosis such as rosacea, you may have more vessel appearance after surgery. Scar redness typically fades very gradually over time; however, redness can last longer if you expose your scar to direct sunlight. You will want to make sure to protect your incisions from UV rays of the sun for the first 6 months after surgery for optimal scar outcome. The scar will also be raised and lumpy until the dissolvable sutures under the skin get absorbed by your body - this can take several months. The scar will eventually flatten even if it appears raised at first. 13. If any revisions are needed, this will be determined at your follow-up visit. If no follow-up appointments were made for you, generally your healing is complete at around 6 months and this is a good time to see your Mohs surgeon if you have concerns about the cosmetic appearance of your scar. 14. If you had discontinued any supplements (medicines not required by a doctor such as multivitamins, fish oil, etc) prior to surgery, please hold off for one more week after surgery before restarting. You should not have stopped any medications required by another doctor such as aspirin, coumadin/warfarin, plavix (clopidogrel), or other blood thinners. It is dangerous to stop your blood pressure, clotting, or blood thinner medications without being asked to do so by your doctor. Antibiotics: 1. Take your antibiotic starting today for 7 days. 2. Restart your other antibiotic prescription in 3 weeks, the day before your flap takedown surgery. For pain: Most patients of different ages do not require pain medications. If you do feel soreness, throbbingor sharp pains, start by taking over the counter extra strength acetaminophen (up to 3000 mg in a 24 hour period). Generally, we like you to avoid NSAIDS (non-steroid anti-inflammatory drugs such as ibuprofen) for the first 48 hours after surgery as this can increase risk of bleeding. However, if acetaminophen is not helping with pain, you can alternate acetaminophen with iburpofen or other NSAID. Ice packs over your bandage without getting your bandage wet can also help with pain and swelling.Frozen peas work well as ice packs. THIS IS AN EXAMPLE OF A PAIN TREATMENT SCHEDULE: 1) You can take 500 mg acetaminophen one tablet by mouth at 6:00pm. This is over the counter. 2) You can take 400 mg of ibuprofen two hours later, at 8:00 pm, or other NSAID such as naproxen, as long as it does not interact with your other medications and your other doctors have not told you to avoid this. This is over the counter. Check to see how many milligrams (mg) each of your ibuprofen tablets are. Most of the time, ibuprofen comes in 200 mg tablets, so 400 mg would mean taking two of these tablets or capsules. 3) You can take 500 mg of acetaminophen at 10:00 pm. Keep track of your total acetaminophen in a 24hour period as your maximum should be 3000 mg total in a 24 hour period of this medication. 4) At midnight, you can take another 400 mg of ibuprofen. 5) you can continue on this schedule over the next 2 days, making sure to keep tabs of your total acetaminophen. If you are still in pain after trying the above, please call us. When to call your surgeon: ??? Fever of 100.4 degrees Fahrenheit or higher ??? Bleeding not controlled with direct firm pressure to your wound. Bleeding is most common in thefirst 48 hours. ??? Pain that is worsening and not relieved by medications ??? Wound reopening after stitching ??? Pus or bad odor from your wound ??? Worsening redness and warmth around your wound ??? If you think your surgery site is infected, please call us before seeking care or antibiotics from other providers If after hours, please call the stripping and booking machine operator and ask for the director family on-call. If you have any questions or concerns, please feel free to call my office or contact me through our patient portal, [employer], at [email or web address]: Mohs scheduling or Mohs follow-up appointments: [phone] IMPORTANT FOLLOW UP APPOINTMENTS: 1. Suture removal one week 2. Flap take down three weeks 3. There is usually one more suture removal appointment 5-7 days after your flap takedown. documented in this encounter Progress Notes * Santiago Ram MD - 08/07/2021 10:30 AM EST Images from the original note were not included. 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 Santiago Ram MD PhD Mohs Micrographic Surgery and Dermatologic Oncology Department of Dermatology Please note that I have reviewed the preoperative checklist from today's nursing visit including relevant social history and medications. I have reviewed the preoperative photos if available and the biopsy report. VITAL SIGNS: BP (!) 146/129 (BP Location (NBP): Left arm, Patient Position: Sitting, BP Cuff Sizes: Adult (25-34cm)) Pulse 68 PHYSICAL EXAMINATION: General: patient is awake, alert, oriented and in no acute distress. Skin: Focused examination of surgical site(s) performed which shows a well healed biopsy site with surrounding poorly defined pearly plaque. PHYSICIAN REVIEW OF REPORTS, RECORDS, IMAGES: 1) The accompanying pathology report(s) associated with aforementioned biopsy slide(s) were/was also reviewed. Assessment: Heidi Mcdermott is a 86 y.o. female presenting for: 1. 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 Plan: 1. Findings from the biopsy report, today's clinical exam, and other pertinent details were reviewed with patient today. All questions were answered. 2. Discussed treatment options based on the above findings. We recommended Mohs micrographic surgery for treatment of this tumor. Mohs micrographic surgery was indicated due to patient, site and/or tumor characteristics (see operative report for specific indication). 3. We discussed risks, benefits, and alternative treatment options to the Mohs micrographic surgeryprocedure and pertinent information including but not limited to the following: ?? Risks include bleeding, infection, scar, recurrence, incomplete tumor removal or inability to cure with surgery alone if the tumor features are more aggressive than the initial pathology indicates. Occasionally, additional adjuvant treatments may be recommended. Additional risks include large wound, prolonged wound and healing, pain, swelling, bruising, increased appearance of vessels or worsening erythema of baseline skin; more rarely risks include damage to underlying structures such as nerves, cartilage, or muscle which could lead to temporary or permanent loss of sensation or motor function. ?? Benefit is precise tumor removal ?? If reconstruction is performed, it is specific to the patient and defect. ?? Discussed that the shape, size, depth of the wound is often not known until the tumor is clearedand thus the reconstruction options are sometimes not known until after tumor clearance. Occasionally, referrals to other providers may be recommended for reconstruction based on patient preference and need. ?? Reviewed the pros and cons of common reconstructions used for this tumor type, size, and location, and that reconstruction may lead to change in appearance. ?? Natural history of scar was discussed, including that the scar will continue to mature for 1-2 years. Recommended avoidance of special ointments or scar creams, and avoidance of direct sun exposure to the scar for optimal recovery. ?? Reviewed that there are some aspects of cosmesis that are dependent on patient's characteristicssuch as age, skin laxity/texture factors, inflammatory skin diseases such as rosacea, prior surgery/radiation, degree of actinic damage, smoking status, strength of the patient's immune system, diligent wound care, medications, and genetics. ?? Having Mohs surgery may lead to physical limitations for optimal healing, such as restricted physical activity and heavy lifting. 4. The nature of sun-induced photo-aging and skin cancers was discussed. Recommended sun avoidance when possible, especially peak hours of sun 10 am to 2pm, protective clothing such as wide-brimmed hats and long-sleeved clothing, and the use of SPF broad-spectrum sunscreen SPF 50 or higher. 5. Signs and symptoms of skin cancer reviewed. Patient to report any new, changing, or symptomatic lesions and follow up with his or her director family or other skin provider. 6. Discussed avoiding direct sun exposure to scars for best cosmetic result. Note initiated by WES Campbell CMA has performed the documentation for this encounter in the presence of and acting as a scribe for Dr. Ram I performed the above scribed service and agree with the accuracy of the documentation in this encounter. Reviewed and signed by: Santiago Ram Dermatology [facility] * Santiago Ram MD - 08/07/2021 10:30 AM EST Mohs micrographic Surgery Operative Report Patient name: Heidi Mcdermott : 1935 Date: 08/07/2021 Staff Surgeon: Santiago Ram MD PhD Nursing/Recycling Coordinator(s): Bessy Henderosn CLIENT RELATIONSHIP CONSULTANT, Lali Delgado [facility], Yaa Amador [facility], Bill Strong CLIENT RELATIONSHIP CONSULTANT, Roz Parr CMA Second Cutter (s): Dianne Phelan Pre-operative diagnosis: infiltrating carcinoma with basaloid and squamous features Post-operative diagnosis: Infiltrating Basal Cell Carcinoma Location/Site: right alar crease Procedure: Mohs micrographic surgery Indication(s) for Mohs micrographic surgery: Anatomic location for tissue conservation Stages: 2 Preoperative size of tumor: 0.7 x 0.5 cm Stage I The nature and purpose of the procedure, associated risks, possible consequences and complications,and alternative forms of treatment were explained in detail. We reviewed the possible repairs basedon the clinical appearance of tumor but discussed that often the repair options may not be known until the tumor has josette extirpated. Informed consent and permission to take photographs were obtained. The site was confirmed with the patient/authorized u.s. representative/referring physician and/or a photograph form time of biopsy. A pre-operative time-out (procedural pause) was conducted with no unresolved discrepancies noted. Local anesthesia was obtained with 1% lidocaine with 1:100,000 epinephrine. The surgical site was prepped and draped in the usual sterile manner. With all visible gross tumor completely excised, the borders of the tumor and 2- 3 mm margins were excised as a complete layer. Hemostasis was achieved by electrocoagulation. The excised tissue was oriented and divided into 2 sections, chromacoded, and submitted for frozen sections. The patient tolerated the procedure well and without complications. On microscopic evaluation of the frozen sections, residual tumor was identified as basal cell carcinoma (type of tumor) on sections A1 and A2 (see section number on map). Stage II The surgical site was re-anesthetized with 1% lidocaine with 1:100,000 epinephrine, re-prepped and redraped in a sterile manner. The residual tumor was re-excised as a complete layer 2-3mm in thickness using the Mohs map to delineate area of residual tumor. Hemostasis was achieved with electrocoagul ation. The tissue was oriented and divided into 2 sections, chromacoded, and submitted for frozen sections. The patient tolerated the procedure well and without complications. On microscopic evaluation of the frozen sections, no residual tumor was identified on the deep or outer border of the sections. Depth of excision fibrofatty tissue Final defect size: 1.5 x 1.0 cm Santiago Ram MD PhD Mohs Micrographic Surgery and Dermatologic Oncology Department of Dermatology [address] [place] [id number] OPERATIVE REPORT FOR REPAIR: Two-stage interpolation flap closure Staff Surgeon: Santiago Ram Assistants: As above Date of Service: 08/07/21 Diagnosis: 1.5 x 1.0 cm defect status post Mohs micrographic surgery for removal of cutaneous tumor Indication: Repair of defect/wound to restore anatomy and function of site Repair Type: two-staged interpolation flap closure (today part 1 of 2) with plan for division of flap at another date. The anesthesia with 1% lidocaine with epinephrine 1:200,000 and another sterile prep were performed. To avoid anatomic distortion, the wound was closed with a two-staged interpolation flap from the right cheek. The flap was incised down to the subcutaneous tissue and the pedicle was carefully created with enough length and diameter to cover the defect and appropriate bleeding demonstrated intact v ascularity. The wound edges were undermined in the subcutaneous plane, and hemostasis was obtained with electrocoagulation. The cheek defect was undermined and closed with 4.0 monocryl subcutaneous sutures and 6.0 prolene skin sutures. The flap was sutured into place with 5.0 monocryl subcutaneous sutures. The wound edges of the flap inset were closed with 6.0 prolene and 5.0 chromic gut sutures.Final flap size: 5.0 x 3.0 cm. Estimated blood loss: Minimal. Complications: None. Wound care: Routine. The patient will return in 1 week for suture removal, and again in 3 weeks for flap takedown. Santiago Ram MD PhD Mohs Micrographic Surgery and Dermatologic Oncology Department of Dermatology [address] [place] [id number] documented in this encounter Plan of Treatment Upcoming Encounters Date Type Department Care Team (Late st Contact Info) Description 03/30/2024 11:00 AM EDT Office Visit Dermatology at [address] [address] Serenity Cheema MD [facility] DR RY[facility] [place] [address] documented as of this encounter Visit Diagnoses Diagnosis Basal cell carcinoma of right ala nasi Basal cell carcinoma of skin of other and unspecified parts of face documented in this encounter Care Teams Leisure Travel Agent Relationship Specialty Start Date End Date Alma Youssef MD [address] [place] [id number] PCP - General 03/22/13 documented as of this encounter
--- OUTSIDE RECORDS SUMMARY | 2024-03-19 15:49 | XMS_ITS | Encounter Summary ---
Author Organization [facility] Address [facility] [address] [place] [address] Care Team Providers Care Offset Lithographic Press Operator Name Role Phone Alma Youssef MD Primary Care Provider [phone] Reason for Visit * Reason Comments Skin Check Encounter Details Date Type Department Care Team (Late st Contact Info) Description 07/23/2019 3:15 PM EST Office Visit Dermatology at [facility] [address] [place] [phone] Serenity Cheema MD [facility] [address] [place] [address] AK (actinic keratosis); SK (seborrheic keratosis) Social History Tobacco Use Types Packs/Day [...] Progress Notes * Serenity Cheema MD - 07/23/2019 3:15 PM EST DERMATOLOGY ESTABLISHED PATIENT CLINIC NOTE Date of service: 07/23/2019 Heidi Mcdermott : 1935 Provider: Serenity Cheema MD Chief Complaint Patient presents with ??? Skin Check SKIN HISTORY: BCC left brow [address] Mcgill BCC 2014 left arm, excision Other: Actinic keratosis Seborrheic keratosis Rowell Angiomas ?? PATIENT PREFERENCES Preferred name: Heidi Preferred contact method with results: Phone Detailed message including biopsy results okay?:Yes?? Are there any other people with whom we may discuss your care?:Daughter, Lulu Mcdermott is a 84 y.o. year old female. Established patient, last seen by me on 04/13/18. Here today for a full skin examination. Currently on oral prednisone 5 mg daily for polymyalgia rheumatica. As far as skin concerns, patient reports scaling on her nose and right latter day that she would like to address today. Has does Efudex to her nose in the past (2 years ago). ADR: Allergies Allergen Reactions ??? Latex CIS - Localized Reaction ??? Gloves, Latex CIS - Localized Reaction ??? Latex Dams CIS - Localized Reaction MEDS: Current Outpatient Medications Medication Sig Dispense Refill ??? cranberry fruit extract (CRANBERRY CONCENTRATE ORAL) Take by mouth. ??? clobetasol (TEMOVATE) 0.05 % Ointment Apply topically to the affected areas on leg and arms twice daily prn 60 g 1 ??? fluorouracil (EFUDEX) 5 % Cream Apply topically to nose, bilateral temples, and affected areas on right forearm twice daily (morning and night) for 3 weeks (Patient not taking: Reported on 12/08/2017) 40 g 0 ??? CRESTOR 20 mg [...] axillae, upper and lowerextremities, hands, and feet. Significant skin findings: A. Nose and right temporal forehead and upper cutaneous lip just below the left nostril: 0.2-0.3cm scaly irregular pink papules B.Trunk and extremities: Brown papule/plaques with waxy stuck-on appearance. ASSESSMENT/PLAN: A. Actinic Keratoses - Explained etiology, natural history and premalignant potential of these lesions. - Discussed treatment options (LN2, 5-FU) and their respective risks and benefits. - Patient elects to proceed with 5-FU treatment. She has prescription at home and will call clinic is she needs refill. B. Seborrheic Keratoses - Etiology discussed - Patient reassured that benign in nature FOLLOW-UP: RTC in January 2020 (per patient preference) for follow-up and full skin exam, or sooner ifneeded. Reminder placed in the system to schedule. Patient instructed to call with any questions orconcerns. I am documenting this encounter acting as the scribe for and in the presence of Dr. Cheema.: RICO DEY LPN and Grace Gutierrez I performed the above scribed service and agree with the accuracy of the documentation in this encounter. Serenity hCeema MD Section of Dermatology [facility] documented in this encounter Plan of Treatment Upcoming Encounters Date Type Department Care Team (Late st Contact Info) Description 03/30/2024 11:00 AM EDT Office Visit Dermatology at [facility] [address] [place] [address] Serenity Cheema MD [facility] [address] [place] [address] documented as of this encounter Visit Diagnoses Diagnosis AK (actinic keratosis) Actinic keratosis SK (seborrheic keratosis) Other seborrheic keratosis documented in this encounter Care Teams Offset Lithographic Press Operator Relationship Specialty Start Date End Date Alma Youssef MD [address] [place] [address] PCP - General 03/22/13 documented as of this encounter
--- OUTSIDE RECORDS SUMMARY | 2024-03-19 15:49 | XMS_ITS | Encounter Summary ---
Author Organization [facility] Address [facility] [address] [place] [address] Care Team Providers Care Funeral Prearrangement Counselor Name Role Phone Alma Youssef MD Primary Care Provider [phone] Reason for Visit * Reason Comments Procedure Encounter Details Date Type Department Care Team (Late st Contact Info) Description 09/05/2021 2:30 PM EST Office Visit Dermatology at [facility] [address] [place] [phone] Santiago Ram MD [facility] [address] [place] [address] Basal cell carcinoma (BCC) of right ala nasi Social History Tobacco [...] this encounter Patient Instructions * Patient Instructions* Coccomo, Dana M, RN - 09/05/2021 2:30 PM EST Your staff surgeon today was Santiago Ram MD,PhD. Your wound(s) was repaired by [id number] stitches called a primary repair. You do not need to come back for suture removal because only absorbable sutures were used today. If the absorbable sutures bother your skin or do not absorb after 2 weeks, you may call us to remove them for you. Instructions are as below. Please keep this as a reference: Wound Care For wounds closed with absorbable-only stitches: ??? Gently remove your initial bandage (after 48 hours from surgery) and begin wound care as below. ??? If your initial bandage only lasts 24 hours (for example, falls off sooner), this is okay. Resume your wound care and bandaging instructions as below. ??? Change your bandage once a day (and whenever it becomes wet or soaks through). DO WOUND CARE FOR ONE WEEK. ??? For bandage changes: o Wash hands with soap and water, or use gloves that you can purchase a local pharmacy or drug store. o Clean the surgical area with cotton-tipped swabs or gauze dipped in soapy water (recommend liquidsoap in clean room temperature water). Do not scrub the area or put direct shower water pressure onto your wound. It is okay to allow soapy water to run over your wound in the shower. o If you cannot remove crusted areas, you may soak with wet gauze first for 15 to 20 minutes to help soften it. o Pat the area dry with clean gauze or cotton swabs. Do not rub. o Use a cotton swab to apply a generous layer of petroleum jelly over the incision lines and any open-wound areas. o Cover with clean nonstick gauze or other nonstick dressing, such as Telfa. This may be purchased over the counter at a drug store. Secure with paper tape or bandage. Band-aids are okay, but typically have more adhesive that can irritate the skin compared to paper tape. o Discontinue wound care after 7 days. If any portion of the incision was left open to heal on its own, continue to apply Vaseline daily until healed. o Allow the absorbable stitches to heal. If the top stitches that are absorbable are irritating your skin, you may call us to have them removed. Otherwise, they will be absorbed naturally in approximately 2 weeks. It may absorb as quickly as 4 days. o Keep in mind that if you do not want to use a bandage at all due to difficulty, allergies, irritation of skin, cost, time, or inconvenience --- you can certainly avoid bandages altogether. However,it is imperative that you continue with topical petrolatum ointment or Aquaphor (plain, fragrance-free). This may need to be applied several times daily if it gets wiped off, washed off, or dries out. Things to purchase for wound care: -Nonstick gauze -A tube or tub of petrolatum jelly (fragrance-free, no dye, not lotion) -paper tape -cotton swabs -gloves (optional) -Dial or other antibacterial liquid soap After Surgery 1. If you are a tobacco user please attempt to decrease the amount of tobacco products used following surgery for 1-2 weeks. 2. Limit alcohol intake to one drink per day for the next 3 days. 3. Do not participate in athletic activities for 5-7 days, unless you were told a different timeline during your visit. Athletic activity is a relative term, but this is considered to be anything that could potentially raise your heartrate or blood pressure. Elevating your heart rate and blood pressure increases the risk of swelling, bleeding, wound opening, and it could lead to worse scarring. Walking at a leisurely pace is fine for most people, but not if you are walking for the purpose of exercise. When in doubt, take it easy or call us. 4. Do not lift anything heavier than 10 pounds for 5-7 days postoperatively. 5. Some industrial design intern may need to be delayed or delegated such as vacuuming, mowing the lawn, snow shoveling, or caring for young children that need to be carried/lifted. Working any major muscle groups increases your heart rate and can increasing bleeding. 6. Avoid swimming, hot tubs, and direct water pressure for 3 weeks after surgery. You may shower, however, once your initial bandage comes off in 48 hours. 7. Avoid antibiotic ointments such as triple antibiotic creams. Stick with your wound care instructions, please. 8. Whenever possible, it is helpful to take photographs with your camera or cell phone of any problems or concerns you see with your wound. We often ask for photos when you call with questions. 9. Starting 2 months following surgery, you can begin firm massage to any areas of firm scar along your incision to soften the scar and reduce bumpiness. Do this 3 times per day, 3 minutes each time.Do not start massage before 2 months. 10. Your wound will appear almost completely healed soon after sutures are removed (about 1 week), but incisions can remain bright red for several weeks. Then the scarring and healing process continues under the skin for 6 months until to 2 years. The scar may become less red, less firm, and more subtle during this time; please note that the rate of improvement varies depending on the person. Most redness, discoloration, bumpiness resolves by 6 months, and most patients will look presentable within a few weeks after surgery. 11. Keep your follow-up appointments and make sure to continue to have your skin checked, as often as is recommended by your acoustical tile carpenters supervisor, for new skin cancers. This is once per year for most patients. 12. Your can expect your scar to be red for several weeks with gradual fading of the redness. Your scar will also be raised and lumpy until the dissolvable sutures under the skin get absorbed by yourbody which can take 3-4 months. The scar will flatten eventually. a. If you have a skin condition called rosacea, the redness can last long-term, or you can get an increased appearance of red vessels to the skin. The appearance of vessels slightly improves, but tends to respond well to laser treatments. 13. Occasionally, about 20% of the time on the face, the stitches under the skin can spit out of the incision to the surface. It can start out looking like a pimple or blemish directly on your incision. Sometimes you can feel something poking through the incision. it can look also minic a small area of infection, so please let us know before you go to another provider for antibiotics. This means that the suture may need to be trimmed or removed when you return for your wound check. This typically occurs a few weeks after surgery if it does occur. 14. To optimize your scar, and best cosmetic result, please avoid direct sunlight to your incision for the first 6 months following surgery. UV ray exposure to your incision may cause the redness to last longer, or to cause permanent darkening of your scar. You can avoid sun by covering your incision with a bandage when outdoors, wearing broad-rimmed hats, and wearing SPF 30 to 50 sunscreen (broad spectrum). 15. Any time you have skin surgery or any type of surgery, you can experience mild sensation loss (numbness) in the area of surgery. Massage starting at 8 weeks after surgery can help. 16. Swelling and bruising is common, and expected, especially if your surgery site was on the forehead, cheeks, temples, nose, or eyelids. . Sometimes it can be quite profound, where the eyelids swell shut, or getting black eyes. This is especially true if you are on blood thinners such as aspirin. Swelling and bruising will peak at about 48 hours after surgery. Bruising and swelling will gradually resolve. You can use ice packs or a bag of frozen peas for 15-20 minutes, 20 minutes off, up to3-4 times daily to areas of swelling on the face. Use caution not to put the icy item directly ontoyour incision, or directly in contact with your skin as this can damage skin. Avoid prolonged use more than 20 minutes. The best way to use ice packs is over the bandage, or using a light cloth/papertowel barrier between the ice pack and your skin. You can ice for as many days as needed until swelling has resolved. Eyelid and lip swelling is typically the last type of swelling to resolve. Antibiotics: If you were given antibiotic prescription, it is important to start them the evening of your surgery date. However, most patients do not need antibiotics after surgery. For pain: Most patients of different [...] that is worsening and not relieved by over the counter medications such as acetaminophen (up to 3000 mg in a 24 hour period) ??? Wound reopening after stitching ??? Pus or bad odor from your wound ??? Worsening redness and warmth around your wound ??? If you think your surgery site is infected, please call us before seeking care or antibiotics from other providers ??? Please call us before seeking care in an emergency room or primary care. ??? If you do call, please leave your full name, phone number, date of , date of surgery, and medical record number if you have it. If after hours, please call the folded towel machine operator or [phone] and ask for the acoustical tile carpenters supervisor on-call. If you have any non-urgent questions or concerns, please feel free to call my office or contact me through our patient portal, [facility], at [email or web address] How to contact us during business hours Dermatology at [facility] [address]: Mohs scheduling or Mohs follow-up appointments: [phone] documented in this encounter Progress Notes * Santiago Ram MD - 09/05/2021 2:30 PM EST OPERATIVE REPORT (REPAIR): Second-stage flap takedown STAFF: Santiago Ram MD PhD ASSISTANTS: Dana Yanez RN, Daniel Barbosa MD DATE OF SERVICE: 09/05/2021 INDICATION: PLANNED SECOND-STAGE PEDICLE TAKEDOWN. POSTOP DIAGNOSIS: Status post excision of infiltrative basal cell carcinoma performed on date of 08/07/2021. SITE: Right alar crease PROCEDURE Second-stage flap takedown. Prior to the procedure, final verification of the patient identity and correct marked surgical sitewas performed. The anesthesia used was 1% lidocaine with 1:100,000 epinephrine. The skin was prepped in a sterile fashion with 4% Chlorhexidine Gluconate. The flap pedicle was divided. The distal portion of the pedicle was trimmed and defatted to inset into the defect with 4-0 Monocryl and 5-0 fast absorbing gut suture. The proximal portion of the pedicle was trimmed full thickness and the free margins reapproximated with 4-0/ 5-0 Monocryl and 5-0 fast gut suture. Hemostasis was obtained with electrocoagulation. The wound edges of the cheek were closed in a layered fashion with 5-0 fast gut. Postoperative size: 2 x 2 cm. Estimated blood loss: Minimal. Complications: None. Wound care: Routine. Total local anesthesia with 1% lidocaine with 1:100,000 epinephrine used: 9cc Follow up as needed. Note initiated by ARNEL Contreras RN has performed the documentation for this encounter in the presence of and acting as a scribe for Dr. Ram I performed the above scribed service and agree with the accuracy of the documentation in this encounter. Reviewed and signed by: Santiago Ram Dermatology [facility] documented in this encounter Plan of Treatment Upcoming Encounters Date Type Department Care Team (Late st Contact Info) Description 03/30/2024 11:00 AM EDT Office Visit Dermatology at [facility] [address] [place] [address] Serenity Cheema MD [facility] [address] [place] [address] documented as of this encounter Visit Diagnoses Diagnosis Basal cell carcinoma (BCC) of right ala nasi documented in this encounter Care Teams Funeral Prearrangement Counselor Relationship Specialty Start Date End Date Alma Youssef MD [address] [place] [address] PCP - General 03/22/13 documented as of this encounter
--- OUTSIDE RECORDS SUMMARY | 2024-03-19 15:49 | XMS_ITS | Encounter Summary ---
Author Organization [facility] Address [facility] [address] [place] [address] Care Team Providers Care Weaver Needle Loom Name Role Phone Alma Youssef MD Primary Care Provider [phone] Reason for Visit * Reason Onset Date Comments Pre Procedure Call 07/31/2021 Encounter Details Date Type Department Care Team (Late st Contact Info) Description 07/31/[address] at [address] [place] [address] Bill Strong CMA Pre Procedure Call Social History Tobacco Use Types Packs/Day Years [...] encounter Miscellaneous Notes * Telephone Encounter - Bill Strong CMA - 07/31/2021 2:31 PM EST Mohs consultation and preoperative note (H&P) Patient Name: Heidi Mcdermott Age: 86 y.o. Date of : 1935 Today's Date: 07/31/2021 REFERRING PROVIDER: No ref. provider found CC: Mohs micrographic surgery for treatment of a cutaneous tumor HPI: Heidi Mcdermott is a 86 y.o. 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 The dermatologic preoperative information sheet was reviewed with pertinent positive and negative as below. DERMATOLOGIC PRE-OPERATIVE EVALUATION AND REVIEW OF SYSTEMS History of Mohs surgery? no If yes, have you ever had Mohs surgery with Dr. Lockhart? no Pacemaker/Defibrillator? no Joint replacement or other implantable devices (e.g. Cochlear implant)? If yes then when? no Do you take a blood thinner? Yes Aspirin History of organ transplant? no History of artificial valve or stroke? No History of liver disease or bleeding disorder? no Do you have any medical problems that may affect your upcoming surgery? no Do you have any concerns regarding your upcoming surgery? no We ask patients to discontinue Fish oil/Multivitamin/Vit E/?? supplements and natural medicines not prescribed by a physician 1 week prior to surgery. SOCIAL HISTORY: Makes Own Decisions Yes Hearing aid or other devices: Yes hearing aids Relevant travel history or future plans: no Tobacco use (amount per day, type of tobacco): no Do you have any physical limitations that may affect your surgery?: yes uses walker ALLERGIES: Allergies reviewed MEDICATIONS: Medications reviewed documented in this encounter Plan of Treatment Upcoming Encounters Date Type Department Care Team (Late st Contact Info) Description 03/30/2024 11:00 AM EDT Office Visit Dermatology at [facility] [address] [place] [address] [facility] [address] [place] [address] documented as of this encounter Visit Diagnoses Not on filedocumented in this encounter Care Teams Weaver Needle Loom Relationship Specialty Start Date End Date Alma Youssef MD [address] [place] [address] PCP - General 03/22/13 documented as of this encounter
--- OUTSIDE RECORDS SUMMARY | 2024-03-19 15:49 | XMS_ITS | Encounter Summary ---
Author Organization [facility] Address [facility] [address] [place] [address] Care Team Providers Care Associate Professor Of English Name Role Phone Alma Youssef MD Primary Care Provider [phone] Reason for Visit * Reason Comments Skin Check Encounter Details Date Type Department Care Team (Late st Contact Info) Description 04/13/2018 1:15 PM EDT Office Visit Dermatology at [facility] [address] [place] [phone] Serenity Cheema MD [facility] [address] [place] [address] SK (seborrheic keratosis); Juniorca Social History Tobacco Use Types Packs/Day Years [...] Progress Notes * Serenity Cheema MD - 04/13/2018 1:15 PM EDT DERMATOLOGY ESTABLISHED PATIENT CLINIC NOTE Date of service: 04/13/2018 Heidi Mcdermott : 1935 Provider: Serenity Cheema MD Chief Complaint Patient presents with ??? Skin Check SKIN HISTORY: BCC left brow [address] Mcgill actinic keratosis seborrheic keratosis BCC 2014 left arm, excision Rowell Angioma(s ?? PATIENT PREFERENCES Preferred name: Heidi Preferred contact method with results: Phone Detailed message including biopsy results okay?:Yes Are there any other people with whom we may discuss your care?:Daughter, Lulu Mcdermott is a 82 y.o. year old female. Established patient, last seen by me on 12/18/17. Here today for a full skin examination. Patient denies any significant changes in her health since herlast visit. She continues Clobetasol Ointment to the affected areas of Dermatitis as needed. She reports this helps her skin. She denies any new skin concerns today. ADR: Allergies Allergen Reactions ??? Latex CIS [...] complaints EXAM General: NAD, pleasant, cooperative Skin: Full skin exam performed which included palpation and inspection of the scalp of hair, eyebrows and face. Inspection of the skin of the head, face, neck, chest including hair, breasts and axillae, abdomen, genitalia, groin, buttocks, back, right upper extremity, left upper extremity, right lower extremity, left lower extremity, inspection and palpation of digits and nails, eccrine and apocrine glands. No abnormalities seen except as noted. Significant skin findings: A. Left taoism: brown-black papule/plaque with waxy stuck on appearance x 1 B. Right eyelid: 0.1cm firm, round, white subcutaneous papule ASSESSMENT/PLAN: A. Seborrheic keratosis -Patient reassured. -Patient will consider cryotherapy to remove B. Milia -PAtient reassured. -No treatment needed. FOLLOW UP: Follow up in 1 year, or sooner if needed. Reminder placed in the system to schedule. Instructed to call with any questions or concerns. I am documenting this encounter acting as the scribe for and in the presence of Dr. Cheema.: RICO DEY LPN and Grace Gutierrez I performed the above scribed service and agree with the accuracy of the documentation in this encounter. Serenity Cheema MD Section of Dermatology [facility] documented in this encounter Plan of Treatment Upcoming Encounters Date Type Department Care Team (Late st Contact Info) Description 03/30/2024 11:00 AM EDT Office Visit Dermatology at [facility] [address] [place] [address] Serenity Cheema MD [facility] [address] [place] [address] documented as of this encounter Visit Diagnoses Diagnosis SK (seborrheic keratosis) Other seborrheic keratosis Milia Sebaceous cyst documented in this encounter Care Teams Associate Professor Of English Relationship Specialty Start Date End Date Alma Youssef MD [address] [place] [address] PCP - General 03/22/13 documented as of this encounter
--- OUTSIDE RECORDS SUMMARY | 2024-03-19 15:49 | XMS_ITS | Encounter Summary ---
Author Organization [facility] Address [facility] [address] [place] [address] Care Team Providers Care Slab Miller Operator Name Role Phone Unknown Primary Care Provider Unavailabl e Reason for Visit * Reason Comments Skin Check Encounter Details Date Type Department Care Team (Late st Contact Info) Description 07/29/2012 10:50 AM EST Office Visit Dermatology at [facility] [address] [place] [address] Earnest Gramajo MD [facility] [place] [address] [place] (actinic keratosis) (Primary Dx); SK (seborrheic keratosis) Discharge Disposition: Home Social History Tobacco Use Types Packs/Day Years Used Date Smoking Tobacco: Never Sex and Gender Information Value Date Recorded Sex Assigned at Not on file Gender Identity Not on file Sexual Orientation Not on file documented as of this encounter Progress Notes * Gucci Gramajo III, MD - 07/30/2012 1:45 PM EST I was the supervising physician working with dermatology resident Dr. Crescencio Gramajo in the dermatologyclinic during this patient visit. The level of Resident supervision for this patient visit was indirect supervision with direct supervision immediately available. (definition: [facility] Policy Statement on Graduate Medical Education, Supervision of Graduate Medical Trainees) I was immediately available to Dr. Gramajo for questions and discussion regarding this visit. I have reviewed his encounter note details and level of service. * Earnest Gramajo - 07/29/2012 10:47 AM EST DERMATOLOGY - NEW PATIENT NOTE Date of service: 07/29/2012 Heidi Mcdermott : 1935 Dermatology Resident Note: Earnest Gramajo MD Chief Problem: Forehead leisons Chief Complaint Patient presents with ??? Skin Check Ms. Heidi Mcdermott is a 77 y.o. female. This is a new patient to me. Seen in consultation at the request of Pauline Rodas specifically for the evaluation and management of the above problem. HPI: Ms. Mcdermott presents for lesions on forehead and nose Onset: 1-2 years Location: forehead Symptoms: rough, scaly, not bleeding or itchy Treatments tried: none Past Skin History: 1. BCC left brow [address] Mcgill Medical History: Patient Active Problem List Diagnoses Code ??? CIS - coronary artery disease T999.0 ??? CIS - Entered not Verified T999.0 ??? CIS - Hypertension T999.0 ??? 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 CIS Free Text Med - NitroQuick ??? hydrochlorothiazide (HYDRODIURIL) 25 mg tablet ??? Iwhoakykfqzre-Fakvqiww-Jkuwnk (CENTRUM SILVER) Tab ??? magnesium oxide (MAG-OX) 400 mg tablet ??? Glucosamine Sulfate 1,000 mg Cap ??? pravastatin (PRAVACHOL) 80 mg tablet ??? aspirin 81 mg EC tablet ??? acetaminophen (TYLENOL) 325 mg tablet ??? metoprolol tartrate (LOPRESSOR) 25 mg tablet ??? Calcium Carbonate-Vitamin D3 (CALCIUM 600 WITH VITAMIN D3) 600 mg(1,500mg) - 400 unit Cap ??? Ergocalciferol, Vitamin D2, (VITAMIN D) 400 unit Cap ??? ascorbic acid (VITAMIN C) 500 mg tablet Allergies: Allergies Allergen Reactions ??? Latex CIS - Localized Reaction ??? Gloves, Latex CIS - Localized Reaction ??? Latex Dams CIS - Localized Reaction Family History: No family h/o melanoma, or Non Melanoma Skin Cancer No family h/o atopy, psoriasis, or other skin disease Social/Occupational History: Retired. Presents here with spouse today. Review of Systems: General: Feels well Skin: As per HPI; no other skin concerns Examination: Constitutional: Patient was alert, well-appearing and in no noticeable distress. Skin: An exam of the skin from the neck up was performed. This includes examination of the skin of the face, ears, scalp, and neck. Specific skin findings: 1. 0.2-0.3cm scaly irregular pink papule(s) scattered on forehead x 4, nose x 3 2. Single 0.4-0.6cm brown papule with waxy, stuck-on appearance right upper chest Diagnosis/Assessment/Treatment Plan: 1. Actinic keratosis Procedure(s): Destruction of lesion(s) with cryotherapy. Number: 7 Location: as above Discussed procedure and expectations including risks (including risk of hypopigmentation) and benefits. Verbal consent obtained. Frozen with LN2, 15-30 second thaw time, TWICE. There were no complications; the patient tolerated the procedure well. Post-procedure expectations and wound care were reviewed. 2. Seborrheic keratosis. Benign lesion, patient reassured. Follow-up: RTC in 6 months or sooner prn. Instructed to call for questions or concerns. Earnest Gramajo MD Resident in Dermatology [facility] I am being supervised by Staff asbestos remover: Gucci Gramajo MD Section of Dermatology [facility] documented in this encounter Plan of Treatment Upcoming Encounters Date Type Department Care Team (Late st Contact Info) Description 03/30/2024 11:00 AM EDT Office Visit Dermatology at [facility] [address] [place] [address] Serenity Cheema MD [facility] [address] [place] [address] documented as of this encounter Visit Diagnoses Diagnosis AK (actinic keratosis)- Primary Actinic keratosis SK (seborrheic keratosis) Other seborrheic keratosis documented in this encounter Care Teams Slab Miller Operator Relationship Specialty Start Date End Date Unknown None PCP - General 07/29/12 03/21/13 documented as of this encounter
--- OUTSIDE RECORDS SUMMARY | 2024-03-19 15:49 | XMS_ITS | Encounter Summary ---
Author Organization [facility] Address [facility] [address] [place] [address] Care Team Providers Care Embroidery Finisher Name Role Phone Alma Youssef MD Primary Care Provider [phone] Reason for Visit * Reason Onset Date Comments Pre Procedure Call 02/15/2014 Encounter Details Date Type Department Care Team (Late st Contact Info) Description 02/15/2014 Telephone Dermatology at [facility] [address] [place] [address] Saskia Torrez LPN Pre Procedure Call Social History Tobacco Use [...] encounter Miscellaneous Notes * Telephone Encounter - Saskia Torrez LPN - 02/15/2014 10:07 AM EDT Pre-Op excision phone call Date of Call: 02/15/14 Surgical procedure to be done: excision basal cell carcinoma, left arm on 02/21/14 with Serenity Cheema MD Spoke with Heidi Mcdermott by phone to review the following. Review of medications: instructed to take all medications as directed before procedure. Does take any blood thinners. Aspirin 81mg Does not have any allergies to Lidocaine or epinephrine. Does not take antibiotics before dental procedures. Does have any cardiac issues, triple bypass 2009, No murmurs or valve replacements. Does not have a pacemaker or defibrillator. Has not had a total joint replacement with in the past 2 years. Recommend that she be accompanied by someone who can drive her home if needed. Discussed length of procedure and time variables. Post operative instructions reviewed including physical limitations after procedure. Phone number given should any questions or concerns arise before or after the procedure. Mrs. Mcdermott states that she understands all of the above. Saskia Torrez LPN documented in this encounter Plan of Treatment Upcoming Encounters Date Type Department Care Team (Late st Contact Info) Description 03/30/2024 11:00 AM EDT Office Visit Dermatology at [facility] [address] [place] [address] Serenity Cheema MD [facility] [address] [place] [address] documented as of this encounter Visit Diagnoses Not on filedocumented in this encounter Care Teams Embroidery Finisher Relationship Specialty Start Date End Date Alma Youssef MD [address] [place] [address] PCP - General 03/22/13 documented as of this encounter
--- OUTSIDE RECORDS SUMMARY | 2024-03-19 15:49 | XMS_ITS | Encounter Summary ---
Author Organization [facility] Address [facility] [address] [place] [address] Care Team Providers Care [place] Dental Lab Technician Name Role Phone Alma Youssef MD Primary Care Provider [phone] Reason for Visit * Reason Onset Date Comments Other 04/07/2013 follow up Encounter Details Date Type Department Care Team (Late st Contact Info) Description 04/07/2013 Telephone [place] [phone] Elvis Rolon PA [facility] [place] [address] Other (follow up) Social History Tobacco Use Types Packs/Day Years [...] encounter Miscellaneous Notes * Telephone Encounter - Jeniffer Casey RN - 04/07/2013 12:50 PM EDT Called patient, left message to call [phone] to discuss her concerns. * Telephone Encounter - Lou Gibson - 04/07/2013 9:52 AM EDT Patient saw Esa Rolon on 03/22/13 and had an injection. She was told to call and let him know how she was doing. She said that she was doing better until today. She states that the pain is back today, not as bad, but still there. She has started taking 600mg ibuprofen. She is looking for advice. She can be reached at home [phone], but will be gone from [phone] today. documented in this encounter Plan of Treatment Upcoming Encounters Date Type Department Care Team (Late st Contact Info) Description 03/30/2024 11:00 AM EDT Office Visit Dermatology at [facility] [address] [place] [address] Serenity Cheema MD [facility] [address] [place] [address] documented as of this encounter Visit Diagnoses Not on filedocumented in this encounter Care Teams [place] Dental Lab Technician Relationship Specialty Start Date End Date Alma Youssef MD [address] [place] [address] PCP - General 03/22/13 documented as of this encounter
--- OUTSIDE RECORDS SUMMARY | 2024-03-19 15:49 | XMS_ITS | Encounter Summary ---
Author Organization [facility] Address [facility] [address] [place] [address] Care Team Providers Care Tunnel Heading Inspector Name Role Phone Alma Youssef MD Primary Care Provider [phone] Reason for Visit * Reason Comments Skin Check Encounter Details Date Type Department Care Team (Late st Contact Info) Description 02/20/2016 11:00 AM EDT Office Visit Dermatology at [facility] [address] [place] [phone] Serenity Cheema MD [facility] [address] [place] [address] [place] (actinic keratosis); Seborrheic keratosis; History of [...] Progress Notes * Serenity Cheema MD - 02/20/2016 10:46 AM EDT DERMATOLOGY ESTABLISHED PATIENT CLINIC NOTE Date of service: 02/20/2016 Heidi Mcdermott : 1935 Provider: Serenity Cheema MD Chief Complaint Patient presents with ??? Skin Check SKIN HISTORY: BCC left brow [address] Mcgill actinic keratosis seborrheic keratosis BCC 2014 left arm, excision [place] Angioma(s) ?? HPI Heidi Mcdermott is a 80 y.o. year old female. Here for f/u 5FU which she used to her temples, nose, upper cutaneous lip, forearm. Only the forearm seems to have any residual. ADR: Allergies Allergen Reactions ??? Latex CIS [...] complaints EXAM General: NAD, pleasant, cooperative Skin: An exam of the skin from the neck up was performed. This includes examination of the skin of the face, ears, scalp, and neck and including the right dorsal forearm. Significant skin findings: A. Right dorsal forearm: remnant scaly irregular pink papule B. Left paranasal/medial cheek: residual warty stuck on papule C. Left eyebrow- well healed scar-removal of BCC in 1995 ASSESSMENT/PLAN: A. Residual Actinic Keratosis Discussed premalignant potential of lesions with patient and counseled that destruction with liquidnitrogen therapy is recommended. Patient agreed to the procedure after discussing risks/benefits/alternatives of the procedure, including hypopigmentation and discomfort. Wound care reviewed. Procedure Note: Procedure: Destruction of lesion with cryotherapy. Number: 1 Location: as above Discussed procedure and expectations including risks (including risk of hypopigmentation) and benefits. Verbal consent obtained. Frozen with LN2, 15-30 second thaw time, TWICE. There were no complications; the patient tolerated the procedure well. Post-procedure expectations and wound care were reviewed. B. Residual Seborrheic keratoses - Discussed benign nature of lesion and provided reassurance. No treatment necessary at this time. C. NER of BCC- patient reassured Follow up: November 2016 for full skin exam as per reminder in system, sooner if needed. Patient instructed to call with questions or concerns. I am documenting this encounter acting as the scribe for and in the presence of Dr. Cheema.: Varsha Lux, Clinical Scribe I performed the above scribed service and agree with the accuracy of the documentation in this encounter. Serenity Cheema MD Section of Dermatology [facility] documented in this encounter Plan of Treatment Upcoming Encounters Date Type Department Care Team (Late st Contact Info) Description 03/30/2024 11:00 AM EDT Office Visit Dermatology at [address] [address] Serenity Cheema MD [facility] [address] [place] [place] [address] documented as of this encounter Visit Diagnoses Diagnosis AK (actinic keratosis) Actinic keratosis Seborrheic keratosis Other seborrheic keratosis History of basal cell carcinoma Personal history of other malignant neoplasm of skin documented in this encounter Care Teams Tunnel Heading Inspector Relationship Specialty Start Date End Date Alma Youssef MD [address] [place] [address] PCP - General 03/22/13 documented as of this encounter
--- OUTSIDE RECORDS SUMMARY | 2024-03-19 15:49 | XMS_ITS | Encounter Summary ---
Author Organization [facility] Address [facility] Mar[address] [place] [address] Care Team Providers Care Studio Set Up Worker Name Role Phone Alma Youssef MD Primary Care Provider [phone] Encounter Details Date Type Department Care Team (Late st Contact Info) Description 06/14/2023 5:20 PM EDT Ancillary Procedure [place] [address] Yessy Mckeon APRN [facility] [address] Social History Tobacco Use Types Packs/Day Years [...] 11:00 AM EDT Office Visit Dermatology at [facility] [address] [place] [address] Serenity Cheema MD [facility] [place] [address] documented as of this encounter Procedures Procedure Name Priority Date/Time Associated Diagnosis Comments FILM LIBRARY STORAGE ONLY DX PELVIS Routine 06/14/2023 5:08 PM EDT documented in this encounter Results * Film Library- Storage Only DX Pelvis (06/14/2023 5:08 PM EDT) Narrative JASPAL - 06/14/2023 5:08 PM EDT This exam is auto-finalizing. It's purpose is for storage only. L Estella Mckeon APRN IMG FILM LIBRARY ORDERABLES Performing Organization Address City/State/[facility] Co de Phone Number [place], [place] documented in this encounter Visit Diagnoses Not on filedocumented in this encounter Care Teams Studio Set Up Worker Relationship Specialty Start Date End Date Alma Youssef MD [address] [place] [address] PCP - General 03/22/13 documented as of this encounter
--- OUTSIDE RECORDS SUMMARY | 2024-03-19 15:49 | XMS_ITS | Encounter Summary ---
Author Organization [facility] Address [facility] [address] [place] [address] Care Team Providers Care Special Effects Person Name Role Phone Unknown Primary Care Provider Unavailabl e Encounter Details Date Type Department Care Team (Late st Contact Info) Description 03/18/2013 Orders [place] [address] Elvis Rolon PA [facility] [place] [address] Right knee pain (Primary Dx) Social History Tobacco Use Types Packs/Day Years Used Date Smoking Tobacco: Never Sex and Gender Information Value Date Recorded Sex Assigned at Not on file Gender Identity Not on file Sexual Orientation Not on file documented as of this encounter Plan of Treatment Upcoming Encounters Date Type Department Care Team (Late st Contact Info) Description 03/30/2024 11:00 AM EDT [facility] [address] [place] [address] Serenity Cheema MD [facility] [address] [facility] [place] [address] documented as of this encounter Results * XR JOINT TEAM [...] this encounter Visit Diagnoses Diagnosis Right knee pain- Primary Pain in joint, lower leg Right knee pain Pain in joint, lower leg documented in this encounter Care Teams Special Effects Person Relationship Specialty Start Date End Date Unknown None PCP - General 07/29/12 03/21/13 documented as of this encounter
--- OUTSIDE RECORDS SUMMARY | 2024-03-19 15:49 | XMS_ITS ---
Author Organization [facility] dicine Visit Address [address], [address] [place] [address] Care Team Providers Care Instrumental Music Teacher Name Role Phone Alma Youssef Primary Care Provider ALLERGIES Allergen (clinical drug ingredient) Drug/Non Drug Allergy documented on EMR Reaction Allergy Type Onset Date Status Latex latex (uncoded) rash Allergy Acti ve Influenza Vac Typ A&B Surf Ant arm itching Drug Allergy Active Tetanus Immune Globulin arm pain swelling Drug Allergy Active RESULTS Component Value Reference Range Notes CBC, WITH AUTO DIFF Reviewed date:04/16/2023 09:57:21 AM Interpretation: Performing Lab: Notes/Report: COMPREHENSIVE METABOLIC PROF ILE Reviewed date:04/16/2023 09:57:21 AM Interpretation: Performing Lab: Notes/Report: Alk Phos 75 38-130 IntlUnit/L Albumin Level 4.4 3.5-5.0 g/dL Anion Gap 11.0 3.0-12.0 BUN/Creat Ratio 28.6 8.0-20.0 Osmolality 276 275-295 mOsm/kg A/G Ratio 1.6 1.0-2.5 g/dL Globulin 2.7 2.3-3.5 g/dL LIPID PROFILE Reviewed date:04/16/2023 09:57:21 AM Interpretation: [...] 23.4 11.0 - Ordering Provider: Alma Youssef TSH Reviewed date:04/16/2023 09:57:21 AM Interpretation: Performing Lab: Notes/Report: TSH 3.02 0.45-5.33 mcIntlUnit/mL - Ordering Provider: Alma Youssef REASON FOR VISIT Medicare Annual MEDICATIONS Medication SIG (Take, Route, Frequency, Duration) Notes Start Date End Date Status Vitamin D 1000 UNIT 1 tablet Orally Once a day for 30 day(s) Active Cranberry 450 MG 1 tablet with meals Orally Twice a day Active Aspirin 81 MG 1 tablet Orally Once a day for 30 day(s) Active Metoprolol Tartrate 25 MG 1 tablet Orally Twice a day for 90 days Active Levothyroxine Sodium 25 MCG 1 tablet Orally Once a day for 90 days 08/23/2014 Active amLODIPine Besylate 5 MG 1 tablet Orally Once a day for 90 days Active Crestor 20 MG 1 tablet Orally Once a day for 90 days Active Turmeric 500 MG as directed Orally Not-Taking Cymbalta 30 MG 1 capsule Orally Once a day for 90 days 01/31/2022 Active Tylenol 325 MG 1 tablet as needed Orally every 4 hrs Active Glucosamine MSM Complex 1 tablet with me als Orally Three times a day for 30 day(s) Active Nitrostat 0.[address] 1 tablet under the tongue if needed every 5 minutes for chest pain for 3 doses IN 15 MINUTES not taking Active VITAL SIGNS Heart Rate 78 /min 04/10/2023 Blood pressure systolic 110 mm Hg 04/10/20 23 Blood pressure diastolic 72 mm Hg 023 Height 65 in 04/10/2023 Weight 129 lbs 04/10/2023 BMI 21.46 kg/m2 04/10/2023 Encounters Encounter Location Date Provider Diagnosis [facility] [address] [place], [place] [id number] 04/10/2023 Alma Youssef Encounter for genera l adult medical examination without abnormal findings Z00.00 ; Hypothyroidism, unspecified E03.9 ; Atherosclerotic heart disease of [place] coronary artery without angina pectoris I25.10 and Polyosteoarthritis, unspecified M15.9 ASSESSMENTS Encounter Date Diagnosis Assessment Notes Treatment Notes Treatment Clinical Notes 04/10/2023 Encounter for genera l adult medical examination without abnormal findings (ICD-10 - Z00.00) Consider ortho or PT for arthritis pain. She does not want a referral today. Discussed lifeline, safety at home. 04/10/2023 Hypothyroidism, unspecified (ICD-10 - E03.9) 04/10/2023 Atherosclerotic hear t disease of [place] coronary artery without angina pectoris (ICD-10 - I25.10) 04/10/2023 Polyosteoarthritis, unspecified (ICD-10 - M15.9) PLAN OF TREATMENT Medication Medication Name Sig Start Date Stop Date Notes Metoprolol Tartrate 25 MG 1 tablet Orall y Twice a day for 90 days Levothyroxine Sodium 25 MCG 1 tablet Ora lly Once a day for 90 days 08/23/2014 amLODIPine Besylate 5 MG 1 tablet Orally Once a day for 90 days Crestor 20 MG 1 tablet Orally Once a day for 90 days Cymbalta 30 MG 1 capsule Orally Onc e a day for 90 days 01/31/2022 Treatment Notes Assessment Notes Encounter for general adult medical examination without abnormal findings Consider ortho or PT for arthritis pain. She does not want a referral today. Discussed lifeline, safety at home. Next Appt Details Follow Up: 1 Year, Brielle kate on: Progress Notes * Lori MCDERMOTTDerejeB: 6 (87 yo F)Acc No.[id number]:04/10/2023 Progress Notes Patient:??Heidi Mcdermott Provider:??Alma Youssef M.D. :1935?Age:87 Y?Sex:Fe male Date:04/10/2023 Address:[address] [place] [address] [facility] Subjective: * Chief Complaints: * ?Medicare Annual * HPI: ?New symptom(s):? recently from Parkinson's disease. She is doing ok. Children are nearby and check on her frequently. Pain in left hip, knees continues. Better once she gets moving. Using a cane at all times now. * ROS:?General/Constitutional:?Chills??denies.??Fever??denies.??Night sweats??denies.??Weight gain??denies.??Weight loss??denies.?Ophthalmologic:?Diminished visual acuity??denies.?ENT:?Decreased hearing??denies.?Respiratory:?Cough??denies.??Shortness of breath at rest??denies.??Shortness of breath with exertion??denies.?Cardiovascular:?Chest pain at rest??denies.??Chest pain with exertion??denies.??Palpitations??denies.?Gastrointestinal:?Abdominal pain??denies.??Blood in stool??denies.??Constipation??denies.??Diarrhea??denies.??Heartburn??denies.??Na usea??denies.??Vomiting??denies.?Genitourinary:?Frequent urination??denies.??Painful urination??denies.??Incontinence??denies.?Musculoskeletal:?Muscle aches??denies.??Painful joints??denies.?Neurologic:?Dizziness??denies.??Headache??denies.??Tingling/Numbness??denies.?Psychiatric:?Depressed mood??denies.??Difficulty sleeping??denies.? * Medical History:?? * Surgical History:??tonsillec sue dilatation and curettage coronary artery bypass graft 11/2008L hip replacement s/p fracture 2018carpal tunnel repair 2019skin cancer reconstruction on R nares ataracts 2021 * Hospitalization/Major Diagno stic Procedure:?? * Family History:??Father: dec eased 84 yrs, diabetes, COPD, diagnosed with Diabetes.??Mother: 85 yrs, heart disease, diagnosed with Heart Disease.??Siblings: 1 from MVA, 1 from pancreatic cancer, 1 with CVD, 1 alive with ASCVD, diagnosed with Heart Disease, Cancer.??4 brother(s) . 2 son(s) , 2 daughter(s) - healthy. .?? granddaughter with breast cancer. * Medications:??TakingCranberr y 450 MG Tablet 1 tablet with meals Orally Twice a day Aspirin 81 MG Tablet 1 tablet Orally Once a day Vitamin D 1000 UNIT Tablet 1 tablet Orally Once a day Glucosamine MSM Complex Tablet 1 tablet with meals Orally Three times a day Nitrostat 0.[address] 1 tablet under the tongue if needed every 5 minutes for chest pain for 3 doses IN 15 MINUTES , Notes to Pharmacist: not takingTylenol 325 MG Tablet 1 tablet as needed Orally every 4 hrs Levothyroxine Sodium 25 MCG Tablet 1 tablet Orally Once a day Metoprolol Tartrate 25 MG Tablet 1 tablet Orally Twice a day Crestor 20 MG Tablet take 1 tablet by mouth once daily Orally Once a day amLODIPine Besylate 5 MG Tablet 1 tablet Orally Once a day Cymbalta 30 MG Capsule Delayed Release Particles 1 capsule Orally Once a day Taking Cranberry 450 MG Tablet 1 tablet with meals Orally Twice a day Taking Aspirin 81 MG Tablet 1 tablet Orally Once a day Taking Vitamin D 1000 UNIT Tablet 1 tablet Orally Once a day Taking Glucosamine MSM Complex Tablet 1 tablet with meals Orally Three times a day Taking Nitrostat 0.[address] 1 tablet under the tongue if needed every 5 minutes for chest pain for 3 doses IN 15 MINUTES , Notes to Pharmacist: not takingTaking Tylenol 325 MG Tablet 1 tablet as needed Orally every 4 hrs Taking Levothyroxine Sodium 25 MCG Tablet 1 tablet Orally Once a day Taking Metoprolol Tartrate 25 MG Tablet 1 tablet Orally Twice a day Taking Crestor 20 MG Tablet take 1 tablet by mouth once daily Orally Once a day Taking amLODIPine Besylate 5 MG Tablet 1 tablet Orally Once a day Taking Cymbalta 30 MG Capsule Delayed Release Particles 1 capsule Orally Once a day Not-TakingTurmeric 500 MG Capsule as directed Orally Medication List reviewed and reconciled with the patientNot-Taking Turmeric 500 MG Capsule as directed Orally Medication List reviewed and reconciled with the patient * Allergies:??latex: rashTetan us Immune Globulin: arm pain swellingInfluenza Vac Typ A&B Surf Ant: arm itchingno[Allergies Verified] Objective: * Vitals:??HR:78/min, BP:110/7 2mm Hg, Ht: 65 in, Wt:129lbs, BMI:21.46Index. * Examination: ?General Examination: ?GENERAL APPEARANCE:??alert, in no acute distress.?EYES:??pupils equal, round, reactive to light and accommodation.?EARS:??BOTH EARS, tympanic membrane intact, clear.?ORAL CAVITY:??mucosa moist.?THROAT:??no erythema, no exudate, tonsils normal, uvula midline.?NECK/THYROID:??no cervical lymphadenopathy, thyroid normal, no carotid bruit.?SKIN:??no rashes, no suspicious lesions.?HEART:??regular rate and rhythm, no murmurs, rubs, gallops.?LUNGS:??clear to auscultation bilaterally, no wheezes, rales, rhonchi.?ABDOMEN:??bowel sounds present, soft, nontender, nondistended, no hepatosplenomegaly.?EXTREMITIES:??no clubbing, cyanosis, or edema; walking with cane.?PERIPHERAL PULSES:??2+ posterior tibial.?NEUROLOGIC:??alert and oriented, nonfocal.? 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 Plan: * Treatment: ?LAB: COMPREHENSIVE METABOLIC PROFILE (Collection Date & Time - 04/10/2023 12:40 PM)* PI: Blood count, liver, kidn ey, blood sugar, thyroid and cholesterol are all normal. Continue same medications. Alma Youssef 04/11/2023 08:13:37 AM > ?LAB: LIPID PROFILE (Collection Date & Time - 04/10/2023 12:40 PM)* PI: Blood count, liver, kidn ey, blood sugar, thyroid and cholesterol are all normal. Continue same medications. Alma Youssef 04/11/2023 08:13:37 AM > ?LAB: TSH (Collection Date & Time - 04/10/2023 12:40 PM)* PI: Blood count, liver, kidn ey, blood sugar, thyroid and cholesterol are all normal. Continue same medications. Alma Youssef 04/11/2023 08:13:37 AM > Notes: Consider ortho or PT for arthritis pain. She does not want a referral today. Discussed lifeline, safety at home.?2.??Hypothyroidism, unspecified?? Refill Levothyroxine Sodium Tablet, 25 MCG, 1 tablet, Orally, Once a day, 90 days, 90, Refills 3.?LAB: TSH (Collection Date & Time - 04/10/2023 12:40 PM)* PI: Blood count, liver, kidn ey, blood sugar, thyroid and cholesterol are all normal. Continue same medications. Alma Youssef 04/11/2023 08:13:37 AM > 3.??Atherosclerotic heart disease of [place] coronary artery without angina pectoris?? Refill amLODIPine Besylate Tablet, 5 MG, 1 tablet, Orally, Once a day, 90 days, 90, Refills 3;??Refill Crestor Tablet, 20 MG, 1 tablet, Orally, Once a day, 90 days, 90 Tablet, Refills 3;??Refill Metoprolol Tartrate Tablet, 25 MG, 1 tablet, Orally, Twice a day, 90 days, 180, Refills 3.?LAB: COMPREHENSIVE METABOLIC PROFILE (Collection Date & Time - 04/10/2023 12:40 PM)* PI: Blood count, liver, kidn ey, blood sugar, thyroid and cholesterol are all normal. Continue same medications. Alma Youssef 04/11/2023 08:13:37 AM > ?LAB: LIPID PROFILE (Collection Date & Time - 04/10/2023 12:40 PM)* PI: Blood count, liver, kidn ey, blood sugar, thyroid and cholesterol are all normal. Continue same medications. Alma Youssef 04/11/2023 08:13:37 AM > 4.??Polyosteoarthritis, unspecified?? Refill Cymbalta Capsule Delayed Release Particles, 30 MG, 1 capsule, Orally, Once a day, 90 days, 90, Refills 3.?LAB: CBC, WITH AUTO DIFF (Collection Date & Time - 04/10/2023 12:40 PM)* PI: Blood count, liver, kidn ey, blood sugar, thyroid and cholesterol are all normal. Continue same medications. Alma Youssef 04/11/2023 08:13:37 AM > ?LAB: COMPREHENSIVE METABOLIC PROFILE (Collection Date & Time - 04/10/2023 12:40 PM)* PI: Blood count, liver, kidn ey, blood sugar, thyroid and cholesterol are all normal. Continue same medications. Alma Youssef 04/11/2023 08:13:37 AM > ?LAB: LIPID PROFILE (Collection Date & Time - 04/10/2023 12:40 PM)* PI: Blood count, liver, kidn ey, blood sugar, thyroid and cholesterol are all normal. Continue same medications. Alma Youssef 04/11/2023 08:13:37 AM > * Procedure Codes:??G0439 KATIE AL WELLNESS VST; PPS SUBSQT VST * Follow Up:??1 Year, prn Care Plan: * Problems:?? * Images: * Sign off status: Completed true * Provider:??Alma Youssef M.D. Date: ??04/10/2023 History and Physical Notes * Examination Category Sub-Category Detail Notes General Examination GENERAL APPEARANCE: alert, i n no acute distress EYES: pupils equal, round, reactive to light and accommodation EARS: BOTH EARS, tympanic membrane intact, clear THROAT: no erythema, no exud ate, tonsils normal, uvula midline NECK/THYROID: no cervical lymphade nopathy, thyroid normal, no carotid bruit HEART: regular rate and rhy thm, no murmurs, rubs, gallops LUNGS: clear to auscultatio n bilaterally, no wheezes, rales, rhonchi ABDOMEN: bowel sounds present , soft, nontender, nondistended, no hepatosplenomegaly NEUROLOGIC: alert and oriented, nonfocal SKIN: no rashes, no suspic ious lesions EXTREMITIES: no clubbing, cyanosi s, or edema; walking with cane PERIPHERAL PULSES: 2+ posterior tibial ORAL CAVITY: mucosa moist
--- OUTSIDE RECORDS SUMMARY | 2024-03-19 15:49 | XMS_ITS | Encounter Summary ---
Author Organization [facility] Address [facility] [address] [place] [address] Care Team Providers Care Picker/Puller Name Role Phone Alma Youssef MD Primary Care Provider [phone] Encounter Details Date Type Department Care Team (Late st Contact Info) Description 12/07/2022 11:40 AM EDT Office Visit Dermatology at [facility] [address] [place] [address] Svitlana Lopez MD [facility] [address] [place] [address] History of basal cell carcinoma (BCC); SK (seborrheic keratosis); AK (actinic keratosis) Social History Tobacco Use [...] as of this encounter Progress Notes * Svitlana Lopez MD - 12/07/2022 11:40 AM EDT Images from the original note were not included. DEPARTMENT OF DERMATOLOGY Medical D[facility]at[facility] Provider: Svitlana Lopez MD Patient's preferred name Heidi Preferred contact method for results [x]?Phone []?myD-H []?Letter Detailed phone message OK? Yes Are there any other people with whom we may discuss your care? - Radames, or Daughter- Lulu ?? Past Medical History Date, location, treatment Melanoma no Dysplastic nevi no SCC no BCC 1994: Left brow, BCC (excision by Dr. Mcgill) 12/15/13: Left arm, sclerosing and infiltrating BCC (excision 02/21/14) 07/2021: BCC, right alar crease, s/p mohs AKs Yes UV Exposure & Protection N Other relevant past medical history 12/08/17: Right estrada, ddx of excoriated dermal hypersensitivityreaction, contact or irritant dermatitis, or drug reaction; negative for bullous pemphigoid Family History Details Melanoma no NMSC no Other relevant family history no Social History Occupation: Hobbies: Other: ?? Pre-Procedure Questions Details Allergy to lidocaine, epinephrine, Dermabond, chlorhexidine, or adhesives no Bleeding disorder or blood thinners ASA 81 Pacemaker, defibrillator, deep brain stimulator, cochlear implant no ?? History of Present Illness: Heidi Mcdermott is a 87 y.o. Patient returns to clinic today for a full skin exam with the following concerns: - She states she had a procedure done on her nose and she is slightly concerned about because se has noticed a green discharge coming from the inside of her nose. Possibly in mucous. Last visit at Dermatology: 10/15/2022 Last visit with this provider: Visit date not found Medications: Reviewed in eD-H Allergies: Reviewed in [...] genitalia, and buttocks were not examined. Assessment/Plan #. History of BCC - Well-healed scars per skin history. - No evidence of recurrence; will continue to monitor. #. Actinic Keratosis - Ill-defined gritty papules on the left forehead x1, right dorsal hand x1 - Explained premalignant potential of these lesions. - Discussed treatment with cryotherapy. Patient elects to proceed with cryotherapy today. - Instructed patient to return to clinic for re-evaluation if lesion(s) does not resolve as expected with this treatment. Procedure: Destruction of lesion(s) with cryotherapy (LN2). Location(s): As noted above. Number: 2 Discussed procedure and expectations, including risks and benefits. Verbal consent obtained. Treated with LN2. There were no complications; Patient tolerated the procedure well. Post-procedure expectations and wound care reviewed. #. Seborrheic Keratoses - Stuck on, waxy papules on the trunk and extremities. - Discussed benign nature of lesions and provided reassurance. No treatment necessary at this time. RTC: 1 year for FSE []Note routed to psychiatric secretary [x]Recall placed in scheduling system []Appointment scheduled at checkout Scribe attestation: Heena Deluca MA has performed the documentation for this encounter in the presence of and acting as a scribe for Svitlana Lopez MD. I performed the above scribed service and agree with the accuracy of the documentation in this encounter. Reviewed and signed by: Svitlana Lopez MD Dermatology [facility] Patient seen and evaluated with staff full stack software engineer: Serenity Michaels MD Dermatology [facility] * Serenity Michaels MD - 12/07/2022 11:40 AM EDT I directly supervised Dr. Lopez during this office visit. Dr. Lopez presented the history and physical exam to me. I, then, saw and examined this patient with Dr. Lopez. We reviewed the history and pertinent details and I confirmed the physical findings. I agree with the details of the history and physical exam as documented in Dr. Lopez's note. SERENITY MICHAELS MD Staff Physician documented in this encounter Plan of Treatment Upcoming Encounters Date Type Department Care Team (Late st Contact Info) Description 03/30/2024 11:00 AM EDT Office Visit Dermatology at [facility] [address] [place] [address] Serenity Michaels MD [facility] [address] [place] [address] documented as of this encounter Visit Diagnoses Diagnosis History of basal cell carcinoma (BCC) SK (seborrheic keratosis) Other seborrheic keratosis AK (actinic keratosis) Actinic keratosis documented in this encounter Care Teams Picker/Puller Relationship Specialty Start Date End Date Alma Youssef MD [address] [place] [address] PCP - General 03/22/13 documented as of this encounter
--- OUTSIDE RECORDS SUMMARY | 2024-03-19 15:49 | XMS_ITS | Encounter Summary ---
Author Organization Replaced By [facility] Address [facility] [address] [place] [address] Care Team Providers Care Web Application Dev Specialist Name Role Phone Alma Youssef MD Primary Care Provider [phone] Encounter Details Date Type Department Care Team (Late st Contact Info) Description 01/15/2023 Telephone Dermatology at [facility] [address] [place] [phone] Serenity Cheema MD [facility] [place] [address] Social History Tobacco Use Types Packs/Day Years [...] * Telephone Encounter - Tiffanie Sung - 01/15/2023 12:06 PM EDT I received a phone call requesting a refill of Heidi Mcdermott's clobetasol (TEMOVATE) 0.05 % Ointment. They would like it sent to the [facility] in [facility]. She was last seen November 2022. documented in this encounter Plan of Treatment Upcoming Encounters Date Type Department Care Team (Late st Contact Info) Description 03/30/2024 11:00 AM EDT Office Visit Dermatology at [facility] [address] [place] [address] Serenity Cheema MD [facility] [place] [address] documented as of this encounter Visit Diagnoses Not on filedocumented in this encounter Care Teams Web Application Dev Specialist Relationship Specialty Start Date End Date Alma Youssef MD [address] [place] [address] PCP - General 03/22/13 documented as of this encounter
--- OUTSIDE RECORDS SUMMARY | 2024-03-19 15:49 | XMS_ITS | Encounter Summary ---
Author Organization [facility] Address [facility] [address] [place] [address] Care Team Providers Care Director Of Health Education Name Role Phone Alma Youssef MD Primary Care Provider [phone] Encounter Details Date Type Department Care Team (Late st Contact Info) Description 12/10/2017 Telephone Dermatology at [facility] [address] [place] [phone] Serenity Cheema MD [facility] [address] [place] [address] Social History Tobacco Use Types Packs/Day Years [...] Miscellaneous Notes * Telephone Encounter - Minerva Smiley, [facility] - 12/15/2017 1:52 PM EDT Returned patient's daughter's (Lulu) phone call to answer her questions and review recent biopsy results (see result note for details). Lulu said that they were able to pick and shovel worker her mom's prescription and no longer had any questions. I told her to call back if she had any questions or concerns. * Telephone Encounter - Tiffanie Sung - 12/10/2017 4:34 PM EDT I received a voicemail from Heidi Mcdermott stating she was in for an apt with Dr. Cheema on Fridayand had some questions about what was done and what she is supposed to do. She is hard of hearing on the phone and asked that we speak to her daughter Lulu to give her this information. Lulu can be reached at [phone] documented in this encounter Plan of Treatment Upcoming Encounters Date Type Department Care Team (Late st Contact Info) Description 03/30/2024 11:00 AM EDT Office Visit Dermatology at [facility] [address] [place] [address] Serenity Cheema MD [facility] [address] [place] [address] documented as of this encounter Visit Diagnoses Not on filedocumented in this encounter Care Teams Director Of Health Education Relationship Specialty Start Date End Date Alma Youssef MD [address] [place] [address] PCP - General 03/22/13 documented as of this encounter
--- OUTSIDE RECORDS SUMMARY | 2024-03-19 15:49 | XMS_ITS | Encounter Summary ---
Author Organization [facility] Address [facility] [address] [place] [address] Care Team Providers Care Healthcare Marketer Name Role Phone Alma Youssef MD Primary Care Provider [phone] Encounter Details Date Type Department Care Team (Latest Contact Info) Description 08/07/2021 10:15 AM EST Clinical Support Dermatology at [facility] [address] [place] [address] Santiago Ram MD [facility] [place] [address] Basal cell carcinoma (BCC) of right ala [...] as of this encounter Progress Notes * Bill Strong, FOIL CUTTER - 08/07/2021 10:15 AM EST Mohs consultation and preoperative note (H&P) Patient Name: Heidi Mcdermott Age: 86 y.o. Date of : 1935 Today's Date: 08/07/2021 REFERRING PROVIDER: No ref. provider found CC: [...] you ever had Mohs surgery with Dr. Ram? no Pacemaker/Defibrillator? no Joint replacement or other [...] 11:00 AM EDT Office Visit Dermatology at [facility] [address] [place] [phone] Serenity Cheema MD [facility] [place] [address] documented as of this encounter Visit Diagnoses Diagnosis Basal cell carcinoma (BCC) of right ala nasi documented in this encounter Care Teams Healthcare Marketer Relationship Specialty Start Date End Date Alma Youssef MD [address] [place] [address] PCP - General 03/22/13 documented as of this encounter
--- OUTSIDE RECORDS SUMMARY | 2024-03-19 15:49 | XMS_ITS | Encounter Summary ---
Author Organization [facility] Address [facility] [address] [place] [address] Care Team Providers Care Profiler Name Role Phone Alma Youssef MD Primary Care Provider [phone] Reason for Visit * Reason Comments Skin Check Encounter Details Date Type Department Care Team (Late st Contact Info) Description 11/23/2014 10:30 AM EDT Follow-Up Dermatology at [facility] [address] [place] [phone] [facility] [address] [place] [address] [facility] [place] [address] History of nonmelanoma skin cancer; AK (actinic keratosis); Rowell angioma; Lentigines; Milia; SK (seborrheic keratosis); Multiple benign nevi Discharge Disposition: Home Social History Tobacco Use [...] this encounter Patient Instructions * Patient Instructions* Vianey Thurston LPN - 11/23/2014 10:59 AM EDT Actinic Keratoses You have been diagnosed today with Actinic Keratosis (AK). These dry, scaly patches are considered the earliest stage in the development of skin cancer. In rare cases, an AK can progress to skin cancer. Because of this risk, AKs are usually treated. You were treated today with Liquid Nitrogen. This is the most common treatment for AKs. Liquid nitrogen is extremely cold, and freezes the surface of the skin, causing the lesion to flake off. Treatment with liquid nitrogen can be uncomfortable, but discomfort should subside after a couple of hours. The area treated will look red and irritated, and it may blister up or turn dark, then fall off. This is normal! You do not need any special treatment for the area, but you may find cold compresses and/or a lightapplication of Vaseline soothing. For best results, do not rub or pick at the healing lesion. Expected healing time is 3-4 weeks. Please contact the Dermatology clinic at [phone] if the lesion has not fully resolved after 6 weeks. documented in this encounter Progress Notes * Serenity Chemea MD - 11/23/2014 12:46 PM EDT Few AKs noted on face. Patient desires conservative treatment. Patient seen in conjunction with Love Faye PA-C Signed by: Serenity Cheema MD Section of Dermatology [facility] * Love Faye PA - 11/23/2014 10:36 AM EDT DERMATOLOGY - ESTABLISHED PATIENT NOTE Date of service: 11/23/2014 Heidi Mcdermott : 1935 Dermatology Physician Triple Air Valve Tester Note: Love Faye PA-C Chief Complaint Patient presents with ??? Skin Check This is an established patient, last seen by Dr. Maier a year ago. This patient is new to me. HPI: Heidi Mcdermott presents for a full skin check. Her only area of concern is a rough patch on her nose, otherwise feeling well. Skin History: BCC left brow [address] Mcgill actinic keratosis seborrheic keratosis BCC 2014 left arm, excision Medical History: No past medical history on file. Procedure Screening Questions: Defibrillator/Pacemaker: no Artificial Joints: no Heart Valves: no Blood Thinners: no Prophylactic Antibiotics: no Medications: Current Outpatient Prescriptions Medication Sig Dispense Refill [...] No current facility-administered medications for this visit. Allergies: Allergies Allergen Reactions ??? Latex CIS - Localized Reaction ??? Gloves, Latex CIS - Localized Reaction ??? Latex Dams CIS - Localized Reaction Family History: no known h/o melanoma no known h/o non-melanoma skin cancer no known h/o eczema, atopy no known h/o psoriasis, or other skin disease Social History: Occupation: , and retired Review of Systems: - General: Feels well. - Skin: As per HPI; no other skin concerns. Examination: - Constitutional: Patient was alert, well-appearing and in no noticeable distress. - Skin: A full skin examination was performed. This includes the head, neck, face and scalp including behind the ears. The chest, abdomen, back, and axillae, as well as the arms, hands, palms, fingers. Legs, feet, toes and soles were also examined. Buttocks and breasts were also examined with patient consent. Genitalia were not examined. -Skin Type: 2 Specific skin findings: 1. 0.2-0.3cm scaly irregular pink papule(s) on face, hyperkeratotic x 4 on R mu-ism, and nose. 2. 0.1cm firm, round, white subcutaneous papule on face 3. Multiple 0.4-1 cm, brown-black papules/plaques with waxy stuck on appearance scattered on torso and extremities. 4. Left eyebrow- well healed scar-removal of BCC in 1995 5. Left upper arm- well healed linear surgical scar from removal of BCC 6. Multiple 0.2-0.4cm bright red, well-demarcated papules on torso 7. Multiple, 0.3-0.5cm, medium-brown, evenly-pigmented macules and papules. All with regular pigment pattern on dermoscopy. No pigmented lesions suspicious for melanoma. 8. 0.3-0.6cm light-brown evenly pigmented, well-demarcated macules scattered on sun exposed areas. Diagnosis/Assessment/Treatment Plan: 1. Actinic keratosis Discussed at length the natural history and etiology of actinic keratoses. Discussed premalignent potential of these lesions. Discussed that a surgical procedure would likely be needed if these were to progress to skin cancer. Discussed treatment options. Patient agrees to have lesion treated with c ryotherapy today. -Procedure Note: Procedure: Destruction of lesion(s) with cryotherapy. Number: 4 Location: as above Discussed procedure and expectations including risks (including risk of hypopigmentation) and benefits. Verbal consent obtained. Frozen with LN2, 15-30 second thaw time, TWICE. There were no complications; the patient tolerated the procedure well. Post-procedure expectations and wound care were reviewed. Patient instructed to return to clinic for re-evaluation if lesion does not resolve with this treatment; as expected. 2. Milia- patient reassured of benign nature 3. Seborrheic keratoses- patient reassured of benign nature 4. NER of BCC- patient reassured 5. 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 Benign appearing nevi with even pigmentation and well defined margins are noted. Advised to watch for concerning changes and call if such occurs. 8. Lentigines- patient reassured of benign appearance. Advised to watch for concerning changes and call if such occurs. RTC in 1 year for FSC or PRN if symptoms worsen or persist. Instructed to call with questions or concerns. Note initiated by Vianey Thurston LPN I am documenting this encounter acting as the scribe for and in the presence of Love Faye PA-C I performed the above scribed service and agree with the accuracy of the documentation in this encounter. Reviewed and signed by Love Faye PA-C Dermatology [facility] Patient seen in conjunction with/supervision of Attending Physician: Serenity Cheema MD Section of Dermatology [facility] documented in this encounter Plan of Treatment Upcoming Encounters Date Type Department Care Team (Late st Contact Info) Description 03/30/2024 11:00 AM EDT Office [address] [place] [address] [facility] [address] [place] [address] documented as of this encounter Visit Diagnoses Diagnosis History of nonmelanoma skin cancer Personal history of other malignant neoplasm of skin AK (actinic keratosis) Actinic keratosis Rowell angioma Nevus, non-neoplastic Lentigines Other dyschromia Milia Sebaceous cyst SK (seborrheic keratosis) Other seborrheic keratosis Multiple benign nevi Benign neoplasm of skin, site unspecified documented in this encounter Care Teams Profiler Relationship Specialty Start Date End Date Alma Youssef MD [address] [place] [address] PCP - General 03/22/13 documented as of this encounter
--- OUTSIDE RECORDS SUMMARY | 2024-03-19 15:49 | XMS_ITS | Encounter Summary ---
Author Organization [facility] Address [facility] [address] [place] [address] Care Team Providers Care Drum Sander Offbearer Name Role Phone Alma Youssef MD Primary Care Provider [phone] Reason for Visit * Reason Comments Procedure infiltrative BCC Encounter Details Date Type Department Care Team (Latest Contact Info) Description 02/21/2014 12:30 PM EDT Procedure visit Dermatology at [facility] [address] [place] [address] Serenity Cheema MD [facility] [address] [place] [address] BCC (basal cell carcinoma of skin) (Primary Dx) Discharge Disposition: Home Social History [...] Sign Reading Time Taken Comments Blood Pressure 159/69 02/21/2014 1:50 PM EDT Pulse 67 02/21/2014 1:50 PM EDT Temperature - - Respiratory Rate - - Oxygen Saturation - - Inhaled Oxygen Concentration - - Weight - - Height - - Body Mass Index - - documented in this encounter Patient Instructions * Patient Instructions* Saskia Torrez LPN - 02/21/2014 12:51 PM EDT Wash your hand before changing the dressing. The dressing on the site should remain in place and dry until Friday morning The dressing should then be removed gently After removing the dressing, daily wound care should be performed as follows: Clean the wound with warm water and pat dry Apply either Vaseline or Aquaphor Ointment Cover the wound with a new dressing such as Telfa and Tape, or a Band-Aid For discomfort, you may take Tylenol or other non-aspirin pain medication. If bleeding should occur, pressure should be applied constantly for 15 minutes on the dressing withthe help of a towel, wash cloth, or piece of gauze. The sutures should be removed in 10 - 12 days. It is important that you avoid strenuous and/or vigorous activities, heavy lifting (More than 5-10 lbs), and bending for a period of 12 -14 days If you have questions, please contact the office of Serenity Cheema MD during the day at Nurse: Saskia - [phone] After 5 PM and on weekends, please call the hospital number , and ask for the Loom Winder Tender information systems security developer. documented in this encounter Progress Notes * Lali Coulter - 02/25/2014 10:37 AM EDTQuick Note: Spoke to patient-she was pleased to hear the margins were negative. Patient instructed to call with questions or concerns * Serenity Cheema MD - 02/21/2014 1:52 PM EDT DERMATOLOGY SURGICAL APPOINTMENT NOTE Date of service: 02/21/2014 Heidi Mcdermott : 1935 Provider: Serenity Cheema MD Chief Complaint Patient presents with ??? Procedure infiltrative BCC HPI: Gordondouglas Mcdermott is a 78 y.o. year old female who presents for surgical removal of above. No changes in health since last visit. ADR: Allergies Allergen Reactions ??? Latex CIS - Localized Reaction ??? Gloves, Latex CIS - Localized Reaction ??? Latex Dams CIS - Localized Reaction Meds: . Current Outpatient Prescriptions Medication Sig Dispense Refill [...] ascorbic acid (VITAMIN C) 500 mg tablet Exam: Blood pressure 159/69, pulse 67. NAD, pleasant, cooperative Skin, focused exam: 1cm pink plaque left lateral arm Pathology Report: Rec Date: 12/15/2013 LOC: [facility] SURGICAL PATHOLOGY ---Pathologic Diagnosis--- Skin, left arm, shave biopsy: Basal cell carcinoma, with sclerosing features and infiltrating growth pattern, present at the peripheral and deep specimen edges, associated with superficial dermal fibrosis and sclerotic collagen bundles. A/P: 1. Patient verified. Surgical site identified with patient. Pathology reviewed. 2. Procedure Notes: Surgeon: Serenity Cheema MD Shop Service Technician: Saskia Torrez LPN A. Excision of lesion, excision width including margins = 2cm B. Intermediate repair, length 4.2cm Site: left arm Discussed treatment, expectations, need for follow-up. Informed consent obtained. See CIS for current medications, drug sensitivities and vital signs. Sterile skin prep performed. Local anesthesia: buffered 1% lidocaine with 1/100,000 epinephrine. The excision was designed with clinically clear-appearing margins of at least 0.5cm in order to remove the lesion. The lesion was excised down to the level of fat. An intermediate closure was required in order to close potential space and to reduce the risk of dehiscence. Hemostasis was achieved. Alayered closure was performed. Multiple buried absorbable sutures were placed to reappose deep fat. The epidermis and dermis were reapposed using monofilament suture. There were no complications; the patient tolerated the procedure well. Tagged at superior tip. Specimen to Pathology. The wound was dressed. Post-procedure expectations (including discomfort management), wound care and activity restrictions were reviewed. Suture removal: 10 days by PCP 3. Follow up: for skin exam November 2014 as planned Serenity Cheema MD Section of Dermatology [facility] documented in this encounter Miscellaneous Notes * Miscellaneous - Provider, Del - 03/03/2014 9:02 AM EDT documented in this encounter Plan of Treatment Upcoming Encounters Date Type Department Care Team (Late st Contact Info) Description 03/30/2024 11:00 AM EDT Office Visit Dermatology at [address] [address] Serenity Cheema MD [facility] [place] [address] documented as of this encounter Procedures Procedure Name Priority Date/Time Associated Diagnosis Comments SPECIMEN TO PATHOLOGY (NON-OR) Routine 02/21/2014 1:53 PM EDT BCC (basal cell carcinoma of skin) SURGICAL PATHOLOGY REPORT Routine 02/21/2014 1:53 PM EDT documented in this encounter Results * Surgical Pathology Report (02/21/2014 1:53 PM EDT) FINAL DIAGNOSIS (AP) ? [facility] ? Provider: ?? SERENITY CHEEMA ? Pt. Name: ?? HEIDI MCDERMOTT ? Acc #: ?[id number] ? Pt. ? Col Date: ?? 02/21/2014 ?/Sex: ?1935,(78 ? years),Female ? Rec Date: ?? 02/21/2014 ?LOC: ?[facility] ? SURGICAL PATHOLOGY ? ---Pathologic Diagnosis--- ? Skin, left arm, excision: ?Residual basal cell carcinoma, infiltrative pattern, margins appear ? negative. ?Scar, consistent with biopsy site. ? CR-0 ? 02/22/14 ? BJM ? 02/23/14 Verified by: ? Evita Melvin MD ? Dermatopathologist ? (Electronic Signature) ? The attending pathologist whose signature appears on this report has ? reviewed all diagnostic slides and has edited the gross and/or ? microscopic portion of the report in rendering the final pathologic ? diagnosis. ? ---Gross Description--- ? A - Labeled/Fixative: Left arm, formalin. ? Quantity/Size: Single, 3.0 x 1.5 x 0.5 cm. ? Tissue Description: Ellipse of eddy skin with a 0.5 cm pink area. ??The ? specimen is received oriented with a suture at one end, designating ? superior. The suture will now be designated as 12 o'clock. ? Sections/Processing: The specimen is inked black from 12-3-6 o'clock and ? blue from 6-9-12 o'clock. ??(1) 12 o'clock end; (2-4) body from 12 to 6 ? o'clock; (5) 6 o'clock end. (T5) ??sns ? ---Clinical Information--- ? Specimen Submitted: ? A - Skin, left arm, excision (1) ? Clinical History: ? 1.0 cm pink plaque, see pathology [id number] ? Clinical Diagnosis: ? Scar vs. residual BCC 02/23/2014 12:21 PM EDT [facility] SPECIMEN FROM SKIN / Unknown 02/21/2014 1:53 PM EDT 02/21/2014 1:53 PM EDT Serenity Cheema MD PATHOLOGY/CYTOLOGY Faizan LORENZANA Performing Organization Address City/[facility]/ZIP Co de Phone Number [facility] [employer] [facility] [place] [address] * Specimen to Pathology (NON-OR) (02/21/2014 1:53 PM EDT) AP Specimen 02/21/2014 1:53 PM EDT 02/21/2014 1:53 PM EDT Narrative [facility] - 02/21/2014 1:53 PM EDT Specimen requisition ordered. ??Separate Pathology report to follow Serenity Cheema MD PATHOLOGY/CYTOLOGY Faizan LORENZANA Performing Organization Address City/[facility]/ZIP Co de Phone Number JODEE Moxie Jean documented in this encounter Visit Diagnoses Diagnosis BCC (basal cell carcinoma of skin)- Primary Basal cell carcinoma of skin, site unspecified documented in this encounter Care Teams Drum Sander Offbearer Relationship Specialty Start Date End Date Alma Youssef MD [address] [place] [address] PCP - General 03/22/13 documented as of this encounter
--- OUTSIDE RECORDS SUMMARY | 2024-03-19 15:49 | XMS_ITS | Encounter Summary ---
Author Organization [facility] Address [facility] [address] [address] Care Team Providers Care Collection Support Specialist Name Role Phone Alma Youssef MD Primary Care Provider [phone] Encounter Details Date Type Department Care Team (Latest Contact Info) Description 12/07/2022 Travel Social History Tobacco Use Types Packs/Day Years [...] 11:00 AM EDT Office Visit Dermatology at [facility] [address] [place] [address] Serenity Cheema MD [facility] [place] [address] documented as of this encounter Visit Diagnoses Not on filedocumented in this encounter Care Teams Collection Support Specialist Relationship Specialty Start Date End Date Alma Youssef MD [address] [place] [address] PCP - General 03/22/13 documented as of this encounter
--- OUTSIDE RECORDS SUMMARY | 2024-03-19 15:49 | XMS_ITS | Encounter Summary ---
Author Organization [facility] Address [facility] [address] [place] [address] Care Team Providers Care Jumpbasting Machine Operator Name Role Phone Alma Youssef MD Primary Care Provider [phone] Reason for Referral * Consultation (Routine) - Closed Specialty Diagnoses / Procedures Referred By Contsrikanth t Referred To Contact Dermatology Diagnoses Basal cell carcinoma of nose Serenity Cheema MD [facility] [address] [place] [address] [facility] [address] [place] [address] Referral ID Status Reason Start Date Expiration Date V isits Requested Visits Authorized [id number] Closed Consult, Test & Treat 06/19/2021 06/19/2022 1 1 Encounter Details Date Type Department Care Team (Late st Contact Info) Description 06/19/2021 Orders Only Dermatology at [facility] [address] [place] [address] Serenity Cheema MD [facility] [address] [place] [address] Basal cell carcinoma of nose Social History Tobacco Use Types Packs/Day Years [...] 11:00 AM EDT Office Visit Dermatology at [facility] [address] [place] [address] Serenity Cheema MD [facility] [address] [place] [address] Scheduled Referrals Name Type Priority Associated Diagnoses Order Schedule Referral to Dermatology Outpatient Referral Routine Basal cell carcinoma of nose Ordered: 06/19/2021 documented as of this encounter Visit Diagnoses Diagnosis Basal cell carcinoma of nose Basal cell carcinoma of skin of other and unspecified parts of face documented in this encounter Care Teams Jumpbasting Machine Operator Relationship Specialty Start Date End Date Alma Youssef MD [address] [place] [address] PCP - General 03/22/13 documented as of this encounter
--- OUTSIDE RECORDS SUMMARY | 2024-03-19 15:49 | XMS_ITS | Encounter Summary ---
Author Organization [facility] Address [facility] Mar[address] [place] [address] Care Team Providers Care Nutrition Consultant Name Role Phone Alma Youssef MD Primary Care Provider [phone] Encounter Details Date Type Department Care Team (Late st Contact Info) Description 06/14/2023 5:15 PM EDT Ancillary Procedure [place] [address] Yessy Mckeon APRN [facility] [place] [address] Social History Tobacco Use Types Packs/Day Years [...] AM EDT Office Visit Dermatology at [facility] [address] [place] [phone] Serenity Cheema MD [facility] [place] [address] documented as of this encounter Procedures Procedure Name Priority Date/Time Associated Diagnosis Comments FILM LIBRARY STORAGE ONLY DX LOWER EXTREMITY Routine 06/14/2023 5:08 PM EDT documented in this encounter Results * Film Library- Storage Only DX Lower Extremity (06/14/2023 5:08 PM EDT) Narrative JASPAL - 06/14/2023 5:08 PM EDT This exam is auto-finalizing. It's purpose is for storage only. L Estella Mckeon APRN IMG FILM LIBRARY ORDERABLES Performing Organization Address City/State/[facility] Co de Phone Number [place], [place] documented in this encounter Visit Diagnoses Not on filedocumented in this encounter Care Teams Nutrition Consultant Relationship Specialty Start Date End Date Alma Yosusef MD [address] [place] [address] PCP - General 03/22/13 documented as of this encounter
--- OUTSIDE RECORDS SUMMARY | 2024-03-19 15:49 | XMS_ITS ---
Author Organization [facility] dicjuan j Visit Address [address], [address] [place] [address] Care Team Providers Care Meat Team Member Name Role Phone Alma Youssef Primary Care Provider [phone] ALLERGIES Allergen (clinical drug ingredient) Drug/Non Drug Allergy documented on EMR Reaction Allergy Type Onset Date Status Latex latex (uncoded) rash Allergy Acti ve Influenza Vac Typ A&B Surf Ant arm itching Drug Allergy Active Tetanus Immune Globulin arm pain swelling Drug Allergy Active REASON FOR VISIT Rehab follow up MEDICATIONS Medication SIG (Take, Route, Frequency, Duration) Notes Start Date End Date Status Crestor 20 MG 1 tablet Orally Once a day for 90 days Active Metoprolol Tartrate 25 MG 1 tablet Orally Twice a day for 90 days Active Levothyroxine Sodium 25 MCG 1 tablet Orally Once a day for 90 days 08/23/2014 Active Turmeric 500 MG as directed Orally Not-Taking Tolterodine Tartrate 1 MG 1 tablet Orally Twice a day for 30 days 08/13/2023 Active Cymbalta 30 MG 1 capsule Orally Once a day for 90 days 01/31/2022 Active amLODIPine Besylate 5 MG 1 tablet Orally Once a day for 90 days Active Glucosamine MSM Complex 1 tablet with me als Orally Three times a day for 30 days Active Nitrostat 0.[address] 1 tablet under the tongue if needed every 5 minutes for chest pain for 3 doses IN 15 MINUTES not taking Active Tylenol 325 MG 1 tablet as needed Orally every 4 hrs Active Cranberry 450 MG 1 tablet with meals Orally Twice a day Active Aspirin 81 MG 1 tablet Orally Once a day for 30 day(s) Active Vitamin D 1000 UNIT 1 tablet Orally Once a day for 30 day(s) Active PROBLEMS Problem Type ICD Code Onset Dates Problem Status W/U Status Risk SNOMED Code Notes Problem Mixed incontinence (N39.46) Active confirmed Mixed incontinence (577561835) urge incontence with recent functional limitations VITAL SIGNS Heart Rate 72 /min 08/13/2023 Blood pressure systolic 138 mm Hg 08/13/20 23 Blood pressure diastolic 72 mm Hg 023 Height 65 in 08/13/2023 Weight 131 lbs 08/13/2023 BMI 21.8 kg/m2 08/13/2023 Encounters Encounter Location Date Provider Diagnosis [facility] [address] [place], [place] [id number] 08/13/2023 Alma Youssef Fracture of unspecified part of neck of right femur, initial encounter for closed fracture S72.001A and Mixed incontinence N39.46 ASSESSMENTS Encounter Date Diagnosis Assessment Notes Treatment Notes Treatment Clinical Notes 08/13/2023 Fracture of unspecified part of neck of right femur, initial encounter for closed fracture (ICD-10 - S72.001A) discharge summary reviewed. agree with home physical therapy and order sent. 08/13/2023 Mixed incontinence (ICD-10 - N39.46) urge incontence with recent functional limitations PLAN OF TREATMENT Medication Medication Name Sig Start Date Stop Date Notes Tolterodine Tartrate 1 MG 1 tablet Orall y Twice a day for 30 days 08/13/2023 Treatment Notes Assessment Notes Fracture of unspecified part of neck of right femur, initial encounter for closed fracture discharge summary reviewed. agree with home physical therapy and order sent. Next Appt Details Follow Up: prn, Reason: Progress Notes * Lori MCDERMOTTaDOB: 6 (88 yo F)Acc No.[id number]:08/13/2023 Progress Notes Patient:??Heidi MCDERMOTT Provider:??Alma Youssef M.D. :1935?Age:88 Y?Sex:Fe male Date:08/13/2023 Address:[address] [place] [address] [place], [facility] Subjective: * Chief Complaints: * ?Rehab follow up * HPI: ?New symptom(s):? Fell end of 05/2023 breaking her right hip. Total hip replacement performed and inpatient for 6 days and then transferred to [place] for rehab for 6 weeks. Had a COVID while at [place], but with only mild symptoms. Now back home and living alone. Mostly independent, using walker, with some assistance from family. Not driving yet. * ROS:?Genitourinary:?Incontinence??nocturnal incontinence and urge incontinence.? * Medical History:?? * Surgical History:??tonsillec sue dilatation and curettage coronary artery bypass graft 11/2008L hip replacement s/p fracture 2018carpal tunnel repair 2019skin cancer reconstruction on R nares ataracts hip replacement s/p fracture 2022 * Hospitalization/Major Diagno stic Procedure:?? * Medications:??TakingCranberr y 450 MG Tablet 1 [...] tablet as needed Orally every 4 hrs Cymbalta 30 MG Capsule Delayed Release Particles 1 capsule Orally Once a day amLODIPine Besylate 5 MG Tablet 1 tablet Orally Once a day Crestor 20 MG Tablet 1 tablet Orally Once a day Metoprolol Tartrate 25 MG Tablet 1 tablet Orally Twice a day Levothyroxine Sodium 25 MCG Tablet 1 tablet Orally Once a day Taking Cranberry 450 [...] as needed Orally every 4 hrs Taking Cymbalta 30 MG Capsule Delayed Release Particles 1 capsule Orally Once a day Taking amLODIPine Besylate 5 MG Tablet 1 tablet Orally Once a day Taking Crestor 20 MG Tablet 1 tablet Orally Once a day Taking Metoprolol Tartrate 25 MG Tablet 1 tablet Orally Twice a day Taking Levothyroxine Sodium 25 MCG Tablet 1 tablet Orally Once a day Not-TakingTurmeric 500 MG Capsule as directed Orally Medication List reviewed and reconciled with the patientNot-Taking Turmeric 500 MG Capsule as directed Orally Medication List reviewed and reconciled with the patient * Allergies:??latex: rashTetan us Immune Globulin: arm pain swellingInfluenza Vac Typ A&B Surf Ant: arm itchingno[Allergies Verified] Objective: * Vitals:??HR: 72 /min, BP: 13 8/72 mm Hg, Ht: 65 in, Wt: 131 lbs, BMI: 21.8 Index, Wt-k.42 kg. * Examination: ?General Examination: ?GENERAL APPEARANCE:??alert, well hydrated, in no distress; walking with walker and unassisted for short distances, able to step up to exam table with some assistance.?HEART:??no murmurs, regular rate and rhythm, S1, S2 normal.?LUNGS:??clear to auscultation bilaterally.?ABDOMEN:??normal, bowel sounds present, soft, nontender, nondistended.?MUSCULOSKELETAL:??right hip surgical wound well healed, nontender to palpation.?EXTREMITIES:??trace edema R lower extremity.? Assessment: * Assessment: 1.??Mixed incontinence - N39 .46, urge incontence with recent functional limitations??2.??Fracture of unspecified part of neck of right femur, initial encounter for closed fracture - S72.001A (Primary)?? Plan: * Treatment: 2.??Mixed incontinence?? Start Tolterodine Tartrate Tablet, 1 MG, 1 tablet, Orally, Twice a day, 30 days, 60, Refills 5.? * Procedure Codes:?? * Follow Up:??prn * Images: * Sign off status: Completed true * Provider:??Alma Youssef M.D. Date: ??08/13/2023 History and Physical Notes * Examination Category Sub-Category Detail Notes General Examination GENERAL APPEARANCE: alert, w ell hydrated, in no distress; walking with walker and unassisted for short distances, able to step up to exam table with some assistance HEART: no murmurs, regular rate and rhythm, S1, S2 normal LUNGS: clear to auscultatio n bilaterally ABDOMEN: normal, bowel sounds present, soft, nontender, nondistended EXTREMITIES: trace edema R lower extremity MUSCULOSKELETAL: right hip surgical w ound well healed, nontender to palpation
--- OUTSIDE RECORDS SUMMARY | 2024-03-19 15:49 | XMS_ITS | Encounter Summary ---
Author Organization [facility] Address [facility] [address] [place] [address] Care Team Providers Care Automotive Manager Name Role Phone Alma Youssef MD Primary Care Provider [phone] Encounter Details Date Type Department Care Team (Latest Contact Info) Description 08/15/2021 2:00 PM EST Clinical Support Dermatology at [facility] [address] [place] [address] Santiago aRm MD [facility] [address] [place] [address] Visit for suture removal Social History Tobacco Use Types Packs/Day Years Used Date Smoking Tobacco: Never Smokeless Tobacco: Never Alcohol Use Standard Drinks/Week Comments No 0 (1 standard drink = 0.6 oz pur e alcohol) Sex and Gender Information Value Date Recorded Sex Assigned at Not on file Gender Identity Not on file Sexual Orientation Not on file documented as of this encounter Progress Notes * Santiago Ram MD - 08/15/2021 2:00 PM EST Images from the original note were not included. Patient: Heidi Mcdermott Date of . 1935 Today's Date: 08/15/2021 Heidi Mcdermott is a 86 y.o. female here for suture removal, eight days post op. Doing well. Denies complications. Photograph: well healing flap, no evidence of infection. Plan: 1. Sutures removed today. 2. The flap was cleansed with soap and water. Vaseline, Telfa, and Hypafix tape applied. 3. Patient scheduled for flap take down 08/29/2021. Note initiated by Dana Yanez RN Dana Yanez RN has performed the documentation for this encounter in the presence of and acting as a scribe for Dr. Ram I performed the above scribed service and agree with the accuracy of the documentation in this encounter. Reviewed and signed by: Santiago Ram Dermatology [facility] documented in this encounter Plan of Treatment Upcoming Encounters Date Type Department Care Team (Late st Contact Info) Description 03/30/2024 11:00 AM EDT Office Visit Dermatology at [place] [address] [place] [address] Serenity Cheema MD [facility] [address] [address] documented as of this encounter Visit Diagnoses Diagnosis Visit for suture removal Encounter for removal of sutures documented in this encounter Care Teams Automotive Manager Relationship Specialty Start Date End Date Alma Youssef MD [address] [place] [address] PCP - General 03/22/13 documented as of this encounter
--- OUTSIDE RECORDS SUMMARY | 2024-03-19 15:49 | XMS_ITS | Encounter Summary ---
Author Organization [facility] Address [facility] [address] [place] [address] Care Team Providers Care Record Center Coordinator Name Role Phone Alma Youssef MD Primary Care Provider [phone] Encounter Details Date Type Department Care Team (Late st Contact Info) Description 06/14/2023 5:10 PM EDT Ancillary Procedure [place] [address] Yessy Mckeon APRN [facility] [place] [address] Social History Tobacco Use Types Packs/Day Years [...] 11:00 AM EDT Office Visit Dermatology at [facility] [address] [place] [address] Serenity Cheema MD [facility] [address] [facility] [address] documented as of this encounter Procedures Procedure Name Priority Date/Time Associated Diagnosis Comments FILM LIBRARY STORAGE ONLY CT PELVIS Routine 06/14/2023 5:08 PM EDT documented in this encounter Results * Film Library- Storage Only CT Pelvis (06/14/2023 5:08 PM EDT) Narrative JASPAL - 06/14/2023 5:08 PM EDT This exam is auto-finalizing. It's purpose is for storage only. L Estella Mckeon APRN IMG FILM LIBRARY ORDERABLES Performing Organization Address City/State/[facility] Co de Phone Number [place], [place] documented in this encounter Visit Diagnoses Not on filedocumented in this encounter Care Teams Record Center Coordinator Relationship Specialty Start Date End Date Alma Youssef MD [address] [place] [address] PCP - General 03/22/13 documented as of this encounter
--- OUTSIDE RECORDS SUMMARY | 2024-03-19 15:49 | XMS_ITS | Encounter Summary ---
Author Organization [facility] [address] Care Team Providers Care Recessing Machine Operator Name Role Phone Alma Youssef MD Primary Care Provider [phone] Reason for Visit * Reason Onset Date Comments Results 12/19/2020 negative for JOCELYN and APC mutations Encounter Details Date Type Department Care Team (Late st Contact Info) Description 12/19/2020 Telephone [place]ology [place] [address] Jeniffer Ty, [facility] HEMATOLOGY/[place] [address] Results (negative for JOCELYN and APC mutations) Social History Tobacco Use Types Packs/Day Years [...] Miscellaneous Notes * Telephone Encounter - Jeniffer Ty, [facility] - 12/19/2020 2:01 PM EDT This test result was discussed with the patient's daughter, Rosanna De Los Santos, by phone. A copy of the test result has been scanned in the medical record and sent to the patient. A summary is below. Please be advised that [place] law requires that all health care workers respect the confidentiality of this information and not pass it along to other health care providers, insurance companies, or individuals without the written permission of the patient. The [facility]amil[facility] welcomes any questions about these matters. Our phone number is: [phone]. On 11/27/2020, Heidi underwent genetic testing for the known APC and JOCELYN mutations detected in her daughter Rosanna, specifically APC c.1959-1G>C (Splice acceptor) and JOCELYN c.8011-1G>T (Splice acceptor). Following are the results of this test. Result: Tatyana's APC and JOCELYN analysis showed that no mutation was detected. Interpretation: This genetic test result means that Heidi does not carry the JOCELYN and APC alterations found in her daughter. She is not at increased risk for cancer or colon polyps that are associated with mutationsin the JOCELYN and APC genes. The JOCELYN mutation was found in Heidi's . Therefore it was inherited from him. The APC mutation was NOT detected in her . This means that most likely the APC mutation was a new mutation in Rosanna and not inherited from either of them. There is a small chance that either Heidi, or her , could have the APC mutation only in the cells that formed their eggs or sperm. Therefore, wewould suggest that all of their children have testing for the APC mutation just to be certain that they have not inherited this mutation. Other relatives of Heidi are not at risk for having inherited either the APC or JOCELYN mutation. Heidi's brother had pancreatic cancer and his daughter had breast cancer at age 35. It is possiblethat they had a mutation in a different gene. We would suggest that the other children of Rhinas brother consider genetic counseling and testing related to this family history. Rosanna shared that her niece, Heidi's granddaughter (daughter of her son who has not yet had genetic testing) is currently having a work-up related to a breast lump. She has a 25% chance of having inherited the JOCELYN mutation from her paternal grandfather. Since Heidi only had testing for the known APC and JOCELYN mutations, given Heidi's family history of pancreatic cancer and early onset breast cancer, Rosanna's niece should also consider broader panel genetic testing. She is being seen at [facility]. Finally, it can be difficult for people to predict how they will react to learning that they have not inherited a mutation that is known to be in their family. A variety of feelings may occur after learning that one does not carry a gene alteration. Some individuals experience a sense of relief from knowing that they have not inherited the altered gene in their family. Others experience a sense of guilt. Testing may bring up feelings about other relatives who had cancer. One may also worry thatother family members might have inherited the altered gene. For some, a consultation with a psychologist, social work case manager, or psychiatrist may be helpful in dealing with feelings that may arise from genetic testing. If Heidi would like a referral, we can help and recommend a therapist who is familiar with issues surrounding genetic conditions. documented in this encounter Plan of Treatment Upcoming Encounters Date Type Department Care Team (Late st Contact Info) Description 03/30/2024 11:00 AM EDT Office Visit Dermatology at [address] [address] Serenity Cheema MD [facility] [place] [address] documented as of this encounter Visit Diagnoses Not on filedocumented in this encounter Care Teams Recessing Machine Operator Relationship Specialty Start Date End Date Alma Youssef MD [address] [place] [address] PCP - General 03/22/13 documented as of this encounter
--- OUTSIDE RECORDS SUMMARY | 2024-03-19 15:49 | XMS_ITS | Encounter Summary ---
Author Organization [facility] Address [facility] [address] [place] [address] Care Team Providers Care Ship Ceiler Name Role Phone Alma Youssef MD Primary Care Provider [phone] Reason for Visit * Reason Comments Follow-up Encounter Details Date Type Department Care Team (Late st Contact Info) Description 12/18/2017 1:15 PM EDT Office Visit Dermatology at [facility] [address] [place] [address] Serenity Cheema MD [facility] [address] [place] [address] Allergic contact dermatitis, unspecified trigger Social History Tobacco Use Types Packs/Day Years [...] Progress Notes * Serenity Cheema MD - 12/18/2017 1:15 PM EDT DERMATOLOGY ESTABLISHED PATIENT CLINIC NOTE Date of service: 12/18/2017 Heidi Mcdermott : 1935 Provider: Serenity Cheema MD Chief Complaint Patient presents with ??? Follow-up SKIN HISTORY: BCC left brow [address] Mcgill actinic keratosis seborrheic keratosis BCC 2014 left arm, excision [place] Angioma(s PATIENT PREFERENCES Preferred name: Heidi Preferred contact method with results: Phone Detailed message including biopsy results okay?:Yes Are there any other people with whom we may discuss your care?:Daughter, Lulu Mcdermott is a 82 y.o. year old female.She returns to the clinic today for a follow up on the blisters on her lower extremities. On her last visit a biopsy was done which showed spongiotic dermatitis and had a DIF negative for BP. She is here today for a follow up and suture removal. She reports a positive response to the clobetasol ointment and states that the blisters are drying up without complication. She has not developed any new lesions ADR: Allergies Allergen Reactions ??? Latex CIS [...] complaints EXAM General: NAD, pleasant, cooperative Skin: Significant skin findings: A. Faint erythema in areas of prior rash . Pathology: B - Skin, right estrada, punch biopsy: Spongiotic and perivascular dermatitis with eosinophils, irritated (see discussion). Electronically signed by: ??Angie Urbina MDfernieirma Verified: ??12/14/2017 ?Dermatopathologist Performed at: ??-[facility] [place] Dept. of [place]ology, [place], [place] DISCUSSION Overall, features of bullous pemphigoid are not seen here. ? No specific ??immunoreactants are found on immunofluorescent studies. ??The clinical description of ??erosions and bulla is noted; a subepidermal bulla is not seen here. ??However, part ??of the corneal layer is absent. Thus, a subcorneal bulla could be considered. The differential includes an excoriated dermal hypersensitivity reaction, contact ??or irritant dermatitis, or drug reaction. ??These are best distinguished clinically. ?? If these differentials are excluded clinically, ??another biopsy from a developed ??subepidermal bulla may be of help. ASSESSMENT/PLAN: A. Allergic Contact Dermatitis Resolving without change to personal and laundry products. - Continue clobetasol ointment to affected areas for 1 more week at most. - Patient instructed to return to clinic for recurrence; consider a sensitive skin care regiment atthat time. -sutures removed at today's visit from biopsy site on right estrada. FOLLOW UP: Visit scheduled in January 2018 for a full skin examination, sooner if needed. Instructed to call with questions or concerns. I am documenting this encounter acting as the scribe for and in the presence of Dr. Cheema.: Lulu Peoples LPN and Vianey Stahl, Clinical Scribe I performed the above scribed service and agree with the accuracy of the documentation in this encounter. Serenity Cheema MD Section of Dermatology [facility] documented in this encounter Plan of Treatment Upcoming Encounters Date Type Department Care Team (Late st Contact Info) Description 03/30/2024 11:00 AM EDT Office Visit Dermatology at [address] [place] [address] Serenity Cheema MD [facility] [address] [place] [address] documented as of this encounter Visit Diagnoses Diagnosis Allergic contact dermatitis, unspecified trigger documented in this encounter Care Teams Ship Ceiler Relationship Specialty Start Date End Date Alma Youssef MD [address] [place] [address] PCP - General 03/22/13 documented as of this encounter
--- OUTSIDE RECORDS SUMMARY | 2024-03-19 15:49 | XMS_ITS | Encounter Summary ---
Author Organization [facility] Address [facility] [address] [place] [address] Care Team Providers Care Management Analyst Name Role Phone Alma Youssef MD Primary Care Provider [phone] Encounter Details Date Type Department Care Team (Late st Contact Info) Description 12/09/2017 Telephone Dermatology at [facility] [address] [place] [address] Serenity Cheema MD [facility] [address] [place] [address] Social History Tobacco Use Types Packs/Day Years [...] encounter Miscellaneous Notes * Telephone Encounter - PinedaIvetteTiffanie Stevo - 12/09/2017 1:29 PM EDT I received a voicemail from Heidi Fouzia Mcdermott's daughter Lulu stating Heidi had an apt with Dr. Cheema yesterday and had some questions. She is hard of hearing and asked that her daughter call us toget some answers. The best call back number is [phone] documented in this encounter Plan of Treatment Upcoming Encounters Date Type Department Care Team (Late st Contact Info) Description 03/30/2024 11:00 AM EDT Office Visit Dermatology at [facility] [address] [place] [address] Serenity Cheema MD [facility] [address] [place] [address] documented as of this encounter Visit Diagnoses Not on filedocumented in this encounter Care Teams Management Analyst Relationship Specialty Start Date End Date Alma Youssef MD [address] [place] [address] PCP - General 03/22/13 documented as of this encounter
--- OUTSIDE RECORDS SUMMARY | 2024-03-19 15:49 | XMS_ITS | Encounter Summary ---
Author Organization Pending [facility] Address [facility] [place] [address] Care Team Providers Care Mixer Pigment Name Role Phone Alma Youssef MD Primary Care Provider [phone] Reason for Visit * Reason Comments Right Knee Pain Encounter Details Date Type Department Care Team (Late st Contact Info) Description 03/22/2013 3:10 PM EDT [place] [phone] Elvis Rolon PA [facility] [place] [address] Knee pain (Primary Dx) Discharge Disposition: Home Social History [...] Sign Reading Time Taken Comments Blood Pressure 165/79 03/22/2013 3:42 PM EDT RIG HT ARM Pulse 86 03/22/2013 3:42 PM EDT Temperature - - Respiratory Rate - - Oxygen Saturation - - Inhaled Oxygen Concentration - - Weight - - Height - - Body Mass Index - - documented in this encounter Plan of Treatment Upcoming Encounters Date Type Department Care Team (Late st Contact Info) Description 03/30/2024 11:00 AM EDT Office Visit Dermatology at [facility] [address] [place] [address] Serenity Cheema MD [facility] [address] [place] [address] documented as of this encounter Visit Diagnoses Diagnosis Knee pain- Primary Pain in joint, lower leg documented in this encounter Administered Medications Inactive Administered Medications - up to 3 most recent administrations Medication Order MAR Action Action Date Dose Rate Site BUpivacaine (PF) (MARCAINE) 0.25 % (2.5 mg/mL) injection 5 mg 5 mg, Intra-articular, ONCE, 1 dose, On Fri03/23/13 at 1500, Routine Given 03/22/2013 4:00 PM EDT 5 mg lidocaine (PF) (XYLOCAINE) 10 mg/mL (1 %) injection 50 mg 50 mg, Subcutaneous, ONCE, 1 dose, On Fri03/23/13 at 1500, Routine Given 03/23/2013 2:30 PM EDT 50 mg triamcinolone acetonide (KENALOG) injection 35 mg 35 mg, Intra-articular, ONCE, 1 dose, On Fri03/23/13 at 1500, Routine Given 03/22/2013 4:00 PM EDT 35 mg documented in this encounter Care Teams Mixer Pigment Relationship Specialty Start Date End Date Alma Youssef MD [address] [place] [address] PCP - General 03/22/13 documented as of this encounter
--- OUTSIDE RECORDS SUMMARY | 2024-03-19 15:49 | XMS_ITS | Encounter Summary ---
Author Organization [facility] Address [facility] [address] [place] [address] Care Team Providers Care Deputy Juvenile Officer Name Role Phone Alma Youssef MD Primary Care Provider [phone] Encounter Details Date Type Department Care Team (Late st Contact Info) Description 04/05/2022 Interpretation Only [address] [address] Alma Youssef MD [address] [place] [address] Social History Tobacco Use Types Packs/Day Years [...] 11:00 AM EDT Office Visit Dermatology at [facility] [address] [place] [address] Serenity Cheema MD [facility] [place] [address] documented as of this encounter Procedures Procedure Name Priority Date/Time Associated Diagnosis Comments DXA CENTRAL SPINE, HIP, AND/OR WHOLE BODY (GENERIC) Routine 04/05/2022 10:03 AM EDT documented in this encounter Results * DXA Central Spine, Hip, and/or Whole Body (Generic) (04/05/2022 10:03 AM EDT) PT CLASS O RAD ADMITDTTM RAD PT RAD INFO [id number]^R EEVES^MATTHEW H RAD EXAM DESC XDXAC^DEXA SCAN [...] who have questions please contact the health acute care nursing assistant that requested your imaging first. ? Narrative 04/05/2022 10:34 AM EDT EXAMINATION: DEXA [...] patients who have questions please contactthe health acute care nursing assistant that requested your imaging first. Electronically signed by: Catracho George MD, [facility]([phone]), at 04/05/2022 10:34 AM Alma Youssef MD IMG DEXA ORDERABLES documented in this encounter Visit Diagnoses Not on filedocumented in this encounter Care Teams Deputy Juvenile Officer Relationship Specialty Start Date End Date Alma Youssef MD [address] [place] [address] PCP - General 03/22/13 documented as of this encounter
--- OUTSIDE RECORDS SUMMARY | 2024-03-19 15:49 | XMS_ITS | Encounter Summary ---
Author Organization [facility] Address [facility] Mar[address] [place] [address] Care Team Providers Care Plywood Layup Line Back Feeder Name Role Phone Alma Youssef MD Primary Care Provider [phone] Reason for Visit * Reason Comments Skin Check Encounter Details Date Type Department Care Team (Late st Contact Info) Description 12/15/2013 2:30 PM EDT Follow-Up Dermatology at [facility] [address] [place] [phone] Serenity Michaels MD [facility] [address] RYAN [place] [address] Skin lesion (Primary Dx) Discharge Disposition: Home Social History [...] as of this encounter Progress Notes * Lali Coulter - 02/22/2014 10:14 AM EDTQuick Note: Had OSP- for 02/21/2014 @1pm for BCC_left arm Reminder in for full skin check- 11/2014 * Yfn Lali Sena - 12/20/2013 2:50 PM EDTQuick Note: Spoke to patient regarding biopsy results. She knows to call me with any other questions or concerns. -Treatment plan- OSP scheduled for 02/21/2014 @1pm for BCC_left arm -Sent to Adalberto Tran for scheduling. * Serenity Michaels MD - 12/15/2013 2:31 PM EDT DERMATOLOGY ESTABLISHED PATIENT CLINIC NOTE Date of service: 12/15/2013 Heidi Truong : 1935 Provider: Serenity Michaels MD Chief Complaint Patient presents with ??? Skin Check SKIN HISTORY: [place] SK BCC left brow [address] Mcgill HPI Heidi Truong is a 78 y.o. year old female here today for a full skin check. C/o a scaly spot on her left forehead, close to her scar s/p BCC ADR: Allergies Allergen Reactions ??? Latex CIS [...] ??? hydrochlorothiazide (HYDRODIURIL) 25 mg tablet ??? Zhbvzmwegttyf-Bndzybur-Avfzgk (CENTRUM SILVER) Tab ??? magnesium oxide (MAG-OX) [...] ascorbic acid (VITAMIN C) 500 mg tablet ROS General: feeling well Skin: denies other skin complaints EXAM General: NAD, pleasant, cooperative Skin: A total body skin exam except for areas covered by underwear was performed. This includes examination of the skin of the face, ears, neck, chest, axillae, left and right upper and lower extremities, hands and feet, abdomen, and except the areas covered by underwear were not examined. Significant skin findings: A. Left arm 1.1cm telangectatic pink papule with a pearly border B. Multiple 0.4-0.6cm brown papules with waxy, stuck-on appearance. Milia-like cysts, comedone-likeopenings and/or fissuring on dermoscopy. C. Firm papule, centrally raised and sclerotic, peripheral hyperpigmentation. Dimpling with lateralpressure. Located on left arm distal to lesion A ASSESSMENT/PLAN: A. BCC Procedure: Skin biopsy by shave technique Location: Left arm Discussed indications for procedure and expectations including risks and benefits. Verbal consent obtained. Skin prep with alcohol. Local anesthesia with 1% xylocaine, 1/100,000 epinephrine, 0.1 mEq/mL bicarbonate. A sample of the lesion was removed by shave technique to the level of the dermis andsubmitted to Pathology. Hemostasis obtained (AlCl and/or electrocautery). There were no complications; the pt. tolerated the procedure well. The wound was dressed. Post-procedure expectations, wound care and activity restrictions were reviewed. Follow-up based on pathology results. Discussed excision vs. ED&C. Pt will decide B. Sk's, pt reassured C. DF, pt reassured D. RTC in one year for a full skin check I am documenting this encounter acting as the scribe for and in the presence of Dr. Michaels.: EFRAIN TRAMMELL, ARNEL I performed the above scribed service and agree with the accuracy of the documentation in this encounter. Serenity Michaels MD Section of Dermatology [facility] documented in this encounter Plan of Treatment Upcoming Encounters Date Type Department Care Team (Late st Contact Info) Description 03/30/2024 11:00 AM EDT Office Visit Dermatology at [facility] [address] [place] [address] Serenity Michaels MD [facility] [address] [place] [address] Scheduled Orders Name Type Priority Associated Diagnoses Orde r Schedule Skin Biopsy Dermatology Routine Skin lesion Ordered: 12/15/2013 documented as of this encounter Procedures Procedure Name Priority Date/Time Associated Diagnosis Comments SPECIMEN TO PATHOLOGY (NON-OR) Routine 12/15/2013 2:54 PM EDT Skin lesion SURGICAL PATHOLOGY REPORT Routine 12/15/2013 2:54 PM EDT documented in this encounter Results * Surgical Pathology Report (12/15/2013 2:54 PM EDT) FINAL DIAGNOSIS (AP) ? [facility] ? Provider: ?? SERENITY MICHAELS ? Pt. Name: ?? HEIDI TRUONG ? Acc #: ?[id number] ? Pt. ? Col Date: ?? 12/15/2013 ? /Sex: ?1935,(78 ? years),Female ? Rec Date: ?? 12/15/2013 ? LOC: ?[facility] ? SURGICAL PATHOLOGY ? ---Pathologic Diagnosis--- ? Skin, left arm, shave biopsy: ?Basal cell carcinoma, with sclerosing features and infiltrating growth ? pattern, present at the peripheral and deep specimen edges, associated with ? superficial dermal fibrosis and sclerotic collagen bundles. ? CR-0 ? Dictated by: ??Ambar Ferrer MD ? Dermatopathology Fellow ? As the attending physician, I attest that I examined the histologic slides, ? and confirm Dr. Ambar Ferrer' diagnosis. ? 12/16/13 ? BJM ? 12/16/13 Verified by: ? Leif MONTEZ, PhD, Tu ? Dermatopathologist ? (Electronic Signature) ? The attending pathologist whose signature appears on this report has ? reviewed all diagnostic slides and has edited the gross and/or ? microscopic portion of the report in rendering the final pathologic ? diagnosis. ? ---Gross Description--- ? A - Labeled/Fixative: Patient's name, formalin. ? Quantity/Size: Single, 0.5 x 0.5 cm shave. ? Tissue Description: [place] skin. ? Sections/Processing: Inked, bisected. (T1) ??cjl ? ---Clinical Information--- ? Specimen Submitted: ? A - Skin, left arm, shave biopsy, (1) ? Clinical History: ? 1.1 cm telangiectatic pink papule with a pearly border ? Clinical Diagnosis: ? BCC 12/16/2013 1:11 PM EDT [facility] SPECIMEN FROM SKIN / Unknown 12/15/2013 2:54 PM EDT 12/15/2013 2:54 PM EDT Serenity Michaels MD PATHOLOGY/CYTOLOGY O RDERABLES Performing Organization Address City/State/[facility] Co de Phone Number [facility] [place] [address] * Specimen to Pathology (NON-OR) (12/15/2013 2:54 PM EDT) AP Specimen 12/15/2013 2:54 PM EDT 12/15/2013 2:54 PM EDT Narrative [facility] - 12/15/2013 2:54 PM EDT Specimen requisition ordered. ??Separate Pathology report to follow Serenity Michaels MD PATHOLOGY/CYTOLOGY O RDERABLES [facility] documented in this encounter Visit Diagnoses Diagnosis Skin lesion- Primary Unspecified disorder of skin and subcutaneous tissue documented in this encounter Care Teams Plywood Layup Line Back Feeder Relationship Specialty Start Date End Date Alma Youssef MD [address] [place] [address] PCP - General 03/22/13 documented as of this encounter
--- OUTSIDE RECORDS SUMMARY | 2024-03-19 15:49 | XMS_ITS | Encounter Summary ---
Author Organization [facility] Address [facility] [address] [place] [address] Care Team Providers Care Talent Acquisition Lead Name Role Phone Alma Youssef MD Primary Care Provider [phone] Encounter Details Date Type Department Care Team (Late st Contact Info) Description 06/14/2023 5:25 PM EDT Ancillary [place] [address] Yessy Mckeon APRN [facility] [place] [address] Social History Tobacco Use Types Packs/Day Years [...] 11:00 AM EDT Office Visit Dermatology at [facility] [address] [place] [address] Serenity Cheema MD [facility] [address] [place] [address] documented as of this encounter Procedures Procedure Name Priority Date/Time Associated Diagnosis Comments FILM LIBRARY STORAGE ONLY CT HEAD Routine 06/14/2023 5:08 PM EDT documented in this encounter Results * Film Library- Storage Only CT Head (06/14/2023 5:08 PM EDT) Narrative JASPAL - 06/14/2023 5:08 PM EDT This exam is auto-finalizing. It's purpose is for storage only. L Estella Mckeon APRN IMG FILM LIBRARY ORDERABLES Performing Organization Address City/State/[facility] Co de Phone Number [place], [place] documented in this encounter Visit Diagnoses Not on filedocumented in this encounter Care Teams Talent Acquisition Lead Relationship Specialty Start Date End Date Alma Youssef MD [address] [place] [address] PCP - General 03/22/13 documented as of this encounter
--- OUTSIDE RECORDS SUMMARY | 2024-03-19 15:49 | XMS_ITS | Encounter Summary ---
Author Organization [facility] Address [facility] [place] [address] Care Team Providers Care Landcare Officer Name Role Phone Alma Youssef MD Primary Care Provider [phone] Reason for Visit * Reason Comments Genetic Evaluation Encounter Details Date Type Department Care Team (Latest Contact Info) Description 11/16/2020 3:00 PM EDT TH Visit (TeleHealth) [place] [phone] Jeniffer Ty LGC [facility] HEMATOLOGY/[place] [address] Family history of gene mutation Social History Tobacco Use Types Packs/Day Years Used Date Smoking Tobacco: Never Smokeless Tobacco: Never Alcohol Use Standard Drinks/Week Comments No 0 (1 standard drink = 0.6 oz pur e alcohol) Sex and Gender Information Value Date Recorded Sex Assigned at Not on file Gender Identity Not on file Sexual Orientation Not on file documented as of this encounter Progress Notes * Jeniffer Ty LGC - 11/16/2020 3:00 PM EDT Heidi Mcdermott was seen by STEPHANIE De La Torre to advise regarding possible heritable predisposition to cancer. I spent 10 minutes of this telephone face encounter with the patient, her and daughter discussing the likelihood of a genetic predisposition to cancer and the option of genetic testing. Reason for referral/Chief complaint Family history of APC and JOCELYN mutations Medical history Cancer hx and treatment: skin cancer at age 65 Family History of cancer Problem Relation Age of Onset ??? Pancreatic Cancer Sister 65 ??? Breast Cancer Niece 35 ??? Breast Cancer Granddaughter 35 JOCELYN mutation ??? Colon Polyps Daughter APC and JOCELYN mutations Maternal ethnic background is [place]. Paternal ethnic background is [place]. No known Ashkenazi Christian heritage. Genetic risk assessment Heidi's daughter, Rosanna, has been found to have mutations in the JOCELYN and APC genes. Her testing was done because Rosanna's daughter, who had breast cancer at age 35, was found to have a mutation in the JOCELYN gene. Additional testing was done for Rosanna because of her history of multiple colon polyps. 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 It was recommended that both of Rosanna's parents have testing to determine which side of the family each of these mutations was inherited from. This was reviewed with Heidi and her and they have both agreed to testing for these mutations. This will be done at no charge to them through [facility]'s family follow-up testing program. Heidi gave verbal consent for testing. I will be mailing the consent forms to Heidi to complete and return to me. [facility] will send a buccal swabcollection kit with prepaid return envelope directlyto Heidi's home to obtain a sample. Instructions for sample collection and return are provided within the kit. Testing will take up to 3 weeks. As requested, I will contact Rosanna via telephone once Heidi's test results become available. If positive, we will offer a follow-up appointment. At that time, we will discuss with Heidi the implications that this test result may have for her, as well as her family members and answer any questions she may have. documented in this encounter Plan of Treatment Upcoming Encounters Date Type Department Care Team (Late st Contact Info) Description 03/30/2024 11:00 AM EDT Office Visit Dermatology at [facility] [address] [place] [address] Serenity Cheema MD [facility] [address] [place] [address] documented as of this encounter Visit Diagnoses Diagnosis Family history of gene mutation documented in this encounter Care Teams Landcare Officer Relationship Specialty Start Date End Date Alma Youssef MD [address] [place] [address] PCP - General 03/22/13 documented as of this encounter
--- OUTSIDE RECORDS SUMMARY | 2024-03-19 15:50 | XMS_ITS | Patient Health Record ---
Author Organization [facility] Address [address], [address] [place] [address] Care Team Providers Care Fundraising Assistant Name Role Phone Alma Youssef Primary Care Provider [phone] ALLERGIES Allergen (clinical drug ingredient) Drug/Non [...] 0.45-5.33 mcIntlUnit/mL - Ordering Provider: Alma Youssef MEDICATIONS Medication SIG (Take, Route, Frequency, Duration) Notes Start Date End Date Status Cymbalta 30 MG 1 capsule Orally Once [...] a day for 90 days 08/23/2014 Active Cranberry 450 MG 1 tablet with meals Orally Twice a day Active Turmeric 500 MG as directed Orally Not-Taking Aspirin 81 MG 1 tablet Orally Once a day for 30 day(s) Active Vitamin D 1000 UNIT 1 tablet Orally Once a day for 30 day(s) Active Tolterodine Tartrate 1 MG 1 tablet Orally Twice a day for 30 days 08/13/2023 Active Glucosamine MSM Complex 1 tablet with [...] Active confirmed 2 Disorder of cardiovascular system (25871578) Problem Osteoarthrosis, unspecified whether generalized or localized, unspecified site (715.90) Active confirmed Osteoarthritis (794381672) knee and possibly ankle, although foot pain sounds more like claudication pain Problem Hypothyroidism, unspecified (E03.9) Active confirmed Hypothyroidism (92982390) Problem Age-related nuclear cataract, bilateral (H25.13) Active confirmed Nuclear senile cataract (170104557) low risk for planned low risk procedure; no additional testing necessary Problem Unspecified sensorineural hearing loss (H90.5) Active confirmed Sensorineural hearing loss (10083178) Problem Atherosclerotic heart disease of [place] coronary artery without angina pectoris (I25.10) Active confirmed Atherosclerotic heart disease of [place] coronary artery without angina pectoris (690600757861336 ) asymptomatic post CABG Problem Polyosteoarthriti s, unspecified (M15.9) Active confirmed Osteoarthritis (737541244) suspect worsening osteoarthriti s, possible adverse effect of crestor? she does report late onset myalgias with lipitor in the past Problem Polymyalgia rheumatica (M35.3) Active confirmed Polymyalgia rheumatica (66226424) Doing well Problem Urge incontinence (N39.41) Active confirmed Urge incontinence of urine (79761188) Problem Mixed incontinence (N39.46) Active confirmed Mixed incontinence (192365291) urge incontence with recent functional limitations Problem Solitary pulmonary nodule (R91.1) Active confirmed Solitary pulmonary nodule (141887896) abnormal CXR Problem Asymptomatic menopausal state (Z78.0) Active confirmed Postmenopausal state (94355601) VITAL SIGNS Heart Rate 72 /min 08/13/2023 Blood pressure diastolic 72 mm Hg 08/13/2023 Height 65 in 08/13/2023 Blood pressure systolic 138 mm Hg 08/13/2023 Weight 131 lbs 08/13/2023 BMI 21.8 kg/m2 08/13/2023 Encounters Encounter Location Date Provider Diagnosis [facility] [address] [place], [place] [id number] 04/10/2023 Alma Youssef Encounter for genera l adult medical examination without abnormal findings Z00.00 ; Hypothyroidism, unspecified E03.9 ; Atherosclerotic heart disease of [place] coronary artery without angina pectoris I25.10 and Polyosteoarthritis, unspecified M15.9 [facility] [address] [place], [place] [phone] 08/13/2023 Alma Youssef Fracture of unspecif ied part of neck of right femur, initial encounter for closed fracture S72.001A and Mixed incontinence N39.46 [facility] [address] [place], [place] [id number] 03/31/2023 Alma Youssef Atherosclerotic hear t disease of [place] coronary artery without angina pectoris I25.10 and Polyosteoarthritis, unspecified M15.9 ASSESSMENTS Encounter Date Diagnosis Assessment Notes Treatment Notes Treatment Clinical Notes 08/13/2023 Mixed incontinence (ICD-10 - N39.46) urge incontence with recent functional limitations 08/13/2023 Fracture of unspecified part of neck of right femur, initial encounter for closed fracture (ICD-10 - S72.001A) discharge summary reviewed. agree with home physical therapy and order sent. 04/10/2023 Hypothyroidism, unspecified (ICD-10 - E03.9) 04/10/2023 Encounter for genera l adult medical examination without abnormal findings (ICD-10 - Z00.00) Consider ortho or PT for arthritis pain. She does not want a referral today. Discussed lifeline, safety at home. 03/31/2023 Atherosclerotic hear t disease of [place] coronary artery without angina pectoris (ICD-10 - I25.10) 03/31/2023 Polyosteoarthritis, unspecified (ICD-10 - M15.9) 04/10/2023 Atherosclerotic hear t disease of [place] coronary artery without angina pectoris (ICD-10 - I25.10) 04/10/2023 Polyosteoarthritis, unspecified (ICD-10 - M15.9) PLAN OF TREATMENT Pending Test Test Name Order Date Urinalysis, Routine 04/19/2020 Urinalysis, Routine 03/15/2020 Urinalysis, Routine 11/10/2018 Urinalysis, Routine 11/03/2017 Urinalysis, Routine 10/21/2016 Urinalysis, Routine 05/28/2013 Urinalysis, Routine 03/19/2021 Urinalysis, Routine 10/03/2014 Urinalysis, Routine 08/23/2014 Urinalysis, Routine 10/22/2013 LIPID PROFILE 05/28/2013 BD BONE DENSITY, DEXA SCAN 10/16/2015 BD BONE DENSITY, DEXA SCAN 04/02/2022 MG MAMMOGRAPHY BILATERAL SCREENING 08/04 XR CHEST 4 VIEW 02/11/2022 Insurance Providers Payer Name Payer Address Payer Phone Subscriber Number Group Number Insured Name Patient Relationship to Insured Coverage Start Date Coverage End Date [place] [employer] [facility] [address] [place] [address] [id number] Heidi Mcdermott Self - patient is the insured [address] [place] [address] [id number] Heidi Mcdermott Self - patient is the insured 2 MEDICAL (GENERAL) HISTORY Medical History History ICD Code ASCVD osteoarthritis polymyalgia rheumatica Surgical History Surgery Date(Month/Year) tonsillectomy dilatation and curettage coronary artery bypass graft 11/2008 L hip replacement s/p fracture 2017 carpal tunnel repair 2018 skin cancer reconstruction on R nares 20 21 cataracts 2021 R hip replacement s/p fracture 2022
--- OUTSIDE RECORDS SUMMARY | 2024-03-19 15:50 | XMS_ITS ---
Author Organization [facility] dicine Visit Address [address], [address] [place] [address] Care Team Providers Care Dumper Name Role Phone YoussefAlma Primary Care Provider MEDICATIONS Medication SIG (Take, Route, Frequency, Duration) Notes Start Date End Date Status Cymbalta 30 MG 1 capsule Orally Onc e a day for 30 days 01/31/2022 Active amLODIPine Besylate 5 MG 1 tablet Orally Once a day for 30 days Active Encounters Encounter Location Date Provider Diagnosis [facility] [address] [place], [place] [id number] 03/31/2023 Alma Youssef Atherosclerotic hear t disease of pauma coronary artery without angina pectoris I25.10 and Polyosteoarthritis, unspecified M15.9 ASSESSMENTS Encounter Date Diagnosis Assessment Notes Treatment Notes Treatment Clinical Notes 03/31/2023 Atherosclerotic hear t disease of pauma coronary artery without angina pectoris (ICD-10 - I25.10) 03/31/2023 Polyosteoarthritis, unspecified (ICD-10 - M15.9) PLAN OF TREATMENT Medication Medication Name Sig Start Date Stop Date Notes Cymbalta 30 MG 1 capsule Orally Onc e a day for 30 days 01/31/2022 amLODIPine Besylate 5 MG 1 tablet Orally Once a day for 30 days Progress Notes * Lori MCDERMOTTDerejeB: 6 (87 yo F)Acc No.[id number]:03/31/2023 Patient:??Heidi Mcdermott :1935?Age:87 Y?Sex:Fe male Address:[facility] [place] [place] [address] * Refills?? Continue amLODIPine Besylate Tablet, 5 MG, Orally, 30 Tablet, 1 tablet, Once a day, 30 days, Refills=0 Continue Cymbalta Capsule Delayed Release Particles, 30 MG, Orally, 30 Capsule, 1 capsule, Once a day, 30 days, Refills=0 * true * Date:??
== END ==
PROVIDERS: PCP Internal Medicine; Visit Provider Physician Assistant Medical
DX: M54.50 Low back pain, unspecified (principal); Z96.641 Presence of right artificial hip joint; Z96.642 Presence of left artificial hip joint; M51.35 Other intervertebral disc degeneration, thoracolumbar region; M51.37 Other intervertebral disc degeneration, lumbosacral region
CPT/HCPCS: 72110; 72170

== ENCOUNTER → 2024-06-02 13:27 | Outpatient (BNVA) | payer MEDICARE, OTHER, SELFPAY | PROVIDERS: PCP Internal Medicine; Referring Provider Internal Medicine; Visit Provider Podiatrist | DX: L60.3 Nail dystrophy (principal); B35.1 Tinea unguium; M20.41 Other hammer toe(s) (acquired), right foot; M20.42 Other hammer toe(s) (acquired), left foot; L84 Corns and callosities; I73.89 Other specified peripheral vascular diseases | CPT/HCPCS: 11721 ==

== ENCOUNTER → 2024-06-16 12:57 | Outpatient (BNVA) | payer MEDICARE, OTHER, SELFPAY | PROVIDERS: PCP Internal Medicine; Referring Provider Internal Medicine; Visit Provider Physical Therapy Assistant | DX: I73.9 Peripheral vascular disease, unspecified (principal) | CPT/HCPCS: 99212 ==

== ENCOUNTER 2024-07-05 09:36 | Emergency (ER) | payer MEDICARE, OTHER, SELFPAY ==
[2024-07-05 09:44] VITALS: BP 123/51; PULSE 67; RESP 14; TEMP 36.6; O2SAT 98
--- OUTSIDE RECORDS SUMMARY | 2024-07-05 10:03 | XMS_ITS | Referral Summary ---
Author Organization [facility] Address [address] [place] [address] Care Team Providers Care Spareribs Trimmer Name Role Phone Unknown, Provider Primary Care Provider Unava ilable Social History Tobacco Use Types Packs/Day Years Used Date Smoking Tobacco: Never Assessed Comments Unknown Sex and Gender Information Value Date Recorded Sex Assigned at Not on file Legal Sex Female 18:42 EST Gender Identity Not on file Sexual Orientation Not on file Plan of Treatment Not on file Care Teams Spareribs Trimmer Relationship Specialty Start Date End Date Unknown, Provider, PCP - General 06/26/15
--- OUTSIDE RECORDS SUMMARY | 2024-07-05 10:03 | XMS_ITS | Encounter Summary ---
Author Organization [facility] Address [facility] [address] [place] [address] Care Team Providers Care Liquified Natural Gas Specialist Name Role Phone Al[place] Youssef MD Primary Care Provider [phone] Encounter Details Date Type Department Care Team (Late st Contact Info) Description 12/07/2022 11:40 AM EDT Office Visit Dermatology at [facility] [address] [place] [address] Svitlana Lopez MD [facility] [address] [place] [address] History of basal cell carcinoma (BCC); SK [...] Provider: Svitlana Lopez MD Patient's preferred name Gordon Preferred contact method for results [x]?Phone []?myD-H [...] 1 year for FSE []Note routed to executive secretary social welfare [x]Recall placed in scheduling system []Appointment scheduled at checkout Scribe attestation: Heena Deluca MA has performed the documentation for this encounter in the presence of and acting as a scribe for Svitlana Lopez MD. I performed the above scribed service and agree with the accuracy of the documentation in this encounter. Reviewed and signed by: Svitlana Lopez MD [facility] Patient seen and evaluated with staff jewelry sales: Serenity Michaels MD [facility] * Serenity Michaels MD - 12/07/2022 11:40 [...] keratosis documented in this encounter Care Teams Liquified Natural Gas Specialist Relationship Specialty Start Date End Date Al[place] Youssef MD [address] [place] [address] PCP - General 03/22/13 documented as of this encounter
--- OUTSIDE RECORDS SUMMARY | 2024-07-05 10:03 | XMS_ITS | Clinical Summary ---
Author Organization [facility] Address [facility] [place] [address] Care Team Providers Care Behavioral Health Clinician Name Role Phone Al[place] Youssef MD Primary Care Provider [phone] Allergies Active Allergy Reactions Criticality Noted Date [...] Next Due Influenza Vaccine, Whole 05/18/2008 Pneumococcal 23-Valent Polysaccharide (Pneumovax 23) 08/18/2004 Family History Medical History Relation Comments Colon [...] Mass Index - - Plan of Treatment Health Maintenance Due Date Last Done Comments Tetanus/Diphtheria/Pertussis Vaccines (1 - Tdap) 06/03 Zoster vaccine (1 of 2) 1986 Pneumoccocal Vaccine: 65+ (2 of 2 - PCV) 08/18/2005 08/18/2004 Covid-19 Vaccine ( - 2023- season) 2024 Influenza (Flu) vaccine (1 o f 1 [...] O RAD ADMITDTTM RAD PT RAD INFO [id number]^R EEVES^MATTHEW H RAD EXAM DESC XDXAC^DEXA SCAN [...] who have questions please contact the health chiropractic care that requested your imaging first. ? Narrative [...] patients who have questions please contactthe health chiropractic care that requested your imaging first. Electronically signed by: Catracho Goerge MD, [facility]([phone]), at 04/05/2022 10:34 AM Alma Youssef MD IMG DEXA ORDERABLES from Last 3 Months or Most Recently Relevant to Health Maintenance Advance Directives Documents on File Type Date Recorded Patient Control Systems Technician Expl anation Advance Directives and Livin g Will 10/17/2010 10:07 AM Care Teams Behavioral Health Clinician Relationship Specialty Start Date End Date Alma Youssef MD [address] [facility] [place] [address] PCP - General 03/22/13
--- OUTSIDE RECORDS SUMMARY | 2024-07-05 10:03 | XMS_ITS | Encounter Summary ---
Author Organization [facility] Address [facility] [address] [place] [address] Care Team Providers Care Laundry Assistant Name Role Phone Alma Youssef MD Primary Care Provider [phone] Reason for Visit * Reason Comments Procedure infiltrative BCC Encounter Details Date Type Department Care Team (Latest Contact Info) Description 02/21/2014 12:30 PM EDT Procedure visit Dermatology at [facility] [address] [place] [address] Serenity Cheema MD [facility] [place] [address] BCC (basal cell carcinoma of skin) (Primary [...] during the day at Nurse: Saskia - [phone] After 5 PM and on weekends, please call the hospital number , and ask for the Rn Heart customer operations associate. documented in this encounter Progress Notes * Lali Coulter - 02/25/2014 10:37 AM EDTQuick Note: Spoke to patient-she was pleased to hear the margins were negative. Patient instructed to call with questions or concerns * Serenity Cheema MD - 02/21/2014 1:52 PM EDT DERMATOLOGY SURGICAL APPOINTMENT NOTE Date of service: 02/21/2014 Clark Mcdermott : 1935 Provider: Serenity Cheema MD Chief Complaint Patient presents with ??? Procedure infiltrative BCC HPI: Clark Mcdermott is a 78 y.o. year old [...] arm Pathology Report: Rec Date: 12/15/2013 LOC: [facility] SURGICAL PATHOLOGY ---Pathologic Diagnosis--- Skin, left arm, shave biopsy: Basal cell carcinoma, with sclerosing features and infiltrating growth pattern, present at the peripheral and deep specimen edges, associated with superficial dermal fibrosis and sclerotic collagen bundles. A/P: 1. Patient verified. Surgical site identified with patient. Pathology reviewed. 2. Procedure Notes: Surgeon: Serenity Cheema MD Portfolio Specialist: Saskia Torrez LPN A. Excision of lesion, [...] planned Serenity Cheema MD Section of Dermatology [facility] documented in this encounter Miscellaneous Notes * Miscellaneous - Provider, Scanning - 03/03/2014 9:02 AM EDT documented in [...] Surgical Pathology Report (02/21/2014 1:53 PM EDT) Final Diagnosis ? [facility] ? Provider: ?? SERENITY CHEEMA ? Pt. Name: ?? CLARK MCDERMOTT ? Acc #: ?[id number] ? Pt. ? Col Date: ?? 02/21/2014 [...] ? 1.0 cm pink plaque, see pathology [id number] ? Clinical Diagnosis: ? Scar vs. residual BCC 02/23/2014 12:21 PM EDT [facility] SPECIMEN FROM SKIN / Unknown 02/21/2014 1:53 PM EDT 02/21/2014 1:53 PM EDT Serenity Cheema MD PATHOLOGY/CYTOLOGY Faizan LORENZANA Performing Organization Address City/[facility]/ZIP Co de Phone Number JODEE MCFARLANE [facility] [place] [address] * Specimen to Pathology (NON-OR) (02/21/2014 1:53 PM EDT) AP Specimen 02/21/2014 1:53 PM EDT 02/21/2014 1:53 PM EDT Narrative JODEE MCFARLANE - 02/21/2014 1:53 PM EDT Specimen requisition ordered. ??Separate Pathology report to follow Serenity Cheema MD PATHOLOGY/CYTOLOGY Faizan LORENZANA Performing Organization Address City/[facility] Co de Phone Number JODEE MCFARLANE documented in this encounter Visit Diagnoses Diagnosis BCC (basal cell carcinoma of skin)- Primary Basal cell carcinoma of skin, site unspecified documented in this encounter Care Teams Laundry Assistant Relationship Specialty Start Date End Date Alma Youssef MD [address] [place] [address] PCP - General 03/22/13 documented as of this encounter
--- OUTSIDE RECORDS SUMMARY | 2024-07-05 10:03 | XMS_ITS | Encounter Summary ---
Author Organization [facility] Address [facility] [address] [place] [address] Care Team Providers Care Manager Quantitative Name Role Phone Alma Youssef MD Primary Care Provider + Encounter Details Date Type Department Care Team (Late st Contact Info) Description 06/08/2021 3:30 PM EDT Office Visit Dermatology at [facility] [address] [place] [address] Serenity Cheema MD [facility] [address] [place] [address] Neoplasm of uncertain behavior of skin; Actinic [...] on the left jew. Last visit at [facility] Derm: 04/13/2020 Last visit with this [...] 1 year for FSE []Note routed to medical office secretary [x]Recall placed in scheduling system []Appointment scheduled at checkout Scribe attestation: Maria Fernanda Junior and KIMBERLY Del Castillo have performed the documentation for this encounter in the presence of and acting as a scribe for SERNEITY CHEEMA MD. I performed the above scribed service and agree with the accuracy of the documentation in this encounter. Reviewed and signed by: SERENITY CHEEMA MD Dermatology [facility] documented in this encounter [...] PM EDT 06/08/2021 3:57 PM EDT Narrative [facility] - 06/08/2021 3:57 PM EDT Specimen requisition ordered. ??Separate Pathology report to follow Serenity Cheema MD PATHOLOGY/CYTOLOGY Faizan LORENZANA [facility] [place] [address] * Surgical Pathology Report (06/08/2021 3:36 PM EDT) Final Diagnosis [id number] ? Location: [facility] The signing pathologist has (i) examined the relevant preparation(s) for the specimen(s) and (ii) rendered or confirmed the diagnosis(es). . ?Surgical Pathology DIAGNOSIS Right alar crease, skin shave biopsy: - Surface of infiltrating carcinoma with basaloid and squamous features, ulcerated, ??transected ??(see discussion) Electronically signed by: ?Jeff Urbina MD Verified: ??06/18/2021 11:46 ??Dermatopatholog ist Performed at: ??-[facility]. of [place]ology, [place], [place] DISCUSSION Overall, the findings are those [...] labeled A1. ??MLL 06/18/2021 11:46 AM EDT [facility] SPECIMEN FROM SKIN / Unknown 06/08/2021 3:36 PM EDT 06/08/2021 3:36 PM EDT Serenity Cheema MD PATHOLOGY/CYTOLOGY O RDERABLES [facility] [place] [address] documented in this encounter Visit Diagnoses Diagnosis Neoplasm of uncertain behavior of skin Actinic keratoses Actinic keratosis Seborrheic keratoses History of basal cell carcinoma (BCC) documented in this encounter Care Teams Manager Quantitative Relationship Specialty Start Date End Date Alma Youssef MD [address] [place] [address] PCP - General 03/22/13 documented as of this encounter
--- OUTSIDE RECORDS SUMMARY | 2024-07-05 10:03 | XMS_ITS | Encounter Summary ---
Author Organization [facility] Address [facility] [address] [place] [address] Care Team Providers Care Program Assistant Name Role Phone Alma Youssef MD Primary Care Provider [phone] Encounter Details Date Type Department Care Team (Late st Contact Info) Description 06/14/2023 5:25 PM EDT Ancillary Procedure Radiology Library at [facility] [place] [address] [place] [address] Yessy Mckeon APRN [facility] [place] [address] Social History Tobacco Use Types Packs/Day Years [...] CT Head (06/14/2023 5:08 PM EDT) Narrative [facility] - 06/14/2023 5:08 PM EDT This exam is auto-finalizing. It's purpose is for storage only. L Estella Mckeon APRN IMG FILM LIBRARY ORDERABLES [place], [place] documented in this encounter Visit Diagnoses Not on filedocumented in this encounter Care Teams Program Assistant Relationship Specialty Start Date End Date Alma Youssef MD [address] [place] [address] PCP - General 03/22/13 documented as of this encounter
--- OUTSIDE RECORDS SUMMARY | 2024-07-05 10:03 | XMS_ITS | Encounter Summary ---
Author Organization [facility] Address [facility] [address] [place] [address] Care Team Providers Care Carton Machine Operator Name Role Phone Alma Youssef MD Primary Care Provider [phone] Reason for Visit * Reason Comments Skin Check Encounter Details Date Type Department Care Team (Late st Contact Info) Description 11/23/2015 2:30 PM EDT Office Visit Dermatology at [facility] [address] [place] [address] Serenity Cheema MD [facility] [place] [address] [place] (actinic keratosis); SK (seborrheic keratosis); Scar [...] BCC 2014 left arm, excision [place] Angioma(s) HPI Heidi Mcdermott is a 80 y.o. [...] skin findings: A. Nose, right forearm, left scientologist, right scientologist: 0.2-0.3cm scaly irregular pink papules B. Left [...] right forearm (spot treating), nose, and right scientologist for 3 weeks. Using a pea-sized amount, [...] encounter. Serenity Cheema MD Section of Dermatology [facility] documented in this encounter Plan of Treatment Not on file documented as of this encounter Visit Diagnoses Diagnosis AK (actinic keratosis) Actinic keratosis SK (seborrheic keratosis) Other seborrheic keratosis Scar Scar condition and fibrosis of skin documented in this encounter Care Teams Carton Machine Operator Relationship Specialty Start Date End Date Alma Youssef MD [address] [place] [address] PCP - General 03/22/13 documented as of this encounter
--- OUTSIDE RECORDS SUMMARY | 2024-07-05 10:03 | XMS_ITS | Encounter Summary ---
Author Organization [facility] Address [facility] [address] [place] [address] Care Team Providers Care Behavioral Instructor Name Role Phone Alma Youssef MD Primary Care Provider [phone] Encounter Details Date Type Department Care Team (Late st Contact Info) Description 02/15/2014 Orders Only Dermatology at [facility] [address] [place] [address] Serenity Cheema MD [facility] [address] [place] [address] Social History Tobacco Use Types Packs/Day Years [...] for upcoming surgical procedure on 02/21/14 with Sereniyt Torrez LPN documented in this encounter Plan of Treatment Not on file documented as of this encounter Visit Diagnoses Not on filedocumented in this encounter Care Teams Behavioral Instructor Relationship Specialty Start Date End Date Alma Youssef MD [employer] [facility] [place] [address] PCP - General 03/22/13 documented as of this encounter
--- OUTSIDE RECORDS SUMMARY | 2024-07-05 10:03 | XMS_ITS | Encounter Summary ---
Author Organization [facility] Address [facility] [address] [place] [address] Care Team Providers Care End Stapler Name Role Phone Alma Youssef MD Primary Care Provider [phone] Reason for Referral * Consultation (Routine) - Closed Specialty Diagnoses / Procedures Referred By Contac t Referred To Contact Dermatology Diagnoses Basal cell carcinoma of nose Serenity Cheema MD [facility] [address] [place] [address] [facility] [address] [place] [address] Referral ID Status Reason Start Date Expiration Date V isits Requested Visits Authorized [id number] Closed Consult, Test & Treat 06/19/2021 06/19/2022 1 1 Encounter Details Date Type Department Care Team (Late st Contact Info) Description 06/19/2021 Orders Only Dermatology at [facility] [address] [place] [address] Serenity Cheema MD [facility] [address] [place] [address] Basal cell carcinoma of nose [...] as of this encounter Plan of Treatment Scheduled Referrals Name Type Priority Associated Diagnoses Order Schedule Referral to Dermatology Outpatient Referral Routine Basal cell carcinoma of nose Ordered: 06/19/2021 documented as of this encounter Visit Diagnoses Diagnosis Basal cell carcinoma of nose Basal cell carcinoma of skin of other and unspecified parts of face documented in this encounter Care Teams End Stapler Relationship Specialty Start Date End Date Alma Youssef MD [address] [place] [address] PCP - General 03/22/13 documented as of this encounter
--- OUTSIDE RECORDS SUMMARY | 2024-07-05 10:03 | XMS_ITS | Encounter Summary ---
Author Organization [facility] Address [facility] [place] [address] Care Team Providers Care Veterans Services Specialist Name Role Phone Alma Youssef MD Primary Care Provider [phone] Encounter Details Date Type Department Care Team (Latest Contact Info) Description 03/30/2024 Travel Social History Tobacco Use Types Packs/Day [...] on filedocumented in this encounter Care Teams Veterans Services Specialist Relationship Specialty Start Date End Date Alma Youssef MD [address] [place] [address] PCP - General 03/22/13 documented as of this encounter
--- OUTSIDE RECORDS SUMMARY | 2024-07-05 10:03 | XMS_ITS | Encounter Summary ---
Author Organization [facility] Address [facility] [address] [place] [address] Care Team Providers Care Range Feeder Name Role Phone Alma Youssef MD Primary Care Provider [phone] Reason for Visit * Reason Comments Follow-up Encounter Details Date Type Department Care Team (Late st Contact Info) Description 05/17/2013 11:00 AM EDT Follow-Up Dermatology at [facility] [address] [place] [address] Serenity Cheema MD [facility] [address] [place] [address] Actinic keratosis (Primary Dx) Discharge Disposition: Home [...] hydrochlorothiazide (HYDRODIURIL) 25 mg tablet Active ??? Rontiyyqhuwej-Fxrkayul-Xoszam (CENTRUM SILVER) Tab Active ??? magnesium oxide [...] openings and/or fissuring on dermoscopy. On left mu-ism x 1 D. Telangectasia on right lateral [...] encounter. Serenity Cheema MD Section of Dermatology [facility] documented in this encounter Plan of Treatment Not on file documented as of this encounter Visit Diagnoses Diagnosis Actinic keratosis- Primary documented in this encounter Care Teams Range Feeder Relationship Specialty Start Date End Date Alma Youssef MD [address] [place] [address] PCP - General 03/22/13 documented as of this encounter
--- OUTSIDE RECORDS SUMMARY | 2024-07-05 10:03 | XMS_ITS | Encounter Summary ---
Author Organization [facility] Address [facility] [address] [place] [address] Care Team Providers Care Complaint Specialist Name Role Phone Alma Youssef MD Primary Care Provider [phone] Reason for Visit * Reason Comments Skin Check Encounter Details Date Type Department Care Team (Late st Contact Info) Description 04/13/2018 1:15 PM EDT Office Visit Dermatology at [facility] [address] [place] [address] Serenity Cheema MD [facility] [address] [place] [address] SK (seborrheic keratosis); [facility] Social History Tobacco Use Types Packs/Day Years [...] as noted. Significant skin findings: A. Left sikh: brown-black papule/plaque with waxy stuck on appearance [...] encounter. Serenity Cheema MD Section of Dermatology [facility] documented in this encounter Plan of Treatment Not on file documented as of this encounter Visit Diagnoses Diagnosis SK (seborrheic keratosis) Other seborrheic keratosis Milia Sebaceous cyst documented in this encounter Care Teams Complaint Specialist Relationship Specialty Start Date End Date Alma Youssef MD [address] [place] [address] PCP - General 03/22/13 documented as of this encounter
--- OUTSIDE RECORDS SUMMARY | 2024-07-05 10:03 | XMS_ITS | Encounter Summary ---
Author Organization [facility] Address [facility] [address] [place] [address] Care Team Providers Care Automotive Worker Name Role Phone Alma Youssef MD Primary Care Provider [phone] Encounter Details Date Type Department Care Team (Late st Contact Info) Description 12/10/2017 Telephone Dermatology at [facility] [address] [place] [address] Serenity Cheema MD [facility] [address] [place] [address] Social History Tobacco Use Types Packs/Day Years [...] Notes * Telephone Encounter - Minerva Smiley CCMA - 12/15/2017 1:52 PM EDT Returned patient's daughter's (Lulu) phone call to answer her questions and review recent biopsy results (see result note for details). Lulu said that they were able to moss picker her mom's prescription and no longer had any questions. I told her to call back if she had any questions or concerns. * Telephone Encounter - Tiffanie Sung 12/10/2017 4:34 PM EDT I received a [...] this information. Lulu can be reached at [phone] documented in this encounter Plan of Treatment Not on file documented as of this encounter Visit Diagnoses Not on filedocumented in this encounter Care Teams Automotive Worker Relationship Specialty Start Date End Date Alma Youssef MD [address] [place] [address] PCP - General 03/22/13 documented as of this encounter
--- OUTSIDE RECORDS SUMMARY | 2024-07-05 10:03 | XMS_ITS | Encounter Summary ---
Author Organization [facility] Address [facility] [address] [place] [address] Care Team Providers Care Semiconductor Technician Name Role Phone Alma Youssef MD Primary Care Provider [phone] Encounter Details Date Type Department Care Team (Late st Contact Info) Description 06/14/2023 5:10 PM EDT Ancillary Procedure Radiology Library at [facility] [place] [address] Yessy Mckeon APRN [facility] [place] [address] Social History Tobacco Use Types Packs/Day Years [...] CT Pelvis (06/14/2023 5:08 PM EDT) Narrative [facility] - 06/14/2023 5:08 PM EDT This exam is auto-finalizing. It's purpose is for storage only. L Estella Mckeon APRN IMG FILM LIBRARY ORDERABLES [place], [place] documented in this encounter Visit Diagnoses Not on filedocumented in this encounter Care Teams Semiconductor Technician Relationship Specialty Start Date End Date Alma Youssef MD [address] [place] [address] PCP - General 03/22/13 documented as of this encounter
--- OUTSIDE RECORDS SUMMARY | 2024-07-05 10:03 | XMS_ITS | Encounter Summary ---
Author Organization [facility] Address [facility] [address] [place] [address] Care Team Providers Care Sailing Officer Name Role Phone Alma Youssef MD Primary Care Provider [phone] Reason for Visit * Reason Comments Skin Check Encounter Details Date Type Department Care Team (Late st Contact Info) Description 12/15/2013 2:30 PM EDT Follow-Up Dermatology at [facility] [address] [place] [address] Serenity Michaels MD [facility] [place] [address] Skin lesion (Primary Dx) Discharge Disposition: Home [...] in for full skin check- 11/2014 * Lali Coulter - 12/20/2013 2:50 PM EDTQuick Note: Spoke to patient regarding biopsy results. She knows to call me with any other questions or concerns. -Treatment plan- OSP scheduled for 02/21/2014 @1pm for BCC_left arm -Sent to Adalberto Tran for scheduling. * Serenity Michaels MD - 12/15/2013 2:31 PM EDT DERMATOLOGY ESTABLISHED PATIENT CLINIC NOTE Date of service: 12/15/2013 Heidi Mcdermott : 1935 Provider: Serenity Michaels MD Chief Complaint Patient presents with ??? Skin Check SKIN HISTORY: AK SK BCC left brow [address] Mcgill HPI Heidi Mcdermott is a 78 y.o. year old [...] ??? hydrochlorothiazide (HYDRODIURIL) 25 mg tablet ??? Eybaavygbzsas-Sadvgokw-Wjyfey (CENTRUM SILVER) Tab ??? magnesium oxide (MAG-OX) [...] in the presence of Dr. Michaels.: EFRAIN TRAMMELL RN I performed the above scribed service and agree with the accuracy of the documentation in this encounter. Serenity Michaels MD Section of Dermatology [facility] documented in this encounter Plan of Treatment Scheduled Orders Name Type Priority Associated Diagnoses Orde r Schedule Skin Biopsy Dermatology Routine Skin lesion Ordered: 12/15/2013 documented as of this encounter Procedures Procedure Name Priority Date/Time Associated Diagnosis Comments SPECIMEN TO PATHOLOGY (NON-OR) Routine 12/15/2013 2:54 PM EDT Skin lesion SURGICAL PATHOLOGY REPORT Routine 12/15/2013 2:54 PM EDT documented in this encounter Results * Surgical Pathology Report (12/15/2013 2:54 PM EDT) Final Diagnosis ? [facility] ? Provider: ?? SERENITY MICHAELS ? Pt. Name: ?? ALEXI RODAS E ? Acc #: ?[id number] ? Pt. ? Col Date: ?? 12/15/2013 [...] 12/16/13 Verified by: ? Leif MONTEZ, PhD, Sourav ? Dermatopathologist ? (Electronic Signature) ? The [...] Diagnosis: ? BCC 12/16/2013 1:11 PM EDT [facility] SPECIMEN FROM SKIN / Unknown 12/15/2013 2:54 PM EDT 12/15/2013 2:54 PM EDT Serenity Michaels MD PATHOLOGY/CYTOLOGY O SALOMÓN Performing Organization Address [facility]/ZIP Co de Phone Number JODEE HIMANSHUARTURO [facility] [place] [address] * Specimen to Pathology (NON-OR) (12/15/2013 2:54 PM EDT) AP Specimen 12/15/2013 2:54 PM EDT 12/15/2013 2:54 PM EDT Narrative JODEE MCFARLANE - 12/15/2013 2:54 PM EDT Specimen requisition ordered. ??Separate Pathology report to follow Serenity Michaels MD PATHOLOGY/CYTOLOGY O SALOMÓN Performing Organization Address [facility]/ZIP Co de Phone Number JODEE MCFARLANE documented in this encounter Visit Diagnoses Diagnosis Skin lesion- Primary Unspecified disorder of skin and subcutaneous tissue documented in this encounter Care Teams Sailing Officer Relationship Specialty Start Date End Date Alma Youssef MD [address] [place] [address] PCP - General 03/22/13 documented as of this encounter
--- OUTSIDE RECORDS SUMMARY | 2024-07-05 10:03 | XMS_ITS | Encounter Summary ---
Author Organization [facility] Address [facility] [place] [address] Care Team Providers Care Assistant Film Editor Name Role Phone Alma Youssef MD Primary Care Provider [phone] Reason for Visit * Reason Comments Genetic Evaluation Encounter Details Date Type Department Care Team (Latest Contact Info) Description 11/16/2020 3:00 PM EDT TH Visit (TeleHealth) [place]ematology [place] [address] Jeniffer Ty Arcadio [facility] HEMATOLOGY/[place] [address] Family history of gene mutation Social History [...] and JOCELYN mutations Maternal ethnic background is [place]. Paternal ethnic background is [place]. No known Ashkenazi Synagogue heritage. Genetic risk assessment Heidi's daughter, Rosanna, [...] done at no charge to them through [facility]3]'s family follow-up testing program. Heidi gave verbal consent for testing. I will be mailing the consent forms to Heidi to complete and return to me. [facility]3] will send a buccal swabcollection kit with [...] mutation documented in this encounter Care Teams Assistant Film Editor Relationship Specialty Start Date End Date Alma Youssef MD [address] [place] [address] PCP - General 03/22/13 documented as of this encounter
--- OUTSIDE RECORDS SUMMARY | 2024-07-05 10:03 | XMS_ITS | Encounter Summary ---
Author Organization [facility] Address [facility] [address] [place] [address] Care Team Providers Care Foreign Food Specialty Cook Name Role Phone Alma Youssef MD Primary Care Provider [phone] Encounter Details Date Type Department Care Team (Late st Contact Info) Description 06/14/2023 5:20 PM EDT Ancillary Procedure Radiology Library at [facility] [place] [address] Yessy Mckeon APRN [facility] [place] [address] Social History Tobacco Use Types Packs/Day Years [...] DX Pelvis (06/14/2023 5:08 PM EDT) Narrative [facility] - 06/14/2023 5:08 PM EDT This exam is auto-finalizing. It's purpose is for storage only. L Estella Mckeon APRN IMG FILM LIBRARY ORDERABLES [place], [place] documented in this encounter Visit Diagnoses Not on filedocumented in this encounter Care Teams Foreign Food Specialty Cook Relationship Specialty Start Date End Date Alma Youssef MD [address] [place] [address] PCP - General 03/22/13 documented as of this encounter
--- OUTSIDE RECORDS SUMMARY | 2024-07-05 10:03 | XMS_ITS | Encounter Summary ---
Author Organization [facility] Address [address] [place] [address] Care Team Providers Care Lion Tamer Name Role Phone Unavailable Primary Care Provider Unavailabl e Encounter Details Date Type Department Care Team (Late st Contact Info) Description 11/18/2007 Results Only [facility] Non-Invasive Cardiology - [facility] [address], [place] [address] Pauline Rodas ARNP [address] [place] [address] Social History Tobacco Use Types Packs/Day Years [...] ? CLARK MCDERMOTT ? Accession #: ? [id number] : ? 1935 (Age: 72) ??F ?Collect Date: ? 11/18/2007 Location: ? [facility] ? Receive Date: ? 11/19/2007 Provider: ?PAULINE HAMILTON Copy to: ? Specimen/Source: ?ThinPrep Pap Test, Endocervix, processed on [employer] ThinPrep Imaging System, with manual evaluation Last Menstrual Period: ? 1985 Other: ? Additional clinical information: G5, P4, A1 ? SPECIMEN ADEQUACY ? Satisfactory for Evaluation - transformation zone component present GENERAL CATEGORIZATION ? Negative for Intraepithelial Lesion or Malignancy ? Document reviewed and electronically signed by: ? Jeniffer Yung, SCT(ASCP) ? Report Date: ??11/25/2007 11:21 End of Report [facility] 11/18/2007 11/19/2007 us Pauline HAMILTON PATHOLOGY ORDERABLES Final Res ult [facility] [address] [place] [address] documented in this encounter Visit Diagnoses Not on filedocumented in this encounter
--- OUTSIDE RECORDS SUMMARY | 2024-07-05 10:03 | XMS_ITS | Encounter Summary ---
Author Organization [facility] Address [facility] [address] [place] [address] Care Team Providers Care Sales Receptionist Name Role Phone Alma Youssef MD Primary Care Provider [phone] Reason for Visit * Reason Onset Date Comments Medication Refill 01/15/2023 Encounter Details Date Type Department Care Team (Late st Contact Info) Description 01/15/2023 Refill Dermatology at [facility] [address] [place] [address] [facility] [place] [address] Skin rash Social History Tobacco Use Types [...] review and approval Appropriate to refill: pending MD review documented in this encounter Plan of Treatment Not on file documented as of this encounter Visit Diagnoses Diagnosis Skin rash Rash and other nonspecific skin eruption documented in this encounter Care Teams Sales Receptionist Relationship Specialty Start Date End Date Alma Youssef MD [address] [place] [address] PCP - General 03/22/13 documented as of this encounter
--- OUTSIDE RECORDS SUMMARY | 2024-07-05 10:03 | XMS_ITS | Encounter Summary ---
Author Organization [facility] Address [facility] [address] [place] [address] Care Team Providers Care Validation Leader Name Role Phone Alma Youssef MD Primary Care Provider [phone] Encounter Details Date Type Department Care Team (Late st Contact Info) Description 06/14/2023 5:15 PM EDT Ancillary Procedure Radiology Library at [facility] [place] [address] Yessy Mckeon APRN [facility] [place] [address] Social History Tobacco Use Types Packs/Day Years [...] Lower Extremity (06/14/2023 5:08 PM EDT) Narrative [facility] - 06/14/2023 5:08 PM EDT This exam is auto-finalizing. It's purpose is for storage only. Yessy Soria McNamara [facility] IMG FILM LIBRARY ORDERABLES [place], [place] documented in this encounter Visit Diagnoses Not on filedocumented in this encounter Care Teams Validation Leader Relationship Specialty Start Date End Date Alma Youssef MD [address] [place] [address] PCP - General 03/22/13 documented as of this encounter
--- OUTSIDE RECORDS SUMMARY | 2024-07-05 10:03 | XMS_ITS | Encounter Summary ---
Author Organization [facility] Address [facility] [address] [place] [address] Care Team Providers Care Rn Burn Name Role Phone Alma Youssef MD Primary Care Provider + Reason for Visit * Reason Comments Procedure Encounter Details Date Type Department Care Team (Late st Contact Info) Description 09/05/2021 2:30 PM EST Office Visit Dermatology at [facility] [address] [place] [address] Santiago Ram MD [facility] [place] [address] Basal cell carcinoma (BCC) of right ala [...] this encounter Patient Instructions * Patient Instructions* Dana Yanez RN - 09/05/2021 2:30 PM EST Your staff surgeon today was Santiago Ram MD,PhD. Your wound(s) was repaired by [id number] stitches called a primary repair. You do [...] pounds for 5-7 days postoperatively. 5. Some gas refrigerator servicer may need to be delayed or delegated [...] as often as is recommended by your nitrating acid mixer, for new skin cancers. This is once [...] it. If after hours, please call the form press operator or [phone] and ask for the nitrating acid mixer on-call. If you have any non-urgent questions or concerns, please feel free to call my office or contact me through our patient portal, [email or web address], at [email or web address] How to contact us during business hours Dermatology at [facility] Road: Mohs scheduling or Mohs follow-up appointments: [phone] documented in this encounter Progress Notes * [...] Reviewed and signed by: Santiago Ram Dermatology [facility] documented in this encounter Plan of Treatment Not on file documented as of this encounter Visit Diagnoses Diagnosis Basal cell carcinoma (BCC) of right ala nasi documented in this encounter Care Teams Rn Burn Relationship Specialty Start Date End Date Alma Youssef MD [address] [place] [address] PCP - General 03/22/13 documented as of this encounter
--- OUTSIDE RECORDS SUMMARY | 2024-07-05 10:03 | XMS_ITS | Encounter Summary ---
Author Organization [facility] Address [facility] [place] [address] Care Team Providers Care Barrel Polisher Inside Name Role Phone Alma Youssef MD Primary Care Provider [phone] Reason for Visit * Reason Onset Date Comments Results 12/19/2020 negative for JOCELYN and APC mutations Encounter Details Date Type Department Care Team (Late st Contact Info) Description 12/19/2020 Telephone Hematology [place] [address] Jeniffer Ty [facility] HEMATOLOGY/[place] [address] Results (negative for JOCELYN and APC mutations) [...] Miscellaneous Notes * Telephone Encounter - Jeniffer Ty [facility] - 12/19/2020 2:01 PM EDT This test result was discussed with the patient's daughter, Rosanna De Los Santos, by phone. A copy of the test result has been scanned in the medical record and sent to the patient. A summary is below. Please be advised that [place] law requires that all health care workers respect the confidentiality of this information and not pass it along to other health care providers, insurance companies, or individuals without the written permission of the patient. The Familial Cancer Program welcomes any questions about these matters. Our phone number is: [phone]. On 11/27/2020, Heidi underwent genetic testing for [...] would suggest that the other children of Heidi's brother consider genetic counseling and testing related [...] genetic testing. She is being seen at [facility]. Finally, it can be difficult for people [...] For some, a consultation with a psychologist, manager social media, or psychiatrist may be helpful in dealing with feelings that may arise from genetic testing. If Heidi would like a referral, we can help and recommend a therapist who is familiar with issues surrounding genetic conditions. documented in this encounter Plan of Treatment Not on file documented as of this encounter Visit Diagnoses Not on filedocumented in this encounter Care Teams Barrel Polisher Inside Relationship Specialty Start Date End Date Alma Youssef MD [address] [place] [address] PCP - General 03/22/13 documented as of this encounter
--- OUTSIDE RECORDS SUMMARY | 2024-07-05 10:03 | XMS_ITS | Encounter Summary ---
Author Organization [facility] Address [facility] [address] [place] [address] Care Team Providers Care Seam Closer Name Role Phone Alma Youssef MD Primary Care Provider [phone] Reason for Visit * Reason Comments Skin Check Encounter Details Date Type Department Care Team (Late st Contact Info) Description 11/23/2014 10:30 AM EDT Follow-Up Dermatology at [facility] [address] [place] [address] Love Sandoval PA [facility] [address] [place] [address] Serenity Cheema MD [facility] [address] [address] History of nonmelanoma skin cancer; AK (actinic [...] weeks. Please contact the Dermatology clinic at [phone] if the lesion has not fully resolved after 6 weeks. documented in this encounter Progress Notes * Serenity Cheema MD - 11/23/2014 12:46 PM EDT Few AKs noted on face. Patient desires conservative treatment. Patient seen in conjunction with Love Faye PA-C Signed by: Serenity Cheema MD Section of Dermatology [facility] * Love Faye PA - 11/23/2014 10:36 AM EDT DERMATOLOGY - ESTABLISHED PATIENT NOTE Date of service: 11/23/2014 Heidi Mcdermott : 1935 Dermatology Physician Mortgage Loan Processing Clerk Note: Love Faye PA-C Chief Complaint Patient [...] on face, hyperkeratotic x 4 on R zoroastrian, and nose. 2. 0.1cm firm, round, white [...] and signed by Love Faye PA-C Dermatology [facility] Patient seen in conjunction with/supervision of Attending Physician: Serenity Cheema MD Section of Dermatology [facility] documented in this encounter Plan of [...] unspecified documented in this encounter Care Teams Seam Closer Relationship Specialty Start Date End Date Alma Youssef MD [address] [place] [address] PCP - General 03/22/13 documented as of this encounter
--- OUTSIDE RECORDS SUMMARY | 2024-07-05 10:03 | XMS_ITS | Encounter Summary ---
Author Organization [facility] Address [facility] [address] [place] [address] Care Team Providers Care Web Ui Designer Name Role Phone Alma Youssef MD Primary Care Provider [phone] Encounter Details Date Type Department Care Team (Latest Contact Info) Description 08/07/2021 10:15 AM EST Clinical Support Dermatology at [facility] [address] [place] [address] Santiago Ram MD [facility] [address] [place] [address] Basal cell carcinoma (BCC) of right ala [...] this encounter Progress Notes * Bill Strong, SOLDERING TECHNICIAN - 08/07/2021 10:15 AM EST Mohs consultation [...] nasi documented in this encounter Care Teams Web Ui Designer Relationship Specialty Start Date End Date Alma Youssef MD [address] [place] [address] PCP - General 03/22/13 documented as of this encounter
--- OUTSIDE RECORDS SUMMARY | 2024-07-05 10:03 | XMS_ITS | Encounter Summary ---
Author Organization [facility] Address [facility] [address] [place] [address] Care Team Providers Care Pole Shaver Name Role Phone Alma Youssef MD Primary Care Provider [phone] Reason for Visit * Consultation (Routine) - Closed Specialty Diagnoses / Procedures Referred By Contsrikanth t Referred To Contact Dermatology Diagnoses Basal cell carcinoma of nose Serenity Cheema MD [facility] [address] [place] [address] [facility] [address] [place] [address] Referral ID Status Reason Start Date Expiration Date V isits Requested Visits Authorized [id number] Closed Consult, Test & Treat 06/19/2021 06/19/2022 1 1 Encounter Details Date Type Department Care Team (Latest Contact Info) Description 08/07/2021 10:30 AM EST Procedure visit Dermatology at [facility] [address] [place] [address] Santiago Ram MD [facility] [address] [place] [address] Basal cell carcinoma of right [...] encounter Patient Instructions * Patient Instructions* Bessy HendersonWES - 08/07/2021 10:30 AM EST Your staff [...] 48 hours is most important. 5. Some chart picker may need to be delayed or delegated [...] as often as is recommended by your quality control associate. 12. You can expect your scar to [...] providers If after hours, please call the floor sanding machine operator and ask for the quality control associate on-call. If you have any questions or concerns, please feel free to call my office or contact me through our patient portal, [employer], at [email or web address] (now [email or web address] Dermatology at [facility] Road: Mohs scheduling or Mohs follow-up appointments: [phone] IMPORTANT FOLLOW UP APPOINTMENTS: 1. Suture removal [...] and is aware that I am available 10/03 should questions arise. Santiago Ram MD PhD [...] and follow up with his or her quality control associate or other skin provider. 6. Discussed avoiding [...] by: Santiago Ram Dermatology [facility] * Santiago Ram MD - 08/07/2021 10:30 AM EST Mohs micrographic Surgery Operative Report Patient name: Heidi Mcdermott : 1935 Date: 08/07/2021 Staff Surgeon: Santiago Ram MD PhD Nursing/Seo Marketing Specialist(s): Bessy Henderson [facility], Lali Delgado [facility], Yaa Amador [facility], Bill Strong [facility], Roz Parr [facility] Account Administrator (s): Dianne Phelan Pre-operative diagnosis: infiltrating carcinoma [...] The site was confirmed with the patient/authorized metals sales representative/referring physician and/or a photograph form time [...] Surgery and Dermatologic Oncology Department of Dermatology [address] [place] [address] OPERATIVE REPORT FOR REPAIR: Two-stage interpolation flap [...] Surgery and Dermatologic Oncology Department of Dermatology [address] [place] [address] documented in this encounter Plan of Treatment Not on file documented as of this encounter Visit Diagnoses Diagnosis Basal cell carcinoma of right ala nasi Basal cell carcinoma of skin of other and unspecified parts of face documented in this encounter Care Teams Pole Shaver Relationship Specialty Start Date End Date Alma Youssef MD [address] [place] [address] PCP - General 03/22/13 documented as of this encounter
--- OUTSIDE RECORDS SUMMARY | 2024-07-05 10:03 | XMS_ITS | Encounter Summary ---
Author Organization Count Includes [facility] [address] Care Team Providers Care Die Equipment Operator Name Role Phone Alma Youssef MD Primary Care Provider [phone] Reason for Visit * Reason Onset Date Comments Pre Procedure Call 07/31/2021 Encounter Details Date Type Department Care Team (Late st Contact Info) Description 07/31/2021 Telephone Dermatology at [facility] [address] [place] [address] Bill Strong CMA Pre Procedure [...] on filedocumented in this encounter Care Teams Die Equipment Operator Relationship Specialty Start Date End Date Alma Youssef MD [address] [place] [address] PCP - General 03/22/13 documented as of this encounter
--- OUTSIDE RECORDS SUMMARY | 2024-07-05 10:03 | XMS_ITS | Continuity of Care Document ---
Author Organization 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) - Hypothyroidism, unspecified(Final) - Discharge Disposition: Home or Self Care Attending Physician: Alma Youssef MD Admitting Physician: Alma Youssef MD Referring Physician: Alma Youssef MD Results Laboratory List Name Date CBC w/ Diff (CBC, WITH AUTO DIFF) 3 Comprehensive Metabolic Panel (COMPREHEN SIVE METABOLIC PROFILE) 04/10/23 Lipid Panel (LIPID PROFILE) 04/10/23 Thyroid Stimulating Hormone (TSH) 3 Automated Diff 04/10/23 Most recent to oldest [Reference Range]: 1 WBC [4.8-10.8 K/mcL] 6.9 K/mcL (04/10/23 12:40 PM) RBC [4.20-5.40 Million/mcL] 4.68 Million /mcL (04/10/23 12:40 PM) Neutro Auto [42.2-75.2 %] 64.0 % (04/10/23 12:40 PM) Lymph Auto [20.5-51.1 %] 22.4 % (04/10/23 12:40 PM) Buchanan Auto [1.7-9.3 %] 9.9 % *HI* (04/10/23 12:40 PM) Basophil Auto [0.0-0.8 %] 0.4 % (04/10/23 12:40 PM) BUN [8-26 mg/dL] 20 mg/dL (04/10/23 12:40 PM) Cholesterol Total [129-209 mg/dL] 156 mg /dL (04/10/23 12:40 PM) LDL 77.8 1 *NA* (04/10/23 12:40 PM) Glucose Level [74-106 mg/dL] 95 mg/dL (04/10/23 12:40 PM) Potassium Level [3.5-5.1 mmol/L] 4.6 mmo l/L (04/10/23 12:40 PM) Baso Absolute [0.0-0.2 K/mcL] 0.0 K/mcL (04/10/23 12:40 PM) MCV [81.0-99.0 fL] 91.7 fL (04/10/23 12:40 PM) HDL [40-80 mg/dL] 54 mg/dL (04/10/23 12:40 PM) AST [15-41 IntlUnit/L] 21 IntlUnit/L (04/10/23 12:40 PM) ALT [14-54 IntlUnit/L] 14 IntlUnit/L (04/10/23 12:40 PM) MCHC [32.0-36.0 g/dL] 32.6 g/dL (04/10/23 12:40 PM) Osmolality [275-295 mOsm/kg] 276 mOsm/kg (04/10/23 12:40 PM) Sodium Level [134-143 mmol/L] 137 mmol/L (04/10/23 12:40 PM) Chol/HDL 2.9 2 *NA* (04/10/23 12:40 PM) Lymph Absolute [1.2-3.4 K/mcL] 1.5 K/mcL (04/10/23 12:40 PM) Hct [37.0-47.0 %] 42.9 % (04/10/23 12:40 PM) Triglycerides [10-150 mg/dL] 121 mg/dL (04/10/23 12:40 PM) Calcium Level [8.9-10.3 mg/dL] 9.4 mg/dL (04/10/23 12:40 PM) Buchanan Absolute [0.1-0.6 K/mcL] 0.7 K/mcL *HI* (04/10/23 12:40 PM) Albumin Level [3.5-5.0 g/dL] 4.4 g/dL (04/10/23 12:40 PM) Protein Total [6.5-8.1 g/dL] 7.1 g/dL (04/10/23 12:40 PM) MCH [27.0-31.0 pg] 29.9 pg (04/10/23 12:40 PM) Neutro Absolute [1.4-6.5 K/mcL] 4.4 K/mc L (04/10/23 12:40 PM) Bilirubin Total [0.2-1.2 mg/dL] 1.3 mg/d L *HI* (04/10/23 12:40 PM) Hgb [12.0-16.0 g/dL] 14.0 g/dL (04/10/23 12:40 PM) Alk Phos [38-130 IntlUnit/L] 75 IntlUnit /L (04/10/23 12:40 PM) MPV [7.4-10.4 fL] 10.3 fL (04/10/23 12:40 PM) Platelets [130-400 K/mcL] 205 K/mcL (04/10/23 12:40 PM) CO2 [22-32 mmol/L] 27 mmol/L (04/10/23 12:40 PM) Eos Absolute [0.0-0.2 K/mcL] 0.2 K/mcL (04/10/23 12:40 PM) TSH [0.45-5.33 mcIntlUnit/mL] 3.02 mcInt lUnit/mL (04/10/23 12:40 PM) Chloride Level [98-111 mmol/L] 99 mmol/L (04/10/23 12:40 PM) RDW-CV [11.5-14.5 %] 14.3 % (04/10/23 12:40 PM) A/G Ratio [1.0-2.5 g/dL] 1.6 g/dL (04/10/23 12:40 PM) BUN/Creat Ratio [8.0-20.0] 28.6 *HI* (04/10/23 12:40 PM) Globulin [2.3-3.5 g/dL] 2.7 g/dL (04/10/23 12:40 PM) Imm Gran Absolute 0.01 *NA* (04/10/23 12:40 PM) Imm Gran Auto [0.0-0.5 %] 0.1 % (04/10/23 12:40 PM) Slide Review Not Indicated (04/10/23 12:40 PM) Creatinine Level [0.44-1.00 mg/dL] 0.70 mg/dL (04/10/23 12:40 PM) Anion Gap [3.0-12.0] 11.0 (04/10/23 12:40 PM) Eos, Auto [0.00-3.00 %] 3.20 % *HI* (04/10/23 12:40 PM) eGFR CKD-EPI [>=60 mL/min/1.73 m2] 84 mL /min/1.73 m2 (04/10/23 12:40 PM) 1Interpretive Data: Optimal: Less than 100 mg/dL Above Optimal: 100 - 129 mg/dL Borderline High: 130 - 159 mg/dL High: 160 - 189 mg/dL Very High: > or = 190 mg/dL 2Interpretive Data: RISK MALE FEMALE 1/2 average 3.4 3.3 Average 5.0 4.4 2x Average 9.6 7.1 3x Average 23.4 11.0 Patient Care team information Care Team Personnel Name: Domonique MONTEZ, Alma Krishnamurthy Position: Physician Member Role: Primary Care Physician Address: Address: [address] [place] [id number]
--- OUTSIDE RECORDS SUMMARY | 2024-07-05 10:03 | XMS_ITS | Encounter Summary ---
Author Organization [facility] Address [facility] [address] [place] [address] Care Team Providers Care Paint Coating Machine Operator Name Role Phone Alma Youssef MD Primary Care Provider [phone] Reason for Visit * Reason Comments Follow-up Encounter Details Date Type Department Care Team (Late st Contact Info) Description 12/18/2017 1:15 PM EDT Office Visit Dermatology at [facility] [address] [place] [address] Serenity Cheema MD [facility] [address] RY[address] [place] [address] Allergic contact dermatitis, unspecified trigger Social History [...] Urbina MD Verified: ??12/14/2017 ?Dermatopathologist Performed at: ??-[facility] Dept. [place]ology, [place], [place] DISCUSSION Overall, features of bullous pemphigoid [...] Cheema MD Section of Dermatology [facility] documented in this encounter Plan of Treatment Not on file documented as of this encounter Visit Diagnoses Diagnosis Allergic contact dermatitis, unspecified trigger documented in this encounter Care Teams Paint Coating Machine Operator Relationship Specialty Start Date End Date Alma Youssef MD [address] [place] [address] PCP - General 03/22/13 documented as of this encounter
--- OUTSIDE RECORDS SUMMARY | 2024-07-05 10:03 | XMS_ITS | Clinical Summary ---
Author Organization [facility] Address [address] [place] [address] Care Team Providers Care Twister Operator Name Role Phone Unknown, Provider Primary Care Provider Unava ilable Social History Tobacco Use Types Packs/Day Years Used Date Smoking Tobacco: Never Assessed Comments Unknown Sex and Gender Information Value Date Recorded Sex Assigned at Not on file Legal Sex Female 18:42 EST Gender Identity Not on file Sexual Orientation Not on file Plan of Treatment Health Maintenance Due Date Last Done Comments Fall Risk Screening 2001 RSV Immunization ( o r 60+ Years) (1 - 1-dose 75+ series) 2011 COVID-19 Vaccine ( season) 2024 Care Teams Twister Operator Relationship Specialty Start Date End Date Unknown, Provider, PCP - General 06/26/15
--- OUTSIDE RECORDS SUMMARY | 2024-07-05 10:03 | XMS_ITS | Encounter Summary ---
Author Organization [facility] [place] [address] Care Team Providers Care Java Tech Name Role Phone Alma Youssef MD Primary Care Provider [phone] Encounter Details Date Type Department Care Team (Late st Contact Info) Description 04/05/2022 Interpretation Only [address] [address] Alma Youssef MD [address] [place] [address] Social History Tobacco Use Types Packs/Day Years [...] O RAD ADMITDTTM RAD PT RAD INFO [id number]^R EEVES^MATTHEW H RAD EXAM DESC XDXAC^DEXA SCAN [...] who have questions please contact the health furnace caretaker that requested your imaging first. ? Narrative [...] patients who have questions please contactthe health furnace caretaker that requested your imaging first. Alma oYussef MD IMG DEXA ORDERABLES documented in this encounter Visit Diagnoses Not on filedocumented in this encounter Care Teams Java Tech Relationship Specialty Start Date End Date Alma Youssef MD [address] [place] [address] PCP - General 03/22/13 documented as of this encounter
--- OUTSIDE RECORDS SUMMARY | 2024-07-05 10:03 | XMS_ITS | Encounter Summary ---
Author Organization [facility] [place] [address] Care Team Providers Care Hr Business Partner Consultant Name Role Phone Alma Youssef MD Primary Care Provider [phone] Encounter Details Date Type Department Care Team (Late st Contact Info) Description 06/14/2023 [place] [id number] Daniel Mckeon MD [facility] [place] [address] Social History Tobacco Use Types Packs/Day Years [...] Orthopedic Surgery Transfer [facility] Note: Neisha MONTEZ, [facility] Heidi Mcdermott is an 88yo female w [...] on filedocumented in this encounter Care Teams Hr Business Partner Consultant Relationship Specialty Start Date End Date Alma Youssef MD [address] [place] [address] PCP - General 03/22/13 documented as of this encounter
--- OUTSIDE RECORDS SUMMARY | 2024-07-05 10:03 | XMS_ITS | Encounter Summary ---
Author Organization [facility] Address [facility] [address] [place] [address] Care Team Providers Care Housing Director Name Role Phone Alma Youssef MD Primary Care Provider [phone] Encounter Details Date Type Department Care Team (Late st Contact Info) Description 11/24/2015 Telephone Dermatology at [facility] [address] [place] [phone] Serenity Cheema MD [facility] [address] RY[address] [place] [address] Social History Tobacco Use Types Packs/Day Years [...] on filedocumented in this encounter Care Teams Housing Director Relationship Specialty Start Date End Date Alma Youssef MD [address] [facility] [address] PCP - General 03/22/13 documented as of this encounter
--- OUTSIDE RECORDS SUMMARY | 2024-07-05 10:03 | XMS_ITS | Encounter Summary ---
Author Organization [facility] Address [address] [facility] [place] [address] Care Team Providers Care Catalytic Converter Operator Helper Name Role Phone Alma Youssef MD Primary Care Provider [phone] Encounter Details Date Type Department Care Team [...] on filedocumented in this encounter Care Teams Catalytic Converter Operator Helper Relationship Specialty Start Date End Date Alma Youssef MD [address] [place] [address] PCP - General 03/22/13 documented as of this encounter
--- OUTSIDE RECORDS SUMMARY | 2024-07-05 10:03 | XMS_ITS | Encounter Summary ---
Author Organization [facility] Address [facility] [address] [place] [address] Care Team Providers Care Compensation Programs Manager Name Role Phone Alma Youssef MD Primary Care Provider [phone] Encounter Details Date Type Department Care Team (Latest Contact Info) Description 08/15/2021 2:00 PM EST Clinical Support Dermatology at [facility] [address] [place] [address] Santiago Ram MD [facility] [address] [place] [address] Visit for suture removal Social History Tobacco [...] Reviewed and signed by: Santiago Ram Dermatology [facility] documented in this encounter Plan of Treatment Not on file documented as of this encounter Visit Diagnoses Diagnosis Visit for suture removal Encounter for removal of sutures documented in this encounter Care Teams Compensation Programs Manager Relationship Specialty Start Date End Date Alma Youssef MD [address] [place] [address] PCP - General 03/22/13 documented as of this encounter
--- OUTSIDE RECORDS SUMMARY | 2024-07-05 10:03 | XMS_ITS | Encounter Summary ---
Author Organization [facility] Address [facility] [address] [place] [address] Care Team Providers Care Sporting Goods Salesperson Name Role Phone Alma Youssef MD Primary Care Provider [phone] Reason for Visit * Reason Comments Skin Check Encounter Details Date Type Department Care Team (Late st Contact Info) Description 07/23/2019 3:15 PM EST Office Visit Dermatology at [facility] [address] [place] [address] Serenity Cheema MD [facility] [place] [address] [place] (actinic keratosis); SK (seborrheic keratosis) Social [...] reports scaling on her nose and right mu-ism that she would like to address today. [...] encounter. Serenity Cheema MD Section of Dermatology [facility] documented in this encounter Plan of Treatment Not on file documented as of this encounter Visit Diagnoses Diagnosis [place] (actinic keratosis) Actinic keratosis [place] (seborrheic keratosis) Other seborrheic keratosis documented in this encounter Care Teams Sporting Goods Salesperson Relationship Specialty Start Date End Date Alma Youssef MD [address] [place] [address] PCP - General 03/22/13 documented as of this encounter
--- OUTSIDE RECORDS SUMMARY | 2024-07-05 10:03 | XMS_ITS | Encounter Summary ---
Author Organization [facility] Address [address] [place] [address] Care Team Providers Care Collection Systems Modeler Name Role Phone Unknown, Provider Primary Care Provider Phuong little Encounter Details Date Type Department Care Team (Late st Contact Info) Description 10/12/2021 Lab Requisition [facility] Pathology & Laboratory Medicine - [facility] [address] [place] [address] Outr Resulting Lab, Provider Social History Tobacco [...] Swab 10/12/2021 9:12 EST 10/12/2021 16:18 EST us Provider Outr Resulting Lab MICROBIOLOGY - GENER AL ORDERABLES Final Result [facility] [address] [place] [address] * COVID-19 TESTING (10/12/2021 9:12 EST) COVID-19 rt-PCR Result Negative Negative 10/12/2021 22:27 EST [facility] Comment: This test has not [...] history, and epidemiological information. Performed on the Edicyher Fusion instrument Performing Lab [place] [facility] Lab 10/12/2021 22:27 EST [facility] Swab 10/12/2021 9:12 EST 10/12/2021 16:18 EST us Provider Outr Resulting Lab MICROBIOLOGY - GENER AL ORDERABLES Final Result [facility] [address] [place] [address] documented in this encounter Visit Diagnoses Not on filedocumented in this encounter Care Teams Collection Systems Modeler Relationship Specialty Start Date End Date Unknown, Provider, PCP - General 06/26/15 documented as of this encounter
--- OUTSIDE RECORDS SUMMARY | 2024-07-05 10:03 | XMS_ITS | Encounter Summary ---
Author Organization [facility] [address] Care Team Providers Care Electrical Engineering Drafting Officer Name Role Phone Alma Youssef MD Primary Care Provider [phone] Reason for Visit * Reason Onset Date Comments Pre Procedure Call 02/15/2014 Encounter Details Date Type Department Care Team (Late st Contact Info) Description 02/15/2014 Telephone Dermatology at [facility] [address] [place] [address] Saskia Torrez LPN Pre Procedure [...] on filedocumented in this encounter Care Teams Electrical Engineering Drafting Officer Relationship Specialty Start Date End Date Alam Youssef MD [address] [place] [address] PCP - General 03/22/13 documented as of this encounter
--- OUTSIDE RECORDS SUMMARY | 2024-07-05 10:03 | XMS_ITS | Encounter Summary ---
Author Organization [facility] Address [facility] [address] [place] [address] Care Team Providers Care Mental Health Specialist Name Role Phone Alma Youssef MD Primary Care Provider [phone] Reason for Visit * Reason Onset Date Comments Medication Refill 08/19/2019 Encounter Details Date Type Department Care Team (Late st Contact Info) Description 08/19/2019 Refill Dermatology at [facility] [address] [place] [address] Serenity Cheema MD [facility] [address] [place] [address] [place] (actinic keratosis) Social History Tobacco Use [...] Notes * Telephone Encounter - Minerva Smiley, [facility] - 08/20/2019 11:34 AM EST Patient requests a refill of 5-FU for treatment of actinic keratoses on her nose, right temporal forehead and upper cutaneous lip just below the left nostril. Order pended to Dr. Cheema to review. - Last appointment: 07/23/19 - Next appointment: Recall for January 2020 - Pharmacy: [facility] in [place], [place] * Telephone Encounter - Davida Rodriguez - 08/19/2019 3:03 PM EST Received call from Heidi Mcdermott stating she would the prescription for the 5FU to be refilled, the prescription she had was from 2016. Please send to [facility] in [place], [place] documented in this encounter Plan of Treatment Not on file documented as of this encounter Visit Diagnoses Diagnosis [place] (actinic keratosis) Actinic keratosis documented in this encounter Care Teams Mental Health Specialist Relationship Specialty Start Date End Date Alma Youssef MD [address] [place] [address] PCP - General 03/22/13 documented as of this encounter
--- OUTSIDE RECORDS SUMMARY | 2024-07-05 10:03 | XMS_ITS | Encounter Summary ---
Author Organization [facility] Address [facility] [address] [place] [address] Care Team Providers Care Repairer Auto Clocks Name Role Phone Alma Youssef MD Primary Care Provider [phone] Reason for Visit * Reason Comments Skin Check Encounter Details Date Type Department Care Team (Late st Contact Info) Description 02/20/2016 11:00 AM EDT Office Visit Dermatology at [facility] [address] [place] [address] Serenity Cheema MD [facility] DR RYAN PAVON-[place]MAT[place] [address] [place] (actinic keratosis); Seborrheic keratosis; History of [...] CLINIC NOTE Date of service: 02/20/2016 Heidi Fouzia Sharron : 1935 Provider: Serenity Cheema MD Chief [...] Cheema MD Section of Dermatology [facility] documented in this encounter Plan of Treatment Not on file documented as of this encounter Visit Diagnoses Diagnosis [place] (actinic keratosis) Actinic keratosis Seborrheic keratosis Other seborrheic keratosis History of basal cell carcinoma Personal history of other malignant neoplasm of skin documented in this encounter Care Teams Repairer Auto Clocks Relationship Specialty Start Date End Date Alma Youssef MD [address] [place] [address] PCP - General 03/22/13 documented as of this encounter
--- OUTSIDE RECORDS SUMMARY | 2024-07-05 10:03 | XMS_ITS | Continuity of Care Document ---
Author Organization [facility] Address [address] [place] [address] Care Team Providers Care Command And Control Name Role Phone THO ENRIQUEZ MD Primary Care Physician Encounter LTTL_ND FIN NBR [id number] Date(s): 04/21/24 - 04/21/[address] [address] Encounter Diagnosis Encounter for general adult medical examination without abnormal findings(Final) - Atherosclerotic heart disease of [place] coronary artery without angina pectoris (Final) - Hypothyroidism, unspecified(Final) - Discharge Disposition: Home or Self Care Attending Physician: THO ENRIQUEZ MD Admitting Physician: THO ENRIQUEZ MD Referring Physician: THO ENRIQUEZ MD Assessment and Plan Future Appointments Future Scheduled Tests Radiology* MG Mammo Screening Bilateral 06/04/24 Results Laboratory List Name Date CBC w/ Diff (CBC, WITH AUTO DIFF) 04/21/24 Comprehensive Metabolic Panel (COMPREHEN SIVE METABOLIC PROFILE) 04/21/24 Lipid Panel (LIPID PROFILE) 04/21/24 Thyroid Stimulating Hormone (TSH) 04/21/24 Automated Diff 04/21/24 Most recent to oldest [Reference Range]: 1 WBC [4.8-10.8 K/mcL] 5.6 K/mcL (04/21/24 11:54 AM) RBC [4.20-5.40 Million/mcL] 4.13 Million /mcL *LOW* (04/21/24 11:54 AM) Neutro Auto [42.2-75.2 %] 64.8 % (04/21/24 11:54 AM) Lymph Auto [20.5-51.1 %] 20.9 % (04/21/24 11:54 AM) Johnston Auto [1.7-9.3 %] 9.8 % *HI* (04/21/24:54 AM) Basophil Auto [0.0-0.8 %] 0.6 % (04/21/24:54 AM) BUN [7-25 mg/dL] 25 mg/dL (04/21/24:54 AM) Cholesterol Total [<=200 mg/dL] 128 mg/d L (04/21/2454 AM) LDL 47.0 mg/dL 1 *NA* (04/21/2454 AM) Glucose Level [70-109 mg/dL] 94 mg/dL (04/21/24:54 AM) Potassium Level [3.5-5.1 mmol/L] 4.7 mmo l/L (04/21/24:54 AM) Baso Absolute [0.0-0.2 K/mcL] 0.0 K/mcL (04/21/24:54 AM) MCV [81.0-99.0 fL] 92.2 fL (04/21/24:54 AM) HDL [23-92 mg/dL] 46 mg/dL (04/21/24 11:54 AM) AST [13-39 IntlUnit/L] 17 IntlUnit/L (04/21/24:54 AM) ALT [7-52 IntlUnit/L] 9 IntlUnit/L (04/21/24:54 AM) MCHC [32.0-37.0 g/dL] 32.9 g/dL (04/21/24:54 AM) Osmolality [275-295 mOsm/kg] 280 mOsm/kg (04/21/24 11:54 AM) Sodium Level [136-145 mmol/L] 138 mmol/L (04/21/24 11:54 AM) Chol/HDL 2.8 2 *NA* (04/21/2454 AM) Lymph Absolute [1.2-3.4 K/mcL] 1.2 K/mcL (04/21/24:54 AM) Hct [37.0-47.0 %] 38.1 % (04/21/24:54 AM) Triglycerides [<=150 mg/dL] 175 mg/dL *HI* (9/4/24 11:54 AM) Calcium Level [8.6-10.3 mg/dL] 9.8 mg/dL (04/21/24 11:54 AM) Johnston Absolute [0.1-0.6 K/mcL] 0.5 K/mcL (04/21/24 11:54 AM) Albumin Level [3.5-5.7 g/dL] 4.5 g/dL (04/21/24 11:54 AM) Protein Total [6.4-8.9 g/dL] 6.9 g/dL (04/21/24 11:54 AM) MCH [27.0-31.0 pg] 30.3 pg (04/21/24 11:54 AM) Neutro Absolute [1.4-6.5 K/mcL] 3.6 K/mc L (04/21/24 11:54 AM) Bilirubin Total [0.3-1.0 mg/dL] 0.8 mg/d L (04/21/24 11:54 AM) Hgb [12.0-16.0 g/dL] 12.5 g/dL (04/21/24 11:54 AM) Alk Phos [34-104 IntlUnit/L] 84 IntlUnit /L (04/21/24 11:54 AM) MPV [7.4-10.4 fL] 8.5 fL (04/21/24 11:54 AM) Platelets [130-400 K/mcL] 218 K/mcL (04/21/24 11:54 AM) CO2 [21-31 mmol/L] 27 mmol/L (04/21/24 11:54 AM) Eos Absolute [0.0-0.2 K/mcL] 0.2 K/mcL (04/21/24 11:54 AM) TSH [0.45-5.33 mcIntlUnit/mL] 3.41 mcInt lUnit/mL (04/21/24 11:54 AM) Chloride Level [98-107 mmol/L] 104 mmol/ L (04/21/24 11:54 AM) RDW-CV [11.5-14.5 %] 15.9 % *HI* (04/21/24 11:54 AM) A/G Ratio [1.0-2.5 g/dL] 1.9 g/dL (04/21/24 11:54 AM) BUN/Creat Ratio [8.0-20.0] 31.3 *HI* (04/21/24 11:54 AM) Globulin [2.3-3.5 g/dL] 2.4 g/dL (04/21/24 11:54 AM) Creatinine Level [0.60-1.20 mg/dL] 0.80 mg/dL (04/21/24 11:54 AM) Anion Gap [3.0-12.0] 7.0 (04/21/24 11:54 AM) Eos, Auto [0.00-3.00 %] 3.90 % *HI* (04/21/24 11:54 AM) eGFR CKD-EPI [>=60 mL/min/1.73 m2] 71 mL /min/1.73 m2 (04/21/24 11:54 AM) 1Interpretive Data: Optimal: Less than 100 mg/dL Above Optimal: 100 - 129 mg/dL Borderline High: 130 - 159 mg/dL High: 160 - 189 mg/dL Very High: > or = 190 mg/dL 2Interpretive Data: RISK MALE FEMALE 1/2 average 3.4 3.3 Average 5.0 4.4 2x Average 9.6 7.1 3x Average 23.4 11.0 Patient Care team information Care Team Personnel Name: ZOE MONTEZ, THO Krishnamurthy Position: No Access Member Role: Primary Care Physician Address: [address] [place] [phone] Insurance Providers [facility]: [facility] Payer: MEDICARE [facility] Member Number: [id number] Policy Number: NA Health Plan Information #: 2 Payer: [facility] Member Number: [id number] Policy Number: NA
--- OUTSIDE RECORDS SUMMARY | 2024-07-05 10:03 | XMS_ITS | Encounter Summary ---
Author Organization [facility] Address [facility] [address] [place] [address] Care Team Providers Care Shirt Folding Machine Operator Name Role Phone Alma Youssef MD Primary Care Provider [phone] Reason for Visit * Reason Comments Skin Cancer Examination Encounter Details Date Type Department Care Team (Late st Contact Info) Description 04/13/2020 11:00 AM EDT Office Visit Dermatology at [facility] [address] [place] [address] Serenity Cheema MD [facility] [address] [place] [place] [address] [place] (actinic keratosis); Seborrheic keratosis, inflamed; History [...] Patient Instructions * Patient Instructions* [facility] 11:00 AM EDT Images from [...] the skin. While you should expect some [id number] discomfort and tenderness, if pain is excessive [...] to 5pm), please call the clinic at [phone]. After 5pm, and on weekends and holidays, please call the hospital at [phone] and ask for the Windshield Technician Negative Notcher. documented in this encounter Progress Notes * [...] care with (Radames), daughter (Lulu) Preferred pharmacy [facility] in [place], [place] Procedure Screening Questions Y/N Allergies to [...] 0.2-0.3 cm scaly, irregular, pinkpapules. B. Left islam: Inflamed/crusted, stuck-on, scaly plaque consistent with ISK. [...] encounter. Serenity Cheema MD Department of Dermatology [facility] cc: Alma Youssef MD documented in this encounter Plan of Treatment Not on file documented as of this encounter Visit Diagnoses Diagnosis AK (actinic keratosis) Actinic keratosis Seborrheic keratosis, inflamed Inflamed seborrheic keratosis History of actinic keratoses Personal history of diseases of skin and subcutaneous tissue History of basal cell carcinoma (BCC) documented in this encounter Care Teams Shirt Folding Machine Operator Relationship Specialty Start Date End Date Alma Youssef MD [address] [place] [address] PCP - General 03/22/13 documented as of this encounter
--- OUTSIDE RECORDS SUMMARY | 2024-07-05 10:03 | XMS_ITS | Encounter Summary ---
Author Organization [facility] Address [facility] [address] [place] [address] Care Team Providers Care Complaints Coordinator Name Role Phone Alma Youssef MD Primary Care Provider [phone] Encounter Details Date Type Department Care Team (Late st Contact Info) Description 03/30/2024 11:00 AM EDT Office Visit Dermatology at [facility] [address] [place] [address] Serenity Cheema MD [facility] [place] [address] Skin cancer screening; History of basal cell carcinoma (BCC); Actinic keratoses; Seborrheic keratoses Social History Tobacco Use Types Packs/Day Years [...] Progress Notes * Serenity Cheema MD - 03/30/2024 11:00 AM EDT Images from the original [...] of Present Illness: Heidi Mcdermott is a 88 y.o. Patient returns to clinic today for a full skin exam. Patient reports itchy spot on right forearm which has been present for 4 months. Not currently treating. Of note, she reports she has a fractured spine after missing a step at her son's house on the February. Last visit at Dermatology: 12/07/2022 Last visit with this provider: 06/08/2021 Medications: Reviewed in eD-H Allergies: Reviewed in [...] of recurrence; will continue to monitor. #. Seborrheic Keratoses - Stuck on, waxy papules on the trunk and extremities, including spot of concern on the right forearm. - Discussed benign nature of lesions and provided reassurance. No treatment necessary at this time. #. Actinic Keratoses - Ill-defined gritty papules on the right jain x 1, right cheek x 1, nose x 3. - Explained premalignant potential of these lesions. - Discussed treatment with cryotherapy. Patient elects to proceed with cryotherapy today. - Instructed patient to return to clinic for re-evaluation if lesion(s) does not resolve as expected with this treatment. Procedure: Destruction of lesion(s) with cryotherapy (LN2). Location(s): As noted above. Number: 5 Discussed procedure and expectations, including risks and benefits. Verbal consent obtained. Treated with LN2. There were no complications; Patient tolerated the procedure well. Post-procedure expectations and wound care reviewed. Other: N/A RTC: 1 yr for FBSE, otherwise PRN []Note routed to secretary office clerk [x]Recall placed in scheduling system []Appointment scheduled at checkout Scribe attestation: Varsha Cleveland has performed the documentation for this encounter in the presence of and acting as a scribe for SERENITY CHEEMA MD. I performed the above scribed service and agree with the accuracy of the documentation in this encounter. Reviewed and signed by: SERENITY CHEEMA MD Dermatology [facility] documented in this encounter Plan of Treatment Not on file documented as of this encounter Visit Diagnoses Diagnosis Skin cancer screening Screening for malignant neoplasm of the skin History of basal cell carcinoma (BCC) Actinic keratoses Actinic keratosis Seborrheic keratoses documented in this encounter Care Teams Complaints Coordinator Relationship Specialty Start Date End Date Alma Youssef MD [address] [place] [address] PCP - General 03/22/13 documented as of this encounter
--- OUTSIDE RECORDS SUMMARY | 2024-07-05 10:03 | XMS_ITS | Continuity of Care Document ---
Author Organization [facility] Address [address] [place] [address] Care Team Providers Care Principal Account Clerk Name Role Phone THO ENRIQUEZ MD Primary Care Physician Encounter [facility] NBR [id number] Date(s): 06/04/24 - 06/04/[address] [address]- [place] Discharge Disposition: Home or Self Care Attending Physician: THO ENRIQUEZ MD Admitting Physician: THO ENRIQUEZ MD Referring Physician: THO ENRIQUEZ MD Results Radiology Reports * Exam Date Time Procedure Performing Provider Status 06/04/24 2:46 PM MG Mammo Screening Bilateral Caitlyn Lemus (Verified) Notes: (MG Mammo Screening Bilateral) Reason For Exam: Z12.31 Encounter for screening mammogram for malignant neoplasm of breast;Z12.31 Encounter for screening mammogram for malignant neoplasm of breast MG Mammo Screening Bilateral EXAM DESCRIPTION: MG Mammo Screening Bilateral 06/04/2024 INDICATION: Z12.31 ENCOUNTER FOR SCREENING MAMMOGRAM FOR MALIGNANT NEOPLASM OF BREAST RISK FACTOR: The patient may be at increased breast cancer risk based on 1 or more risk factors COMPARISON: 04/25/2021 and 12/28/2018 BREAST DENSITY: The breasts are almost entirely fatty. FINDINGS: MLO and CC views were performed with digital breast tomosynthesis. Images were reviewed using computer aided detection. No asymmetry, architectural distortion or suspicious grouping of calcifications to suggest malignancy in either breast. ASSESSMENT: No mammographic evidence of malignancy. Negative. BI-RADS category 1. RECOMMENDATION: Screening mammography in 1 year JOB #: [id number] Final Signed by: Anup Kingsley MD Signed (Electronic Signature): 06/04/2024 3:26 pm Patient Care team information Care Team Personnel Name: ZOE MONTEZ, THO Krishnamurthy Position: No Access Member Role: Primary Care Physician Address: [address] [place] [id number] Insurance Providers Guarantor name: [employer] Information #: 2 Payer: [facility] Member Number: [id number] Policy Number: NA Health Plan Information #: 1 Payer: [facility] Member Number: [id number] Policy Number: NA
--- OUTSIDE RECORDS SUMMARY | 2024-07-05 10:03 | XMS_ITS | Encounter Summary ---
Author Organization [facility] Address [facility] [address] [place] [address] Care Team Providers Care Section Leader Name Role Phone Alma Youssef MD Primary Care Provider [phone] Reason for Visit * Reason Comments Skin Check Encounter Details Date Type Department Care Team (Late st Contact Info) Description 01/29/2017 2:45 PM EDT Office Visit Dermatology at [facility] [address] [place] [address] Serenity Cheema MD [facility] [address] [place] [address] [place] (actinic keratosis); Seborrheic keratosis; History of [...] Serenity Cheema MD Section of Dermatology [facility] documented in this encounter Plan of Treatment Not on file documented as of this encounter Visit Diagnoses Diagnosis [place] (actinic keratosis) Actinic keratosis Seborrheic keratosis Other seborrheic keratosis History of basal cell carcinoma Personal history of other malignant neoplasm of skin documented in this encounter Care Teams Section Leader Relationship Specialty Start Date End Date Alma Youssef MD [address] [place] [address] PCP - General 03/22/13 documented as of this encounter
--- OUTSIDE RECORDS SUMMARY | 2024-07-05 10:03 | XMS_ITS | Encounter Summary ---
Author Organization [facility] Address [facility] [address] [place] [address] Care Team Providers Care Social Worker Psychiatric Name Role Phone Alma Youssef MD Primary Care Provider [phone] Encounter Details Date Type Department Care Team (Late st Contact Info) Description 12/09/2017 Telephone Dermatology at [facility] [address] [place] [phone] Serenity Cheema MD [facility] [place] [address] Social History Tobacco Use Types Packs/Day Years [...] * Telephone Encounter - Tiffanie Sung - 12/09/2017 1:29 PM EDT I received a voicemail from Heidi Fouzia Mcdermott's daughter Lulu stating Heidi had an apt with Dr. Cheema yesterday and had some questions. She is hard of hearing and asked that her daughter call us toget some answers. The best call back number is [phone] documented in this encounter Plan of Treatment Not on file documented as of this encounter Visit Diagnoses Not on filedocumented in this encounter Care Teams Social Worker Psychiatric Relationship Specialty Start Date End Date Alma Youssef MD [address] [place] [address] PCP - General 03/22/13 documented as of this encounter
--- OUTSIDE RECORDS SUMMARY | 2024-07-05 10:03 | XMS_ITS | Encounter Summary ---
Author Organization [facility] Address [facility] [address] [place] [address] Care Team Providers Care Assistant To The Director Name Role Phone Alma Youssef MD Primary Care Provider [phone] Encounter Details Date Type Department Care Team (Late st Contact Info) Description 01/15/2023 Telephone Dermatology at [facility] [address] [place] [address] Serenity Cheema MD [facility] [address] [place] [address] Social History Tobacco Use Types Packs/Day Years [...] They would like it sent to the [facility] in [facility]. She was last seen November 2022. documented in this encounter Plan of Treatment Not on file documented as of this encounter Visit Diagnoses Not on filedocumented in this encounter Care Teams Assistant To The Director Relationship Specialty Start Date End Date Alma Youssef MD [address] [place] [address] PCP - General 03/22/13 documented as of this encounter
--- OUTSIDE RECORDS SUMMARY | 2024-07-05 10:04 | XMS_ITS | Patient Health Record ---
Author Organization [facility] Address [address] [facility], [address] [place] [address] Care Team Providers Care Rn Admissions Name Role Phone Alma Enriquez Primary Care Provider ALLERGIES Allergen (clinical drug ingredient) Drug/Non Drug Allergy documented on EMR Reaction Allergy Type Onset Date Status Latex latex (uncoded) rash Allergy Acti ve Influenza Vac Typ A&B Surf Ant arm itching Drug Allergy Active Tetanus Immune Globulin arm pain swelling Drug Allergy Active RESULTS Component Value Reference Range Notes CBC, WITH AUTO DIFF Reviewed date:04/27/2024 08:57:29 AM Interpretation: Performing Lab: Notes/Report: COMPREHENSIVE METABOLIC PROF ILE Reviewed date:04/27/2024 08:57:29 AM Interpretation: Performing Lab: Notes/Report: Alk Phos 84 34-104 IntlUnit/L Albumin Level 4.5 3.5-5.7 g/dL Anion Gap 7.0 3.0-12.0 BUN/Creat Ratio 31.3 8.0-20.0 Osmolality 280 275-295 mOsm/kg A/G Ratio 1.9 1.0-2.5 g/dL Globulin 2.4 2.3-3.5 g/dL - Ordering Provider: ALMA ENRIQUEZ LIPID PROFILE Reviewed date:04/27/2024 08:57:29 AM Interpretation: Performing Lab: Notes/Report: LDL 47.0 Optimal: Less than 100 mg/dL Above Optimal: 100 - 129 mg/dL Borderline High: 130 - 159 mg/dL High: 160 - 189 mg/dL Very High: > or = 190 mg/dL Chol/HDL 2.8 RISK MALE FEMALE 1/2 average 3.4 3.3 Average 5.0 4.4 2x Average 9.6 7.1 3x Average 23.4 11.0 - Ordering Provider: ALMA ENRIQUEZ TSH Reviewed date:04/27/2024 08:57:29 AM Interpretation: Performing Lab: Notes/Report: TSH 3.41 0.45-5.33 mcIntlUnit/mL - Ordering Provider: ALMA ENRIQUEZ MG MAMMOGRAPHY BILATERAL SCR EENING Reviewed date:06/08/2024 10:18:19 AM Interpretation: Performing Lab: Notes/Report: SEE BELOW EXAM DESCRIPTION: MEDICATIONS Medication SIG (Take, Route, Frequency, Duration) Notes Start Date End Date Status Cranberry 450 MG 1 tablet with meals Orally Twice a day Active Turmeric 500 MG as directed Orally Not-Taking Aspirin 81 MG 1 tablet Orally Once a day for 30 day(s) Active Cymbalta 30 MG 1 capsule Orally Once a day 01/31/2022 Active Metoprolol Tartrate 25 MG 1 tablet Orally Twice a day for 90 days Active Levothyroxine Sodium 25 MCG 1 tablet Orally Once a day for 90 days 08/23/2014 Active Glucosamine MSM Complex 1 tablet with me als Orally Three times a day for 30 days Active Crestor 20 MG 1 tablet Orally Once a day for 90 days Active Nitrostat 0.[address] 1 tablet under the tongue if needed every 5 minutes for chest pain for 3 doses IN 15 MINUTES not taking Active Tylenol 325 MG 1 tablet as needed Orally every 4 hrs Active amLODIPine Besylate 5 MG 1 tablet Orally Once a day Active oxyBUTYnin Chloride 5 MG 1 tablet Orally Once a day for 30 days 04/21/2024 Active Vitamin D 1000 UNIT 1 tablet Orally Once a day for 30 day(s) Active IMMUNIZATIONS Vaccine Route Administration Date Status [...] Active confirmed 2 Disorder of cardiovascular system (39422328) Problem Osteoarthrosis, unspecified whether generalized or localized, unspecified site (715.90) Active confirmed Osteoarthritis (184541722) knee and possibly ankle, although foot pain sounds more like claudication pain Problem Hypothyroidism, unspecified (E03.9) Active confirmed Hypothyroidism (81209126) Problem Age-related nuclear cataract, bilateral (H25.13) Active confirmed Nuclear senile cataract (311122964) low risk for planned low risk procedure; no additional testing necessary Problem Unspecified sensorineural hearing loss (H90.5) Active confirmed Sensorineural hearing loss (13475658) Problem Atherosclerotic heart disease of [place] coronary artery without angina pectoris (I25.10) Active confirmed Atherosclerotic heart disease of [place] coronary artery without angina pectoris (948659934566777 ) asymptomatic post CABG Problem Polyosteoarthriti s, unspecified (M15.9) Active confirmed Osteoarthritis (370854478) suspect worsening osteoarthriti s, possible adverse effect of crestor? she does report late onset myalgias with lipitor in the past Problem Polymyalgia rheumatica (M35.3) Active confirmed Polymyalgia rheumatica (07411045) Doing well Problem Urge incontinence (N39.41) Active confirmed Urge incontinence of urine (93510711) Problem Mixed incontinence (N39.46) Active confirmed Mixed incontinence (384516039) urge incontence with recent functional limitations Problem Solitary pulmonary nodule (R91.1) Active confirmed Solitary pulmonary nodule (003356345) abnormal CXR Problem Asymptomatic menopausal state (Z78.0) Active confirmed Postmenopausal state (47550388) VITAL SIGNS Heart Rate 72 /min 04/21/2024 Blood pressure diastolic 84 mm Hg 04/21/2024 Height 65 in 04/21/2024 Blood pressure systolic 142 mm Hg 04/21/2024 Weight 126 lbs 04/21/2024 BMI 20.97 kg/m2 04/21/2024 Encounters Encounter Location Date Provider Diagnosis [facility] [address] [place] [id number] 08/13/2023 Alma Enriquez Fracture of unspecif ied part of neck of right femur, initial encounter for closed fracture S72.001A and Mixed incontinence N39.46 [facility] [address] [facility] [address] [place] [id number] 04/21/2024 Alma Enriquez Encounter for genera l adult medical examination without abnormal findings Z00.00 ; Hypothyroidism, unspecified E03.9 ; Atherosclerotic heart disease of [place] coronary artery without angina pectoris I25.10 ; Encounter for screening mammogram for malignant neoplasm of breast Z12.31 ; Urge incontinence N39.41 and Polyosteoarthritis, unspecified M15.9 [facility] [address] [place] [address] [id number] 06/23/2024 Alma Enriquez Atherosclerotic hear t disease of [place] coronary artery without angina pectoris I25.10 [facility] [address] [id number] 06/29/2024 Alma Enriquez Atherosclerotic hear t disease of [place] coronary artery without angina pectoris I25.10 and Hypothyroidism, unspecified E03.9 ASSESSMENTS Encounter Date Diagnosis Assessment Notes Treatment Notes Treatment Clinical Notes 04/21/2024 Hypothyroidism, unspecified (ICD-10 - E03.9) 04/21/2024 Encounter for genera l adult medical examination without abnormal findings (ICD-10 - Z00.00) Encouraged flu, covid and RSV vaccines. Discussed fall prevention. 06/23/2024 Atherosclerotic hear t disease of [place] coronary artery without angina pectoris (ICD-10 - I25.10) 06/29/2024 Atherosclerotic hear t disease of [place] coronary artery without angina pectoris (ICD-10 - I25.10) 08/13/2023 Mixed incontinence (ICD-10 - N39.46) urge incontence with recent functional limitations 08/13/2023 Fracture of unspecified part of neck of right femur, initial encounter for closed fracture (ICD-10 - S72.001A) discharge summary reviewed. agree with home physical therapy and order sent. 06/29/2024 Hypothyroidism, unspecified (ICD-10 - E03.9) 04/21/2024 Atherosclerotic hear t disease of [place] coronary artery without angina pectoris (ICD-10 - I25.10) 04/21/2024 Encounter for screening mammogram for malignant neoplasm of breast (ICD-10 - Z12.31) 04/21/2024 Urge incontinence (ICD-10 - N39.41) 04/21/2024 Polyosteoarthritis, unspecified (ICD-10 - M15.9) PLAN OF TREATMENT Pending Test Test Name Order Date Urinalysis, Routine 03/19/2021 Urinalysis, Routine 04/19/2020 Urinalysis, Routine 03/15/2020 Urinalysis, Routine 11/10/2018 Urinalysis, Routine 11/03/2017 Urinalysis, Routine 10/21/2016 Urinalysis, Routine 10/03/2014 Urinalysis, Routine 08/23/2014 Urinalysis, Routine 10/22/2013 Urinalysis, Routine 05/28/2013 LIPID PROFILE 05/28/2013 BD BONE DENSITY, DEXA SCAN 04/02/2022 BD BONE DENSITY, DEXA SCAN 10/16/2015 MG MAMMOGRAPHY BILATERAL SCREENING 08/04 XR CHEST 4 VIEW 02/11/2022 Insurance Providers Payer Name Payer Address Payer Phone Subscriber Number Group Number Insured Name Patient Relationship to Insured Coverage Start Date Coverage End Date [place] [employer], [facility] [address] [place] [address] [id number] Heidi Mcdermott Self - patient is the insured 0 [place] of Rashid Constantino of [place] [address] [id number] Heidi Mcdermott Self - patient is the [...]
--- OUTSIDE RECORDS SUMMARY | 2024-07-05 10:04 | XMS_ITS ---
Author Organization [facility] Visit Address [address], [address] [place] [address] Care Team Providers Care Processing Mgr Name Role Phone Youssef, Alma Primary Care Provider [phone] MEDICATIONS Medication SIG (Take, Route, Frequency, Duration) Notes Start Date End Date Status Crestor 20 MG 1 tablet Orally Once a day for 90 days Active Encounters Encounter Location Date Provider Diagnosis [facility] [address] [place], [place] [id number] 06/23/2024 Alma Youssef Atherosclerotic hear t disease of [place] coronary artery without angina pectoris I25.10 ASSESSMENTS Encounter Date Diagnosis Assessment Notes Treatment Notes Treatment Clinical Notes 06/23/2024 Atherosclerotic hear t disease of [place] coronary artery without angina pectoris (ICD-10 - I25.10) PLAN OF TREATMENT Medication Medication Name Sig Start Date Stop Date Notes Crestor 20 MG 1 tablet Orally Once a day for 90 days Progress Notes * Linda MCDERMOTTdianelysaDOB: (89 yo F)Acc No.[id number]:06/23/2024 Patient:??Heidi MCDERMOTT :1935?Age:89 Y?Sex:Fe male Address:[facility] [place], [address] * Refills?? Refill Crestor Tablet, 20 MG, Orally, 90, 1 tablet, Once a day, 90 days, Refills=2 * true * Date:??
--- OUTSIDE RECORDS SUMMARY | 2024-07-05 10:04 | XMS_ITS ---
Author Organization [facility] dicine Visit Address [address] [facility] [address] [facility], [address] [place] [address] Care Team Providers Care Order Takers Supervisor Name Role Phone Alma Youssef Primary Care Provider MEDICATIONS Medication SIG (Take, Route, Frequency, Duration) Notes Start Date End Date Status Metoprolol Tartrate 25 MG 1 tablet Orall y Twice a day for 90 days Active Levothyroxine Sodium 25 MCG 1 tablet Ora lly Once a day for 90 days 08/23/2014 Active Encounters Encounter Location Date Provider Diagnosis [facility] [address] [facility] [address] [place] [id number] 06/29/2024 Alma Youssef Atherosclerotic hear t disease of [place] coronary artery without angina pectoris I25.10 and Hypothyroidism, unspecified E03.9 ASSESSMENTS Encounter Date Diagnosis Assessment Notes Treatment Notes Treatment Clinical Notes 06/29/2024 Atherosclerotic hear t disease of [place] coronary artery without angina pectoris (ICD-10 - I25.10) 06/29/2024 Hypothyroidism, unspecified (ICD-10 - E03.9) PLAN OF TREATMENT Medication Medication Name Sig Start Date Stop Date Notes Metoprolol Tartrate 25 MG 1 tablet Orall y Twice a day for 90 days Levothyroxine Sodium 25 MCG 1 tablet Ora lly Once a day for 90 days 08/23/2014 Progress Notes * Linda MCDERMOTTJordynB: 6 (89 yo F)Acc No.[id number]:06/29/2024 Patient:??Heidi MCDERMOTT :1935?Age:89 Y?Sex:Fe male Address:[facility] [place], [place], [address] * Refills?? Refill Metoprolol Tartrate Tablet, 25 MG, Orally, 180, 1 tablet, Twice a day, 90 days, Refills=3 Refill Levothyroxine Sodium Tablet, 25 MCG, Orally, 90, 1 tablet, Once a day, 90 days, Refills=3 * true * Date:??
--- OUTSIDE RECORDS SUMMARY | 2024-07-05 10:04 | XMS_ITS ---
Author Organization [facility] Address [address], [address] [place] [address] Care Team Providers Care Multimedia Producer Name Role Phone Alma Enriquez Primary Care [...] 0.45-5.33 mcIntlUnit/mL - Ordering Provider: ALMA ENRIQUEZ REASON FOR VISIT Medicare Annual and back pain MEDICATIONS Medication SIG (Take, Route, Frequency, Duration) Notes Start Date End Date Status Cranberry 450 MG 1 tablet with meals Orally Twice a day Active Cymbalta 30 MG 1 capsule Orally Once a day 01/31/2022 Active Metoprolol Tartrate 25 MG 1 tablet Orally Twice a day Active Crestor 20 MG 1 tablet Orally Once a day Active amLODIPine Besylate 5 MG 1 tablet Orally Once a day Active Turmeric 500 MG as directed Orally Not-Taking Levothyroxine Sodium 25 MCG 1 tablet Orally Once a day 08/23/2014 Active Tylenol 325 MG 1 tablet as needed Orally every 4 hrs Active oxyBUTYnin Chloride 5 MG 1 tablet Orally Once a day for 30 days 04/21/2024 Active Aspirin 81 MG 1 tablet Orally Once a day for 30 day(s) Active Glucosamine MSM Complex 1 tablet with me als Orally Three times a day for 30 days Active Nitrostat 0.[address] 1 tablet under the tongue if needed every 5 minutes for chest pain for 3 doses IN 15 MINUTES not taking Active Vitamin D 1000 UNIT 1 tablet Orally Once a day for 30 day(s) Active SOCIAL HISTORY Tobacco Use: Social History Observation Description Date Details (start date - stop date) Never Smoker NA - NA Sex Assigned At : Social History Observation Description Sex Assigned At Unknown Tobacco Use/Smoking Question Answer Notes Are you a nonsmoker Alcohol Screen Question Answer Notes Did you have a drink containing alcohol in the p ast year? No Points 0 Interpretation Negative VITAL SIGNS Heart Rate 72 /min 04/21/2024 Blood pressure systolic 142 mm Hg 04/21/20 24 Blood pressure diastolic 84 mm Hg 024 Height 65 in 04/21/2024 Weight 126 lbs 04/21/2024 BMI 20.97 kg/m2 04/21/2024 Encounters Encounter Location Date Provider Diagnosis [facility] [address] [place], [place] [id number] 04/21/2024 Alma Enriquez Encounter for genera l adult medical examination without abnormal findings Z00.00 ; Hypothyroidism, unspecified E03.9 ; Atherosclerotic heart disease of [place] coronary artery without angina pectoris I25.10 ; Encounter for screening mammogram for malignant neoplasm of breast Z12.31 ; Urge incontinence N39.41 and Polyosteoarthritis, unspecified M15.9 ASSESSMENTS Encounter Date Diagnosis Assessment Notes Treatment Notes Treatment Clinical Notes 04/21/2024 Encounter for genera l adult medical examination without abnormal findings (ICD-10 - Z00.00) Encouraged flu, covid and RSV vaccines. Discussed fall prevention. 04/21/2024 Hypothyroidism, unspecified (ICD-10 - E03.9) 04/21/2024 Atherosclerotic hear t disease of [place] coronary artery without angina pectoris (ICD-10 - I25.10) 04/21/2024 Encounter for screening mammogram for malignant neoplasm of breast (ICD-10 - Z12.31) 04/21/2024 Urge incontinence (ICD-10 - N39.41) 04/21/2024 Polyosteoarthritis, unspecified (ICD-10 - M15.9) PLAN OF TREATMENT Medication Medication Name Sig Start Date Stop Date Notes Cymbalta 30 MG 1 capsule Orally Once a day 01/31/2022 Metoprolol Tartrate 25 MG 1 tablet Orally Twice a day Crestor 20 MG 1 tablet Orally Once a day amLODIPine Besylate 5 MG 1 tablet Orally Once a day Levothyroxine Sodium 25 MCG 1 tablet Orally Once a day 01/2015 oxyBUTYnin Chloride 5 MG 1 tablet Orally Once a day for 30 days 04/21/2024 Treatment Notes Assessment Notes Encounter for general adult medical examination without abnormal findings Encouraged flu, covid and RSV vaccines. Discussed fall prevention. Next Appt Details Follow Up: 1 Year,prn, Reaso n: Progress Notes * Gibson MCDERMOTTB: (89 yo F)Acc No.[id number]:04/21/2024 Progress Notes Patient:??Heidi MCDERMOTT Provider:??Alma Enriquez M.D. :1935?Age:88 Y?Sex:Fe male Date:04/21/2024 [address] [place] [place] Subjective: * Chief Complaints: * ?Medicare Annual and ba ck pain * HPI: ?New symptom(s):? Tripped on a doorway February 18. Able to get up and walk afterwards. Sore in low back afterwards and developed worsening back pain about 2 weeks later. Went to Urgent Care and diagnosed with a T12 compression fracture. Taking tylenol and ibuprofen regularly which lessens the pain. Children help some with floor polisher and driving. Uses a cane most of the time out of the house. * ROS:?General/Constitutional:?Chills??denies.??Fever??denies.??Night sweats??denies.??Weight gain??denies.??Weight loss??denies.?Ophthalmologic:?Diminished visual acuity??denies.?ENT:?Decreased hearing??denies.?Respiratory:?Cough??denies.??Shortness of breath at rest??denies.??Shortness of breath with exertion??denies.?Cardiovascular:?Chest pain at rest??denies.??Chest pain with exertion??denies.??Palpitations??denies.?Gastrointestinal:?Abdominal pain??denies.??Blood in stool??denies.??Constipation??denies.??Diarrhea??denies.??Heartburn??denies.??Na usea??denies.??Vomiting??denies.?Genitourinary:?Frequent urination??denies.??Painful urination??denies.??Incontinence??denies.?Musculoskeletal:?Muscle aches??denies.??Painful joints??denies.?Neurologic:?Dizziness??denies.??Headache??denies.??Tingling/Numbness??denies.?Psychiatric:?Depressed mood??denies.??Difficulty sleeping??denies.? * Medical History:?? * Finisher Polisher History:?Last mammogram date??2013 [facility]?? * Surgical History:??tonsillec sue dilatation and curettage coronary artery bypass graft hip replacement s/p fracture 2018carpal tunnel repair 2019skin cancer reconstruction on R nares ataracts hip replacement s/p fracture 2022 * Hospitalization/Major Diagno stic Procedure:?? * Family History:??Father: dec eased 84 yrs, diabetes, COPD, diagnosed with Diabetes.??Mother: 85 yrs, heart disease, diagnosed with Heart Disease.??Siblings: 1 from MVA, 1 from pancreatic cancer, 1 with CVD, 1 alive with ASCVD, diagnosed with Heart Disease, Cancer.??4 brother(s) . 2 son(s) , 2 daughter(s) - healthy. .?? granddaughter with breast cancer. * Social History:?Drugs/Alcohol:?Alcohol Screen?Did you have a drink containing alcohol in the past year???No ?Points??0 ?Interpretation??Negative ?Tobacco Use:?Tobacco Use/Smoking?Are you a??nonsmoker ?Miscellaneous:?Living with: alone. ?Marital status: , . * Medications:??TakingCranberr y 450 MG Tablet 1 [...] Not-TakingTurmeric 500 MG Capsule as directed Orally Not-Taking Turmeric 500 MG Capsule as directed Orally DiscontinuedTolterodine Tartrate 1 MG Tablet 1 tablet Orally Twice a day Medication List reviewed and reconciled with the patientDiscontinued Tolterodine Tartrate 1 MG Tablet 1 tablet Orally Twice a day Medication List reviewed and reconciled with the patient * Allergies:??latex: rashTetan us Immune Globulin: arm pain swellingInfluenza Vac Typ A&B Surf Ant: arm itchingno[Allergies Verified] Objective: * Vitals:??HR: 72 /min, BP: 14 2/84 mm Hg, Ht: 65 in, Wt: 126 lbs, BMI: 20.97 Index, Wt-k.15 kg. * Examination: ?General Examination: ?GENERAL APPEARANCE:??alert, in no acute distress.?EYES:??pupils equal, round, reactive to light and accommodation.?EARS:??BOTH EARS, tympanic membrane intact, clear.?ORAL CAVITY:??mucosa moist.?THROAT:??no erythema, no exudate, tonsils normal, uvula midline.?NECK/THYROID:??no cervical lymphadenopathy, thyroid normal, no carotid bruit.?SKIN:??no rashes, no suspicious lesions.?HEART:??regular rate and rhythm, no murmurs, rubs, gallops.?LUNGS:??clear to auscultation bilaterally, no wheezes, rales, rhonchi.?ABDOMEN:??bowel sounds present, soft, nontender, nondistended, no hepatosplenomegaly.?FEMALE GENITOURINARY:??labia without lesions or masses, cervix without lesions, nontender, bimanual exam, no masses.?MALE GENITOURINARY:??no hernia, prostate normal, testes descended bilaterally.?EXTREMITIES:??no clubbing, cyanosis, or edema.?PERIPHERAL PULSES:??2+ posterior tibial.?NEUROLOGIC:??alert and oriented, nonfocal.? Assessment: * Assessment: 1.??Hypothyroidism, unspecif ied - E03.9??2.??Encounter for general adult medical examination without abnormal findings - Z00.00 (Primary)??3.??Atherosclerotic heart disease of [place] coronary artery without angina pectoris - I25.10??4.??Encounter for screening mammogram for malignant neoplasm of breast - Z12.31??5.??Urge incontinence - N39.41??6.??Polyosteoarthritis, unspecified - M15.9?? Plan: * Treatment: ?LAB: COMPREHENSIVE METABOLIC PROFILE (Collection Date & Time - 04/21/2024 11:54 AM)* PI: Blood count, liver, kidn ey, blood sugar, cholesterol and thyroid are all normal. Alma Enriquez 04/22/2024 08:20:24 AM > ?LAB: LIPID PROFILE (Collection Date & Time - 04/21/2024 11:54 AM)* PI: Blood count, liver, kidn ey, blood sugar, cholesterol and thyroid are all normal. Alma Enriquez 04/22/2024 08:20:24 AM > ?LAB: TSH (Collection Date & Time - 04/21/2024 11:54 AM)* PI: Blood count, liver, kidn ey, blood sugar, cholesterol and thyroid are all normal. Alma Enriquez 04/22/2024 08:20:24 AM > Notes: Encouraged flu, covid and RSV vaccines. Discussed fall prevention. ? 2.??Hypothyroidism, unspecified?? Continue Levothyroxine Sodium Tablet, 25 MCG, 1 tablet, Orally, Once a day.?LAB: TSH (Collection Date & Time - 04/21/2024 11:54 AM)* PI: Blood count, liver, kidn ey, blood sugar, cholesterol and thyroid are all normal. EnriquezAlma 04/22/2024 08:20:24 AM > 3.??Atherosclerotic heart disease of [place] coronary artery without angina pectoris?? Continue Metoprolol Tartrate Tablet, 25 MG, 1 tablet, Orally, Twice a day;??Continue Crestor Tablet, 20 MG, 1 tablet, Orally, Once a day;??Continue amLODIPine Besylate Tablet, 5 MG, 1 tablet, Orally,Once a day.?LAB: CBC, WITH AUTO DIFF (Collection Date & Time - 04/21/2024 11:54 AM)* PI: Blood count, liver, kidn ey, blood sugar, cholesterol and thyroid are all normal. EnriquezAlma 04/22/2024 08:20:24 AM > ?LAB: COMPREHENSIVE METABOLIC PROFILE (Collection Date & Time - 04/21/2024 11:54 AM)* PI: Blood count, liver, kidn ey, blood sugar, cholesterol and thyroid are all normal. EnriquezAlma 04/22/2024 08:20:24 AM > ?LAB: LIPID PROFILE (Collection Date & Time - 04/21/2024 11:54 AM)* PI: Blood count, liver, kidn ey, blood sugar, cholesterol and thyroid are all normal. Alma Enriquez 04/22/2024 08:20:24 AM > ?LAB: TSH (Collection Date & Time - 04/21/2024 11:54 AM)* PI: Blood count, liver, kidn ey, blood sugar, cholesterol and thyroid are all normal. Alma Enriquez 04/22/2024 08:20:24 AM > 4.??Encounter for screening mammogram for malignant neoplasm of breast?Imaging: MG MAMMOGRAPHY BILATERAL SCREENING (Ordered for 04/22/2024) (Performed Date - 06/04/2024)* PI: MMG is normal Nikki Enriquez jean Yessy 06/07/2024 09:03:33 AM > 5.??Urge incontinence?? Start oxyBUTYnin Chloride Tablet, 5 MG, 1 tablet, Orally, Once a day, 30 days, 30, Refills 11.?6.??Polyosteoarthritis, unspecified?? Continue Cymbalta Capsule Delayed Release Particles, 30 MG, 1 capsule, Orally, Once a day.? * Procedure Codes:??G0439 KATIE AL WELLNESS VST; PPS SUBSQT VST * Follow Up:??1 Year,prn Care Plan: * Problems:?? * Images: * Sign off status: Completed true * Provider:??Alma Enriquez M.D. Date: ??04/21/2024 History and Physical Notes * Examination Category [...] lesions EXTREMITIES: no clubbing, cyanosi s, or edema PERIPHERAL PULSES: 2+ posterior tibial MALE GENITOURINARY: no hernia, prostate normal, testes descended bilaterally FEMALE GENITOURINARY: labia without lesi ons or masses, cervix without lesions, nontender, bimanual exam, no masses ORAL CAVITY: mucosa moist
--- OUTSIDE RECORDS SUMMARY | 2024-07-05 10:04 | XMS_ITS | Encounter Summary ---
Author Organization [facility] Address [facility] [address] [place] [address] Care Team Providers Care Knitter Mechanic Name Role Phone Unknown Primary Care Provider Unavailabl e Reason for Visit * Reason Comments Skin Check Encounter Details Date Type Department Care Team (Late st Contact Info) Description 07/29/2012 10:50 AM EST Office Visit Dermatology at [facility] [address] [place] [id number] Earnest Gramajo MD [facility] [address] [place] [address] [place] (actinic keratosis) (Primary Dx); SK (seborrheic [...] supervision with direct supervision immediately available. (definition: [facility]ME Policy Statement on Graduate Medical Education, [...] ??? hydrochlorothiazide (HYDRODIURIL) 25 mg tablet ??? Flhgezixhstmn-Gjdhkvdk-Apqbid (CENTRUM SILVER) Tab ??? magnesium oxide (MAG-OX) [...] concerns. Earnest Gramajo MD Resident in Dermatology [facility] I am being supervised by Staff awnings mechanic: Gucci Gramajo MD Section of Dermatology [facility] documented in this encounter Plan of Treatment Not on file documented as of this encounter Visit Diagnoses Diagnosis AK (actinic keratosis)- Primary Actinic keratosis SK (seborrheic keratosis) Other seborrheic keratosis documented in this encounter Care Teams Knitter Mechanic Relationship Specialty Start Date End Date Unknown None PCP - General 07/29/12 03/21/13 documented as of this encounter
--- OUTSIDE RECORDS SUMMARY | 2024-07-05 10:04 | XMS_ITS | Encounter Summary ---
Author Organization [facility] Address [facility] [address] [place] [address] Care Team Providers Care Rail Car Repairman Name Role Phone Unknown Primary Care Provider Unavailabl e Encounter Details Date Type Department Care Team (Late st Contact Info) Description 03/18/2013 Orders [place] [address] Elvis Rolon, PA [facility] [place] [address] Right knee pain (Primary Dx) Social History Tobacco Use Types Packs/Day Years Used Date Smoking Tobacco: Never Sex and Gender Information Value Date Recorded Sex Assigned at Not on file Gender Identity Not on file Sexual Orientation Not on file documented as of this encounter Plan of Treatment Not on file documented as of this encounter Results * XR JOINT TEAM ALIGNMENT AP LAT SCHMARICEL SKYLINE (03/22/2013 3:23 PM EDT) Anatomical Region Laterality Modality N/A Radiographic Su ging 03/22/2013 3:23 PM EDT Narrative 03/22/2013 4:55 PM EDT Examination JOINT TEAM STANDING ALIGNMENT AP LAT SCHUSS SKYLINE/RIGHT Clinical History RIGHT KNEE PAIN Comparison AP standing, PA amy Green, poor bilateral knee. ??Lateral right knee. Technique [...] Film and interpretation reviewed by the attending Authorizing Provider Result Landy Davalos MD IMG DX ORDERABLES documented in this encounter Visit Diagnoses Diagnosis Right knee pain- Primary Pain in joint, lower leg Right knee pain Pain in joint, lower leg documented in this encounter Care Teams Rail Car Repairman Relationship Specialty Start Date End Date Unknown None PCP - General 07/29/12 03/21/13 documented as of this encounter
--- OUTSIDE RECORDS SUMMARY | 2024-07-05 10:04 | XMS_ITS | Encounter Summary ---
Author Organization [facility] Address [facility] [address] [place] [address] Care Team Providers Care Software Release Engineer Name Role Phone Alma Youssef MD Primary Care Provider [phone] Reason for Visit * Reason Onset Date Comments Other 04/07/2013 follow up Encounter Details Date Type Department Care Team (Late st Contact Info) Description 04/07/2013 Telephone [place] [phone] Elvis Rolon PA [facility] [place] [address] Other (follow up) Social History Tobacco Use [...] EDT Called patient, left message to call [phone] to discuss her concerns. * Telephone Encounter [...] advice. She can be reached at home [phone], but will be gone from [phone] today. documented in this encounter Plan of Treatment Not on file documented as of this encounter Visit Diagnoses Not on filedocumented in this encounter Care Teams Software Release Engineer Relationship Specialty Start Date End Date Alma Youssef MD [address] [place] [address] PCP - General 03/22/13 documented as of this encounter
--- NOTE | 2024-07-05 10:30 | DI.RAD_ITS ---
Exam(s) XR ELBOW RT COMPLETE EXAM: XR ELBOW RT COMPLETE CLINICAL HISTORY: Right elbow pain. TECHNIQUE: 2D digital imaging was performed. COMPARISON: No exams were available for comparison FINDINGS: 3 views There is a fracture of the mid-lateral aspect of the radial head/neck mild depression. No loose intr a-articular bodies. Possible skin defect seen off the medial aspect of the elbow. Subjacent fat str anding noted. No radiopaque foreign body. Findings in the medial epicondyle of distal humerus proba rock reflect chronic epicondylitis. Similar findings not seen at the level of the lateral epicondyle. Posteriorly there is some calcification at the triceps insertion on the posterior olecranon. IMPRESSION: Radial head fracture with mild depression. Medial epicondyle findings as above Calcification also noted posteriorly at the insertion site of the triceps on the posterior olecranon. No overlying swelling of the olecranon bursa. DATA REPOSITORY: RADIATION DOSE DELIVERED:
--- NOTE | 2024-07-05 11:09 | ED.GENADUL_ITS ---
Discharge Plan Disposition Patient Disposition: Home Discharge Details Clinical Impression: Closed fracture of head of right radius Primary Care Provider: Alma Youssef ED Provider: Dawood Liu Home Meds and New Rx's Prescriptions: Continued amlodipine 5 mg tablet 5 mg PO HS cranberry fruit 450 mg tablet 450 mg PO BID Rx Instructions: administer with a meal duloxetine 30 mg capsule,delayed release(DR/EC) 30 mg PO DAILY tzhobj-ifo-krzvwdva-C-Mn-hrb21 500-333-5 mg capsule 2 cap PO .QD PreserVision AREDS-2 250-90-40-1 mg capsule 1 tab PO BID PRN urea [VINCENT-Urea] 45 % gel 1 applic topical BID Qty: 28 3RF ketoconazole 2 % cream 1 applic topical DAILY Qty: 15 3RF Rx Instructions: Apply in the AM to fungal toenails, with Urea applied at bedtime. nitroglycerin 0.4 mg tablet, sublingual 0.4 mg sublingual Q8H PRN Rx Instructions: do not exceed 3 doses per episode cholecalciferol (vitamin D3) 1,000 UNIT capsule 1,000 unit PO DAILY rosuvastatin [Crestor] 20 MG tablet 20 mg PO DAILY metoprolol tartrate 25 MG tablet 25 mg PO BID levothyroxine 25 MCG tablet 25 mcg PO DAILY acetaminophen [Tylenol] 325 mg Tablet 650 mg PO Q6H PRN PRNQty: 0 0RF aspirin 81 MG tablet,delayed release (DR/EC) 81 mg PO DAILY Discharge Instructions Additional Instructions: You are seen in the emergency department following your fall. You are found to have a right radial head fracture for which you are being given a sling. Please do not use your right upper extremity until you are cleared by the orthopedic team. Please return to the emergency department if you develop any numbness or tingling in the right hand. For your pain please take medications as follows: 1. Take acetaminophen (Tylenol), 1,000 mg (two 500 mg tabs) every 6 hours Referrals: [facility] [Provider Group] - 1 week Discharge Data Discharge Date/Time-TO BE ENTERED AT DEPARTURE: 07/05/24 11:41 HPI General Date/Time Provider Initiated Documentation: 07/05/24 10:17 . HPI Narrative: MDM Primary survey intact. Reassuring shock index. On secondary survey patient has tenderness to her right proximal radius. Patient had nondisplaced right radial head fracture. She was neurovascularly intact distally. No pain out of proportion to suggest necrotizing soft tissue infection. No pulse deficit nor history of cervical rib to suggest thoracic outlet syndrome. No recent PICC lines nor IV drug use so my suspicion is low for upper extremity DVT. I was in touch with Dr. Dior from the orthopedic team who advised sling right upper extremity nonweightbearing and orthopedic follow-up in the setting of the patient's nondisplaced proximal right radial head fracture. Patient, her daughter and I discussed return indications including any numbness or tingling in her right hand. Her pain was well-controlled with acetaminophen and given her age want to avoid opiates and NSAIDs. Patient understood her return indications and was discharged with empiric trial of expectant outpatient management. HPI This is an 89-year-old fbraw-hlbu-xvulqzuy female arriving to the emergency department via private vehicle with her daughter in setting of right elbow pain. Patient was reportedly trying to lift up something heavy yesterday. She was not able to lift this object but stumbled and fell onto her right elbow. She did not strike her head. She did not lose consciousness. She is not anticoagulated. She has not been nauseous nor vomiting. She has had pain when trying to range her right arm. Exam General: Well-appearing in no acute distress speaking in complete sentences. Head: Normocephalic, atraumatic. Eye: Extraocular eye movements intact. No conjunctival injection. No scleral icterus. Ear, nose, mouth, throat: Grossly normal inspection. Normal voice, handling secretions normally. Neck: Trachea midline. Cardiovascular: Well-perfused distal extremities. Regular rate and rhythm Respiratory: Nonlabored respiration. Clear lungs bilaterally. Gastrointestinal: Nondistended abdomen. Musculoskeletal: Right upper extremity no signs of overt trauma. Full range of motion right shoulder. No right clavicular tenderness. No humerus tenderness. Right elbow tender over the lateral epicondyle. Patient has some pain when fully flexing her right elbow. She is able to fully extend her right elbow and fully pronate and supinate. Her right hand is warm well-perfused with 2+ radial pulse. Cap refill less than 2 seconds in the right fingertips. Patient has intact sensorimotor function in her right hand across the radial, median and ulnar nerve distributions. Skin: Normal for age and race, grossly normal temperature and turgor. No acute rash. Neurologic: Alert and appropriate, no apparent acute deficits. Psychiatric: Mood and manner are appropriate. Grooming and personal hygiene are appropriate. Related Data Home Medications ?Medication ?Instructions ?Recorded ?Confirmed cholecalciferol (vitamin D3) 25 1,000 unit PO DAILY 08/17/14 07/05/24 mcg (1,000 unit) capsule metoprolol tartrate 25 mg tablet 25 mg PO BID 08/17/14 07/05/24 rosuvastatin 20 mg tablet (Crestor) 20 mg PO DAILY 08/17/14 07/05/24 levothyroxine 25 mcg tablet 25 mcg PO DAILY 01/06/17 07/05/24 acetaminophen 325 mg tablet 650 mg (2 x 325 mg) PO Q6H PRN PRN 07/07/18 07/05/24 (Tylenol) #0 tabs amlodipine 5 mg tablet 5 mg PO HS 10/05/20 07/05/24 nitroglycerin 0.4 mg sublingual 0.4 mg sublingual Q8H PRN 07/09/21 07/05/24 tablet aspirin 81 mg tablet,delayed 81 mg PO DAILY 10/15/21 07/05/24 release duloxetine 30 mg capsule,delayed 30 mg PO DAILY 07/24/22 07/05/24 release cranberry fruit 450 mg tablet 450 mg PO BID 08/02/22 07/05/24 dkibgoxaxwj-thb-iguojscl-vit 2 cap PO .QD 04/07/23 07/05/24 C-Mn-hrb21 500 mg-333 mg-5 mg capsule urea 45 % topical gel (VINCENT-Urea) 1 applic topical BID #28 mL 04/07/23 07/05/24 vit C 250 mg-vit E 90 mg-zinc 40 1 tab PO BID PRN 04/07/23 07/05/24 mg-copper 1 vp-eobhlk-xrmsqe capsule (PreserVision AREDS-2) ketoconazole 2 % topical cream 1 applic topical DAILY fungal 01/28/24 07/05/24 toenails #15 grams Previous Rx's ?Medication ?Instructions ?Recorded acetaminophen 325 mg tablet 650 mg (2 x 325 mg) PO Q6H PRN PRN 07/07/18 (Tylenol) #0 tabs urea 45 % topical gel (VINCENT-Urea) 1 applic topical BID #28 mL 04/07/23 ketoconazole 2 % topical cream 1 applic topical DAILY fungal 01/28/24 toenails #15 grams Allergies Allergy/AdvReac Type Severity Reaction Status Date / Time latex Allergy Intermediate unknown Verified 07/05/24 10:18 Tetanus Vaccines and Toxoid AdvReac Mild Swelling/Ed Verified 06/16/24 13:25 kady influenza vaccine Allergy Intermediate arm itching Uncoded 06/16/24 13:25 General Stated Complaint: Orthopedic JACOB: 3 Course Vital Signs Vital signs: Vital Signs Temperature 36.6 C 07/05/24 09:44 Pulse 67 07/05/24 09:44 Respiratory Rate 14 07/05/24 09:44 Blood Pressure 123/51 L 07/05/24 09:44 Pulse Oximetry 98 07/05/24 09:44 Temperature 36.6 C 07/05/24 09:44 Temperature Source Oral 07/05/24 09:44 Pulse 67 07/05/24 09:44 Respiratory Rate 14 07/05/24 09:44 Blood Pressure 123/51 L 07/05/24 09:44 Blood Pressure Position Sitting 07/05/24 09:44 Pulse Oximetry 98 07/05/24 09:44 Oxygen Delivery Method Room Air 07/05/24 09:44 Oxygen Flow Rate 0 07/05/24 09:44 Pain Level 0 07/05/24 09:44 Medical Decision Making Quality:SDOH Health Related Social Needs: No Data to Display PFSH All Active Problems (Updated 07/05/24 @ 11:10 by Dawood Liu MD) Closed fracture of head of right radius (Acute) ASCVD (arteriosclerotic cardiovascular disease) (Acute) Cardiovascular disease (Acute) Wears hearing aid in both ears (Acute) Corns and callosities (Acute) Hammertoe, bilateral (Acute) PAD (peripheral artery disease) (Acute) Onychomycosis (Acute) Polyosteoarthritis (Acute) Edema (Acute) Nail dystrophy (Acute) HTN (hypertension) (Chronic) Hyperlipidemia (Acute) DVT prophylaxis (Acute) Hypothyroidism (Chronic) CAD (coronary artery disease) (Chronic) Left knee DJD (Chronic) Injection: 10/05/2020 Degenerative joint disease of right knee (Chronic) Injection: 10/05/2020 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 Erickson DOS: 07/03/2018 Sensorineural hearing loss of both ears (Acute) Conductive hearing loss, external ear (Acute) Impairment of speech discrimination (Acute) Medical History Pain, foot Skin cancer of nose Hx of skin cancer, basal cell Impacted cerumen, bilateral Polymyalgia Atherosclerotic heart disease of [place] coronary artery without angina pectoris Urge incontinence Asymptomatic menopausal state Heart attack pt. 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 Brother Heart disease Cancer Social History Smoking/Tobacco Use Status: Never Smoking risk assessment performed?: Yes Alcohol Intake: never Drug use: Never Substance use type: does not use Household members: spouse Housing: house current occupation: Retired What is your relationship status?: Panel score (0-1 are the most socially isolated patients): 1 Do you feel safe at home: Yes Do you feel safe in your relationship?: Yes
[2024-07-05 11:27] VITALS: BP 134/54; PULSE 53
[2024-07-05 11:41] VITALS: BP 134/54; PULSE 56; RESP 14; TEMP 36.7; O2SAT 98
== END 2024-07-05 11:41 | disposition home or self-care (01) ==
PROVIDERS: Emergency Provider Emergency Medicine; PCP Internal Medicine
DX: S52.121A Displaced fracture of head of right radius, initial encounter for closed fracture (principal); W19.XXXA Unspecified fall, initial encounter
CPT/HCPCS: 99283; 73080; 99284

== ENCOUNTER 2024-07-12 14:28 | Outpatient (CLI) | payer MEDICARE, OTHER, SELFPAY ==
--- NOTE | 2024-07-12 13:30 | DI.RAD_ITS ---
Exam(s) XR HIP LT AP LAT ONLY EXAM: XR HIP LT AP LAT ONLY CLINICAL HISTORY: eval left hip pain after fall. TECHNIQUE: 2D digital imaging was performed. COMPARISON: CR XR HIP RT COMPLETE AP PELVIS from 07/21/2023 FINDINGS: Two views There is stable position alignment of the left hip prosthesis. No fracture or loosening evident. Ap pearance is unchanged from 07/21/2023 IMPRESSION: Stable satisfactory appearance, unchanged from 07/21/2023 DATA REPOSITORY: RADIATION DOSE DELIVERED:
--- NOTE | 2024-07-12 13:30 | DI.RAD_ITS ---
Exam(s) XR ELBOW RT COMPLETE EXAM: XR ELBOW RT COMPLETE CLINICAL HISTORY: eval R radial head frx. TECHNIQUE: 2D digital imaging was performed. COMPARISON: CR XR ELBOW RT COMPLETE from 07/05/2024 FINDINGS: 3 views Again noted is a previously described radial head fracture with fracture line still visible and with mild depression, unchanged. No additional fractures evident. Joint effusion-hemarthrosis again noted. Findings at the level the medial epicondyle of the distal humerus again noted which may reflect chronic epicondylitis. Latera l epicondyle unremarkable. Again noted is some calcification at the level the triceps insertion on the posterior olecranon. IMPRESSION: Stable unchanged appearance of the radial head fracture site when compared to 07/05/2024. DATA REPOSITORY: RADIATION DOSE DELIVERED:
== END 2024-07-12 14:29 | disposition home or self-care (01) ==
LOC: DIORS 14:29
PROVIDERS: PCP Internal Medicine; Referring Provider Internal Medicine; Visit Provider Student in an Organized Health Care Education/Training Program
DX: S52.121A Displaced fracture of head of right radius, initial encounter for closed fracture; M94.252 Chondromalacia, left hip; W19.XXXA Unspecified fall, initial encounter
CPT/HCPCS: 99213; 73080; 73502

== ENCOUNTER → 2024-10-06 13:53 | Outpatient (BNVA) | payer MEDICARE, SELFPAY | PROVIDERS: PCP Internal Medicine; Referring Provider Internal Medicine; Visit Provider Podiatrist | DX: L60.3 Nail dystrophy (principal); B35.1 Tinea unguium; I73.89 Other specified peripheral vascular diseases; M20.41 Other hammer toe(s) (acquired), right foot; M20.42 Other hammer toe(s) (acquired), left foot; L84 Corns and callosities; L65.9 Nonscarring hair loss, unspecified; R23.8 Other skin changes; L60.8 Other nail disorders; L60.2 Onychogryphosis | CPT/HCPCS: 11721 ==

== ENCOUNTER → 2025-02-02 13:26 | Outpatient (BNVA) | payer MEDICARE, SELFPAY | PROVIDERS: PCP Internal Medicine; Referring Provider Internal Medicine; Visit Provider Podiatrist | DX: B35.1 Tinea unguium (principal); L60.3 Nail dystrophy; M20.41 Other hammer toe(s) (acquired), right foot; M20.42 Other hammer toe(s) (acquired), left foot; L84 Corns and callosities; I73.89 Other specified peripheral vascular diseases; R09.89 Other specified symptoms and signs involving the circulatory and respiratory systems; I83.93 Asymptomatic varicose veins of bilateral lower extremities; L65.9 Nonscarring hair loss, unspecified; R23.8 Other skin changes; L60.8 Other nail disorders; L60.2 Onychogryphosis | CPT/HCPCS: 11721 ==

== ENCOUNTER → 2025-06-13 09:27 | Outpatient (BNVA) | payer MEDICARE, SELFPAY | PROVIDERS: PCP Internal Medicine; Referring Provider Internal Medicine; Visit Provider Podiatrist | DX: L60.3 Nail dystrophy (principal); B35.1 Tinea unguium; I73.89 Other specified peripheral vascular diseases; M79.674 Pain in right toe(s); M79.675 Pain in left toe(s); R09.89 Other specified symptoms and signs involving the circulatory and respiratory systems; I83.93 Asymptomatic varicose veins of bilateral lower extremities; L65.9 Nonscarring hair loss, unspecified; R23.8 Other skin changes; L60.8 Other nail disorders; L60.2 Onychogryphosis; L84 Corns and callosities | CPT/HCPCS: 11721 ==